=== PATIENT | female | born 1955 | race Two or more races ===

== ENCOUNTER 2018-09-28 13:48 | Inpatient (IN) | payer MEDICARE, MEDICAID ==
[~2018-09-28] VITALS: Ht 162.6 cm; Wt 65.3 kg
[~2018-09-28 13:48] MED LIST: ASPIR 8181 MG ORAL; GABAPENTIN300 MG ORAL; METFORMIN HCL1000 M1 ORAL; NORVASC5 MG ORAL
--- NOTE | 2018-09-28 14:05 | NUR ---
ED Nurse Note: Patient walked into ED c/o of a cut in her right foot, patient states that it has been going on, patient's right foot towards the pinky area is currently infected, there are no open wounds however does have discoloration, patient states that she is unable to feel sensation in her foot due to her diabetes. patient is alert and oriented x4, ambulatory with a steady gait, VSS
[2018-09-28] MEDS ORDERED: Vancomycin 1 GM in NS 275 ML IVPB ONE (15:00)
[2018-09-28 15:22] LABS: ANION GAP 9 mmol/L (5-15); BLOOD UREA NITROGEN 19 mg/dL (7-18); CALCIUM 8.7 MG/DL (8.5-10.1); CARBON DIOXIDE 27 MMOL/L (21-32); CHLORIDE 103 MMOL/L (98-107); CREATININE 1.5 MG/DL (0.55-1.30); POTASSIUM 4.5 MMOL/L (3.5-5.1); SODIUM 139 MMOL/L (136-145)
[2018-09-28 15:26] LABS: BASOPHILS % (AUTO) 1.1 % (0.0-2.0); EOSINOPHILS % (AUTO) 0.5 % (0.0-3.0); HEMATOCRIT 34.8 % (37.0-47.0); HEMOGLOBIN 11.1 G/DL (12.0-16.0); LYMPHOCYTES % (AUTO) 10.8 % (20.0-45.0); MEAN CORPUSCULAR VOLUME 85 FL (80-99); MONOCYTES % (AUTO) 6.1 % (1.0-10.0); NEUTROPHILS % (AUTO) 81.6 % (45.0-75.0); PLATELET COUNT 248 K/UL (150-450); RED BLOOD COUNT 4.09 M/UL (4.20-5.40); WHITE BLOOD COUNT 16.7 K/UL (4.8-10.8)
[2018-09-28 15:32] LABS: ALANINE AMINOTRANSFERASE 21 U/L (12-78); ALBUMIN 3.5 G/DL (3.4-5.0); ALBUMIN/GLOBULIN RATIO 0.8 (1.0-2.7); ALKALINE PHOSPHATASE 74 U/L (46-116); ASPARTATE AMINO TRANSFERASE 18 U/L (15-37); BILIRUBIN,TOTAL 0.5 MG/DL (0.2-1.0)
--- NOTE | 2018-09-28 16:00 | Diagnostic Imaging Report ---
Indication: Infection of the first and fifth toes. With pain Comparison: None Findings: 3 views of the right foot were obtained. There is a focal cortical disruption along the lateral margin of the fifth middle phalange suspicious for acute osteomyelitis. No osteolytic defect identified involving the first toe. No periostitis or soft tissue gas seen. Small vessel arterial calcifications are noted. IMPRESSION: Suspicion of acute osteomyelitis of the fifth toe as described above
[2018-09-28 17:30] VITALS: BP 122/73
--- NOTE | 2018-09-28 17:30 | NUR ---
ED Nurse Note: Patient's temperature was 100.7, Dr. Baumann notified and aware
[2018-09-28 18:59] VITALS: BP 123/72
--- NOTE | 2018-09-28 19:24 | Emergency Room Report ---
History of Present Illness General Chief Complaint: Lower Extremity Injury Source: Patient Present Illness HPI Patient has history of diabetes. Patient presents emergency department today complaint right foot pain and swelling. Patient saw her primary care physician and was concerned about worsening cellulitis came here further medication. Patient does have skin breakdown on her right pinky toe. Symptoms is noted be severe. Patient placed painful ambulation. Denies any fever nausea vomiting diarrhea chills. No other complaint or noted present noted to be severe.No other modifying factors. No other associated signs and symptoms. No other complaints were noted. Allergies: Coded Allergies: No Known Allergies (Verified , 01/25/10) Patient History Past Medical History: DM, HTN, CAD Past Surgical History: none Pertinent Family History: none Social History: Denies: smoking, alcohol use, drug use Reviewed Nursing Documentation: PMH: Agreed; PSxH: Agreed Nursing Documentation-PMH Past Medical History: No History, Except For Hx Cardiac Problems: Yes Hx Hypertension: Yes Hx Diabetes: Yes Hx Cancer: No Hx Gastrointestinal Problems: No Hx Neurological Problems: Yes Hx Peripheral Neuropathy: Yes Review of Systems All Other Systems: negative except mentioned in HPI Physical Exam Vital Signs Date Time Temp Pulse Resp B/P (MAP) Pulse Ox O2 Delivery O2 Flow Rate FiO2 09/28/18 14:02 99.5 101 20 163/70 99 Room Air Sp02 EP Interpretation: reviewed, normal General Appearance: normal inspection, well appearing, no apparent distress, alert Head: atraumatic Eyes: bilateral eye normal inspection ENT: normal ENT inspection, hearing grossly normal, normal voice Neck: normal inspection, full range of motion, supple, no bony tend Respiratory: normal inspection, lungs clear, normal breath sounds, no respiratory distress, no retraction, no wheezing Cardiovascular #1: regular rate, rhythm, no edema Gastrointestinal: normal inspection, normal bowel sounds, non tender, soft, no guarding, no hernia Genitourinary: no CVA tenderness Musculoskeletal: normal inspection, back normal, normal range of motion Neurologic: normal inspection, alert, responsive, speech normal Psychiatric: normal inspection, judgement/insight normal, mood/affect normal Skin: other - right foot redness, cellulitis Medical Decision Making Diagnostic Impression: Primary Impression: Cellulitis ER Course Patient presents emergency department today complaining of redness in her right foot. Differential considerations include abscess, cellulitis, necrotizing fasciitis just name a few. Patient's exam consistent with cellulitis. Given patient is diabetic but work was obtained showing white blood cell count. Patient was started on vancomycin. Case was discussed with admitting physician. Patient be admitted for further treatment. Labs Test 09/28/18 15:00 White Blood Count 16.7 K/UL (4.8-10.8) Red Blood Count 4.09 M/UL (4.20-5.40) Hemoglobin 11.1 G/DL (12.0-16.0) Hematocrit 34.8 % (37.0-47.0) Mean Corpuscular Volume 85 FL (80-99) Mean Corpuscular Hemoglobin 27.2 PG (27.0-31.0) Mean Corpuscular Hemoglobin Concent 32.0 G/DL (32.0-36.0) Red Cell Distribution Width 12.0 % (11.6-14.8) Platelet Count 248 K/UL (150-450) Mean Platelet Volume 6.6 FL (6.5-10.1) Neutrophils (%) (Auto) 81.6 % (45.0-75.0) Lymphocytes (%) (Auto) 10.8 % (20.0-45.0) Monocytes (%) (Auto) 6.1 % (1.0-10.0) Eosinophils (%) (Auto) 0.5 % (0.0-3.0) Basophils (%) (Auto) 1.1 % (0.0-2.0) Prothrombin Time 10.8 SEC (9.30-11.50) Prothromb Time International Ratio 1.0 (0.9-1.1) Activated Partial Thromboplast Time 31 SEC (23-33) Sodium Level 139 MMOL/L (136-145) Potassium Level 4.5 MMOL/L (3.5-5.1) Chloride Level 103 MMOL/L (98-107) Carbon Dioxide Level 27 MMOL/L (21-32) Anion Gap 9 mmol/L (5-15) Blood Urea Nitrogen 19 mg/dL (7-18) Creatinine 1.5 MG/DL (0.55-1.30) Estimat Glomerular Filtration Rate 34.9 mL/min (>60) Glucose Level 163 MG/DL (74-106) Calcium Level 8.7 MG/DL (8.5-10.1) Total Bilirubin 0.5 MG/DL (0.2-1.0) Aspartate Amino Transf (AST/SGOT) 18 U/L (15-37) Alanine Aminotransferase (ALT/SGPT) 21 U/L (12-78) Alkaline Phosphatase 74 U/L (46-116) Total Protein 7.8 G/DL (6.4-8.2) Albumin 3.5 G/DL (3.4-5.0) Globulin 4.3 g/dL Albumin/Globulin Ratio 0.8 (1.0-2.7) Last Vital Signs Date Time Temp Pulse Resp B/P (MAP) Pulse Ox O2 Delivery O2 Flow Rate FiO2 09/28/18 18:59 99.0 76 20 123/72 99 Room Air Status: improved Disposition: ADMITTED INPATIENT Condition: Serious Referrals: NON PHYSICIAN (PCP) Jose D Baumann MD Sep 28, 2018 19:24
[2018-09-28] MEDS ORDERED: Piperacillin/Tazobactam 3.375 GM in NS 110 ML IVPB ONE (19:30)
[2018-09-28] MEDS ORDERED: Vancomycin 1250mg/D5W 275ml IVPB ONE (20:00)
[2018-09-28] MEDS: NovoLOG Insulin Flexpen SUBQ SCH (21:00)
[2018-09-28 21:09] VITALS: BP 122/85
--- NOTE | 2018-09-28 22:00 | NUR ---
ED Nurse Note: Report given to VADIM Ortiz
[2018-09-28 22:15] VITALS: BP 137/58
--- NOTE | 2018-09-28 22:15 | NUR ---
NURSE NOTES: Received pt. from ED via olamide. Pt. transferred to bed without any incident. Oriented pt. to unit, room, and hospital policies. Daughter is at bedside. Received report from VADIM Banegas. gambling monitor is in placed, IV site intact, asymptomatic, and patent. Bed is in the lowest position and locked, call light within reach. Belongings list checked and accounted. No acute distress noted at this time. Admission orders received. Will carry out.
[2018-09-28] MEDS: Heparin 5000 units/ml inj SUBQ SCH (23:16)
[2018-09-29] VITALS: BP 121/60
[2018-09-29 04:00] VITALS: BP 128/57
[2018-09-29] MEDS: NovoLOG Insulin Flexpen SUBQ SCH ×4 (06:23→21:00)
--- NOTE | 2018-09-29 07:41 | NUR ---
HAND-OFF: Report given to VADIM Bah.
--- NOTE | 2018-09-29 07:46 | NUR ---
NURSE NOTES: Received report from VADIM Amador. Patient in bed resting, AO x4, Patient on RA no active s/s cardiac, SR with HR 83, respiratory distress noticed at this time. Denies pain at this time. IV site asymptomatic, patent, intact. Bed in lowest position, side rails up x2, cane at the bed side, call light within reach. Will continue to monitor.
[2018-09-29 08:00] VITALS: BP 137/62
[2018-09-29 08:24] LABS: BASOPHILS % (AUTO) 0.9 % (0.0-2.0); EOSINOPHILS % (AUTO) 1.4 % (0.0-3.0); HEMATOCRIT 28.3 % (37.0-47.0); HEMOGLOBIN 9.1 G/DL (12.0-16.0); LYMPHOCYTES % (AUTO) 17.3 % (20.0-45.0); MEAN CORPUSCULAR VOLUME 84 FL (80-99); MONOCYTES % (AUTO) 5.9 % (1.0-10.0); NEUTROPHILS % (AUTO) 74.5 % (45.0-75.0); PLATELET COUNT 170 K/UL (150-450); RED BLOOD COUNT 3.36 M/UL (4.20-5.40); RED CELL DISTRIBUTION WIDTH 11.7 % (11.6-14.8); WHITE BLOOD COUNT 10.7 K/UL (4.8-10.8)
[2018-09-29 08:42] LABS: ANION GAP 9 mmol/L (5-15); BLOOD UREA NITROGEN 15 mg/dL (7-18); CALCIUM 8.4 MG/DL (8.5-10.1); CARBON DIOXIDE 25 MMOL/L (21-32); CHLORIDE 107 MMOL/L (98-107); CREATININE 1.1 MG/DL (0.55-1.30); POTASSIUM 3.9 MMOL/L (3.5-5.1); SODIUM 141 MMOL/L (136-145)
--- NOTE | 2018-09-29 09:00 | NUR ---
NURSE NOTES: Dr. Ambrosio made aware patient refused to get NovoLog for high BS because patient getting dizziness after administration of NovoLog. Patient's daughter brought bottles of home medication; glipizide and metformin. Per Dr. Ambrosio okay to give glipizide 5 mg BID. Order noted, entered, carried out. Will continue to monitor.
[2018-09-29] MEDS: Aspirin EC 81mg tab ORAL SCH (09:30)
--- NOTE | 2018-09-29 09:30 | NUR ---
NURSE NOTES: Per Dr. Ambrosio, wound consult with Dr. Alonzo. Order noted, entered, carried out. Will continue to monitor.
[2018-09-29] MEDS: Heparin 5000 units/ml inj SUBQ SCH ×2 (09:32→21:34)
--- NOTE | 2018-09-29 09:49 | History and Physical ---
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 She does not feel pain due to chronic numbness from neuropathy. She also reports subjective fever and chills. Temp 100.7. In ED she was treated with vanco and Zosyn and referred for admission. Social history: no alcohol or tobacco Family history: no premature CAD Allergies: Coded Allergies: No Known Allergies (Verified , 01/25/10) Medication History Scheduled Amlodipine Besylate (Norvasc), 5 MG ORAL DAILY, (Reported) Aspirin* (Aspir 81*), 81 MG ORAL DAILY, (Reported) Gabapentin* (Gabapentin*), 300 MG ORAL THREE TIMES A DAY, (Reported) Metformin Hcl* (Metformin Hcl*), 1,000 MG ORAL BID, (Reported) Patient History Healthcare decision maker Resuscitation status Full Code Advanced Directive on File Review of Systems Constitutional: Reports: chills, fever Eye: Denies: eye pain ENT: Denies: ear pain Respiratory: Denies: cough, shortness of breath Cardiovascular: Denies: chest pain, palpitations Gastrointestinal: Denies: abdominal pain, diarrhea Genitourinary: Denies: discharge, dysuria, frequency Musculoskeletal: Denies: back pain Skin: Denies: rash Neurological: Denies: headache Endocrine: Denies: excessive sweating Physical Exam General Appearance: no apparent distress, alert HEENT: normocephalic, atraumatic Neck: non-tender, normal alignment, supple Respiratory/Chest: chest wall non-tender, lungs clear Cardiovascular/Chest: normal peripheral pulses, normal rate Abdomen: normal bowel sounds, non tender Extremities: normal range of motion, non-tender, other - Edema of the right foot with lateral erythema and ulceration 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 grossly normal, no motor/sensory deficits, alert, oriented x 3 Last 24 Hour Vital Signs Date Time Temp Pulse Resp B/P (MAP) Pulse Ox O2 Delivery O2 Flow Rate FiO2 09/29/18 09:31 81 137/62 09/29/18 04:00 83 09/29/18 04:00 98.4 81 19 128/57 (80) 97 09/29/18 00:00 91 09/29/18 00:00 98.4 92 18 121/60 (80) 98 09/28/18 23:24 Room Air 09/28/18 22:40 84 09/28/18 22:15 99.3 89 16 137/58 (84) 98 09/28/18 22:00 98.4 75 18 122/85 97 Room Air 09/28/18 21:09 98.4 75 18 122/85 97 Room Air 09/28/18 18:59 99.0 76 20 123/72 99 Room Air 09/28/18 18:03 99.0 09/28/18 17:30 100.7 72 20 122/73 99 Room Air 09/28/18 14:02 99.5 101 20 163/70 99 Room Air Laboratory Tests Test 09/28/18 15:00 09/28/18 18:52 09/28/18 21:08 09/29/18 07:17 White Blood Count 16.7 K/UL (4.8-10.8) H 10.7 K/UL (4.8-10.8) Red Blood Count 4.09 M/UL (4.20-5.40) L 3.36 M/UL (4.20-5.40) L Hemoglobin 11.1 G/DL (12.0-16.0) L 9.1 G/DL (12.0-16.0) L Hematocrit 34.8 % (37.0-47.0) L 28.3 % (37.0-47.0) L Mean Corpuscular Volume 85 FL (80-99) 84 FL (80-99) Mean Corpuscular Hemoglobin 27.2 PG (27.0-31.0) 27.2 PG (27.0-31.0) Mean Corpuscular Hemoglobin Concent 32.0 G/DL (32.0-36.0) 32.2 G/DL (32.0-36.0) Red Cell Distribution Width 12.0 % (11.6-14.8) 11.7 % (11.6-14.8) Platelet Count 248 K/UL (150-450) 170 K/UL (150-450) Mean Platelet Volume 6.6 FL (6.5-10.1) 6.8 FL (6.5-10.1) Neutrophils (%) (Auto) 81.6 % (45.0-75.0) H 74.5 % (45.0-75.0) Lymphocytes (%) (Auto) 10.8 % (20.0-45.0) L 17.3 % (20.0-45.0) L Monocytes (%) (Auto) 6.1 % (1.0-10.0) 5.9 % (1.0-10.0) Eosinophils (%) (Auto) 0.5 % (0.0-3.0) 1.4 % (0.0-3.0) Basophils (%) (Auto) 1.1 % (0.0-2.0) 0.9 % (0.0-2.0) Prothrombin Time 10.8 SEC (9.30-11.50) Prothromb Time International Ratio 1.0 (0.9-1.1) Activated Partial Thromboplast Time 31 SEC (23-33) Sodium Level 139 MMOL/L (136-145) 141 MMOL/L (136-145) Potassium Level 4.5 MMOL/L (3.5-5.1) 3.9 MMOL/L (3.5-5.1) Chloride Level 103 MMOL/L (98-107) 107 MMOL/L (98-107) Carbon Dioxide Level 27 MMOL/L (21-32) 25 MMOL/L (21-32) Anion Gap 9 mmol/L (5-15) 9 mmol/L (5-15) Blood Urea Nitrogen 19 mg/dL (7-18) H 15 mg/dL (7-18) Creatinine 1.5 MG/DL (0.55-1.30) H 1.1 MG/DL (0.55-1.30) Estimat Glomerular Filtration Rate 34.9 mL/min (>60) 49.9 mL/min (>60) Glucose Level 163 MG/DL (74-106) H 94 MG/DL (74-106) Calcium Level 8.7 MG/DL (8.5-10.1) 8.4 MG/DL (8.5-10.1) L Total Bilirubin 0.5 MG/DL (0.2-1.0) Aspartate Amino Transf (AST/SGOT) 18 U/L (15-37) Alanine Aminotransferase (ALT/SGPT) 21 U/L (12-78) Alkaline Phosphatase 74 U/L (46-116) Total Protein 7.8 G/DL (6.4-8.2) Albumin 3.5 G/DL (3.4-5.0) Globulin 4.3 g/dL Albumin/Globulin Ratio 0.8 (1.0-2.7) L Lactic Acid Level 2.50 mmol/L (0.4-2.0) H 2.40 mmol/L (0.66-2.22) H Height (Feet): 5 Height (Inches): 4.00 Weight (Pounds): 135 Medications Current Medications Medications (Trade) Dose Ordered Sig/Daisha Route PRN Reason Start Time Stop Time Status Last Admin Dose Admin Acetaminophen (Tylenol) 650 mg Q6H PRN ORAL Mild Pain/Temp > 100.5 09/28/18 18:45 10/28/18 18:44 Amlodipine Besylate (Norvasc) 5 mg DAILY ORAL 09/29/18 09:00 10/29/18 08:59 09/29/18 09:31 Aspirin (Ecotrin) 81 mg DAILY ORAL 09/29/18 09:00 10/29/18 08:59 09/29/18 09:30 Dextrose (Dextrose 50%) 25 ml Q30M PRN IV Hypoglycemia 09/28/18 18:45 10/28/18 18:44 Dextrose (Dextrose 50%) 50 ml Q30M PRN IV Hypoglycemia 09/28/18 18:45 10/28/18 18:44 Gabapentin (Neurontin) 300 mg Q8HR ORAL 09/28/18 22:00 10/28/18 21:59 09/29/18 05:49 Heparin Sodium (Porcine) (Heparin 5000 units/ml) 5,000 units EVERY 12 HOURS SUBQ 09/28/18 21:00 10/28/18 20:59 09/29/18 09:32 Insulin Aspart (NovoLOG) BEFORE MEALS AND HS SUBQ 09/28/18 21:00 10/28/18 20:59 Vancomycin HCl (Vanco rx to dose) 1 ea DAILY PRN MISC Per rx protocol 09/28/18 18:45 10/28/18 18:44 Vancomycin HCl 750 mg/Sodium Chloride 275 ml @ 183.333 mls/hr Q24H IVPB 09/29/18 20:00 10/04/18 19:59 Assessment/Plan Assessment/Plan #Right foot cellulitis #Fever 100.7 -admit to medical service -start vancomycin and Zosyn -wound care eval -ID eval #Type 2 DM complicated by peripheral neuropathy -hold metformin while inpatient -continue glipizide -ISS VTE PPx heparin SC Full Code I spent 70 minutes on this patient's case, and 40 minutes was dedicated to counseling and/or care coordination. Mina Ward MD Sep 29, 2018 09:49
[2018-09-29 12:00] VITALS: BP 127/69
[2018-09-29] MEDS: GlipiZIDE 5mg tab ORAL SCH ×2 (12:12→17:35)
[2018-09-29] MEDS: Piperacillin/Tazobactam 3.375 GM in D5W 110 ML IVPB SCH ×2 (12:12→18:20)
[2018-09-29 16:00] VITALS: BP 151/80
--- NOTE | 2018-09-29 19:37 | NUR ---
NURSE NOTES: Received report from VADIM Bah. Patient in bed awake aox4 with no signs of acute distress. Respiration even and non labored on room air. IV line patent and intact. Vitals stable. Call light within reach. Bed in lowest position. Will continue plan of care.
--- NOTE | 2018-09-29 19:38 | NUR ---
HAND-OFF: Report given to VADIM Diaz.
--- NOTE | 2018-09-29 19:46 | Infectious Diseases Prog Note ---
Assessment/Plan Assessment/Plan Full consult dictated: A) 1) right foot cellulitis, right foot 5th toe osteomyelitis/wound infection/ ulcer infection 2) sepsis, leukocytosis, fevers 3) pmh noted P) 1) vancomycin and zosyn 2) check labs, sed rate, arterial studies 3) consider podiatry evaluation 4) ? MRI needed in view of + x-ray for osteomyelitis - defer to podiatry 5) thank you Subjective Allergies: Coded Allergies: No Known Allergies (Verified , 01/25/10) Objective Vital Signs Last 24 Hour Vital Signs Date Time Temp Pulse Resp B/P (MAP) Pulse Ox O2 Delivery O2 Flow Rate FiO2 09/29/18 16:00 85 09/29/18 16:00 100.0 91 20 151/80 (103) 99 09/29/18 12:00 74 09/29/18 12:00 99.5 79 21 127/69 (88) 98 09/29/18 09:31 81 137/62 09/29/18 09:00 Room Air 09/29/18 08:00 98.2 81 19 137/62 (87) 97 09/29/18 08:00 97 09/29/18 04:00 83 09/29/18 04:00 98.4 81 19 128/57 (80) 97 09/29/18 00:00 91 09/29/18 00:00 98.4 92 18 121/60 (80) 98 09/28/18 23:24 Room Air 09/28/18 22:40 84 09/28/18 22:15 99.3 89 16 137/58 (84) 98 09/28/18 22:00 98.4 75 18 122/85 97 Room Air 09/28/18 21:09 98.4 75 18 122/85 97 Room Air Height (Feet): 5 Height (Inches): 4.00 Weight (Pounds): 135 Laboratory Tests Test 09/28/18 21:08 09/29/18 07:17 Lactic Acid Level 2.40 mmol/L (0.66-2.22) H White Blood Count 10.7 K/UL (4.8-10.8) Red Blood Count 3.36 M/UL (4.20-5.40) L Hemoglobin 9.1 G/DL (12.0-16.0) L Hematocrit 28.3 % (37.0-47.0) L Mean Corpuscular Volume 84 FL (80-99) Mean Corpuscular Hemoglobin 27.2 PG (27.0-31.0) Mean Corpuscular Hemoglobin Concent 32.2 G/DL (32.0-36.0) Red Cell Distribution Width 11.7 % (11.6-14.8) Platelet Count 170 K/UL (150-450) Mean Platelet Volume 6.8 FL (6.5-10.1) Neutrophils (%) (Auto) 74.5 % (45.0-75.0) Lymphocytes (%) (Auto) 17.3 % (20.0-45.0) L Monocytes (%) (Auto) 5.9 % (1.0-10.0) Eosinophils (%) (Auto) 1.4 % (0.0-3.0) Basophils (%) (Auto) 0.9 % (0.0-2.0) Sodium Level 141 MMOL/L (136-145) Potassium Level 3.9 MMOL/L (3.5-5.1) Chloride Level 107 MMOL/L (98-107) Carbon Dioxide Level 25 MMOL/L (21-32) Anion Gap 9 mmol/L (5-15) Blood Urea Nitrogen 15 mg/dL (7-18) Creatinine 1.1 MG/DL (0.55-1.30) Estimat Glomerular Filtration Rate 49.9 mL/min (>60) Glucose Level 94 MG/DL (74-106) Calcium Level 8.4 MG/DL (8.5-10.1) L Current Medications Medications (Trade) Dose Ordered Sig/Daisha Route PRN Reason Start Time Stop Time Status Last Admin Dose Admin Acetaminophen (Tylenol) 650 mg Q6H PRN ORAL Mild Pain/Temp > 100.5 09/28/18 18:45 10/28/18 18:44 Amlodipine Besylate (Norvasc) 5 mg DAILY ORAL 09/29/18 09:00 10/29/18 08:59 09/29/18 09:31 Aspirin (Ecotrin) 81 mg DAILY ORAL 09/29/18 09:00 10/29/18 08:59 09/29/18 09:30 Dextrose (Dextrose 50%) 25 ml Q30M PRN IV Hypoglycemia 09/28/18 18:45 10/28/18 18:44 Dextrose (Dextrose 50%) 50 ml Q30M PRN IV Hypoglycemia 09/28/18 18:45 10/28/18 18:44 Gabapentin (Neurontin) 300 mg Q8HR ORAL 09/28/18 22:00 10/28/18 21:59 09/29/18 15:38 Glipizide (Glucotrol) 5 mg BID ORAL 09/29/18 10:45 10/29/18 10:44 09/29/18 17:35 Heparin Sodium (Porcine) (Heparin 5000 units/ml) 5,000 units EVERY 12 HOURS SUBQ 09/28/18 21:00 10/28/18 20:59 09/29/18 09:32 Insulin Aspart (NovoLOG) BEFORE MEALS AND HS SUBQ 09/28/18 21:00 10/28/18 20:59 Piperacillin Sod/ Tazobactam Sod 3.375 gm/Dextrose 110 ml @ 27.5 mls/hr Q8H IVPB 09/29/18 11:00 10/06/18 10:59 09/29/18 18:20 Vancomycin HCl (Vanco rx to dose) 1 ea DAILY PRN MISC Per rx protocol 09/28/18 18:45 10/28/18 18:44 Vancomycin HCl 750 mg/Sodium Chloride 275 ml @ 183.333 mls/hr Q24H IVPB 09/29/18 20:00 10/04/18 19:59 Francisco Piper MD Sep 29, 2018 19:46
[2018-09-29 20:00] VITALS: BP 171/84
[2018-09-29] MEDS ORDERED: Vancomycin 750mg/NS 275ml IVPB SCH ×2 (20:00)
--- NOTE | 2018-09-29 22:40 | Consultation ---
History of Present Illness General Date patient seen: Sep 29, 2018 Chief Complaint: Lower Extremity Injury Reason for Consultation: right foot cellulitis Present Illness HPI 63 year old female with history of uncontrolled diabetes and chronic peripheral neuropathy presented with acutely worsening pain and swelling of right foot/ lower extremity. as pain worsened difficulty walking. Came to ED for evaluation when noted to have right foot cellulitis with etiology possibly 5th necrotic toe. Surgery called to evaluate for cellulitis and possible abscess. Patient seen, chart reviewed, patient examined. Allergies: Coded Allergies: No Known Allergies (Verified , 01/25/10) Medication History Scheduled Amlodipine Besylate (Norvasc), 5 MG ORAL DAILY, (Reported) Aspirin* (Aspir 81*), 81 MG ORAL DAILY, (Reported) Gabapentin* (Gabapentin*), 300 MG ORAL THREE TIMES A DAY, (Reported) Metformin Hcl* (Metformin Hcl*), 1,000 MG ORAL BID, (Reported) Patient History History Provided By: Patient, Medical Record, PMD Healthcare decision maker Resuscitation status Full Code Advanced Directive on File Past Medical/Surgical History Past Medical/Surgical History: (1) Chest pain (2) Uncontrolled diabetes mellitus (3) Foot infection (4) Cellulitis Review of Systems All Other Systems: negative except mentioned in HPI Physical Exam General Appearance: no apparent distress, alert Lines, tubes and drains: peripheral HEENT: mucous membranes moist Neck: normal inspection Respiratory/Chest: no respiratory distress Cardiovascular/Chest: normal rate Abdomen: soft, no organomegaly, no mass Extremities: inflammation, other Skin Exam: normal pigmentation Neurologic: alert, responsive Last 24 Hour Vital Signs Date Time Temp Pulse Resp B/P (MAP) Pulse Ox O2 Delivery O2 Flow Rate FiO2 09/29/18 16:00 85 09/29/18 16:00 100.0 91 20 151/80 (103) 99 09/29/18 12:00 74 09/29/18 12:00 99.5 79 21 127/69 (88) 98 09/29/18 09:31 81 137/62 09/29/18 09:00 Room Air 09/29/18 08:00 98.2 81 19 137/62 (87) 97 09/29/18 08:00 97 09/29/18 04:00 83 09/29/18 04:00 98.4 81 19 128/57 (80) 97 09/29/18 00:00 91 09/29/18 00:00 98.4 92 18 121/60 (80) 98 09/28/18 23:24 Room Air 09/28/18 22:40 84 Intake and Output 09/28/18 09/29/18 18:59 06:59 # Voids 1 2 # Bowel Movements 1 Laboratory Tests Test 09/29/18 07:17 White Blood Count 10.7 K/UL (4.8-10.8) Red Blood Count 3.36 M/UL (4.20-5.40) L Hemoglobin 9.1 G/DL (12.0-16.0) L Hematocrit 28.3 % (37.0-47.0) L Mean Corpuscular Volume 84 FL (80-99) Mean Corpuscular Hemoglobin 27.2 PG (27.0-31.0) Mean Corpuscular Hemoglobin Concent 32.2 G/DL (32.0-36.0) Red Cell Distribution Width 11.7 % (11.6-14.8) Platelet Count 170 K/UL (150-450) Mean Platelet Volume 6.8 FL (6.5-10.1) Neutrophils (%) (Auto) 74.5 % (45.0-75.0) Lymphocytes (%) (Auto) 17.3 % (20.0-45.0) L Monocytes (%) (Auto) 5.9 % (1.0-10.0) Eosinophils (%) (Auto) 1.4 % (0.0-3.0) Basophils (%) (Auto) 0.9 % (0.0-2.0) Sodium Level 141 MMOL/L (136-145) Potassium Level 3.9 MMOL/L (3.5-5.1) Chloride Level 107 MMOL/L (98-107) Carbon Dioxide Level 25 MMOL/L (21-32) Anion Gap 9 mmol/L (5-15) Blood Urea Nitrogen 15 mg/dL (7-18) Creatinine 1.1 MG/DL (0.55-1.30) Estimat Glomerular Filtration Rate 49.9 mL/min (>60) Glucose Level 94 MG/DL (74-106) Calcium Level 8.4 MG/DL (8.5-10.1) L Height (Feet): 5 Height (Inches): 4.00 Weight (Pounds): 135 Medications Current Medications Medications (Trade) Dose Ordered Sig/Daisha Route PRN Reason Start Time Stop Time Status Last Admin Dose Admin Acetaminophen (Tylenol) 650 mg Q6H PRN ORAL Mild Pain/Temp > 100.5 09/28/18 18:45 10/28/18 18:44 Amlodipine Besylate (Norvasc) 5 mg DAILY ORAL 09/29/18 09:00 10/29/18 08:59 09/29/18 09:31 Aspirin (Ecotrin) 81 mg DAILY ORAL 09/29/18 09:00 10/29/18 08:59 09/29/18 09:30 Dextrose (Dextrose 50%) 25 ml Q30M PRN IV Hypoglycemia 09/28/18 18:45 10/28/18 18:44 Dextrose (Dextrose 50%) 50 ml Q30M PRN IV Hypoglycemia 09/28/18 18:45 10/28/18 18:44 Gabapentin (Neurontin) 300 mg Q8HR ORAL 09/28/18 22:00 10/28/18 21:59 09/29/18 21:31 Glipizide (Glucotrol) 5 mg BID ORAL 09/29/18 10:45 10/29/18 10:44 09/29/18 17:35 Heparin Sodium (Porcine) (Heparin 5000 units/ml) 5,000 units EVERY 12 HOURS SUBQ 09/28/18 21:00 10/28/18 20:59 09/29/18 21:34 Insulin Aspart (NovoLOG) BEFORE MEALS AND HS SUBQ 09/28/18 21:00 10/28/18 20:59 Piperacillin Sod/ Tazobactam Sod 3.375 gm/Dextrose 110 ml @ 27.5 mls/hr Q8H IVPB 09/29/18 11:00 10/06/18 10:59 09/29/18 18:20 Vancomycin HCl (Vanco rx to dose) 1 ea DAILY PRN MISC Per rx protocol 09/28/18 18:45 10/28/18 18:44 Vancomycin HCl 750 mg/Sodium Chloride 275 ml @ 183.333 mls/hr Q24H IVPB 09/29/18 20:00 10/04/18 19:59 09/29/18 21:31 Assessment/Plan Problem List: (1) Cellulitis Assessment & Plan: right foot cellulitis, sepsis, fevers, leukocytosis Plain film with likely acute osteo no abscess noted on exam earlier today but tender, warm, erythema, and ischemia to 5th toe no acute general surgery intervention planned at this time Cont IV abx as per ID Recommend Podiatry consult. likely MRI and possible toe amputation if deemed not salvageable. thank you will follow with recs. ICD Codes: L03.90 - Cellulitis, unspecified SNOMED: [id number] Qualifiers: Qualified Codes: L03.115 - Cellulitis of right lower limb Nathaniel Alonzo Sep 29, 2018 22:40
[2018-09-30] VITALS: BP 122/62
--- NOTE | 2018-09-30 01:45 | Consultation ---
DATE OF CONSULTATION: 09/29/2018 INFECTIOUS DISEASES CONSULTATION CONSULTING PHYSICIAN: Francisco Piper M.D. ATTENDING PHYSICIAN: Kami Fatima M.D. REFERRING PHYSICIAN: Kami Fatima M.D. REASON FOR CONSULTATION: Right foot cellulitis and right foot fifth toe infected wound and osteo, infected ulcer, possible sepsis, leukocytosis, and fevers. CHIEF COMPLAINT: The patient's chief complaint coming in to the hospital is foot infection of the right foot. HISTORY OF PRESENT ILLNESS: This is a very pleasant 63-year-old female who has a history of diabetes. The patient noted over the past week a right foot cellulitis, redness, and warmth. The patient also has on the side of her right foot fifth toe a wound. X-ray showed osteo of the right foot fifth toe. The patient also could be septic with elevated white count. Infectious Disease consultation was requested for antibiotic management. The patient currently is on vancomycin and Zosyn. Arterial studies have been ordered. Also, it looks like there could be some ischemic changes of the right foot fifth toe. The patient is okay on vancomycin and Zosyn for now. MAR was noted. Orders were noted. Records were reviewed. REVIEW OF SYSTEMS: CONSTITUTIONAL: The patient has generalized fatigue, but no new focal weakness. She has fevers. No shaking chills currently. HEAD AND NECK: No head pain, neck pain, neck stiffness, thrush, or dysphagia. CARDIAC: No chest pain or palpitations. GASTROINTESTINAL: No nausea, vomiting, abdominal pain, or diarrhea. GENITOURINARY: No dysuria or frequency. PULMONARY: No congestion or hemoptysis with mild secretions. SKIN: No rash. EXTREMITIES: She has right foot pain. NEUROLOGIC: No seizures. No weight loss or night sweats. GENITOURINARY: She has no CVA tenderness. PAST MEDICAL HISTORY: The patient's past medical history includes history of following. She has a history of anemia, looks like also at this time. She has a history of diabetes, hypertension, and CAD. She has a history of neurological issues and neuropathy. ALLERGIES: No known drug allergies. No antibiotic allergies. SOCIAL HISTORY: Negative for smoking, alcohol, or drug abuse. FAMILY HISTORY: Noncontributory. Negative for tuberculosis or cancer. MEDICATIONS: On reviewing the MAR, she is on the following medications. She is on glipizide, amlodipine, aspirin, gabapentin, heparin, insulin, acetaminophen, and antibiotics of vancomycin and Zosyn. Outside medications are noted and reconciliated. PHYSICAL EXAMINATION: VITAL SIGNS: Temperature is 100.0, pulse rate 91, respiratory rate 20, blood pressure 151/80, and saturation 99%. Temperature as high as 100.7 and heart rate has been as high as 101. GENERAL: Alert and responsive, in no acute distress. She is oriented x3. HEAD AND NECK: Oral exam, no thrush. Eye exam, no icterus. Neck is supple. No JVD. Normocephalic. HEART: Regular. No gallop or murmur. No friction rub. ABDOMEN: Soft. Positive bowel sounds and nontender. LUNGS: Clear bilaterally. No rhonchi or rales. SKIN: No rash. MUSCULOSKELETAL: No effusion. Legs have cellulitis. No evidence of septic arthritis. Right foot exam, she has right foot redness and warmth consistent with significant cellulitis. She also has a right foot fifth toe ischemic changes and she had right up ulcer on the side of the right foot fifth toe. LINES: Line sites without phlebitis. GENITOURINARY: No Rangel. No CVA tenderness. NEUROLOGIC: She is alert and oriented x3. Intact. LABORATORY DATA: White count 10.7 and hemoglobin 9.1. White count has been as high as 16.7 on admission. Creatinine on admission 1.5, now it is 1.1. LFTs were noted. UA and C and S has been ordered. X-ray of her right foot shows acute right foot fifth toe osteo. Cultures are pending. ASSESSMENT AND PLAN: 1. The patient has right foot cellulitis with warmth and redness and she has acute right foot fifth toe osteomyelitis/infected wound and ulcer that is dried up at this time. She has sepsis, leukocytosis, fevers, and SIRS criteria with tachycardia. I will continue vancomycin and Zosyn for MRSA gram-negative coverage. Vancomycin will cover MRSA and Zosyn has very excellent gram-negative anaerobic coverage. There is no culture from the right foot fifth toe wound, it is dried up at this time. I will also get arterial studies. This looks like there are some ischemic changes in the right foot fifth toe. Check sedimentation rate and labs. I would also consider Podiatry evaluation and the patient may need an MRI in addition to vascular studies, which I have ordered. The patient's x-ray shows right foot fifth toe osteo. It is unclear if an MRI would help at this time, however, the Podiatry feels it needs further imaging. I will defer to them to get MRI of the right foot. Continue vancomycin and Zosyn. Check cultures, labs, and chest x-ray. Monitor the patient's right foot for cellulitis, warmth, and redness and the patient may need 6 weeks of antibiotics for the right foot fifth toe osteo, wound infection, and ulcer infection. 2. Sepsis, fevers, and leukocytosis. Continue vancomycin and Zosyn. Check cultures. 3. Diabetes. 4. Anemia. 5. Hypertension. 6. Blood sugar and blood pressure treatment for diabetes and hypertension per primary. 7. Acute kidney injury, elevated creatinine, it has improved. 8. History of CAD. 9. Neuropathy. 10. Past medical history noted. 11. No known drug allergies. 12. Social history negative. 13. Family history is noncontributory. 14. MAR was noted. 15. Case discussed with RN. 16. Continue treatment per primary consultants. 17. Notes and records were noted. Orders were entered. Bhavana Guthrie JOB#: [id number] CC: JIMMY
[2018-09-30] MEDS: Piperacillin/Tazobactam 3.375 GM in D5W 110 ML IVPB SCH ×3 (03:14→18:04)
[2018-09-30 03:47] LABS: APPEARANCE,URINE CLEAR; BILIRUBIN, URINE NEGATIVE (NEGATIVE); COLOR,URINE PALE YELLOW; GLUCOSE, URINE (UA) NEGATIVE (NEGATIVE); KETONES,URINE NEGATIVE (NEGATIVE); LEUKOCYTE ESTERASE ,URINE 1+ (NEGATIVE); NITRITE,URINE NEGATIVE (NEGATIVE); PH,URINE 6.5 (4.5-8.0); PROTEIN,URINE 2+ (NEGATIVE); UROBILINOGEN,URINE NORMAL MG/DL (0.0-1.0)
[2018-09-30 04:00] VITALS: BP 134/71
[2018-09-30] MEDS: NovoLOG Insulin Flexpen SUBQ SCH ×4 (06:09→21:00)
[2018-09-30 06:42] LABS: BASOPHILS % (AUTO) 0.9 % (0.0-2.0); HEMATOCRIT 28.2 % (37.0-47.0); HEMOGLOBIN 9.1 G/DL (12.0-16.0); LYMPHOCYTES % (AUTO) 21.3 % (20.0-45.0); MEAN CORPUSCULAR VOLUME 85 FL (80-99); MONOCYTES % (AUTO) 7.5 % (1.0-10.0); NEUTROPHILS % (AUTO) 68.3 % (45.0-75.0); PLATELET COUNT 182 K/UL (150-450); RED BLOOD COUNT 3.33 M/UL (4.20-5.40); RED CELL DISTRIBUTION WIDTH 11.8 % (11.6-14.8); WHITE BLOOD COUNT 9.9 K/UL (4.8-10.8)
[2018-09-30 06:55] LABS: ANION GAP 8 mmol/L (5-15); BLOOD UREA NITROGEN 9 mg/dL (7-18); CALCIUM 8.4 MG/DL (8.5-10.1); CARBON DIOXIDE 27 MMOL/L (21-32); CHLORIDE 106 MMOL/L (98-107); CREATININE 1.1 MG/DL (0.55-1.30); POTASSIUM 3.8 MMOL/L (3.5-5.1); SODIUM 141 MMOL/L (136-145)
--- NOTE | 2018-09-30 07:07 | NUR ---
HAND-OFF: Report given to VADIM Bah.
--- NOTE | 2018-09-30 07:08 | NUR ---
NURSE NOTES: Received report from VADIM Diaz. Patient in bed resting, SR with BBB HR 64, IV running at prescribed rate, IV site asymptomatic, patent, intact. No active s/s cardiac, respiratory distress noticed at this time. Denies pain at this time. Bed in lowest position, side rails up x2, call light within reach. Will continue to monitor.
[2018-09-30 08:00] VITALS: BP 140/63
[2018-09-30] MEDS: Aspirin EC 81mg tab ORAL SCH (09:25)
[2018-09-30] MEDS: GlipiZIDE 5mg tab ORAL SCH ×2 (09:25→18:03)
[2018-09-30] MEDS: Heparin 5000 units/ml inj SUBQ SCH ×2 (09:27→22:16)
--- NOTE | 2018-09-30 09:28 | General Progress Note ---
Assessment/Plan Assessment/Plan #Right foot cellulitis, possible acute osteomyelitis #Fever 100.7 -continue inpatient care -continue vancomycin and Zosyn -obtain MRI foot to eval for osteo -Will consult podiatry to evaluate for toe amputation -wound care eval appreciated -ID eval appreciated #Type 2 DM complicated by peripheral neuropathy -hold metformin while inpatient -continue glipizide -ISS VTE PPx heparin SC Full Code I spent 70 minutes on this patient's case, and 35 minutes was dedicated to counseling and/or care coordination. Subjective Date patient seen: Sep 30, 2018 Time patient seen: 08:25 ROS Limited/Unobtainable: No Constitutional: Denies: chills, fever Cardiovascular: Denies: chest pain, edema, irregular heart rate Respiratory: Denies: cough, orthopnea Gastrointestinal/Abdominal: Denies: abdomen distended, abdominal pain Genitourinary: Denies: burning Neurologic/Psychiatric: Denies: anxiety Allergies: Coded Allergies: No Known Allergies (Verified , 01/25/10) Subjective Medicine followup for right foot cellulitis, possible acute osteomyelitis. She feels better. No fever or chills. Objective Last 24 Hour Vital Signs Date Time Temp Pulse Resp B/P (MAP) Pulse Ox O2 Delivery O2 Flow Rate FiO2 09/30/18 04:00 97.7 69 18 134/71 (92) 98 09/30/18 04:00 64 09/30/18 00:00 70 09/30/18 00:00 98.2 77 19 122/62 (82) 97 09/29/18 21:00 Room Air 09/29/18 20:00 97.9 99 19 171/84 (113) 98 09/29/18 20:00 97 09/29/18 16:00 85 09/29/18 16:00 100.0 91 20 151/80 (103) 99 09/29/18 12:00 74 09/29/18 12:00 99.5 79 21 127/69 (88) 98 09/29/18 09:31 81 137/62 Intake and Output 09/29/18 09/30/18 19:00 07:00 Intake Total 500 ml Balance 500 ml Intake Oral 500 ml # Voids 2 3 Laboratory Tests 09/30/18 03:00: Urine Color Pale yellow, Urine Appearance Clear, Urine pH 6.5, Urine Specific [place] 1.005, Urine Protein 2+H, Urine Glucose (UA) Negative, Urine Ketones Negative, Urine Blood 1+H, Urine Nitrite Negative, Urine Bilirubin Negative, Urine Urobilinogen Normal, Urine Leukocyte Esterase 1+H, Urine RBC 0-2, Urine WBC 0-2, Urine Squamous Epithelial Cells Occasional, Urine Bacteria None 09/30/18 05:45: White Blood Count 9.9, Red Blood Count 3.33L, Hemoglobin 9.1L, Hematocrit 28.2L , Mean Corpuscular Volume 85, Mean Corpuscular Hemoglobin 27.5, Mean Corpuscular Hemoglobin Concent 32.4, Red Cell Distribution Width 11.8, Platelet Count 182, Mean Platelet Volume 6.7, Neutrophils (%) (Auto) 68.3, Lymphocytes (% ) (Auto) 21.3, Monocytes (%) (Auto) 7.5, Eosinophils (%) (Auto) 2.0, Basophils ( %) (Auto) 0.9, Erythrocyte Sedimentation Rate 94H, Sodium Level 141, Potassium Level 3.8, Chloride Level 106, Carbon Dioxide Level 27, Anion Gap 8, Blood Urea Nitrogen 9, Creatinine 1.1, Estimat Glomerular Filtration Rate 49.9, Glucose Level 84, Calcium Level 8.4L Height (Feet): 5 Height (Inches): 4.00 Weight (Pounds): 135 General Appearance: no apparent distress, alert Neck: non-tender, normal alignment Cardiovascular: normal peripheral pulses, normal rate Respiratory/Chest: chest wall non-tender, lungs clear Abdomen: normal bowel sounds, non tender Extremities: other - Mild swelling of doral right foot Mina Ward MD Sep 30, 2018 09:28
[2018-09-30] MEDS ORDERED: Gadavist 7.5mMol/7.5ml vial IV PRN (09:30)
[2018-09-30] MEDS ORDERED: NS 275ml ONE ×2 (10:37)
[2018-09-30] MEDS ORDERED: Tubing IV Secondary IV ONE (10:37)
--- NOTE | 2018-09-30 11:08 | Surgery Progress Note ---
Surgery Progress Note Subjective Additional Comments no acute events. comfortable. family at bedside. no pain as her feet are always numb. labs noted. micro noted. Objective Last 24 Hour Vital Signs Date Time Temp Pulse Resp B/P (MAP) Pulse Ox O2 Delivery O2 Flow Rate FiO2 09/30/18 09:26 84 140/63 09/30/18 09:00 Room Air 09/30/18 08:00 99.1 84 18 140/63 (88) 96 09/30/18 04:00 97.7 69 18 134/71 (92) 98 09/30/18 04:00 64 09/30/18 00:00 70 09/30/18 00:00 98.2 77 19 122/62 (82) 97 09/29/18 21:00 Room Air 09/29/18 20:00 97.9 99 19 171/84 (113) 98 09/29/18 20:00 97 09/29/18 16:00 85 09/29/18 16:00 100.0 91 20 151/80 (103) 99 09/29/18 12:00 74 09/29/18 12:00 99.5 79 21 127/69 (88) 98 I&O Intake and Output 09/29/18 09/30/18 19:00 07:00 Intake Total 500 ml Balance 500 ml Intake Oral 500 ml # Voids 2 3 Dressing: dry Wound: other Drains: other Cardiovascular: RSR Respiratory: clear Abdomen: soft, present bowel sounds Extremities: cyanosis, other Laboratory Tests Test 09/30/18 03:00 09/30/18 05:45 Urine Color Pale yellow Urine Appearance Clear Urine pH 6.5 (4.5-8.0) Urine Specific [place] 1.005 (1.005-1.035) Urine Protein 2+ (NEGATIVE) H Urine Glucose (UA) Negative (NEGATIVE) Urine Ketones Negative (NEGATIVE) Urine Blood 1+ (NEGATIVE) H Urine Nitrite Negative (NEGATIVE) Urine Bilirubin Negative (NEGATIVE) Urine Urobilinogen Normal MG/DL (0.0-1.0) Urine Leukocyte Esterase 1+ (NEGATIVE) H Urine RBC 0-2 /HPF (0 - 2) Urine WBC 0-2 /HPF (0 - 2) Urine Squamous Epithelial Cells Occasional /LPF Urine Bacteria None /HPF (NONE) White Blood Count 9.9 K/UL (4.8-10.8) Red Blood Count 3.33 M/UL (4.20-5.40) L Hemoglobin 9.1 G/DL (12.0-16.0) L Hematocrit 28.2 % (37.0-47.0) L Mean Corpuscular Volume 85 FL (80-99) Mean Corpuscular Hemoglobin 27.5 PG (27.0-31.0) Mean Corpuscular Hemoglobin Concent 32.4 G/DL (32.0-36.0) Red Cell Distribution Width 11.8 % (11.6-14.8) Platelet Count 182 K/UL (150-450) Mean Platelet Volume 6.7 FL (6.5-10.1) Neutrophils (%) (Auto) 68.3 % (45.0-75.0) Lymphocytes (%) (Auto) 21.3 % (20.0-45.0) Monocytes (%) (Auto) 7.5 % (1.0-10.0) Eosinophils (%) (Auto) 2.0 % (0.0-3.0) Basophils (%) (Auto) 0.9 % (0.0-2.0) Erythrocyte Sedimentation Rate 94 MM/HR (0-30) H Sodium Level 141 MMOL/L (136-145) Potassium Level 3.8 MMOL/L (3.5-5.1) Chloride Level 106 MMOL/L (98-107) Carbon Dioxide Level 27 MMOL/L (21-32) Anion Gap 8 mmol/L (5-15) Blood Urea Nitrogen 9 mg/dL (7-18) Creatinine 1.1 MG/DL (0.55-1.30) Estimat Glomerular Filtration Rate 49.9 mL/min (>60) Glucose Level 84 MG/DL (74-106) Calcium Level 8.4 MG/DL (8.5-10.1) L Plan Problems: (1) Cellulitis Assessment & Plan: right foot cellulitis, sepsis, fevers, leukocytosis Plain film with likely acute osteo no abscess noted on exam earlier today but tender, warm, erythema, and ischemia to 5th toe no acute general surgery intervention planned at this time Cont IV abx as per ID Appreciate Podiatry input MRI ordered thank you will follow with recs. Nathaniel Alonzo Sep 30, 2018 11:08
[2018-09-30 12:00] VITALS: BP 159/66
--- NOTE | 2018-09-30 14:30 | NUR ---
NURSE NOTES: Dr. Ambrosio aware Dr. Thompson requesting for vascular consult. Per Dr. Ambrosio, put Dr. Daly as vascular consult. Order entered, noted, carried out. Will continue to monitor.
--- NOTE | 2018-09-30 15:23 | Diagnostic Imaging Report ---
Indication: Cellulitis of the foot Technique: Right foot imaging utilizing multiplanar T1 fast spin-echo, proton and T2 fast spin-echo with fat saturation, and STIR. Comparison: None Findings: There is abnormal low T1-high T2 signal within the mid and distal fifth phalange consistent with acute osteoarthritis. There is a moderate degree of surrounding soft tissue edema. Plain film shows a corresponding hayde erosive lesion. There is T2 hyperintense edema demonstrated within the proximal fifth phalange with the T1 signal relatively preserved. The remainder of the osseous structures demonstrate normal signal. IMPRESSION: Acute osteomyelitis of the mid and distal fifth phalange. Nonspecific bone marrow edema present within the fifth proximal phalange. Osteomyelitis is not excluded, although findings are probably due to reactive bone marrow edema
[2018-09-30 16:00] VITALS: BP 147/67
--- NOTE | 2018-09-30 18:49 | NUR ---
CASE MANAGEMENT: REVIEW 63/F PRESENTED TO ED FROM PCP OFFICE CC: TOE INFECTION SI: CELLULITIS . ISCHEMIA OF 5TH TOE T 100.7 HR 72 RR 20 BP 122/73 SAT 99% ROOM AIR WBC 16.7 BUN 19 CR 1.5 GLUCOSE 163 IS: ZOSYN IV X1 NS IVF BOLUS X1 VANCO IV X1 TYLENOL PO X1 PATIENT ADMITTED TO TELEMETRY UNIT 09/28/2018 DCP: PATIENT IS FROM HOME
--- NOTE | 2018-09-30 19:50 | NUR ---
NURSE NOTES: Received pt from VADIM Bah. Pt awake, alert, and talkative. Bed in lowest position. Call light within reach. Will continue to monitor.
[2018-09-30 20:00] VITALS: BP 142/62
--- NOTE | 2018-09-30 20:24 | NUR ---
HAND-OFF: Report given to VADIM Bryant.
[2018-09-30] MEDS: Vancomycin 750mg/NS 275ml IVPB SCH ×2 (22:17)
--- NOTE | 2018-09-30 23:37 | Cardiology Report ---
APPROVED REPORT EKG Measurement Heart [id number] [place] [id number] Normal sinus rhythm Anterior infarct, age undetermined T wave abnormality, consider lateral ischemia IVCD Abnormal ECG
[2018-10-01] VITALS: BP 140/69
[2018-10-01] MEDS: Piperacillin/Tazobactam 3.375 GM in D5W 110 ML IVPB SCH ×3 (03:00→18:21)
[2018-10-01 04:00] VITALS: BP 137/75
--- NOTE | 2018-10-01 04:22 | NUR ---
NURSE NOTES: Withdrew zosyn from ER [facility] but pt wanted a break from IV meds so med not given yet. Will start at around 7 per pt request
[2018-10-01] MEDS: NovoLOG Insulin Flexpen SUBQ SCH ×4 (05:30→21:00)
--- NOTE | 2018-10-01 07:18 | NUR ---
HAND-OFF: Report given to VADIM Duarte. Pt stable.
--- NOTE | 2018-10-01 07:25 | NUR ---
NURSE NOTES: Received report from Gavi Bryant. Pt is sleeping in bed. Bed is in lowest position, side rails up X2, and call light is within reach. Will continue to monitor.
[2018-10-01 08:00] VITALS: BP 116/65
[2018-10-01] MEDS: Vancomycin 750mg/NS 275ml IVPB SCH ×4 (08:00→20:00)
[2018-10-01] MEDS: GlipiZIDE 5mg tab ORAL SCH ×2 (09:03→18:21)
[2018-10-01] MEDS: Aspirin EC 81mg tab ORAL SCH (09:03)
[2018-10-01] MEDS: Heparin 5000 units/ml inj SUBQ SCH ×2 (09:05→21:00)
--- NOTE | 2018-10-01 10:12 | General Progress Note ---
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 Subjective Date patient seen: Oct 01, 2018 Time patient seen: 09:00 Constitutional: Denies: chills, fever Cardiovascular: Denies: chest pain Respiratory: Denies: cough Gastrointestinal/Abdominal: Denies: abdomen distended, abdominal pain Allergies: Coded Allergies: No Known Allergies (Verified , 01/25/10) Subjective Medicine followup for right foot cellulitis, osteomyelitis. Denies fever and chills.. Objective Last 24 Hour Vital Signs Date Time Temp Pulse Resp B/P (MAP) Pulse Ox O2 Delivery O2 Flow Rate FiO2 10/01/18 09:03 71 116/65 10/01/18 08:00 97.5 71 18 116/65 (82) 98 10/01/18 04:00 72 10/01/18 04:00 97.6 80 20 137/75 (95) 98 10/01/18 00:00 63 10/01/18 00:00 100.4 72 20 140/69 (92) 98 09/30/18 21:00 Room Air 09/30/18 20:00 75 09/30/18 20:00 98.0 75 20 142/62 (88) 98 09/30/18 16:00 99.3 81 18 147/67 (93) 83 09/30/18 16:00 83 09/30/18 12:00 83 09/30/18 12:00 99.6 81 18 159/66 (97) 96 Intake and Output 09/30/18 10/01/18 19:00 07:00 Intake Total 480 ml Balance 480 ml Intake Oral 480 ml # Voids 4 3 Laboratory Tests 09/30/18 18:55: Vancomycin Level Trough 5.6 Height (Feet): 5 Height (Inches): 4.00 Weight (Pounds): 135 General Appearance: no apparent distress, alert EENT: normal ENT inspection Neck: non-tender Cardiovascular: normal rate, regular rhythm Respiratory/Chest: lungs clear, normal breath sounds Abdomen: non tender Extremities: other - Necrotic 5th toe with mild surrounding erythema nd swelling Mina Ward MD Oct 01, 2018 10:12
[2018-10-01 12:00] VITALS: BP 130/67
--- NOTE | 2018-10-01 12:23 | NUR ---
NURSE NOTES: patient keeps wanting to take breaks from her antibiotics. Does not want another IV access.
--- NOTE | 2018-10-01 12:38 | Surgery Progress Note ---
Surgery Progress Note Subjective Additional Comments no acute events. comfortable. MRI results noted Objective Last 24 Hour Vital Signs Date Time Temp Pulse Resp B/P (MAP) Pulse Ox O2 Delivery O2 Flow Rate FiO2 10/01/18 09:03 71 116/65 10/01/18 09:00 Room Air 10/01/18 08:00 97.5 71 18 116/65 (82) 98 10/01/18 08:00 73 10/01/18 04:00 72 10/01/18 04:00 97.6 80 20 137/75 (95) 98 10/01/18 00:00 63 10/01/18 00:00 100.4 72 20 140/69 (92) 98 09/30/18 21:00 Room Air 09/30/18 20:00 75 09/30/18 20:00 98.0 75 20 142/62 (88) 98 09/30/18 16:00 99.3 81 18 147/67 (93) 83 09/30/18 16:00 83 I&O Intake and Output 09/30/18 10/01/18 19:00 07:00 Intake Total 480 ml Balance 480 ml Intake Oral 480 ml # Voids 4 3 Dressing: dry Wound: other Drains: other Cardiovascular: RSR Respiratory: clear Abdomen: soft, present bowel sounds, non-distended Extremities: cyanosis Laboratory Tests Test 09/30/18 18:55 Vancomycin Level Trough 5.6 ug/mL (5.0-12.0) Plan Problems: (1) Cellulitis Assessment & Plan: right foot cellulitis, sepsis, fevers, leukocytosis Plain film with likely acute osteo no abscess noted on exam earlier today but tender, warm, erythema, and ischemia to 5th toe MRI - Acute osteomyelitis of the mid and distal fifth phalange. Nonspecific bone marrow edema present within the fifth proximal phalange. Osteomyelitis is not excluded, although findings are probably due to reactive bone marrow edema no acute general surgery intervention planned at this time Cont IV abx as per ID Appreciate Podiatry input thank you will follow with nyla. Nathaniel Alonzo Oct 01, 2018 12:38
--- NOTE | 2018-10-01 12:42 | NUR ---
NURSE NOTES: Per elan Teixeira to transfer patient to Med Surg
--- NOTE | 2018-10-01 15:01 | NUR ---
NURSE NOTES: Called pharmacy regarding patient not being compliant with her antibiotics and how she keeps wanting to take a break from them. She stated that if patient wants to take antibiotics now she can retime them.
[2018-10-01 16:00] VITALS: BP 113/67
--- NOTE | 2018-10-01 16:16 | Podiatric Progress Note ---
Assessment/Plan Patient Anisa Liang is a 63 year old female who was admitted on Sep 28, 2018 at 16 :03 with Problems: (1) Diabetes mellitus type 2 with neurological manifestations (2) Foot ulcer due to secondary DM (3) Cellulitis, toe (4) Foot infection (5) Uncontrolled diabetes mellitus Assessment/Plan Continue IV abx per ID Continue Betadine application. Time was taken to speak with the patient and family. Patient agreed to amputated the toe. consent was signed. Patient will be taken to OR for amputation of the R 5th toe with bone biopsy. Subjective Reason for consult R 5th toe necrosis Dm infection Allergies: Coded Allergies: No Known Allergies (Verified , 01/25/10) Subjective Patient is seen by bed side in NAD. Patient was admitted to floor by ER for infected R 5th toe with possible Osteomyelitis. Patient noticed her toe swelling and getting infected soon turning darker in color and decided to go to the ER for treatment and evaluation. Patient has been seen by ID and placed on IV abx. MRI is positive for Osteo of the R 5th toe bones. she is afebrile and wbc wnl. Objective Exam Last 24 Hour Vital Signs Date Time Temp Pulse Resp B/P (MAP) Pulse Ox O2 Delivery O2 Flow Rate FiO2 10/01/18 12:00 98.7 67 18 130/67 (88) 100 10/01/18 12:00 68 10/01/18 09:03 71 116/65 10/01/18 09:00 Room Air 10/01/18 08:00 97.5 71 18 116/65 (82) 98 10/01/18 08:00 73 10/01/18 04:00 72 10/01/18 04:00 97.6 80 20 137/75 (95) 98 10/01/18 00:00 63 10/01/18 00:00 100.4 72 20 140/69 (92) 98 09/30/18 21:00 Room Air 09/30/18 20:00 75 09/30/18 20:00 98.0 75 20 142/62 (88) 98 Laboratory Tests Test 09/30/18 18:55 Vancomycin Level Trough 5.6 ug/mL (5.0-12.0) Microbiology Date/Time Source Procedure Growth Status 09/28/18 17:30 Blood Blood Culture - Preliminary NO GROWTH AFTER 24 HOURS Resulted Vascular Pulses: 2 dorsalis pedis (R), 2 dorsalis pedis (L), 2 posterior tibial (R), 2 posterior tibial (L) Edema: 1+ (<2mm) foot (R), 1+ (<2mm) ankle (R) Neurological Light touch: decreased sensation right, decreased sensation left Dermatological Dermatological Narrative R 5th toe noted to be necrotic , discolored, swollen, ++ odor drainage and pus. Cellulitis is noted to dorsum from the 5th toe and to lateral foot. Uzair Thompson DPM Oct 01, 2018 16:16
--- NOTE | 2018-10-01 16:58 | NUR ---
NURSE NOTES: Patient wants to continue taking breaks from her antibiotics. Dr. Thompson and Dr. Piper made aware.
--- NOTE | 2018-10-01 17:06 | NUR ---
NURSE NOTES: Signed consent for amputation of the right 5th toe is in patients chart.
--- NOTE | 2018-10-01 17:50 | NUR ---
NURSE NOTES: Patient is complaining of constipation. Contacted Dr. Ambrosio regarding possible order for a stool softener
--- NOTE | 2018-10-01 17:59 | Infectious Diseases Prog Note ---
Assessment/Plan Assessment/Plan ASSESSMENT AND PLAN: 1. right foot cellulitis, right foot 5th toe osteomyelitis and ischemia, sepsis , leukocytosis and fevers, blood cultures with 1 bottle + for gram +, id pending - continue zosyn and vancomycin - monitor labs, f/u on blood cultures - d/w podiatry - plan on right foot 5th toe amputation, f/u on surgical margins - d/w patient and family, d/w RN - right foot cellulitis much improved and sepsis improved 2. Sepsis, fevers, and leukocytosis - improved, on vancomycin and zosyn 3. Diabetes. 4. Anemia. 5. Hypertension. 6. Blood sugar and blood pressure treatment for diabetes and hypertension per primary. 7. Acute kidney injury, elevated creatinine, it has improved. 8. History of CAD. 9. Neuropathy. 10. Past medical history noted. 11. No known drug allergies. 12. Social history negative. 13. Family history is noncontributory. 14. MAR was noted. 15. Case discussed with RN. 16. Continue treatment per primary consultants. 17. Notes and records were noted. Orders were entered. Subjective Constitutional: Denies: fever HEENT: Denies: congestion Respiratory: Denies: shortness of breath Cardiovascular: Denies: chest pain Gastrointestinal/Abdominal: Denies: nausea, vomiting, diarrhea Genitourinary: Reports: other - no nagy ; Denies: dysuria, hematuria, frequency Neurologic: Denies: headache Skin: Denies: rash Hematologic: Denies: bleeding Musculoskeletal: Denies: pain Allergies: Coded Allergies: No Known Allergies (Verified , 01/25/10) Objective Vital Signs Last 24 Hour Vital Signs Date Time Temp Pulse Resp B/P (MAP) Pulse Ox O2 Delivery O2 Flow Rate FiO2 10/01/18 16:00 67 10/01/18 16:00 98.1 81 20 113/67 (82) 99 10/01/18 12:00 98.7 67 18 130/67 (88) 100 10/01/18 12:00 68 10/01/18 09:03 71 116/65 10/01/18 09:00 Room Air 10/01/18 08:00 97.5 71 18 116/65 (82) 98 10/01/18 08:00 73 10/01/18 04:00 72 10/01/18 04:00 97.6 80 20 137/75 (95) 98 10/01/18 00:00 63 10/01/18 00:00 100.4 72 20 140/69 (92) 98 09/30/18 21:00 Room Air 09/30/18 20:00 75 09/30/18 20:00 98.0 75 20 142/62 (88) 98 Height (Feet): 5 Height (Inches): 4.00 Weight (Pounds): 135 General Appearance: no acute distress HEENT: normocephalic, atraumatic, anicteric, mucous membranes moist Respiratory/Chest: lungs clear, normal breath sounds, no respiratory distress, no accessory muscle use Cardiovascular: normal rate, regular rhythm, no gallop/murmur, no JVD Abdomen: normal bowel sounds, soft, non tender, no organomegaly, non distended Genitourinary: other - no nagy, no cva pain Extremities: other - right foot cellulitis much improved, no change in right foot 5th toe ischemia Skin: no rash Neurologic/Psychiatric: ciaio lumite injector II-XII grossly normal, alert, oriented x 3, responsive Lymphatic: no neck adenopathy Musculoskeletal: no effusion Objective MRI right foot: IMPRESSION: Acute osteomyelitis of the mid and distal fifth phalange. Nonspecific bone marrow edema present within the fifth proximal phalange. Osteomyelitis is not excluded, although findings are probably due to reactive bone marrow edema Microbiology Date/Time Source Procedure Growth Status 09/28/18 17:30 Blood Blood Culture - Preliminary NO GROWTH AFTER 24 HOURS Resulted blood cultures - gram +, id pending, 1 bottle Labs Test 09/28/18 18:52 09/28/18 21:08 09/29/18 07:17 09/30/18 03:00 Lactic Acid Level 2.50 mmol/L (0.4-2.0) 2.40 mmol/L (0.66-2.22) White Blood Count 10.7 K/UL (4.8-10.8) Red Blood Count 3.36 M/UL (4.20-5.40) Hemoglobin 9.1 G/DL (12.0-16.0) Hematocrit 28.3 % (37.0-47.0) Mean Corpuscular Volume 84 FL (80-99) Mean Corpuscular Hemoglobin 27.2 PG (27.0-31.0) Mean Corpuscular Hemoglobin Concent 32.2 G/DL (32.0-36.0) Red Cell Distribution Width 11.7 % (11.6-14.8) Platelet Count 170 K/UL (150-450) Mean Platelet Volume 6.8 FL (6.5-10.1) Neutrophils (%) (Auto) 74.5 % (45.0-75.0) Lymphocytes (%) (Auto) 17.3 % (20.0-45.0) Monocytes (%) (Auto) 5.9 % (1.0-10.0) Eosinophils (%) (Auto) 1.4 % (0.0-3.0) Basophils (%) (Auto) 0.9 % (0.0-2.0) Sodium Level 141 MMOL/L (136-145) Potassium Level 3.9 MMOL/L (3.5-5.1) Chloride Level 107 MMOL/L (98-107) Carbon Dioxide Level 25 MMOL/L (21-32) Anion Gap 9 mmol/L (5-15) Blood Urea Nitrogen 15 mg/dL (7-18) Creatinine 1.1 MG/DL (0.55-1.30) Estimat Glomerular Filtration Rate 49.9 mL/min (>60) Glucose Level 94 MG/DL (74-106) Calcium Level 8.4 MG/DL (8.5-10.1) Urine Color Pale yellow Urine Appearance Clear Urine pH 6.5 (4.5-8.0) Urine Specific [place] 1.005 (1.005-1.035) Urine Protein 2+ (NEGATIVE) Urine Glucose (UA) Negative (NEGATIVE) Urine Ketones Negative (NEGATIVE) Urine Blood 1+ (NEGATIVE) Urine Nitrite Negative (NEGATIVE) Urine Bilirubin Negative (NEGATIVE) Urine Urobilinogen Normal MG/DL (0.0-1.0) Urine Leukocyte Esterase 1+ (NEGATIVE) Urine RBC 0-2 /HPF (0 - 2) Urine WBC 0-2 /HPF (0 - 2) Urine Squamous Epithelial Cells Occasional /LPF Urine Bacteria None /HPF (NONE) Test 09/30/18 05:45 09/30/18 18:55 White Blood Count 9.9 K/UL (4.8-10.8) Red Blood Count 3.33 M/UL (4.20-5.40) Hemoglobin 9.1 G/DL (12.0-16.0) Hematocrit 28.2 % (37.0-47.0) Mean Corpuscular Volume 85 FL (80-99) Mean Corpuscular Hemoglobin 27.5 PG (27.0-31.0) Mean Corpuscular Hemoglobin Concent 32.4 G/DL (32.0-36.0) Red Cell Distribution Width 11.8 % (11.6-14.8) Platelet Count 182 K/UL (150-450) Mean Platelet Volume 6.7 FL (6.5-10.1) Neutrophils (%) (Auto) 68.3 % (45.0-75.0) Lymphocytes (%) (Auto) 21.3 % (20.0-45.0) Monocytes (%) (Auto) 7.5 % (1.0-10.0) Eosinophils (%) (Auto) 2.0 % (0.0-3.0) Basophils (%) (Auto) 0.9 % (0.0-2.0) Erythrocyte Sedimentation Rate 94 MM/HR (0-30) Sodium Level 141 MMOL/L (136-145) Potassium Level 3.8 MMOL/L (3.5-5.1) Chloride Level 106 MMOL/L (98-107) Carbon Dioxide Level 27 MMOL/L (21-32) Anion Gap 8 mmol/L (5-15) Blood Urea Nitrogen 9 mg/dL (7-18) Creatinine 1.1 MG/DL (0.55-1.30) Estimat Glomerular Filtration Rate 49.9 mL/min (>60) Glucose Level 84 MG/DL (74-106) Calcium Level 8.4 MG/DL (8.5-10.1) Vancomycin Level Trough 5.6 ug/mL (5.0-12.0) Laboratory Tests Test 09/30/18 18:55 Vancomycin Level Trough 5.6 ug/mL (5.0-12.0) Current Medications Medications (Trade) Dose Ordered Sig/Daisha Route PRN Reason Start Time Stop Time Status Last Admin Dose Admin Acetaminophen (Tylenol) 650 mg Q6H PRN ORAL Mild Pain/Temp > 100.5 09/28/18 18:45 10/28/18 18:44 Amlodipine Besylate (Norvasc) 5 mg DAILY ORAL 09/29/18 09:00 10/29/18 08:59 10/01/18 09:03 Aspirin (Ecotrin) 81 mg DAILY ORAL 09/29/18 09:00 10/29/18 08:59 10/01/18 09:03 Dextrose (Dextrose 50%) 25 ml Q30M PRN IV Hypoglycemia 09/28/18 18:45 10/28/18 18:44 Dextrose (Dextrose 50%) 50 ml Q30M PRN IV Hypoglycemia 09/28/18 18:45 10/28/18 18:44 Gabapentin (Neurontin) 300 mg Q8HR ORAL 09/28/18 22:00 10/28/18 21:59 10/01/18 05:58 Gadobutrol (Gadavist) 7.5 mmol NOW PRN IV Radiology Procedure 09/30/18 09:30 10/02/18 09:29 Glipizide (Glucotrol) 5 mg BID ORAL 09/29/18 10:45 10/29/18 10:44 10/01/18 09:03 Heparin Sodium (Porcine) (Heparin 5000 units/ml) 5,000 units EVERY 12 HOURS SUBQ 09/28/18 21:00 10/28/18 20:59 10/01/18 09:05 Insulin Aspart (NovoLOG) BEFORE MEALS AND HS SUBQ 09/28/18 21:00 10/28/18 20:59 Piperacillin Sod/ Tazobactam Sod 3.375 gm/Dextrose 110 ml @ 27.5 mls/hr Q8H IVPB 09/29/18 11:00 10/06/18 10:59 09/30/18 18:04 Vancomycin HCl (Vanco rx to dose) 1 ea DAILY PRN MISC Per rx protocol 09/28/18 18:45 10/28/18 18:44 Vancomycin HCl 750 mg/Sodium Chloride 275 ml @ 183.333 mls/hr Q12H IVPB 09/30/18 20:00 10/05/18 19:59 10/01/18 08:00 Francisco Piper MD Oct 01, 2018 17:59
--- NOTE | 2018-10-01 19:20 | NUR ---
HAND-OFF: Report given to VADIM Bryant. Plan of care endorsed.
--- NOTE | 2018-10-01 19:30 | NUR ---
NURSE NOTES: Received pt from VADIM Camara. Pt awake, alert, and feeling depressed d/t upcoming sx. Bed in lowest position. Call light within reach. Will continue to monitor.
[2018-10-01 20:00] VITALS: BP 154/72
--- NOTE | 2018-10-01 22:34 | Physician Query ---
--------- THIS DOCUMENT IS A PERMANENT PART OF THE MEDICAL RECORD --------- PLEASE COMPLETE DOCUMENT BEFORE SIGNING Dear Dr. Jazlyn STANLEY Date: __10/01/17 Signaling Design Engineer/CDS Name: Randy KNIGHT Signaling Design Engineer/CDS Phone No.: Exercise your independent professional judgment when responding to the query. Questions asked do not imply a particular answer is desired or expected. We greatly appreciate your clarification on this issue. CLINICAL DOCUMENTATION STATES: "The patient has right foot cellulitis with warmth and redness and she has acute right foot fifth toe osteomyelitis/infected wound and ulcer that is dried up at this time. She has sepsis, leukocytosis, fevers, and SIRS criteria with tachycardia." CLINICAL FINDINGS SHOW:(on admission) WBC = 16.1 k Temp = 100.7 degrees F HR = 101 bpm Clarification is needed for one (or more) of the following conditions in order to accurately assign the "present on admission' indicator. Please choose the answer that best indicates whether the associated condition was present at the time of the order for inpatient admission. Thank you. Was the SEPSIS Present on admission? [] YES [] NO [] Clinically Undeterminable Please also document in your Progress Notes and/or Discharge Summary and indicate if the condition was present on admission. ANY STANLEY M.D. DATE & TIME [facility]
--- NOTE | 2018-10-01 23:10 | NUR ---
NURSE NOTES: Called and left a message with Dr. Alcantar regarding pts reaction of head itching to the vanco and zosyn. He called back with no new orders and said he'll see her in the morning. Will continue to monitor.
[2018-10-02] VITALS: BP 150/65
[2018-10-02 04:00] VITALS: BP 148/63
[2018-10-02] MEDS: Piperacillin/Tazobactam 3.375 GM in D5W 110 ML IVPB SCH ×3 (04:56→22:14)
[2018-10-02] MEDS: NovoLOG Insulin Flexpen SUBQ SCH ×4 (05:50→20:37)
--- NOTE | 2018-10-02 07:20 | NUR ---
NURSE NOTES: Received report from VADIM Bryant. Bed is in lowest position, side rails up X2, and call light is within reach. WIll continue to monitor.
--- NOTE | 2018-10-02 07:38 | NUR ---
HAND-OFF: Report given to VADIM Camara. Pt stable.
[2018-10-02 07:39] LABS: BASOPHILS % (AUTO) 1.5 % (0.0-2.0); EOSINOPHILS % (AUTO) 3.4 % (0.0-3.0); HEMATOCRIT 29.8 % (37.0-47.0); HEMOGLOBIN 9.7 G/DL (12.0-16.0); LYMPHOCYTES % (AUTO) 17.4 % (20.0-45.0); MEAN CORPUSCULAR VOLUME 84 FL (80-99); MONOCYTES % (AUTO) 6.1 % (1.0-10.0); NEUTROPHILS % (AUTO) 71.6 % (45.0-75.0); PLATELET COUNT 249 K/UL (150-450); RED BLOOD COUNT 3.54 M/UL (4.20-5.40); RED CELL DISTRIBUTION WIDTH 11.5 % (11.6-14.8); WHITE BLOOD COUNT 8.4 K/UL (4.8-10.8)
[2018-10-02 08:00] VITALS: BP 125/62
[2018-10-02 08:00] LABS: ANION GAP 9 mmol/L (5-15); BLOOD UREA NITROGEN 10 mg/dL (7-18); CALCIUM 8.8 MG/DL (8.5-10.1); CARBON DIOXIDE 28 MMOL/L (21-32); CHLORIDE 106 MMOL/L (98-107); POTASSIUM 3.2 MMOL/L (3.5-5.1); SODIUM 143 MMOL/L (136-145)
[2018-10-02] MEDS: GlipiZIDE 5mg tab ORAL SCH (08:38)
[2018-10-02] MEDS: Vancomycin 750mg/NS 275ml IVPB SCH ×4 (08:38→20:48)
[2018-10-02] MEDS: Aspirin EC 81mg tab ORAL SCH (08:38)
[2018-10-02] MEDS: Heparin 5000 units/ml inj SUBQ SCH ×2 (08:39→20:54)
--- NOTE | 2018-10-02 09:34 | NUR ---
CASE MANAGEMENT: REVIEW 10/02/2018 SI: CELLULITIS. ISCHEMIA OF 5TH TOE T 99.1 HR 77 RR 18 B/P 125/62 SATS 99% ON RA K 3.2 GLU 129 IS: GLIPIZIDE PO BID NORVASC PO QD ASA PO QD INSULIN ASPART SUBQ AC/HS VANCO IV Q12H ZOSYN IV Q8H GABAPENTIN PO Q8H TELE STATUS DCP: PATIENT IS FROM HOME PLAN OF CARE: plan on right foot 5th toe amputation
--- NOTE | 2018-10-02 11:20 | General Progress Note ---
Assessment/Plan Assessment/Plan #Right foot cellulitis #Acute osteomyelitis of the mid and distal fifth phalange -continue inpatient care -continue vancomycin and Zosyn -MRI foot results reviewed -Plan for 5th toe amputation by podiatry -Pre-op EKG showed LBBB -Consult Dr. 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 VTE PPx heparin SC Full Code I spent 70 minutes on this patient's case, and 36 minutes was dedicated to counseling and/or care coordination. Subjective Date patient seen: Oct 02, 2018 Time patient seen: 11:00 Constitutional: Denies: chills, fever Cardiovascular: Denies: chest pain, edema, lightheadedness, palpitations Respiratory: Denies: cough, orthopnea Gastrointestinal/Abdominal: Denies: abdomen distended Allergies: Coded Allergies: No Known Allergies (Verified , 01/25/10) Subjective Medicine followup for right foot cellulitis, osteomyelitis. Denies fever and chills. Denies chest pain, exertional dyspnea. Objective Last 24 Hour Vital Signs Date Time Temp Pulse Resp B/P (MAP) Pulse Ox O2 Delivery O2 Flow Rate FiO2 10/02/18 09:00 Room Air 10/02/18 08:38 77 125/62 10/02/18 08:00 99.1 77 18 125/62 (83) 99 10/02/18 04:00 98.2 72 20 148/63 (91) 99 10/02/18 04:00 84 10/02/18 00:00 98.3 67 20 150/65 (93) 98 10/02/18 00:00 65 10/01/18 21:00 Room Air 10/01/18 20:00 70 10/01/18 20:00 98.4 80 20 154/72 (99) 98 10/01/18 16:00 67 10/01/18 16:00 98.1 81 20 113/67 (82) 99 10/01/18 12:00 98.7 67 18 130/67 (88) 100 10/01/18 12:00 68 Intake and Output 10/01/18 10/02/18 18:59 06:59 Intake Total 360 ml Balance 360 ml Intake Oral 360 ml # Voids 3 3 Laboratory Tests 10/02/18 06:50: White Blood Count 8.4, Red Blood Count 3.54L, Hemoglobin 9.7L, Hematocrit 29.8L , Mean Corpuscular Volume 84, Mean Corpuscular Hemoglobin 27.3, Mean Corpuscular Hemoglobin Concent 32.5, Red Cell Distribution Width 11.5L, Platelet Count 249, Mean Platelet Volume 6.6, Neutrophils (%) (Auto) 71.6, Lymphocytes (%) (Auto) 17.4L, Monocytes (%) (Auto) 6.1, Eosinophils (%) (Auto) 3.4H, Basophils (%) (Auto) 1.5, Sodium Level 143, Potassium Level 3.2L, Chloride Level 106, Carbon Dioxide Level 28, Anion Gap 9, Blood Urea Nitrogen 10 , Creatinine 1.0, Estimat Glomerular Filtration Rate 55.7, Glucose Level 129H, Calcium Level 8.8, Vancomycin Level Trough 20.3H Height (Feet): 5 Height (Inches): 4.00 Weight (Pounds): 135 General Appearance: no apparent distress, alert EENT: normal ENT inspection Neck: non-tender, normal alignment Cardiovascular: normal peripheral pulses, normal rate, regular rhythm Respiratory/Chest: lungs clear, normal breath sounds Neurologic: service manager II-XII grossly normal, no motor/sensory deficits Mina Ward MD Oct 02, 2018 11:20
[2018-10-02 12:00] VITALS: BP 146/69
--- NOTE | 2018-10-02 13:37 | Surgery Progress Note ---
Surgery Progress Note Subjective Additional Comments no acute events. doing okay. seen by podiatry Objective Last 24 Hour Vital Signs Date Time Temp Pulse Resp B/P (MAP) Pulse Ox O2 Delivery O2 Flow Rate FiO2 10/02/18 12:00 68 10/02/18 12:00 97.5 68 20 146/69 (94) 98 10/02/18 09:00 Room Air 10/02/18 08:38 77 125/62 10/02/18 08:00 77 10/02/18 08:00 99.1 77 18 125/62 (83) 99 10/02/18 04:00 98.2 72 20 148/63 (91) 99 10/02/18 04:00 84 10/02/18 00:00 98.3 67 20 150/65 (93) 98 10/02/18 00:00 65 10/01/18 21:00 Room Air 10/01/18 20:00 70 10/01/18 20:00 98.4 80 20 154/72 (99) 98 10/01/18 16:00 67 10/01/18 16:00 98.1 81 20 113/67 (82) 99 I&O Intake and Output 10/01/18 10/02/18 19:00 07:00 Intake Total 360 ml Balance 360 ml Intake Oral 360 ml # Voids 3 3 Dressing: other Wound: other Drains: other Cardiovascular: RSR Respiratory: clear Abdomen: soft, flat, present bowel sounds, non-distended Extremities: cyanosis, other Laboratory Tests Test 10/02/18 06:50 White Blood Count 8.4 K/UL (4.8-10.8) Red Blood Count 3.54 M/UL (4.20-5.40) L Hemoglobin 9.7 G/DL (12.0-16.0) L Hematocrit 29.8 % (37.0-47.0) L Mean Corpuscular Volume 84 FL (80-99) Mean Corpuscular Hemoglobin 27.3 PG (27.0-31.0) Mean Corpuscular Hemoglobin Concent 32.5 G/DL (32.0-36.0) Red Cell Distribution Width 11.5 % (11.6-14.8) L Platelet Count 249 K/UL (150-450) Mean Platelet Volume 6.6 FL (6.5-10.1) Neutrophils (%) (Auto) 71.6 % (45.0-75.0) Lymphocytes (%) (Auto) 17.4 % (20.0-45.0) L Monocytes (%) (Auto) 6.1 % (1.0-10.0) Eosinophils (%) (Auto) 3.4 % (0.0-3.0) H Basophils (%) (Auto) 1.5 % (0.0-2.0) Sodium Level 143 MMOL/L (136-145) Potassium Level 3.2 MMOL/L (3.5-5.1) L Chloride Level 106 MMOL/L (98-107) Carbon Dioxide Level 28 MMOL/L (21-32) Anion Gap 9 mmol/L (5-15) Blood Urea Nitrogen 10 mg/dL (7-18) Creatinine 1.0 MG/DL (0.55-1.30) Estimat Glomerular Filtration Rate 55.7 mL/min (>60) Glucose Level 129 MG/DL (74-106) H Calcium Level 8.8 MG/DL (8.5-10.1) Vancomycin Level Trough 20.3 ug/mL (5.0-12.0) H Plan Problems: (1) Cellulitis Assessment & Plan: right foot cellulitis, sepsis, fevers, leukocytosis Plain film with likely acute osteo no abscess noted on exam earlier today but tender, warm, erythema, and ischemia to 5th toe MRI - Acute osteomyelitis of the mid and distal fifth phalange. Nonspecific bone marrow edema present within the fifth proximal phalange. Osteomyelitis is not excluded, although findings are probably due to reactive bone marrow edema no acute general surgery intervention planned at this time Cont IV abx as per ID Appreciate Podiatry input - plan for amputation tomorrow thank you will follow with recs. Nathaniel Alonzo Oct 02, 2018 13:37
--- NOTE | 2018-10-02 13:42 | NUR ---
NURSE NOTES: Patient wants a rest from the antibiotics. I explained to her the importance of giving antibiotics on time and the reason why we are giving them. Pt verbalized understanding. Pt still does not want to have the antibiotic run at this time.
--- NOTE | 2018-10-02 15:00 | NUR ---
NURSE NOTES: Patient still wants breaks between antibiotics. Reiterated the risks of not taking antibiotics at the scheduled times. Pt verbalized understanding.
--- NOTE | 2018-10-02 15:08 | Consultation ---
History of Present Illness General Date patient seen: Oct 02, 2018 Time patient seen: 15:03 Chief Complaint: Lower Extremity Injury Reason for Consultation: right foot cellulitis Present Illness HPI 63 year old female with necrotic right toe will undergoing amputation. Cardiology consulted for clearance. No chest pain, LBBB on EKG, no recent ischemia evaluations. She has a hx of HTN, HLD, CAD. Currently no chest pain. MRI foot showed osteomyelitis Allergies: Coded Allergies: No Known Allergies (Verified , 01/25/10) Medication History Scheduled Amlodipine Besylate (Norvasc), 5 MG ORAL DAILY, (Reported) Aspirin* (Aspir 81*), 81 MG ORAL DAILY, (Reported) Gabapentin* (Gabapentin*), 300 MG ORAL THREE TIMES A DAY, (Reported) Metformin Hcl* (Metformin Hcl*), 1,000 MG ORAL BID, (Reported) Patient History Healthcare decision maker Resuscitation status Full Code Advanced Directive on File Review of Systems Constitutional: Reports: no symptoms Eye: Reports: no symptoms ENT: Reports: no symptoms Respiratory: Reports: no symptoms Cardiovascular: Reports: no symptoms Gastrointestinal: Reports: no symptoms Genitourinary: Reports: no symptoms Musculoskeletal: Reports: joint pain Skin: Reports: change in color Psychiatric: Reports: no symptoms Neurological: Reports: no symptoms Endocrine: Reports: no symptoms Physical Exam General Appearance: no apparent distress, alert Lines, tubes and drains: peripheral HEENT: normocephalic, atraumatic, anicteric, mucous membranes moist, PERRL Neck: non-tender, normal alignment Respiratory/Chest: chest wall non-tender, lungs clear, normal breath sounds, no respiratory distress Cardiovascular/Chest: normal peripheral pulses, normal rate, regular rhythm Abdomen: normal bowel sounds, non tender, soft, no organomegaly, no mass Extremities: inflammation, slow capillary refill, trace edema Skin Exam: mottled Neurologic: wound care rn II-XII grossly normal, no motor/sensory deficits Last 24 Hour Vital Signs Date Time Temp Pulse Resp B/P (MAP) Pulse Ox O2 Delivery O2 Flow Rate FiO2 10/02/18 12:00 68 10/02/18 12:00 97.5 68 20 146/69 (94) 98 10/02/18 09:00 Room Air 10/02/18 08:38 77 125/62 10/02/18 08:00 77 10/02/18 08:00 99.1 77 18 125/62 (83) 99 10/02/18 04:00 98.2 72 20 148/63 (91) 99 10/02/18 04:00 84 10/02/18 00:00 98.3 67 20 150/65 (93) 98 10/02/18 00:00 65 10/01/18 21:00 Room Air 10/01/18 20:00 70 10/01/18 20:00 98.4 80 20 154/72 (99) 98 10/01/18 16:00 67 10/01/18 16:00 98.1 81 20 113/67 (82) 99 Intake and Output 10/01/18 10/02/18 19:00 07:00 Intake Total 360 ml Balance 360 ml Intake Oral 360 ml # Voids 3 3 Laboratory Tests Test 10/02/18 06:50 White Blood Count 8.4 K/UL (4.8-10.8) Red Blood Count 3.54 M/UL (4.20-5.40) L Hemoglobin 9.7 G/DL (12.0-16.0) L Hematocrit 29.8 % (37.0-47.0) L Mean Corpuscular Volume 84 FL (80-99) Mean Corpuscular Hemoglobin 27.3 PG (27.0-31.0) Mean Corpuscular Hemoglobin Concent 32.5 G/DL (32.0-36.0) Red Cell Distribution Width 11.5 % (11.6-14.8) L Platelet Count 249 K/UL (150-450) Mean Platelet Volume 6.6 FL (6.5-10.1) Neutrophils (%) (Auto) 71.6 % (45.0-75.0) Lymphocytes (%) (Auto) 17.4 % (20.0-45.0) L Monocytes (%) (Auto) 6.1 % (1.0-10.0) Eosinophils (%) (Auto) 3.4 % (0.0-3.0) H Basophils (%) (Auto) 1.5 % (0.0-2.0) Sodium Level 143 MMOL/L (136-145) Potassium Level 3.2 MMOL/L (3.5-5.1) L Chloride Level 106 MMOL/L (98-107) Carbon Dioxide Level 28 MMOL/L (21-32) Anion Gap 9 mmol/L (5-15) Blood Urea Nitrogen 10 mg/dL (7-18) Creatinine 1.0 MG/DL (0.55-1.30) Estimat Glomerular Filtration Rate 55.7 mL/min (>60) Glucose Level 129 MG/DL (74-106) H Calcium Level 8.8 MG/DL (8.5-10.1) Vancomycin Level Trough 20.3 ug/mL (5.0-12.0) H Height (Feet): 5 Height (Inches): 4.00 Weight (Pounds): 135 Medications Current Medications Medications (Trade) Dose Ordered Sig/Daisha Route PRN Reason Start Time Stop Time Status Last Admin Dose Admin Acetaminophen (Tylenol) 650 mg Q6H PRN ORAL Mild Pain/Temp > 100.5 09/28/18 18:45 10/28/18 18:44 Amlodipine Besylate (Norvasc) 5 mg DAILY ORAL 09/29/18 09:00 10/29/18 08:59 10/02/18 08:38 Aspirin (Ecotrin) 81 mg DAILY ORAL 09/29/18 09:00 10/29/18 08:59 10/02/18 08:38 Dextrose (Dextrose 50%) 25 ml Q30M PRN IV Hypoglycemia 09/28/18 18:45 10/28/18 18:44 Dextrose (Dextrose 50%) 50 ml Q30M PRN IV Hypoglycemia 09/28/18 18:45 10/28/18 18:44 Gabapentin (Neurontin) 300 mg Q8HR ORAL 09/28/18 22:00 10/28/18 21:59 10/02/18 13:38 Heparin Sodium (Porcine) (Heparin 5000 units/ml) 5,000 units EVERY 12 HOURS SUBQ 09/28/18 21:00 10/28/18 20:59 10/01/18 09:05 Insulin Aspart (NovoLOG) BEFORE MEALS AND HS SUBQ 09/28/18 21:00 10/28/18 20:59 Piperacillin Sod/ Tazobactam Sod 3.375 gm/Dextrose 110 ml @ 27.5 mls/hr Q8H IVPB 09/29/18 11:00 10/06/18 10:59 10/02/18 04:56 Vancomycin HCl (Vanco rx to dose) 1 ea DAILY PRN MISC Per rx protocol 2/6/19 18:45 10/28/18 18:44 Vancomycin HCl 750 mg/Sodium Chloride 275 ml @ 183.333 mls/hr Q12H IVPB 09/30/18 20:00 10/05/18 19:59 10/02/18 08:38 Assessment/Plan Status: stable Assessment/Plan Assessment: Anemia Hypertension. Hyperlipiemia Diabetes Coronary artery disease Given risk factors , LBBB on EKG and unknown functional capacity and unknown coronary anatomy, will perform cardiolite lexiscan to evaluate for ischemia prior to surgery Continue aspirin Continue statin Aggressive glucose control Continue norvasc for hypertension IV abx for osteomyelitis no evidence of endocarditis clinically Uzair Salas MD Oct 02, 2018 15:08
[2018-10-02 16:00] VITALS: BP 149/62
--- NOTE | 2018-10-02 19:13 | NUR ---
HAND-OFF: Report given to VADIM Qureshi. Plan of care endorsed.
[2018-10-02 20:00] VITALS: BP 130/73
[2018-10-02] MEDS: Atorvastatin 20mg tab ORAL SCH (20:48)
[2018-10-03] VITALS: BP 117/58
[2018-10-03 02:18] LABS: ANION GAP 8 mmol/L (5-15); BLOOD UREA NITROGEN 12 mg/dL (7-18); CALCIUM 8.4 MG/DL (8.5-10.1); CARBON DIOXIDE 26 MMOL/L (21-32); CHLORIDE 107 MMOL/L (98-107); CREATININE 1.1 MG/DL (0.55-1.30); POTASSIUM 3.9 MMOL/L (3.5-5.1); SODIUM 141 MMOL/L (136-145)
[2018-10-03 04:00] VITALS: BP 137/65
[2018-10-03] MEDS: Piperacillin/Tazobactam 3.375 GM in D5W 110 ML IVPB SCH ×3 (05:19→22:29)
[2018-10-03] MEDS: NovoLOG Insulin Flexpen SUBQ SCH ×4 (06:07→21:00)
--- NOTE | 2018-10-03 07:30 | NUR ---
NURSE NOTES: Received report from VADIM Qureshi. Pt is sleeping in bed with no distress noted. Bed is in lowest position, side rails up X2, and call light is within reach. WIll continue to monitor.
--- NOTE | 2018-10-03 07:32 | NUR ---
HAND-OFF: Report given to VADIM Duarte.
[2018-10-03 08:00] VITALS: BP 138/64
[2018-10-03] MEDS: Aspirin EC 81mg tab ORAL SCH (09:00)
[2018-10-03] MEDS: Heparin 5000 units/ml inj SUBQ SCH ×2 (09:00→21:00)
[2018-10-03] MEDS ORDERED: Lexiscan 0.4mg/5ml syringe IV PRN (09:00)
[2018-10-03] MEDS: Vancomycin 750mg/NS 275ml IVPB SCH ×2 (09:02)
[2018-10-03 12:00] VITALS: BP 152/68
--- NOTE | 2018-10-03 12:04 | Surgery Progress Note ---
Surgery Progress Note Subjective Additional Comments no acute events. comfortable Objective Last 24 Hour Vital Signs Date Time Temp Pulse Resp B/P (MAP) Pulse Ox O2 Delivery O2 Flow Rate FiO2 10/03/18 09:00 Room Air 10/03/18 08:00 97.6 71 21 138/64 (88) 98 10/03/18 08:00 67 10/03/18 04:00 78 10/03/18 04:00 98.1 76 20 137/65 (89) 97 10/03/18 00:00 97.8 69 18 117/58 (77) 98 10/03/18 00:00 65 10/02/18 21:00 Room Air 10/02/18 20:00 97.9 77 18 130/73 (92) 98 10/02/18 16:00 79 10/02/18 16:00 98.5 73 18 149/62 (91) 100 I&O Intake and Output 10/02/18 10/03/18 18:59 06:59 Intake Total 360 ml 240 ml Balance 360 ml 240 ml Intake Oral 360 ml 240 ml # Voids 3 1 Dressing: dry Wound: other Drains: other Cardiovascular: RSR Respiratory: clear Abdomen: soft, present bowel sounds, non-distended Extremities: cyanosis, other Laboratory Tests Test 10/03/18 01:50 10/03/18 05:00 Sodium Level 141 MMOL/L (136-145) Potassium Level 3.9 MMOL/L (3.5-5.1) Chloride Level 107 MMOL/L (98-107) Carbon Dioxide Level 26 MMOL/L (21-32) Anion Gap 8 mmol/L (5-15) Blood Urea Nitrogen 12 mg/dL (7-18) Creatinine 1.1 MG/DL (0.55-1.30) Estimat Glomerular Filtration Rate 49.9 mL/min (>60) Glucose Level 203 MG/DL (74-106) H Calcium Level 8.4 MG/DL (8.5-10.1) L Troponin I 0.009 ng/mL (0.000-0.056) 0.002 ng/mL (0.000-0.056) Plan Problems: (1) Cellulitis Assessment & Plan: right foot cellulitis, sepsis, fevers, leukocytosis Plain film with likely acute osteo no abscess noted on exam earlier today but tender, warm, erythema, and ischemia to 5th toe MRI - Acute osteomyelitis of the mid and distal fifth phalange. Nonspecific bone marrow edema present within the fifth proximal phalange. Osteomyelitis is not excluded, although findings are probably due to reactive bone marrow edema no acute general surgery intervention planned at this time Cont IV abx as per ID Appreciate Podiatry input - plan for amputation as per podiatry thank you will follow with recs. Nathaniel Alonzo Oct 03, 2018 12:03
--- NOTE | 2018-10-03 12:44 | General Progress Note ---
Assessment/Plan Assessment/Plan #Right foot cellulitis #Acute osteomyelitis of the mid and distal fifth phalange -continue inpatient care -continue vancomycin and Zosyn -MRI foot results reviewed -Plan for 5th toe amputation by podiatry -Seen by Cardiology, stress test pending for today -Possible amputation tomorrow -wound care eval appreciated -ID eval following #Type 2 DM complicated by peripheral neuropathy -hold metformin while inpatient -hold glipizide since she will be NPO for surgery -ISS #Hypokalemia -resolved -continue to monitor labs VTE PPx heparin SC Full Code I spent 70 minutes on this patient's case, and 35 minutes was dedicated to counseling and/or care coordination. Subjective Date patient seen: Oct 03, 2018 Time patient seen: 09:00 Constitutional: Denies: chills, fever Cardiovascular: Denies: chest pain, irregular heart rate Respiratory: Denies: cough, shortness of breath Gastrointestinal/Abdominal: Denies: abdomen distended, abdominal pain Allergies: Coded Allergies: No Known Allergies (Verified , 01/25/10) Subjective Medicine followup for right foot cellulitis, osteomyelitis. Denies fever and chills. Denies chest pain, exertional dyspnea. No new complaints. Objective Last 24 Hour Vital Signs Date Time Temp Pulse Resp B/P (MAP) Pulse Ox O2 Delivery O2 Flow Rate FiO2 10/03/18 09:00 Room Air 10/03/18 08:00 97.6 71 21 138/64 (88) 98 10/03/18 08:00 67 10/03/18 04:00 78 10/03/18 04:00 98.1 76 20 137/65 (89) 97 10/03/18 00:00 97.8 69 18 117/58 (77) 98 10/03/18 00:00 65 10/02/18 21:00 Room Air 10/02/18 20:00 97.9 77 18 130/73 (92) 98 10/02/18 16:00 79 10/02/18 16:00 98.5 73 18 149/62 (91) 100 Intake and Output 10/02/18 10/03/18 18:59 06:59 Intake Total 360 ml 240 ml Balance 360 ml 240 ml Intake Oral 360 ml 240 ml # Voids 3 1 Laboratory Tests 10/03/18 01:50: Sodium Level 141, Potassium Level 3.9, Chloride Level 107, Carbon Dioxide Level 26, Anion Gap 8, Blood Urea Nitrogen 12, Creatinine 1.1, Estimat Glomerular Filtration Rate 49.9, Glucose Level 203H, Calcium Level 8.4L, Troponin I 0.009 10/03/18 05:00: Troponin I 0.002 Height (Feet): 5 Height (Inches): 4.00 Weight (Pounds): 135 General Appearance: no apparent distress, alert Cardiovascular: normal rate, regular rhythm Respiratory/Chest: chest wall non-tender, lungs clear, normal breath sounds Mina Ward MD Oct 03, 2018 12:43
--- NOTE | 2018-10-03 14:55 | NUR ---
RD ASSESSMENT & RECOMMENDATIONS SEE CARE ACTIVITY FOR COMPLETE ASSESSMENT DAILY ESTIMATED NEEDS: Needs based on DM, OM 61kg 25-30 kcals/kg 2603-0191 total kcals 1.25-1.5 g protein/kg 76-92 g total protein 25-30 mL/kg 1752-8546 total fluid mLs NUTRITION DIAGNOSIS: Increased protein needs r/t wound healing as evidenced by pt w/ R toe OM, h/o DM. CURRENT DIET: regular PO DIET RECOMMENDATIONS: CCHO LOW ADDITIONAL RECOMMENDATIONS: 1) Obtain a standing weight as able 2) Wound care: add PAIGE BID + MVI x1 + Vit C 250mg daily 3) Add High protein snacks BID in b/w meals
--- NOTE | 2018-10-03 15:31 | NUR ---
ASSISTANT PROFESSOR OF ARCHAEOLOGYBSA/AML COMPLIANCE OFFICER SI: OSTEOMYELITIS TOE T. 97.4 HR 65 RR 21 B/P 152/68 RA 98% TROP 0.002 IS: VANCO IV ZOSYN IV HEPARIN SUBC AMPUTATION??? TELE STATUS
[2018-10-03 16:00] VITALS: BP 150/72
--- NOTE | 2018-10-03 16:18 | Diagnostic Imaging Report ---
Indications: Chest pain Technique: Single day single isotope protocol utilized. Initially, resting images obtained using IV administration 10.9 millicuries 99M technetium Myoview. Subsequently, patient underwent lexiscan stress testing. See cardiology report for details. During complex infusion, IV administration 32 mCi 99 M technetium Myoview. SPECT and planar images obtained. SPECT images gated to 8 phases of the cardiac cycle were also obtained, and reformatted into cine images for evaluation of ejection fraction. Comparison: none Findings: There is absence of symptoms is not described on the cardiology report. Per cardiology report, resting EKG demonstrates sinus rhythm with left bundle branch block. Presence or absence of ST during infusion changes is not described. Imaging demonstrates decreased poststress perfusion in the anteroseptal wall, extending to the apex. This appears to mostly reperfuse on the resting images. Normal cardiac chamber size.. Calculated post stress ejection fraction 38%. There appears to be global hypokinesis as well as more focal septal decreased wall motion Impression: Nonischemic clinical response to pharmacologic stress, per cardiology report Nondiagnostic electrocardiographic response to pharmacologic stress, per cardiology report Evidence of anteroseptal ischemia. There may be a small fixed component suggestive of infarct as well Calculated post stress ejection fraction 38%
--- NOTE | 2018-10-03 18:21 | Infectious Diseases Prog Note ---
Assessment/Plan Assessment/Plan ASSESSMENT AND PLAN: 1. right foot cellulitis, right foot 5th toe osteomyelitis and ischemia, sepsis , leukocytosis and fevers, blood cultures with 1 bottle dry roaster which is likely contaminant - continue zosyn and vancomycin - monitor labs, f/u on blood cultures - d/w podiatry - plan on right foot 5th toe amputation, f/u on surgical margins - d/w patient and family, d/w RN - right foot cellulitis much improved and sepsis improved - cardiology clearance 2. Sepsis, fevers, and leukocytosis - improved, on vancomycin and zosyn 3. Diabetes. 4. Anemia. 5. Hypertension. 6. Blood sugar and blood pressure treatment for diabetes and hypertension per primary. 7. Acute kidney injury, elevated creatinine, it has improved. 8. History of CAD. 9. Neuropathy. 10. Past medical history noted. 11. No known drug allergies. 12. Social history negative. 13. Family history is noncontributory. 14. MAR was noted. 15. Case discussed with RN. 16. Continue treatment per primary consultants. 17. Notes and records were noted. Orders were entered. Subjective Constitutional: Reports: fatigue; Denies: fever HEENT: Denies: congestion Respiratory: Denies: shortness of breath Breasts: Denies: tenderness Cardiovascular: Denies: chest pain Gastrointestinal/Abdominal: Denies: nausea, vomiting, diarrhea Neurologic: Denies: headache Psychiatric: Denies: depression Skin: Denies: rash Hematologic: Denies: bleeding Musculoskeletal: Denies: pain Allergies: Coded Allergies: No Known Allergies (Verified , 01/25/10) Objective Vital Signs Last 24 Hour Vital Signs Date Time Temp Pulse Resp B/P (MAP) Pulse Ox O2 Delivery O2 Flow Rate FiO2 10/03/18 16:00 98.0 70 20 150/72 (98) 99 10/03/18 16:00 73 10/03/18 12:00 68 10/03/18 12:00 97.4 65 21 152/68 (96) 99 10/03/18 09:00 Room Air 10/03/18 08:00 97.6 71 21 138/64 (88) 98 10/03/18 08:00 67 10/03/18 04:00 78 10/03/18 04:00 98.1 76 20 137/65 (89) 97 10/03/18 00:00 97.8 69 18 117/58 (77) 98 10/03/18 00:00 65 10/02/18 21:00 Room Air 10/02/18 20:00 97.9 77 18 130/73 (92) 98 Height (Feet): 5 Height (Inches): 4.00 Weight (Pounds): 135 General Appearance: no acute distress HEENT: normocephalic, atraumatic, anicteric, mucous membranes moist Respiratory/Chest: lungs clear, normal breath sounds, no respiratory distress, no accessory muscle use Cardiovascular: normal rate, regular rhythm, no gallop/murmur, no JVD Abdomen: normal bowel sounds, soft, non tender, no organomegaly Genitourinary: other - no nagy Extremities: no cyanosis, other - right foot cellulitis decreased, + 5th toe ischemia Skin: no rash Neurologic/Psychiatric: pumper brewery II-XII grossly normal, alert, oriented x 3, responsive Lymphatic: no neck adenopathy Musculoskeletal: no effusion Objective MRI right foot: IMPRESSION: Acute osteomyelitis of the mid and distal fifth phalange. Nonspecific bone marrow edema present within the fifth proximal phalange. Osteomyelitis is not excluded, although findings are probably due to reactive bone marrow edema Microbiology Date/Time Source Procedure Growth Status 09/30/18 18:55 Blood Blood Culture - Preliminary NO GROWTH AFTER 48 HOURS Resulted Microbiology Date/Time Source Procedure Growth Status 09/30/18 18:55 Blood Blood Culture - Preliminary NO GROWTH AFTER 48 HOURS Resulted 09/30/18 18:25 Blood Blood Culture - Preliminary NO GROWTH AFTER 48 HOURS Resulted Labs Test 09/30/18 18:55 10/02/18 06:50 10/03/18 01:50 10/03/18 05:00 Vancomycin Level Trough 5.6 ug/mL (5.0-12.0) 20.3 ug/mL (5.0-12.0) White Blood Count 8.4 K/UL (4.8-10.8) Red Blood Count 3.54 M/UL (4.20-5.40) Hemoglobin 9.7 G/DL (12.0-16.0) Hematocrit 29.8 % (37.0-47.0) Mean Corpuscular Volume 84 FL (80-99) Mean Corpuscular Hemoglobin 27.3 PG (27.0-31.0) Mean Corpuscular Hemoglobin Concent 32.5 G/DL (32.0-36.0) Red Cell Distribution Width 11.5 % (11.6-14.8) Platelet Count 249 K/UL (150-450) Mean Platelet Volume 6.6 FL (6.5-10.1) Neutrophils (%) (Auto) 71.6 % (45.0-75.0) Lymphocytes (%) (Auto) 17.4 % (20.0-45.0) Monocytes (%) (Auto) 6.1 % (1.0-10.0) Eosinophils (%) (Auto) 3.4 % (0.0-3.0) Basophils (%) (Auto) 1.5 % (0.0-2.0) Sodium Level 143 MMOL/L (136-145) 141 MMOL/L (136-145) Potassium Level 3.2 MMOL/L (3.5-5.1) 3.9 MMOL/L (3.5-5.1) Chloride Level 106 MMOL/L (98-107) 107 MMOL/L (98-107) Carbon Dioxide Level 28 MMOL/L (21-32) 26 MMOL/L (21-32) Anion Gap 9 mmol/L (5-15) 8 mmol/L (5-15) Blood Urea Nitrogen 10 mg/dL (7-18) 12 mg/dL (7-18) Creatinine 1.0 MG/DL (0.55-1.30) 1.1 MG/DL (0.55-1.30) Estimat Glomerular Filtration Rate 55.7 mL/min (>60) 49.9 mL/min (>60) Glucose Level 129 MG/DL (74-106) 203 MG/DL (74-106) Calcium Level 8.8 MG/DL (8.5-10.1) 8.4 MG/DL (8.5-10.1) Troponin I 0.009 ng/mL (0.000-0.056) 0.002 ng/mL (0.000-0.056) Laboratory Tests Test 10/03/18 01:50 10/03/18 05:00 Sodium Level 141 MMOL/L (136-145) Potassium Level 3.9 MMOL/L (3.5-5.1) Chloride Level 107 MMOL/L (98-107) Carbon Dioxide Level 26 MMOL/L (21-32) Anion Gap 8 mmol/L (5-15) Blood Urea Nitrogen 12 mg/dL (7-18) Creatinine 1.1 MG/DL (0.55-1.30) Estimat Glomerular Filtration Rate 49.9 mL/min (>60) Glucose Level 203 MG/DL (74-106) H Calcium Level 8.4 MG/DL (8.5-10.1) L Troponin I 0.009 ng/mL (0.000-0.056) 0.002 ng/mL (0.000-0.056) Current Medications Medications (Trade) Dose Ordered Sig/Daisha Route PRN Reason Start Time Stop Time Status Last Admin Dose Admin Acetaminophen (Tylenol) 650 mg Q6H PRN ORAL Mild Pain/Temp > 100.5 09/28/18 18:45 10/28/18 18:44 Amlodipine Besylate (Norvasc) 5 mg DAILY ORAL 09/29/18 09:00 10/29/18 08:59 10/02/18 08:38 Aspirin (Ecotrin) 81 mg DAILY ORAL 09/29/18 09:00 10/29/18 08:59 10/02/18 08:38 Atorvastatin Calcium (Lipitor) 20 mg BEDTIME ORAL 10/02/18 21:00 11/01/18 20:59 10/02/18 20:48 Dextrose (Dextrose 50%) 25 ml Q30M PRN IV Hypoglycemia 09/28/18 18:45 10/28/18 18:44 Dextrose (Dextrose 50%) 50 ml Q30M PRN IV Hypoglycemia 09/28/18 18:45 10/28/18 18:44 Gabapentin (Neurontin) 300 mg Q8HR ORAL 09/28/18 22:00 10/28/18 21:59 10/03/18 13:13 Heparin Sodium (Porcine) (Heparin 5000 units/ml) 5,000 units EVERY 12 HOURS SUBQ 09/28/18 21:00 10/28/18 20:59 10/02/18 20:54 Insulin Aspart (NovoLOG) BEFORE MEALS AND HS SUBQ 09/28/18 21:00 10/28/18 20:59 10/03/18 17:52 Piperacillin Sod/ Tazobactam Sod 3.375 gm/Dextrose 110 ml @ 27.5 mls/hr Q8H IVPB 09/29/18 11:00 10/06/18 10:59 10/03/18 13:13 Regadenoson (Lexiscan) 0.4 mg ONCE PRN IV stress test 10/03/18 09:00 10/04/18 18:00 Vancomycin HCl (Vanco rx to dose) 1 ea DAILY PRN MISC Per rx protocol 09/28/18 18:45 10/28/18 18:44 Vancomycin HCl 750 mg/Sodium Chloride 275 ml @ 183.333 mls/hr Q12H IVPB 09/30/18 20:00 10/05/18 19:59 10/03/18 09:02 Francisco Piper MD Oct 03, 2018 18:21
--- NOTE | 2018-10-03 19:20 | NUR ---
NURSE NOTES: Received pt from VADIM Duarte. Pt awake, alert, and talkative. Daughter at bedside. Call light within reach. Pt aware of NPO at midnight. Will continue to monitor.
[2018-10-03 20:00] VITALS: BP 160/76
[2018-10-03] MEDS: Vancomycin 750 MG in NS 275 ML IVPB SCH (20:00)
--- NOTE | 2018-10-03 20:22 | Cardiology Progress Note ---
Assessment/Plan Status: stable Assessment/Plan Assessment/Plan Status: stable Assessment/Plan Assessment: Anemia Hypertension. Hyperlipiemia Diabetes Coronary artery disease Continue aspirin Continue statin Aggressive glucose control Continue norvasc for hypertension IV abx for osteomyelitis no evidence of endocarditis clinically Stress test showed Evidence of anteroseptal ischemia. There may be a small fixed component suggestive of infarct as well. Calculated post stress ejection fraction 38% Patient has negative troponin x2, no ACS, she is moderate risk for complications , given small amount of ischemia and no chest pain patient can proceed with perioperative beta blockade heart rate 60s to reduce ischemic threshold. Subjective Cardiovascular: Reports: no symptoms Respiratory: Reports: no symptoms Gastrointestinal/Abdominal: Reports: no symptoms Genitourinary: Reports: no symptoms Subjective No acute events Patient had stress test today with Evidence of anteroseptal ischemia. There may be a small fixed component suggestive of infarct as well. Calculated post stress ejection fraction 38% Objective Last 24 Hour Vital Signs Date Time Temp Pulse Resp B/P (MAP) Pulse Ox O2 Delivery O2 Flow Rate FiO2 10/03/18 16:00 98.0 70 20 150/72 (98) 99 10/03/18 16:00 73 10/03/18 12:00 68 10/03/18 12:00 97.4 65 21 152/68 (96) 99 10/03/18 09:00 Room Air 10/03/18 08:00 97.6 71 21 138/64 (88) 98 10/03/18 08:00 67 10/03/18 04:00 78 10/03/18 04:00 98.1 76 20 137/65 (89) 97 10/03/18 00:00 97.8 69 18 117/58 (77) 98 10/03/18 00:00 65 10/02/18 21:00 Room Air General Appearance: no apparent distress, alert EENT: PERRL/EOMI, normal ENT inspection, TMs normal, pharynx normal Neck: non-tender, normal alignment, supple, normal inspection, no JVD Rhythm: NSR Cardiovascular: normal peripheral pulses, normal rate, regular rhythm Respiratory/Chest: chest wall non-tender, lungs clear, normal breath sounds, no respiratory distress, no accessory muscle use Abdomen: non tender, soft, no organomegaly, no mass Extremities: inflammation, slow capillary refill, trace edema Neurologic: assembly room supervisor II-XII grossly normal, no motor/sensory deficits Intake and Output 10/02/18 10/03/18 19:00 07:00 Intake Total 360 ml 240 ml Balance 360 ml 240 ml Intake Oral 360 ml 240 ml # Voids 3 1 Laboratory Tests Test 10/03/18 01:50 10/03/18 05:00 Sodium Level 141 MMOL/L (136-145) Potassium Level 3.9 MMOL/L (3.5-5.1) Chloride Level 107 MMOL/L (98-107) Carbon Dioxide Level 26 MMOL/L (21-32) Anion Gap 8 mmol/L (5-15) Blood Urea Nitrogen 12 mg/dL (7-18) Creatinine 1.1 MG/DL (0.55-1.30) Estimat Glomerular Filtration Rate 49.9 mL/min (>60) Glucose Level 203 MG/DL (74-106) H Calcium Level 8.4 MG/DL (8.5-10.1) L Troponin I 0.009 ng/mL (0.000-0.056) 0.002 ng/mL (0.000-0.056) Uzair Salas MD Oct 03, 2018 20:22
[2018-10-03] MEDS: Atorvastatin 20mg tab ORAL SCH (22:29)
--- NOTE | 2018-10-03 23:49 | NUR ---
NURSE NOTES: Called and spoke with Dr. Salas regarding pts high systolic BP. He ordered Hydralazine 25 mg Q8 PRN PO. Will put order in and will continue to monitor.
[2018-10-04] VITALS (12 sets, daily range): BP systolic 78–155; BP diastolic 42–78
[2018-10-04] MEDS ORDERED: HydrALAZINE 25mg tab ORAL PRN
[2018-10-04] MEDS: Piperacillin/Tazobactam 3.375 GM in D5W 110 ML IVPB SCH ×3 (06:09→21:36)
[2018-10-04] MEDS: NovoLOG Insulin Flexpen SUBQ SCH ×4 (06:10→21:40)
[2018-10-04 07:07] LABS: ANION GAP 10 mmol/L (5-15); BLOOD UREA NITROGEN 10 mg/dL (7-18); CARBON DIOXIDE 27 MMOL/L (21-32); CHLORIDE 107 MMOL/L (98-107); CREATININE 1.1 MG/DL (0.55-1.30); POTASSIUM 3.5 MMOL/L (3.5-5.1); SODIUM 144 MMOL/L (136-145)
[2018-10-04 07:12] LABS: BASOPHILS % (AUTO) 1.8 % (0.0-2.0); EOSINOPHILS % (AUTO) 3.3 % (0.0-3.0); HEMATOCRIT 29.4 % (37.0-47.0); HEMOGLOBIN 9.3 G/DL (12.0-16.0); LYMPHOCYTES % (AUTO) 20.9 % (20.0-45.0); MEAN CORPUSCULAR VOLUME 84 FL (80-99); MONOCYTES % (AUTO) 6.3 % (1.0-10.0); NEUTROPHILS % (AUTO) 67.8 % (45.0-75.0); PLATELET COUNT 247 K/UL (150-450); RED BLOOD COUNT 3.48 M/UL (4.20-5.40); RED CELL DISTRIBUTION WIDTH 11.9 % (11.6-14.8); WHITE BLOOD COUNT 7.1 K/UL (4.8-10.8)
--- NOTE | 2018-10-04 07:36 | NUR ---
HAND-OFF: Report given to VADIM Camara. Pt stable.
--- NOTE | 2018-10-04 07:37 | NUR ---
NURSE NOTES: Received report from Gavi Bryant. Pt is sleeping in bed with no distress noted. Bed is in lowest position, side rails up X2, and call light is within reach. Will continue to monitor. Pt is NPO as of midnight.
--- NOTE | 2018-10-04 07:45 | NUR ---
NURSE NOTES: Pt is not on the schedule for surgery today. Called surgery to ask if there were any plans. Per Surgery, we have to call the doctor to check. Called Dr. Thompson's office, left message for him to call back regarding the patient. WIll await call back.
--- NOTE | 2018-10-04 08:18 | NUR ---
NURSE NOTES: Received call from Dr. Thompson. Per MD, call surgery and ask if there is any slots available to perform the procedure today since the pt is already NPO. Called surgery, spoke with Monica. She stated that usually, the doctors have to call and check. SHe will ask charge nurse and all me back.
[2018-10-04] MEDS: Heparin 5000 units/ml inj SUBQ SCH ×2 (08:49→21:00)
[2018-10-04] MEDS: Aspirin EC 81mg tab ORAL SCH (08:49)
[2018-10-04] MEDS: Vancomycin 750 MG in NS 275 ML IVPB SCH ×2 (08:55→21:36)
[2018-10-04] MEDS ORDERED: Lidocaine 2% MPF 5ml Vial INJ ONE (11:51)
[2018-10-04] MEDS ORDERED: LR 1000ml 1,000 ML IVLG SCH (11:53)
--- NOTE | 2018-10-04 11:54 | Anethesia Preoperative Eval ---
Anesthesia Pre-op PMH/ROS General Date of Evaluation: Oct 04, 2018 Time of Evaluation: 11:54 Anesthesiologist: Keli ASA Score: ASA 3 Mallampati Score Class I : Soft palate, uvula, fauces, pillars visible Class II: Soft palate, uvula, fauces visible Class III: Soft palate, base of uvula visible Class IV: Only hard plate visible Mallampati Classification: Class II Surgeon: Zach Diagnosis: R 5th Toe Cellulitis Surgical Procedure: Amputation R 5th Toe Anesthesia History: none Family History: no anesthesia problems Allergies: Coded Allergies: No Known Allergies (Verified , 01/25/10) Medications: see eMAR Patient NPO?: Yes NPO Date: Oct 04, 2018 NPO Time: 0000 Past Medical History Cardiovascular: Reports: HTN, CAD - Angina Neurologic/Psychiatric: Reports: depression/anxiety Endocrine: Reports: DM HEENT: Reports: other - Retinopathy Hematology/Immune: Reports: anemia, other - Sepsis Anesthesia Pre-op Phys. Exam Physician Exam Last Vital Signs Date Time Temp Pulse Resp B/P (MAP) Pulse Ox O2 Delivery O2 Flow Rate FiO2 10/04/18 09:00 Room Air 10/04/18 08:59 68 155/72 10/04/18 08:00 98.0 18 99 Constitutional: NAD Neurologic: CN 2-12 intact Cardiovascular: RRR Respiratory: CTA Gastrointestinal: S/NT/ND Airway Exam Mallampati Score: Class II MO: limited ROM: limited Teeth: intact Anesthesia Pre-op A/P Labs Hematology Test 10/04/18 05:40 White Blood Count 7.1 K/UL (4.8-10.8) Red Blood Count 3.48 M/UL (4.20-5.40) L Hemoglobin 9.3 G/DL (12.0-16.0) L Hematocrit 29.4 % (37.0-47.0) L Mean Corpuscular Volume 84 FL (80-99) Mean Corpuscular Hemoglobin 26.8 PG (27.0-31.0) L Mean Corpuscular Hemoglobin Concent 31.8 G/DL (32.0-36.0) L Red Cell Distribution Width 11.9 % (11.6-14.8) Platelet Count 247 K/UL (150-450) Mean Platelet Volume 6.9 FL (6.5-10.1) Neutrophils (%) (Auto) 67.8 % (45.0-75.0) Lymphocytes (%) (Auto) 20.9 % (20.0-45.0) Monocytes (%) (Auto) 6.3 % (1.0-10.0) Eosinophils (%) (Auto) 3.3 % (0.0-3.0) H Basophils (%) (Auto) 1.8 % (0.0-2.0) Chemistry Test 10/04/18 05:40 Sodium Level 144 MMOL/L (136-145) Potassium Level 3.5 MMOL/L (3.5-5.1) Chloride Level 107 MMOL/L (98-107) Carbon Dioxide Level 27 MMOL/L (21-32) Anion Gap 10 mmol/L (5-15) Blood Urea Nitrogen 10 mg/dL (7-18) Creatinine 1.1 MG/DL (0.55-1.30) Estimat Glomerular Filtration Rate 49.9 mL/min (>60) Glucose Level 150 MG/DL (74-106) H Calcium Level 9.0 MG/DL (8.5-10.1) Risk Assessment & Plan Assessment: ASA 3 Plan: GA, SED Status Change Before Surgery: No Pre-Antibiotics Dru Gram Ancef IV Given Within 1 Hr of Incision: Yes Time Given: 12:11 Lemuel Dickey MD Oct 04, 2018 11:54
[2018-10-04] MEDS ORDERED: Propofol 200mg/20ml IV ONE (11:55)
[2018-10-04] MEDS ORDERED: Lidocaine 1% MPF 10mg/ml 5ml ONE (11:55)
--- NOTE | 2018-10-04 11:55 | Pre-Procedure Note/Attestation ---
Pre-Procedure Note/Attestation Complete Prior to Procedure Planned Procedure: right Procedure Narrative: - Pt seen in PACU. - Surgical Site Marked, RLE. - Chart reviewed. - Cardiac confirm moderate risk for sx. - Pt confirm NPO. - Discussed with anesthesia MAC with local IV sedation. Indications for Procedure Pre-Operative Diagnosis: 1. Right foot Cellultis 2. Right foot 5th digit gangrene. Attestation I attest that I discussed the nature of the procedure; its benefits; risks and complications; and alternatives (and the risks and benefits of such alternatives ), prior to the procedure, with the patient (or the patient's legal medical sales representative). I attest that, if there was a reasonable possibility of needing a blood transfusion, the patient (or the patient's legal medical sales representative) was given the [place] Department [employer] Services standardized written summary, pursuant to the [place] Blood Safety Act ([place] Health and Safety Code # 1645, as amended). I attest that I re-evaluated the patient just prior to the surgery and that there has been no change in the patient's H&P, except as documented below: Gonzales Valle DPM Oct 04, 2018 11:55
[2018-10-04] MEDS ORDERED: Meperidine 50mg/ml Inj(FOR RIGORS ONLY) IVP PRN (12:00)
[2018-10-04] MEDS ORDERED: Sterile Water Irrig 1000ml IRRIG ONE (12:00)
[2018-10-04] MEDS ORDERED: Atropine Sulfate 0.4mg/ml inj IVP PRN (12:00)
[2018-10-04] MEDS ORDERED: Hydromorphone 0.5mg/0.5ml inj IVP PRN (12:00)
[2018-10-04] MEDS ORDERED: Norco 5mg/325mg tab ORAL PRN (12:00)
[2018-10-04] MEDS ORDERED: NS Irrig 1000ml ONE (12:00)
[2018-10-04] MEDS ORDERED: LORazepam Inj 2mg/ml 1ml IV PRN (12:00)
[2018-10-04] MEDS ORDERED: oxyCODONE HCL/Acetaminophen 5/325mg ORAL PRN (12:00)
[2018-10-04] MEDS ORDERED: DiphenhydrAMINE 50mg/ml Inj IVP PRN (12:00)
[2018-10-04] MEDS ORDERED: Metoclopramide 10mg/2ml Inj IVP PRN (12:00)
[2018-10-04] MEDS ORDERED: HYDROcodone/Acetamin 7.5/325 tab ORAL PRN (12:00)
[2018-10-04] MEDS ORDERED: fentaNYL 100 mcg/2 mL IV PRN (12:00)
[2018-10-04] MEDS ORDERED: Midazolam 2mg/2ml Inj IVP PRN (12:00)
[2018-10-04] MEDS ORDERED: LR 1000ml ONE (12:00)
[2018-10-04] MEDS ORDERED: NS Irrig 1000ml IRRIG ONE (12:14)
--- NOTE | 2018-10-04 12:33 | Surgery Progress Note ---
Surgery Progress Note Subjective Additional Comments no acute events. amputation planned for today. Objective Last 24 Hour Vital Signs Date Time Temp Pulse Resp B/P (MAP) Pulse Ox O2 Delivery O2 Flow Rate FiO2 10/04/18 09:00 Room Air 10/04/18 08:59 68 155/72 10/04/18 08:00 98.0 68 18 155/72 (99) 99 10/04/18 04:00 98.5 65 19 145/68 (93) 99 10/04/18 04:00 68 10/04/18 00:00 98.2 81 18 154/78 (103) 98 10/04/18 00:00 77 10/03/18 21:00 Room Air 10/03/18 20:00 98.3 78 17 160/76 (104) 98 10/03/18 16:00 98.0 70 20 150/72 (98) 99 10/03/18 16:00 73 I&O Intake and Output 10/03/18 10/04/18 18:59 06:59 # Voids 3 1 Dressing: saturated Wound: other Drains: other Cardiovascular: RSR Respiratory: clear Abdomen: soft, present bowel sounds, non-distended Extremities: cyanosis, other Laboratory Tests Test 10/04/18 05:40 White Blood Count 7.1 K/UL (4.8-10.8) Red Blood Count 3.48 M/UL (4.20-5.40) L Hemoglobin 9.3 G/DL (12.0-16.0) L Hematocrit 29.4 % (37.0-47.0) L Mean Corpuscular Volume 84 FL (80-99) Mean Corpuscular Hemoglobin 26.8 PG (27.0-31.0) L Mean Corpuscular Hemoglobin Concent 31.8 G/DL (32.0-36.0) L Red Cell Distribution Width 11.9 % (11.6-14.8) Platelet Count 247 K/UL (150-450) Mean Platelet Volume 6.9 FL (6.5-10.1) Neutrophils (%) (Auto) 67.8 % (45.0-75.0) Lymphocytes (%) (Auto) 20.9 % (20.0-45.0) Monocytes (%) (Auto) 6.3 % (1.0-10.0) Eosinophils (%) (Auto) 3.3 % (0.0-3.0) H Basophils (%) (Auto) 1.8 % (0.0-2.0) Sodium Level 144 MMOL/L (136-145) Potassium Level 3.5 MMOL/L (3.5-5.1) Chloride Level 107 MMOL/L (98-107) Carbon Dioxide Level 27 MMOL/L (21-32) Anion Gap 10 mmol/L (5-15) Blood Urea Nitrogen 10 mg/dL (7-18) Creatinine 1.1 MG/DL (0.55-1.30) Estimat Glomerular Filtration Rate 49.9 mL/min (>60) Glucose Level 150 MG/DL (74-106) H Calcium Level 9.0 MG/DL (8.5-10.1) Plan Problems: (1) Cellulitis Assessment & Plan: right foot cellulitis, sepsis, fevers, leukocytosis Plain film with likely acute osteo no abscess noted on exam earlier today but tender, warm, erythema, and ischemia to 5th toe MRI - Acute osteomyelitis of the mid and distal fifth phalange. Nonspecific bone marrow edema present within the fifth proximal phalange. Osteomyelitis is not excluded, although findings are probably due to reactive bone marrow edema no acute general surgery intervention planned at this time Cont IV abx as per ID Appreciate Podiatry input - plan for amputation as per podiatry today thank you will follow with nyla. Nathaniel Alonzo Oct 04, 2018 12:33
--- NOTE | 2018-10-04 12:44 | Immediate Post-Op Evaluation ---
Immediate Post-Op Evalulation Immediate Post-Op Evalulation Procedure: Amputation R 5th Toe Date of Evaluation: Oct 04, 2018 Time of Evaluation: 13:05 IV Fluids: 200 LR Blood Products: 0 Estimated Blood Loss: 4 Urinary Output: 0 Blood Pressure Systolic: 81 Blood Pressure Diastolic: 46 Pulse Rate: 59 Respiratory Rate: 16 O2 Sat by Pulse Oximetry: 99 Temperature (Fahrenheit): 97.8 Pain Score (1-10): 1 Nausea: No Vomiting: No Complications 0 Patient Status: awake, reacts, patent, extubated, none Hydration Status: adequate Dru Gram Ancef IV Given Within 1 Hr of Incision: Yes Time Given: 12:11 Lemuel Dickey MD Oct 04, 2018 12:44
[2018-10-04] MEDS ORDERED: Betadine 4oz Bottle TOPIC ONE (12:45)
--- NOTE | 2018-10-04 12:57 | Cardiology Progress Note ---
Assessment/Plan Status: stable Assessment/Plan Assessment/Plan Status: stable Assessment/Plan Assessment: Anemia Hypertension. Hyperlipiemia Diabetes Coronary artery disease Continue aspirin Continue statin Aggressive glucose control Continue norvasc for hypertension IV abx for osteomyelitis no evidence of endocarditis clinically Stress test showed Evidence of anteroseptal ischemia. There may be a small fixed component suggestive of infarct as well. Calculated post stress ejection fraction 38% Patient has negative troponin x2, no ACS, she is moderate risk for complications , given small amount of ischemia and no chest pain patient can proceed with perioperative beta blockade heart rate 60s to reduce ischemic threshold. Subjective Cardiovascular: Reports: no symptoms Respiratory: Reports: no symptoms Gastrointestinal/Abdominal: Reports: no symptoms Genitourinary: Reports: no symptoms Subjective No acute events Patient had stress test today with Evidence of anteroseptal ischemia. There may be a small fixed component suggestive of infarct as well. Calculated post stress ejection fraction 38% Objective Last 24 Hour Vital Signs Date Time Temp Pulse Resp B/P (MAP) Pulse Ox O2 Delivery O2 Flow Rate FiO2 10/04/18 09:00 Room Air 10/04/18 08:59 68 155/72 10/04/18 08:00 98.0 68 18 155/72 (99) 99 10/04/18 04:00 98.5 65 19 145/68 (93) 99 10/04/18 04:00 68 10/04/18 00:00 98.2 81 18 154/78 (103) 98 10/04/18 00:00 77 10/03/18 21:00 Room Air 10/03/18 20:00 98.3 78 17 160/76 (104) 98 10/03/18 16:00 98.0 70 20 150/72 (98) 99 10/03/18 16:00 73 General Appearance: no apparent distress, alert EENT: PERRL/EOMI, normal ENT inspection Neck: non-tender, normal alignment, supple Rhythm: NSR Cardiovascular: normal peripheral pulses, normal rate, regular rhythm Respiratory/Chest: chest wall non-tender, lungs clear Abdomen: normal bowel sounds, non tender, soft, no organomegaly Extremities: normal range of motion, non-tender Neurologic: detailer furniture II-XII grossly normal, no motor/sensory deficits Intake and Output 10/03/18 10/04/18 19:00 07:00 # Voids 3 1 Laboratory Tests Test 10/04/18 05:40 White Blood Count 7.1 K/UL (4.8-10.8) Red Blood Count 3.48 M/UL (4.20-5.40) L Hemoglobin 9.3 G/DL (12.0-16.0) L Hematocrit 29.4 % (37.0-47.0) L Mean Corpuscular Volume 84 FL (80-99) Mean Corpuscular Hemoglobin 26.8 PG (27.0-31.0) L Mean Corpuscular Hemoglobin Concent 31.8 G/DL (32.0-36.0) L Red Cell Distribution Width 11.9 % (11.6-14.8) Platelet Count 247 K/UL (150-450) Mean Platelet Volume 6.9 FL (6.5-10.1) Neutrophils (%) (Auto) 67.8 % (45.0-75.0) Lymphocytes (%) (Auto) 20.9 % (20.0-45.0) Monocytes (%) (Auto) 6.3 % (1.0-10.0) Eosinophils (%) (Auto) 3.3 % (0.0-3.0) H Basophils (%) (Auto) 1.8 % (0.0-2.0) Sodium Level 144 MMOL/L (136-145) Potassium Level 3.5 MMOL/L (3.5-5.1) Chloride Level 107 MMOL/L (98-107) Carbon Dioxide Level 27 MMOL/L (21-32) Anion Gap 10 mmol/L (5-15) Blood Urea Nitrogen 10 mg/dL (7-18) Creatinine 1.1 MG/DL (0.55-1.30) Estimat Glomerular Filtration Rate 49.9 mL/min (>60) Glucose Level 150 MG/DL (74-106) H Calcium Level 9.0 MG/DL (8.5-10.1) Uzair Salas MD Oct 04, 2018 12:57
--- NOTE | 2018-10-04 12:58 | Brief Operative Note ---
Immediate Post Operative Note Operative Note Pre-op Diagnosis: 1. Right foot Cellultis 2. Right foot 5th digit gangrene. Procedure: 1. Right foot 5th digit amputation with primary closure. 2. Right foot deep wound culture. 3. Right foot bone biopsy. 4. Right foot bone culture. Post-op Diagnosis: same as above. Post-op Diagnosis: same as pre-op Findings: consistent w/pre-op dx studies Surgeon: Dr. Valle On Air Director: None. Additional Surgeons: None. Anesthesiologist: Dr. Dickey Anesthesia: MAC - with local block 10cc of Lidocaine 2% Specimen: yes - Right foot, deep wound culture, bone biopsy, bone culture. Complications: none Condition: stable Fluids: resume pre-op fluids per primary team. Estimated Blood Loss: minimal Drains: none Tourniquet time: 30 Implant(s) used?: Gonzales Duarte DPM Oct 04, 2018 12:58
--- NOTE | 2018-10-04 13:14 | General Progress Note ---
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 Subjective Date patient seen: Oct 04, 2018 Time patient seen: 12:15 Cardiovascular: Denies: chest pain, irregular heart rate Respiratory: Denies: cough, orthopnea, shortness of breath Gastrointestinal/Abdominal: Denies: abdomen distended, abdominal pain Genitourinary: Denies: burning Allergies: Coded Allergies: No Known Allergies (Verified , 01/25/10) Subjective Medicine followup for right foot cellulitis, osteomyelitis. Denies fever and chills. Patient cleared for surgery today. Objective Last 24 Hour Vital Signs Date Time Temp Pulse Resp B/P (MAP) Pulse Ox O2 Delivery O2 Flow Rate FiO2 10/04/18 13:04 97.8 58 10 82/45 98 Simple Mask 6 10/04/18 13:03 59 16 99 10/04/18 09:00 Room Air 10/04/18 08:59 68 155/72 10/04/18 08:00 98.0 68 18 155/72 (99) 99 10/04/18 04:00 98.5 65 19 145/68 (93) 99 10/04/18 04:00 68 10/04/18 00:00 98.2 81 18 154/78 (103) 98 10/04/18 00:00 77 10/03/18 21:00 Room Air 10/03/18 20:00 98.3 78 17 160/76 (104) 98 10/03/18 16:00 98.0 70 20 150/72 (98) 99 10/03/18 16:00 73 Intake and Output 10/03/18 10/04/18 18:59 06:59 # Voids 3 1 Laboratory Tests 10/04/18 05:40: White Blood Count 7.1, Red Blood Count 3.48L, Hemoglobin 9.3L, Hematocrit 29.4L , Mean Corpuscular Volume 84, Mean Corpuscular Hemoglobin 26.8L, Mean Corpuscular Hemoglobin Concent 31.8L, Red Cell Distribution Width 11.9, Platelet Count 247, Mean Platelet Volume 6.9, Neutrophils (%) (Auto) 67.8, Lymphocytes (%) (Auto) 20.9, Monocytes (%) (Auto) 6.3, Eosinophils (%) (Auto) 3.3H, Basophils (%) (Auto) 1.8, Sodium Level 144, Potassium Level 3.5, Chloride Level 107, Carbon Dioxide Level 27, Anion Gap 10, Blood Urea Nitrogen 10, Creatinine 1.1, Estimat Glomerular Filtration Rate 49.9, Glucose Level 150H, Calcium Level 9.0 Height (Feet): 5 Height (Inches): 4.00 Weight (Pounds): 135 General Appearance: no apparent distress, alert Neck: normal alignment, supple Cardiovascular: normal rate, regular rhythm Respiratory/Chest: chest wall non-tender, lungs clear Abdomen: normal bowel sounds, non tender Mina Ward MD Oct 04, 2018 13:14
--- NOTE | 2018-10-04 15:40 | NUR ---
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 97.9 HR 63 RR 16 B/P 139/66 3L NC IS: VANCO IV ZOSYN IV HEPARIN SUBC LOPRESSOR TELE STATUS
--- NOTE | 2018-10-04 16:35 | Diagnostic Imaging Report ---
Indication: Postoperative Technique: 2 views right foot Comparison: 09/28/2018 Findings: Interim amputation of the fifth digit at the level of the metatarsophalangeal joint. There is some associated soft tissue swelling. The fifth metatarsal head appears intact. The other bones appear intact. Impression: Postoperative right foot, no unusual features
[2018-10-04] MEDS: Metoprolol 25mg tab ORAL SCH (21:37)
[2018-10-04] MEDS: Atorvastatin 20mg tab ORAL SCH (21:37)
--- NOTE | 2018-10-04 22:00 | Operative Note - Dictated ---
DATE OF OPERATION: 10/04/2018 SURGEON: Gonzales Valle DPM TELEMEDICINE PHYSICIAN: None. ANESTHESIOLOGIST: Lemuel Dickey M.D. PREOPERATIVE DIAGNOSES: 1. Right foot, fifth digit gangrene. 2. Right foot cellulitis. POSTOPERATIVE DIAGNOSES: 1. Right foot, fifth digit gangrene. 2. Right foot cellulitis. OPERATIONS: 1. Right foot fifth digit amputation with primary closure. 2. Right foot deep wound closure. 3. Right foot bone biopsy. 4. Right foot bone closure. ANESTHESIA: MAC with local block. ESTIMATED BLOOD LOSS: Less than 10 mL. MATERIALS: None. SPECIMEN: 1. Right foot fifth digit bone biopsy. 2. Right foot fifth digit bone culture. 3. Right foot deep wound culture, fourth interspace. COMPLICATIONS: None. PROCEDURE IN DETAIL: The patient was seen in the holding room. The risks, benefits, complications, treatment options and expected outcomes were discussed with the patient. The risks and potential complications of the proposed treatment plan include, but not limited to infection, nerve injury, vascular injury, persistent pain, potential skin necrosis, deep venous thrombosis, possible pulmonary embolus, and complications of anesthetics and surgery. The patient concurred with proposed plan, gave informed consent. The site of the surgery preoperatively noted and marked on the right lower extremity. The patient was taken to the operating room and identified as Garth Anisa. Fully verified procedure of right foot fifth digit amputation, deep wound culture, bone culture, and bone biopsy. Time-out was held and above information was confirmed. The patient was brought to the operating room and placed on the operating room table in the supine position. Right foot fifth digit amputation with primary closure, deep wound culture, bone biopsy, and bone culture. After successful induction of anesthesia, V-block was performed to the right fifth digit just proximally, 10 mL of lidocaine 2%, aseptic technique. The lower leg, ankle, and right foot was then prepped with Betadine. Attention was then directed to the right fifth digit where fifth digit in total was noted to be gangrenous and necrotic. A semi-elliptical incision was then made to the bone dorsal and proximally to the fifth digit where healthy tissue was noted. The fifth digit was then disarticulated and passed as gross specimen to the operating table. Next, deep wound culture was obtained on the fourth interspace and sent for culture and sensitivity. The base of the proximal phalanx was then disarticulated from the gross specimen and sent for bone biopsy. Surgical site was then irrigated with normal saline half a liter. No purulence was noted or expressed upon negative pressure to the surgical site. The surgical site was then closed with 3-0 nylon in simple interrupted fashion. A clean, sterile, Betadine dressing was then applied. Instrument, sponge, and needle counts were correct at the wound closure and at the conclusion of the case. The patient tolerated the procedure well and was transferred to the PACU in the awake and in good condition. Gonzales Valle DPM DR: Cady JOB#: [id number] CC: JIMMY
--- NOTE | 2018-10-04 22:21 | NUR ---
NURSE NOTES: Report received from VADIM Duarte. Pt is lying comfortably in semi-fowlers with no signs of distress. Pt is A+Ox4 and denies pain/ SOB. IV sites are patent, intact, and saline locked. Respirations are even and unlabored on room air. Bed is at lowest position, brakes engaged, siderails x2, bed alarm on, and call light within reach. Pt's right leg elevated on two pillows. Pt is in stable condition at this time. Will continue to monitor. Addendum: 10/04/18 at 2223 by JOVANY REMY RN Incorrect time noted. Correct time --> 10/04/18 @1948
[2018-10-05] VITALS: BP 136/57
[2018-10-05 04:00] VITALS: BP 142/65
[2018-10-05] MEDS: Piperacillin/Tazobactam 3.375 GM in D5W 110 ML IVPB SCH (06:00)
[2018-10-05] MEDS: NovoLOG Insulin Flexpen SUBQ SCH ×4 (06:01→21:24)
--- NOTE | 2018-10-05 07:13 | NUR ---
HAND-OFF: Report given to VADIM Dubon. Pt is in stable condition; plan of care endorsed.
--- NOTE | 2018-10-05 07:30 | NUR ---
NURSE NOTES: Report received from VADIM Ramos. Patient sleeping comfortably. Easily awakened by name. In RA. Denies any pain or SOB. IV running Zosyn. Site is intact. Bed on lowest position, side rails upx2, brakes engaged. Call light within easy reach.
[2018-10-05 07:58] LABS: BASOPHILS % (AUTO) 1.4 % (0.0-2.0); EOSINOPHILS % (AUTO) 2.2 % (0.0-3.0); HEMATOCRIT 29.8 % (37.0-47.0); HEMOGLOBIN 9.5 G/DL (12.0-16.0); LYMPHOCYTES % (AUTO) 20.6 % (20.0-45.0); MEAN CORPUSCULAR VOLUME 85 FL (80-99); NEUTROPHILS % (AUTO) 69.8 % (45.0-75.0); PLATELET COUNT 269 K/UL (150-450); RED BLOOD COUNT 3.49 M/UL (4.20-5.40); RED CELL DISTRIBUTION WIDTH 11.8 % (11.6-14.8); WHITE BLOOD COUNT 8.8 K/UL (4.8-10.8)
[2018-10-05 08:00] VITALS: BP 117/50
--- NOTE | 2018-10-05 08:10 | NUR ---
NURSE NOTES: Patient's right small toe amputated 10/04/18. Dressing dry and intact, leg elevated on two pillows. Patient no complaints of pain. Moves leg and toes without any pain. Encouraged to exercise leg and toes as tolerated and to communicate any itching, pain or warmth on surgical site
[2018-10-05 08:14] LABS: ANION GAP 11 mmol/L (5-15); BLOOD UREA NITROGEN 14 mg/dL (7-18); CALCIUM 8.9 MG/DL (8.5-10.1); CARBON DIOXIDE 25 MMOL/L (21-32); CHLORIDE 107 MMOL/L (98-107); CREATININE 1.1 MG/DL (0.55-1.30); POTASSIUM 3.5 MMOL/L (3.5-5.1); SODIUM 143 MMOL/L (136-145)
[2018-10-05] MEDS: Aspirin EC 81mg tab ORAL SCH (08:40)
[2018-10-05] MEDS: Metoprolol 25mg tab ORAL SCH ×3 (08:42→20:46)
[2018-10-05] MEDS: Vancomycin 750 MG in NS 275 ML IVPB SCH ×2 (08:42→20:45)
[2018-10-05] MEDS: Heparin 5000 units/ml inj SUBQ SCH ×2 (08:45→20:47)
--- NOTE | 2018-10-05 10:33 | 48 Hour Post Anesthesia Eval ---
Post Anesthesia Evaluation Procedure: Amputation R 5th Toe Date of Evaluation: Oct 05, 2018 Time of Evaluation: 10:32 Blood Pressure Systolic: 117 0: 50 Pulse Rate: 75 Respiratory Rate: 16 Temperature (Fahrenheit): 99.2 O2 Sat by Pulse Oximetry: 96 Airway: patent Nausea: No Vomiting: No Pain Intensity: 2 Hydration Status: adequate Cardiopulmonary Status: Stable Mental Status/LOC: patient returned to baseline Follow-up Care/Observations: 0 Post-Anesthesia Complications: 0 Follow-up care needed: N/A Lemuel Dickey MD Oct 05, 2018 10:33
--- NOTE | 2018-10-05 11:30 | NUR ---
NURSE NOTES: Patient's BS 320, Dr Ambrosio is aware. Patient had refused to take Insulin. Insisted at home she takes PO meds only. Dr. batres new order in for her starting 10/06.
[2018-10-05 12:00] VITALS: BP 142/56
--- NOTE | 2018-10-05 12:20 | General Progress Note ---
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 Denies fever and chills. S/p 5th metatarsal amputation yesterday. Objective Last 24 Hour Vital Signs Date Time Temp Pulse Resp B/P (MAP) Pulse Ox O2 Delivery O2 Flow Rate FiO2 10/05/18 10:33 75 16 96 10/05/18 08:59 75 117/50 10/05/18 08:40 75 117/50 10/05/18 08:00 99.2 75 16 117/50 (72) 96 10/05/18 08:00 67 10/05/18 04:00 97.5 69 16 142/65 (90) 94 10/05/18 03:24 66 10/05/18 00:00 97.7 68 16 136/57 (83) 97 10/04/18 23:25 67 10/04/18 21:37 67 130/56 10/04/18 21:00 Room Air 10/04/18 20:34 71 10/04/18 20:00 97.5 67 17 130/56 (80) 92 10/04/18 16:00 97.9 69 18 145/66 (92) 100 10/04/18 16:00 71 10/04/18 14:05 97.9 63 16 139/66 100 Nasal Cannula 3 10/04/18 13:50 63 15 129/61 100 Nasal Cannula 3 10/04/18 13:35 70 16 107/61 100 Nasal Cannula 3 10/04/18 13:25 71 14 109/56 100 Simple Mask 6 10/04/18 13:15 60 24 80/42 99 Simple Mask 6 10/04/18 13:10 58 12 78/44 98 Simple Mask 6 10/04/18 13:04 97.8 58 10 82/45 98 Simple Mask 6 10/04/18 13:03 59 16 99 Intake and Output 10/04/18 10/05/18 19:00 07:00 Intake Total 860 ml 385 ml Output Total 410 ml Balance 450 ml 385 ml Intake Oral 360 ml IV Total 500 ml 385 ml Output Urine Total 400 ml Estimated Blood Loss 10 ml # Voids 2 Laboratory Tests 10/04/18 19:25: Vancomycin Level Trough 16.2H 10/05/18 06:35: White Blood Count 8.8, Red Blood Count 3.49L, Hemoglobin 9.5L, Hematocrit 29.8L , Mean Corpuscular Volume 85, Mean Corpuscular Hemoglobin 27.1, Mean Corpuscular Hemoglobin Concent 31.8L, Red Cell Distribution Width 11.8, Platelet Count 269, Mean Platelet Volume 6.2L, Neutrophils (%) (Auto) 69.8, Lymphocytes (%) (Auto) 20.6, Monocytes (%) (Auto) 6.0, Eosinophils (%) (Auto) 2.2, Basophils (%) (Auto) 1.4, Sodium Level 143, Potassium Level 3.5, Chloride Level 107, Carbon Dioxide Level 25, Anion Gap 11, Blood Urea Nitrogen 14, Creatinine 1.1, Estimat Glomerular Filtration Rate 49.9, Glucose Level 158H, Calcium Level 8.9 Height (Feet): 5 Height (Inches): 4.00 Weight (Pounds): 144 General Appearance: alert Neck: non-tender Cardiovascular: normal peripheral pulses, normal rate, regular rhythm Respiratory/Chest: chest wall non-tender, lungs clear Abdomen: normal bowel sounds, non tender Mina Ward MD Oct 05, 2018 12:20
--- NOTE | 2018-10-05 12:48 | Surgery Progress Note ---
Surgery Progress Note Subjective Additional Comments s/p amputation. doing well. comfortable. no complaints Objective Last 24 Hour Vital Signs Date Time Temp Pulse Resp B/P (MAP) Pulse Ox O2 Delivery O2 Flow Rate FiO2 10/05/18 10:33 75 16 96 10/05/18 09:00 Room Air 10/05/18 08:59 75 117/50 10/05/18 08:40 75 117/50 10/05/18 08:00 99.2 75 16 117/50 (72) 96 10/05/18 08:00 67 10/05/18 04:00 97.5 69 16 142/65 (90) 94 10/05/18 03:24 66 10/05/18 00:00 97.7 68 16 136/57 (83) 97 10/04/18 23:25 67 10/04/18 21:37 67 130/56 10/04/18 21:00 Room Air 10/04/18 20:34 71 10/04/18 20:00 97.5 67 17 130/56 (80) 92 10/04/18 16:00 97.9 69 18 145/66 (92) 100 10/04/18 16:00 71 10/04/18 14:05 97.9 63 16 139/66 100 Nasal Cannula 3 10/04/18 13:50 63 15 129/61 100 Nasal Cannula 3 10/04/18 13:35 70 16 107/61 100 Nasal Cannula 3 10/04/18 13:25 71 14 109/56 100 Simple Mask 6 10/04/18 13:15 60 24 80/42 99 Simple Mask 6 10/04/18 13:10 58 12 78/44 98 Simple Mask 6 10/04/18 13:04 97.8 58 10 82/45 98 Simple Mask 6 10/04/18 13:03 59 16 99 I&O Intake and Output 10/04/18 10/05/18 19:00 07:00 Intake Total 860 ml 385 ml Output Total 410 ml Balance 450 ml 385 ml Intake Oral 360 ml IV Total 500 ml 385 ml Output Urine Total 400 ml Estimated Blood Loss 10 ml # Voids 2 Dressing: dry Wound: clean Drains: none Cardiovascular: RSR Respiratory: clear Abdomen: soft, flat, non-tender, present bowel sounds, non-distended Extremities: other Laboratory Tests Test 10/04/18 19:25 10/05/18 06:35 Vancomycin Level Trough 16.2 ug/mL (5.0-12.0) H White Blood Count 8.8 K/UL (4.8-10.8) Red Blood Count 3.49 M/UL (4.20-5.40) L Hemoglobin 9.5 G/DL (12.0-16.0) L Hematocrit 29.8 % (37.0-47.0) L Mean Corpuscular Volume 85 FL (80-99) Mean Corpuscular Hemoglobin 27.1 PG (27.0-31.0) Mean Corpuscular Hemoglobin Concent 31.8 G/DL (32.0-36.0) L Red Cell Distribution Width 11.8 % (11.6-14.8) Platelet Count 269 K/UL (150-450) Mean Platelet Volume 6.2 FL (6.5-10.1) L Neutrophils (%) (Auto) 69.8 % (45.0-75.0) Lymphocytes (%) (Auto) 20.6 % (20.0-45.0) Monocytes (%) (Auto) 6.0 % (1.0-10.0) Eosinophils (%) (Auto) 2.2 % (0.0-3.0) Basophils (%) (Auto) 1.4 % (0.0-2.0) Sodium Level 143 MMOL/L (136-145) Potassium Level 3.5 MMOL/L (3.5-5.1) Chloride Level 107 MMOL/L (98-107) Carbon Dioxide Level 25 MMOL/L (21-32) Anion Gap 11 mmol/L (5-15) Blood Urea Nitrogen 14 mg/dL (7-18) Creatinine 1.1 MG/DL (0.55-1.30) Estimat Glomerular Filtration Rate 49.9 mL/min (>60) Glucose Level 158 MG/DL (74-106) H Calcium Level 8.9 MG/DL (8.5-10.1) Plan Problems: (1) Cellulitis Assessment & Plan: right foot cellulitis, sepsis, fevers, leukocytosis Plain film with likely acute osteo no abscess noted on exam earlier today but tender, warm, erythema, and ischemia to 5th toe MRI - Acute osteomyelitis of the mid and distal fifth phalange. Nonspecific bone marrow edema present within the fifth proximal phalange. Osteomyelitis is not excluded, although findings are probably due to reactive bone marrow edema s/p amputation by podiatry dressings dry doing well. recovering cont IV abx as per ID thank you will follow with recs. Nathaniel Alonzo Oct 05, 2018 12:48
--- NOTE | 2018-10-05 14:36 | Consultation ---
History of Present Illness General Chief Complaint: Lower Extremity Injury Reason for Consultation: right foot cellulitis Present Illness Allergies: Coded Allergies: No Known Allergies (Verified , 01/25/10) Medication History Scheduled Amlodipine Besylate (Norvasc), 5 MG ORAL DAILY, (Reported) Aspirin* (Aspir 81*), 81 MG ORAL DAILY, (Reported) Gabapentin* (Gabapentin*), 300 MG ORAL THREE TIMES A DAY, (Reported) Metformin Hcl* (Metformin Hcl*), 1,000 MG ORAL BID, (Reported) Patient History Healthcare decision maker Resuscitation status Full Code Advanced Directive on File Physical Exam Last 24 Hour Vital Signs Date Time Temp Pulse Resp B/P (MAP) Pulse Ox O2 Delivery O2 Flow Rate FiO2 10/05/18 12:00 98.3 73 16 142/56 (84) 94 10/05/18 12:00 74 10/05/18 10:33 75 16 96 10/05/18 09:00 Room Air 10/05/18 08:59 75 117/50 10/05/18 08:40 75 117/50 10/05/18 08:00 99.2 75 16 117/50 (72) 96 10/05/18 08:00 67 10/05/18 04:00 97.5 69 16 142/65 (90) 94 10/05/18 03:24 66 10/05/18 00:00 97.7 68 16 136/57 (83) 97 10/04/18 23:25 67 10/04/18 21:37 67 130/56 10/04/18 21:00 Room Air 10/04/18 20:34 71 10/04/18 20:00 97.5 67 17 130/56 (80) 92 10/04/18 16:00 97.9 69 18 145/66 (92) 100 10/04/18 16:00 71 Intake and Output 10/04/18 10/05/18 18:59 06:59 Intake Total 860 ml 385 ml Output Total 410 ml Balance 450 ml 385 ml Intake Oral 360 ml IV Total 500 ml 385 ml Output Urine Total 400 ml Estimated Blood Loss 10 ml # Voids 2 Laboratory Tests Test 10/04/18 19:25 10/05/18 06:35 Vancomycin Level Trough 16.2 ug/mL (5.0-12.0) H White Blood Count 8.8 K/UL (4.8-10.8) Red Blood Count 3.49 M/UL (4.20-5.40) L Hemoglobin 9.5 G/DL (12.0-16.0) L Hematocrit 29.8 % (37.0-47.0) L Mean Corpuscular Volume 85 FL (80-99) Mean Corpuscular Hemoglobin 27.1 PG (27.0-31.0) Mean Corpuscular Hemoglobin Concent 31.8 G/DL (32.0-36.0) L Red Cell Distribution Width 11.8 % (11.6-14.8) Platelet Count 269 K/UL (150-450) Mean Platelet Volume 6.2 FL (6.5-10.1) L Neutrophils (%) (Auto) 69.8 % (45.0-75.0) Lymphocytes (%) (Auto) 20.6 % (20.0-45.0) Monocytes (%) (Auto) 6.0 % (1.0-10.0) Eosinophils (%) (Auto) 2.2 % (0.0-3.0) Basophils (%) (Auto) 1.4 % (0.0-2.0) Sodium Level 143 MMOL/L (136-145) Potassium Level 3.5 MMOL/L (3.5-5.1) Chloride Level 107 MMOL/L (98-107) Carbon Dioxide Level 25 MMOL/L (21-32) Anion Gap 11 mmol/L (5-15) Blood Urea Nitrogen 14 mg/dL (7-18) Creatinine 1.1 MG/DL (0.55-1.30) Estimat Glomerular Filtration Rate 49.9 mL/min (>60) Glucose Level 158 MG/DL (74-106) H Calcium Level 8.9 MG/DL (8.5-10.1) Height (Feet): 5 Height (Inches): 4.00 Weight (Pounds): 144 Medications Current Medications Medications (Trade) Dose Ordered Sig/Daisha Route PRN Reason Start Time Stop Time Status Last Admin Dose Admin Acetaminophen (Tylenol) 650 mg Q6H PRN ORAL Mild Pain/Temp > 100.5 09/28/18 18:45 10/28/18 18:44 Amlodipine Besylate (Norvasc) 5 mg DAILY ORAL 09/29/18 09:00 10/29/18 08:59 10/05/18 08:40 Aspirin (Ecotrin) 81 mg DAILY ORAL 09/29/18 09:00 10/29/18 08:59 10/05/18 08:40 Atorvastatin Calcium (Lipitor) 20 mg BEDTIME ORAL 10/02/18 21:00 11/01/18 20:59 10/04/18 21:37 Dextrose (Dextrose 50%) 25 ml Q30M PRN IV Hypoglycemia 09/28/18 18:45 10/28/18 18:44 Dextrose (Dextrose 50%) 50 ml Q30M PRN IV Hypoglycemia 09/28/18 18:45 10/28/18 18:44 Gabapentin (Neurontin) 300 mg Q8HR ORAL 09/28/18 22:00 10/28/18 21:59 10/05/18 06:00 Glipizide (Glucotrol) 5 mg ACBREAKFAST ORAL 10/06/18 06:30 11/05/18 06:29 Heparin Sodium (Porcine) (Heparin 5000 units/ml) 5,000 units EVERY 12 HOURS SUBQ 09/28/18 21:00 10/28/18 20:59 10/05/18 08:45 Hydralazine HCl (Apresoline) 25 mg Q8HR PRN ORAL for BP >160 10/04/18 00:00 11/03/18 00:00 Insulin Aspart (NovoLOG) BEFORE MEALS AND HS SUBQ 09/28/18 21:00 10/28/18 20:59 10/05/18 12:42 Metoprolol Tartrate (Lopressor) 25 mg Q12HR ORAL 10/04/18 21:00 11/03/18 20:59 10/04/18 21:37 Piperacillin Sod/ Tazobactam Sod 3.375 gm/Dextrose 110 ml @ 27.5 mls/hr Q8H IVPB 09/29/18 11:00 10/06/18 10:59 10/05/18 06:00 Vancomycin HCl (Vanco rx to dose) 1 ea DAILY PRN MISC Per rx protocol 10/03/18 18:30 11/02/18 18:29 Vancomycin HCl 750 mg/Sodium Chloride 275 ml @ 183.333 mls/hr Q12H IVPB 10/03/18 20:00 10/08/18 19:59 10/05/18 08:42 Assessment/Plan Assessment/Plan Hematology Consultation VENICE SINGLETON: [place] DOS: 10/04/18 RFC: Anemia eval Reason for Hospitalization: Lower Extremity Injury HPI 63 year old woman with type 2 DM complicated by neuropathy who presented with redness and swelling of the right foot that started 1-2 days prior. She does not feel pain due to chronic numbness from neuropathy. She also reports subjective fever and chills. Temp 100.7. In ED she was treated with vanco and Zosyn and referred for admission. Has received 5th toe right sided amputation. Social history: no alcohol or tobacco Family history: no premature CAD Allergies: No Known Allergies (Verified , 01/25/10) Scheduled Amlodipine Besylate (Norvasc), 5 MG ORAL DAILY, (Reported) Aspirin* (Aspir 81*), 81 MG ORAL DAILY, (Reported) Gabapentin* (Gabapentin*), 300 MG ORAL THREE TIMES A DAY, (Reported) Metformin Hcl* (Metformin Hcl*), 1,000 MG ORAL BID, (Reported) Healthcare decision maker Resuscitation status Full Code Advanced Directive on File ROS Constitutional: Reports: chills, fever Eye: Denies: eye pain ENT: Denies: ear pain Respiratory: Denies: cough, shortness of breath Cardiovascular: Denies: chest pain, palpitations Gastrointestinal: Denies: abdominal pain, diarrhea Genitourinary: Denies: discharge, dysuria, frequency Musculoskeletal: Denies: back pain Skin: Denies: rash Neurological: Denies: headache PE General Appearance: no apparent distress, alert HEENT: normocephalic, atraumatic Neck: non-tender, normal alignment, supple Respiratory/Chest: chest wall non-tender, lungs clear Cardiovascular/Chest: normal peripheral pulses, normal rate Abdomen: normal bowel sounds, non tender Extremities: normal range of motion, non-tender, other - Edema of the right foot with lateral erythema and ulceration is now s/p amputation Neurologic: 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-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 grossly normal, no motor/sensory deficits, alert, oriented x 3 Last 24 Hour Vital Signs Last 24 Hour Vital Signs Date Time Temp Pulse Resp B/P (MAP) Pulse Ox O2 Delivery O2 Flow Rate FiO2 10/05/18 12:00 98.3 73 16 142/56 (84) 94 10/05/18 12:00 74 10/05/18 10:33 75 16 96 10/05/18 09:00 Room Air 10/05/18 08:59 75 117/50 10/05/18 08:40 75 117/50 10/05/18 08:00 99.2 75 16 117/50 (72) 96 10/05/18 08:00 67 10/05/18 04:00 97.5 69 16 142/65 (90) 94 10/05/18 03:24 66 10/05/18 00:00 97.7 68 16 136/57 (83) 97 10/04/18 23:25 67 10/04/18 21:37 67 130/56 10/04/18 21:00 Room Air 10/04/18 20:34 71 10/04/18 20:00 97.5 67 17 130/56 (80) 92 10/04/18 16:00 97.9 69 18 145/66 (92) 100 10/04/18 16:00 71 Laboratory Tests Test 10/04/18 19:25 10/05/18 06:35 Vancomycin Level Trough 16.2 ug/mL (5.0-12.0) H White Blood Count 8.8 K/UL (4.8-10.8) Red Blood Count 3.49 M/UL (4.20-5.40) L Hemoglobin 9.5 G/DL (12.0-16.0) L Hematocrit 29.8 % (37.0-47.0) L Mean Corpuscular Volume 85 FL (80-99) Mean Corpuscular Hemoglobin 27.1 PG (27.0-31.0) Mean Corpuscular Hemoglobin Concent 31.8 G/DL (32.0-36.0) L Red Cell Distribution Width 11.8 % (11.6-14.8) Platelet Count 269 K/UL (150-450) Mean Platelet Volume 6.2 FL (6.5-10.1) L Neutrophils (%) (Auto) 69.8 % (45.0-75.0) Lymphocytes (%) (Auto) 20.6 % (20.0-45.0) Monocytes (%) (Auto) 6.0 % (1.0-10.0) Eosinophils (%) (Auto) 2.2 % (0.0-3.0) Basophils (%) (Auto) 1.4 % (0.0-2.0) Sodium Level 143 MMOL/L (136-145) Potassium Level 3.5 MMOL/L (3.5-5.1) Chloride Level 107 MMOL/L (98-107) Carbon Dioxide Level 25 MMOL/L (21-32) Anion Gap 11 mmol/L (5-15) Blood Urea Nitrogen 14 mg/dL (7-18) Creatinine 1.1 MG/DL (0.55-1.30) Estimat Glomerular Filtration Rate 49.9 mL/min (>60) Glucose Level 158 MG/DL (74-106) H Calcium Level 8.9 MG/DL (8.5-10.1) Current Medications Medications (Trade) Dose Ordered Sig/Daisha Route PRN Reason Start Time Stop Time Status Last Admin Dose Admin Acetaminophen (Tylenol) 650 mg Q6H PRN ORAL Mild Pain/Temp > 100.5 09/28/18 18:45 10/28/18 18:44 Amlodipine Besylate (Norvasc) 5 mg DAILY ORAL 09/29/18 09:00 10/29/18 08:59 09/29/18 09:31 Aspirin (Ecotrin) 81 mg DAILY ORAL 09/29/18 09:00 10/29/18 08:59 09/29/18 09:30 Dextrose (Dextrose 50%) 25 ml Q30M PRN IV Hypoglycemia 09/28/18 18:45 10/28/18 18:44 Dextrose (Dextrose 50%) 50 ml Q30M PRN IV Hypoglycemia 09/28/18 18:45 10/28/18 18:44 Gabapentin (Neurontin) 300 mg Q8HR ORAL 09/28/18 22:00 10/28/18 21:59 09/29/18 05:49 Heparin Sodium (Porcine) (Heparin 5000 units/ml) 5,000 units EVERY 12 HOURS SUBQ 09/28/18 21:00 10/28/18 20:59 09/29/18 09:32 Insulin Aspart (NovoLOG) BEFORE MEALS AND HS SUBQ 09/28/18 21:00 10/28/18 20:59 Vancomycin HCl (Vanco rx to dose) 1 ea DAILY PRN MISC Per rx protocol 09/28/18 18:45 10/28/18 18:44 Vancomycin HCl 750 mg/Sodium Chloride 275 ml @ 183.333 mls/hr Q24H IVPB 09/29/18 20:00 10/04/18 19:59 Assessment/Recs: # Anemia due to underlying chronic disease --> anemia panel has been ordered and results pending --> transfuse with 1unit prbc ig hgb <7 --> is s/p amputation # Right foot cellulitis --> ESR is elevated at 92 # Acute osteomyelitis of the mid and distal fifth phalange --> continue vancomycin and Zosyn --> routine post-op care including IS, VTE PPx, pain control --> podiatry notes reviewed, is s/p amputation # Type 2 DM complicated by peripheral neuropathy --> hold metformin while inpatient -->resume glipizide once she is eating --> ISS # Hypokalemia --> resolved Greatly appreciate consultation! Glenn Galvan MD Oct 05, 2018 14:36
[2018-10-05] MEDS ORDERED: HydrALAZINE 25mg tab ORAL PRN (15:00)
--- NOTE | 2018-10-05 15:20 | NUR ---
NURSE NOTES: Informed Patient of transfer. Patient to call daughter.
--- NOTE | 2018-10-05 15:30 | NUR ---
TRANSFER TO FLOOR: Patient transferred to [address], per Dr. Ambrosio. Report given to VADIM Shin. Belongings checked with RN and patient, signed and filed. Insulin pen given to VADIM Shin. Communicated 1300 scheduled Zosyn wasn't given to Patient because medication wasn't delivered to the floor. Pharmacy aware and to send medication to 4th floor. Patient left the floor safe.
--- NOTE | 2018-10-05 15:35 | NUR ---
NURSE NOTES: Patient arraived the floor around 1515 accompanied by transferring nurseLing. Patient awake, alert x4, on room air, no sign of distress and shortness of breath. No sign of chest pain. Right leg small toe amputated and dressing dry and intact, leg elevated by two pillows. Skin intact. Belonging list went through with patient, transferring nurse and receiving nurse. IV RFA and LFA flushes well. Bed at lowest position, side rails, breaks engaged. Call light within reach. Will keep monitoring.
[2018-10-05 16:00] VITALS: BP 124/49
--- NOTE | 2018-10-05 17:49 | General Progress Note ---
Assessment/Plan Assessment/Plan Assessment/Recs: # Anemia due to underlying chronic disease --> anemia panel has been ordered and results pending --> transfuse with 1unit prbc ig hgb <7 --> is s/p amputation # Right foot cellulitis --> ESR is elevated at 92 # Acute osteomyelitis of the mid and distal fifth phalange --> continue vancomycin and Zosyn --> routine post-op care including IS, VTE PPx, pain control --> podiatry notes reviewed, is s/p amputation # Type 2 DM complicated by peripheral neuropathy --> hold metformin while inpatient -->resume glipizide once she is eating --> ISS # Hypokalemia --> resolved Greatly appreciate consultation! Subjective Constitutional: Denies: no symptoms, chills, diaphoresis, fever, malaise, weakness, other HEENT: Denies: no symptoms, eye pain, blurred vision, tearing, double vision, ear pain, ear discharge, nose pain, nose congestion, throat pain, throat swelling, mouth pain, mouth swelling, other Cardiovascular: Denies: no symptoms, chest pain, edema, irregular heart rate, lightheadedness, palpitations, syncope, other Respiratory: Denies: no symptoms, cough, orthopnea, shortness of breath, SOB with excertion, SOB at rest, sputum, stridor, wheezing, other Gastrointestinal/Abdominal: Denies: no symptoms, abdomen distended, abdominal pain, black stools, tarry stools, blood in stool, constipated, diarrhea, difficulty swallowing, nausea, poor appetite, poor fluid intake, rectal bleeding , vomiting, other Genitourinary: Denies: no symptoms, burning, discharge, frequency, flank pain, hematuria, incontinence, pain, urgency, other Neurologic/Psychiatric: Denies: no symptoms, anxiety, depressed, emotional problems, headache, numbness, paresthesia, pre-existing deficit, seizure, tingling, tremors, weakness, other Endocrine: Denies: no symptoms, excessive sweating, flushing, intolerance to cold, intolerance to heat, increased hunger, increased thirst, increased urine, unexplained weight gain, unexplained weight loss, other Allergies: Coded Allergies: No Known Allergies (Verified , 01/25/10) Subjective 10/05: seen by bedside, awake, Denies fever and chills. S/p 5th metatarsal amputation yesterday. Objective Last 24 Hour Vital Signs Date Time Temp Pulse Resp B/P (MAP) Pulse Ox O2 Delivery O2 Flow Rate FiO2 10/05/18 16:00 99.1 70 18 124/49 (74) 96 10/05/18 12:00 98.3 73 16 142/56 (84) 94 10/05/18 12:00 74 10/05/18 10:33 75 16 96 10/05/18 09:00 Room Air 10/05/18 08:59 75 117/50 10/05/18 08:40 75 117/50 10/05/18 08:00 99.2 75 16 117/50 (72) 96 10/05/18 08:00 67 10/05/18 04:00 97.5 69 16 142/65 (90) 94 10/05/18 03:24 66 10/05/18 00:00 97.7 68 16 136/57 (83) 97 10/04/18 23:25 67 10/04/18 21:37 67 130/56 10/04/18 21:00 Room Air 10/04/18 20:34 71 10/04/18 20:00 97.5 67 17 130/56 (80) 92 Intake and Output 10/04/18 10/05/18 18:59 06:59 Intake Total 860 ml 385 ml Output Total 410 ml Balance 450 ml 385 ml Intake Oral 360 ml IV Total 500 ml 385 ml Output Urine Total 400 ml Estimated Blood Loss 10 ml # Voids 2 Laboratory Tests 10/04/18 19:25: Vancomycin Level Trough 16.2H 10/05/18 06:35: White Blood Count 8.8, Red Blood Count 3.49L, Hemoglobin 9.5L, Hematocrit 29.8L , Mean Corpuscular Volume 85, Mean Corpuscular Hemoglobin 27.1, Mean Corpuscular Hemoglobin Concent 31.8L, Red Cell Distribution Width 11.8, Platelet Count 269, Mean Platelet Volume 6.2L, Neutrophils (%) (Auto) 69.8, Lymphocytes (%) (Auto) 20.6, Monocytes (%) (Auto) 6.0, Eosinophils (%) (Auto) 2.2, Basophils (%) (Auto) 1.4, Sodium Level 143, Potassium Level 3.5, Chloride Level 107, Carbon Dioxide Level 25, Anion Gap 11, Blood Urea Nitrogen 14, Creatinine 1.1, Estimat Glomerular Filtration Rate 49.9, Glucose Level 158H, Calcium Level 8.9 Height (Feet): 5 Height (Inches): 4.00 Weight (Pounds): 144 Objective PE General Appearance: no apparent distress, alert HEENT: normocephalic, atraumatic Neck: non-tender, normal alignment, supple Respiratory/Chest: chest wall non-tender, lungs clear Cardiovascular/Chest: normal peripheral pulses, normal rate Abdomen: normal bowel sounds, non tender Extremities: normal range of motion, non-tender, other - Edema of the right foot with lateral erythema and ulceration is now s/p amputation 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
--- NOTE | 2018-10-05 18:11 | NUR ---
NURSE NOTES: Called [facility] if they can bring us Zosyn, waiting delivery.
[2018-10-05] MEDS ORDERED: Piperacillin/Tazobactam 3.375 GM in D5W 110 ML IVPB SCH (19:00)
[2018-10-05 19:19] LABS: FERRITIN 48 NG/ML (8-388); LACTATE DEHYDROGENASE 146 U/L (81-234)
--- NOTE | 2018-10-05 19:24 | Infectious Diseases Prog Note ---
Assessment/Plan Assessment/Plan ASSESSMENT AND PLAN: 1. right foot cellulitis, right foot 5th toe osteomyelitis and gangrene, sepsis , leukocytosis and fevers - osteomyelitis at phalange level - s/p right foot 5th toe amputation at metatarsal level proximal to osteomyelitis on MRI - zosyn and vancomycin - check surgical cultures, monitor labs - await surgical margins results - sepsis improved, fevers and leukocytosis resolved - right foot cellulitis much improved - can discharge on augmentin and bactrim oral abx, patient to follow up with podiatry for further imaging to evaluate status of osteomyelitis. If osteomyelitis remains then patient will need 6 weeks of iv abx, selection of iv abx will depend on surgical culture results. - d/w Dr. Ahmadi and Dr. Thompson 2. Sepsis, fevers, and leukocytosis - improved, on vancomycin and zosyn 3. Diabetes. 4. Anemia. 5. Hypertension. 6. Blood sugar and blood pressure treatment for diabetes and hypertension per primary. 7. Acute kidney injury, elevated creatinine, it has improved. 8. History of CAD. 9. Neuropathy. 10. Past medical history noted. 11. No known drug allergies. 12. Social history negative. 13. Family history is noncontributory. 14. MAR was noted. 15. Case discussed with RN. 16. Continue treatment per primary consultants. 17. Notes and records were noted. Orders were entered. Subjective Constitutional: Reports: fatigue; Denies: fever HEENT: Denies: congestion Respiratory: Denies: shortness of breath Cardiovascular: Denies: chest pain Gastrointestinal/Abdominal: Denies: nausea, vomiting, diarrhea Genitourinary: Reports: other - no nagy Neurologic: Denies: headache Skin: Denies: rash Hematologic: Denies: bleeding Musculoskeletal: Denies: pain Allergies: Coded Allergies: No Known Allergies (Verified , 01/25/10) Objective Vital Signs Last 24 Hour Vital Signs Date Time Temp Pulse Resp B/P (MAP) Pulse Ox O2 Delivery O2 Flow Rate FiO2 10/05/18 16:00 99.1 70 18 124/49 (74) 96 10/05/18 12:00 98.3 73 16 142/56 (84) 94 10/05/18 12:00 74 10/05/18 10:33 75 16 96 10/05/18 09:00 Room Air 10/05/18 08:59 75 117/50 10/05/18 08:40 75 117/50 10/05/18 08:00 99.2 75 16 117/50 (72) 96 10/05/18 08:00 67 10/05/18 04:00 97.5 69 16 142/65 (90) 94 10/05/18 03:24 66 10/05/18 00:00 97.7 68 16 136/57 (83) 97 10/04/18 23:25 67 10/04/18 21:37 67 130/56 10/04/18 21:00 Room Air 10/04/18 20:34 71 10/04/18 20:00 97.5 67 17 130/56 (80) 92 Height (Feet): 5 Height (Inches): 4.00 Weight (Pounds): 144 General Appearance: no acute distress HEENT: normocephalic, atraumatic, anicteric, mucous membranes moist Respiratory/Chest: lungs clear, normal breath sounds, no respiratory distress, no accessory muscle use Cardiovascular: normal rate, regular rhythm, no gallop/murmur, no JVD Abdomen: normal bowel sounds, soft, non tender, no organomegaly, non distended Genitourinary: other - no nagy, no cva pain Extremities: no cyanosis Skin: no rash Neurologic/Psychiatric: mercerizer II-XII grossly normal, alert, oriented x 3, responsive Lymphatic: no neck adenopathy Musculoskeletal: no effusion Objective MRI right foot: IMPRESSION: Acute osteomyelitis of the mid and distal fifth phalange. Nonspecific bone marrow edema present within the fifth proximal phalange. Osteomyelitis is not excluded, although findings are probably due to reactive bone marrow edema Microbiology Date/Time Source Procedure Growth Status 10/04/18 12:50 Toe Right Little Gram Stain - Final Resulted 10/04/18 12:50 Toe Right Little Aerobic Culture - Preliminary Resulted 10/04/18 12:50 Toe Right Little Anaerobic Culture Pending Resulted 10/04/18 12:50 Toe Right Little Gram Stain - Final Resulted 10/04/18 12:50 Toe Right Little Aerobic Culture - Preliminary Resulted 10/04/18 12:50 Toe Right Little Anaerobic Culture Pending Resulted Laboratory Tests Test 10/04/18 19:25 10/05/18 06:35 10/05/18 18:25 Vancomycin Level Trough 16.2 ug/mL (5.0-12.0) H White Blood Count 8.8 K/UL (4.8-10.8) Red Blood Count 3.49 M/UL (4.20-5.40) L Hemoglobin 9.5 G/DL (12.0-16.0) L Hematocrit 29.8 % (37.0-47.0) L Mean Corpuscular Volume 85 FL (80-99) Mean Corpuscular Hemoglobin 27.1 PG (27.0-31.0) Mean Corpuscular Hemoglobin Concent 31.8 G/DL (32.0-36.0) L Red Cell Distribution Width 11.8 % (11.6-14.8) Platelet Count 269 K/UL (150-450) Mean Platelet Volume 6.2 FL (6.5-10.1) L Neutrophils (%) (Auto) 69.8 % (45.0-75.0) Lymphocytes (%) (Auto) 20.6 % (20.0-45.0) Monocytes (%) (Auto) 6.0 % (1.0-10.0) Eosinophils (%) (Auto) 2.2 % (0.0-3.0) Basophils (%) (Auto) 1.4 % (0.0-2.0) Sodium Level 143 MMOL/L (136-145) Potassium Level 3.5 MMOL/L (3.5-5.1) Chloride Level 107 MMOL/L (98-107) Carbon Dioxide Level 25 MMOL/L (21-32) Anion Gap 11 mmol/L (5-15) Blood Urea Nitrogen 14 mg/dL (7-18) Creatinine 1.1 MG/DL (0.55-1.30) Estimat Glomerular Filtration Rate 49.9 mL/min (>60) Glucose Level 158 MG/DL (74-106) H Calcium Level 8.9 MG/DL (8.5-10.1) Prothrombin Time 10.9 SEC (9.30-11.50) Prothromb Time International Ratio 1.0 (0.9-1.1) Iron Level Pending Unsaturated Iron Binding Pending Ferritin Pending Lactate Dehydrogenase Pending Troponin I 0.006 ng/mL (0.000-0.056) Vitamin B12 Level Pending Current Medications Medications (Trade) Dose Ordered Sig/Daisha Route PRN Reason Start Time Stop Time Status Last Admin Dose Admin Acetaminophen (Tylenol) 650 mg Q6H PRN ORAL Mild Pain/Temp > 100.5 10/05/18 14:59 10/28/18 14:58 Amlodipine Besylate (Norvasc) 5 mg DAILY ORAL 10/06/18 09:00 10/29/18 08:59 Aspirin (Ecotrin) 81 mg DAILY ORAL 10/06/18 09:00 10/29/18 08:59 Atorvastatin Calcium (Lipitor) 20 mg BEDTIME ORAL 10/05/18 21:00 11/01/18 20:59 Dextrose (Dextrose 50%) 25 ml Q30M PRN IV Hypoglycemia 10/05/18 15:15 10/28/18 18:44 Dextrose (Dextrose 50%) 50 ml Q30M PRN IV Hypoglycemia 10/05/18 15:15 10/28/18 18:44 Gabapentin (Neurontin) 300 mg Q8HR ORAL 10/05/18 22:00 10/28/18 21:59 Glipizide (Glucotrol) 5 mg ACBREAKFAST ORAL 10/06/18 06:30 11/05/18 06:29 Heparin Sodium (Porcine) (Heparin 5000 units/ml) 5,000 units EVERY 12 HOURS SUBQ 10/05/18 21:00 10/28/18 20:59 Hydralazine HCl (Apresoline) 25 mg Q8H PRN ORAL for BP >160 10/05/18 15:00 11/04/18 14:59 Insulin Aspart (NovoLOG) BEFORE MEALS AND HS SUBQ 10/05/18 16:30 10/28/18 20:59 Metoprolol Tartrate (Lopressor) 25 mg Q12HR ORAL 10/05/18 21:00 11/03/18 20:59 Piperacillin Sod/ Tazobactam Sod 3.375 gm/Dextrose 110 ml @ 27.5 mls/hr Q8H IVPB 10/05/18 19:00 10/06/18 10:59 10/05/18 18:16 Vancomycin HCl (Vanco rx to dose) 1 ea DAILY PRN MISC Per rx protocol 10/06/18 09:00 11/02/18 18:29 Vancomycin HCl 750 mg/Sodium Chloride 275 ml @ 183.333 mls/hr Q12H IVPB 10/05/18 20:00 10/08/18 19:59 Francisco Piper MD Oct 05, 2018 19:24
--- NOTE | 2018-10-05 19:27 | NUR ---
HAND-OFF: Report given to VADIM Guajardo.
[2018-10-05 19:31] LABS: % IRON SATURATION 15 % (15-50); IRON 21 ug/dL (50-175); TOTAL IRON BINDING CAPACITY 137 ug/dL (250-450)
--- NOTE | 2018-10-05 19:49 | NUR ---
NURSE NOTES: Received patient in bed, awake, alert, oriented, left foot elevated on 2 pillows, no acute distress noted or reported. Call light is within reach, bed is in low position, locked and alarm is on. Will continue with POC
[2018-10-05 20:00] VITALS: BP 135/54
[2018-10-05] MEDS ORDERED: Atorvastatin 20mg tab ORAL SCH (21:00)
[2018-10-05] MEDS ORDERED: Heparin 5000 units/ml inj SUBQ SCH (21:00)
[2018-10-06] VITALS: BP 141/77
[2018-10-06] MEDS: Piperacillin/Tazobactam 3.375 GM in D5W 110 ML IVPB SCH ×2 (03:00→11:00)
[2018-10-06 04:00] VITALS: BP 127/69
[2018-10-06] MEDS: NovoLOG Insulin Flexpen SUBQ SCH ×2 (06:25→11:23)
[2018-10-06] MEDS ORDERED: GlipiZIDE 5mg tab ORAL SCH ×2 (06:30)
--- NOTE | 2018-10-06 07:07 | NUR ---
HAND-OFF: Report given to Jerry FIERRO.
[2018-10-06 07:15] LABS: ANION GAP 11 mmol/L (5-15); BLOOD UREA NITROGEN 9 mg/dL (7-18); CALCIUM 8.7 MG/DL (8.5-10.1); CARBON DIOXIDE 25 MMOL/L (21-32); CHLORIDE 107 MMOL/L (98-107); CREATININE 1.1 MG/DL (0.55-1.30); POTASSIUM 3.2 MMOL/L (3.5-5.1); SODIUM 142 MMOL/L (136-145)
[2018-10-06 07:20] LABS: BASOPHILS % (AUTO) 1.5 % (0.0-2.0); EOSINOPHILS % (AUTO) 1.9 % (0.0-3.0); HEMATOCRIT 27.8 % (37.0-47.0); HEMOGLOBIN 8.9 G/DL (12.0-16.0); LYMPHOCYTES % (AUTO) 20.7 % (20.0-45.0); MEAN CORPUSCULAR VOLUME 84 FL (80-99); MONOCYTES % (AUTO) 5.5 % (1.0-10.0); NEUTROPHILS % (AUTO) 70.4 % (45.0-75.0); PLATELET COUNT 229 K/UL (150-450); WHITE BLOOD COUNT 9.4 K/UL (4.8-10.8)
[2018-10-06 07:44] VITALS: BP 139/52
[2018-10-06] MEDS: Metoprolol 25mg tab ORAL SCH (08:21)
[2018-10-06] MEDS: Heparin 5000 units/ml inj SUBQ SCH (08:22)
[2018-10-06] MEDS ORDERED: Aspirin EC 81mg tab ORAL SCH (09:00)
[2018-10-06] MEDS: Vancomycin 750 MG in NS 275 ML IVPB SCH (09:13)
--- NOTE | 2018-10-06 09:43 | NUR ---
NURSE NOTES: pt awake alert, no distress. call light within reach. bed in lowest position, locked. will monitor. dr Ahmadi aware of k level today Addendum: 10/06/18 at 0945 by ADRIANNE KULKARNI RN per Dr Ahmadi he will order for k level today
--- NOTE | 2018-10-06 09:56 | Podiatric Progress Note ---
Assessment/Plan Patient Anisa Liang is a 63 year old female who was admitted on Sep 28, 2018 at 16 :03 with Assessment/Plan A: DM S/p Right foot 5th digit amp P: - Pt seen and evaluated. - Discuss findings with patient. - Surgical site is stable. - Patient is cleared by podiatry for discharge - Outpt ABx per OR Cx results. - Outpt pain meds per primary team. - Rec daily betadine dressing to right foot: betadine, 4 x 4 gauze, kerlix and PRECIOUS bandage. - Pt may WBAT to RLE in surgical shoe with cane, rec PT eval. - Please have patient F/U in my clinic one week after hospital discharge. Subjective Day of Surgery: 10-04-18 Reason for consult Pt seen bedside with nursing staff. Resting comfortably, relates minimal pain. Denies any overnight events. Denies any constitutional symptoms. Allergies: Coded Allergies: No Known Allergies (Verified , 01/25/10) Objective Exam Last 24 Hour Vital Signs Date Time Temp Pulse Resp B/P (MAP) Pulse Ox O2 Delivery O2 Flow Rate FiO2 10/06/18 08:21 65 139/52 10/06/18 08:21 65 139/52 10/06/18 07:49 Room Air 10/06/18 07:44 98.6 65 139/52 (81) 10/06/18 04:00 98.6 71 127/69 (88) 10/06/18 00:00 99.0 68 141/77 (98) 10/05/18 22:00 Room Air 10/05/18 20:46 72 135/54 10/05/18 20:00 99.8 72 18 135/54 (81) 10/05/18 16:00 99.1 70 18 124/49 (74) 96 10/05/18 12:00 98.3 73 16 142/56 (84) 94 10/05/18 12:00 74 10/05/18 10:33 75 16 96 Laboratory Tests Test 10/05/18 18:25 10/06/18 06:30 Prothrombin Time 10.9 SEC (9.30-11.50) Prothromb Time International Ratio 1.0 (0.9-1.1) Iron Level 21 ug/dL (50-175) L Total Iron Binding Capacity 137 ug/dL (250-450) L Percent Iron Saturation 15 % (15-50) Unsaturated Iron Binding 116 ug/dL (112-346) Ferritin 48 NG/ML (8-388) Lactate Dehydrogenase 146 U/L (81-234) Troponin I 0.006 ng/mL (0.000-0.056) Vitamin B12 Level 274 PG/ML (193-986) White Blood Count 9.4 K/UL (4.8-10.8) Red Blood Count 3.30 M/UL (4.20-5.40) L Hemoglobin 8.9 G/DL (12.0-16.0) L Hematocrit 27.8 % (37.0-47.0) L Mean Corpuscular Volume 84 FL (80-99) Mean Corpuscular Hemoglobin 27.0 PG (27.0-31.0) Mean Corpuscular Hemoglobin Concent 32.1 G/DL (32.0-36.0) Red Cell Distribution Width 12.0 % (11.6-14.8) Platelet Count 229 K/UL (150-450) Mean Platelet Volume 6.4 FL (6.5-10.1) L Neutrophils (%) (Auto) 70.4 % (45.0-75.0) Lymphocytes (%) (Auto) 20.7 % (20.0-45.0) Monocytes (%) (Auto) 5.5 % (1.0-10.0) Eosinophils (%) (Auto) 1.9 % (0.0-3.0) Basophils (%) (Auto) 1.5 % (0.0-2.0) Sodium Level 142 MMOL/L (136-145) Potassium Level 3.2 MMOL/L (3.5-5.1) L Chloride Level 107 MMOL/L (98-107) Carbon Dioxide Level 25 MMOL/L (21-32) Anion Gap 11 mmol/L (5-15) Blood Urea Nitrogen 9 mg/dL (7-18) Creatinine 1.1 MG/DL (0.55-1.30) Estimat Glomerular Filtration Rate 49.9 mL/min (>60) Glucose Level 140 MG/DL (74-106) H Calcium Level 8.7 MG/DL (8.5-10.1) Microbiology Date/Time Source Procedure Growth Status 09/30/18 18:55 Blood Blood Culture - Preliminary NO GROWTH AFTER 4 DAYS Resulted 10/04/18 12:50 Toe Right Little Gram Stain - Final Resulted 10/04/18 12:50 Toe Right Little Aerobic Culture - Preliminary Resulted 10/04/18 12:50 Toe Right Little Anaerobic Culture Pending Resulted Dermatological Dermatological Narrative Surgical Site: Right foot Sutures noted to be intact, (-) purulence upon expression, no acute SOI are noted. Minimal edema and erythema. Gonzales Valle DPM Oct 06, 2018 09:56
[2018-10-06] MEDS ORDERED: BACTRIM-DS1 EA ORAL (10:40)
[2018-10-06] MEDS ORDERED: AUGMENTIN 875-1 EAC1 ORAL (10:40)
--- NOTE | 2018-10-06 10:51 | Discharge Summary ---
Discharge Summary Hospital Course Date of Admission Sep 28, 2018 at 16:03 Date of Discharge 10/06/17 Admitting Diagnosis foot infection HPI Anisa Liang is a 63 year old female who was admitted on Sep 28, 2018 at 16 :03 for Foot Infection Consultations ID, Podiatry Hospital Course Patient admitted with right foot cellulitis - seen by ID and Podiatry , treated with broad spectrum IV antibiotics- had MRI showing osteomyelitis. Underwent TMA - will be discharged home on Bactrim and Augmentin with home care for dressing changes and PT. Will need to follow up with PCP, Podiatry in 1 week #Right foot cellulitis #Acute osteomyelitis of the mid and distal fifth phalange -change to oral Augmentin and Bactrim per ID - daily betadine dressing to right foot: betadine, 4 x 4 gauze, kerlix and PRECIOUS bandage. -Pt may WBAT to RLE in surgical shoe with cane, rec PT eval. #Type 2 DM complicated by peripheral neuropathy -continue metformin and glipizide at home -ISS #Hypokalemia -resolved -continue to monitor labs Discharge Discharge Disposition Patient was discharged to home Discharge Diagnoses: (1) Osteomyelitis Mina Ward MD Oct 06, 2018 10:51
--- NOTE | 2018-10-06 11:23 | NUR ---
NURSE NOTES: arm band and iv removed no bleeding. pt with all her belongings, pt instructed to f/up w pharmacy w her abx, pt understood with verbalized understanding. awaiting molded goods spot picker , daughter will molded goods spot picker
[2018-10-06 12:00] VITALS: BP 160/73
--- NOTE | 2018-10-06 12:33 | Surgery Progress Note ---
Surgery Progress Note Subjective Additional Comments recovering well. no pain. no complaints. anticipating d/c Objective Last 24 Hour Vital Signs Date Time Temp Pulse Resp B/P (MAP) Pulse Ox O2 Delivery O2 Flow Rate FiO2 10/06/18 08:21 65 139/52 10/06/18 08:21 65 139/52 10/06/18 07:49 Room Air 10/06/18 07:44 98.6 65 139/52 (81) 10/06/18 04:00 98.6 71 127/69 (88) 10/06/18 00:00 99.0 68 141/77 (98) 10/05/18 22:00 Room Air 10/05/18 20:46 72 135/54 10/05/18 20:00 99.8 72 18 135/54 (81) 10/05/18 16:00 99.1 70 18 124/49 (74) 96 I&O Intake and Output 10/05/18 10/06/18 19:00 07:00 Intake Total 240 ml 400 ml Balance 240 ml 400 ml Intake Oral 240 ml Other 400 ml # Voids 1 3 Dressing: dry Wound: clean Drains: none Cardiovascular: RSR Respiratory: clear Abdomen: soft, flat, non-tender, present bowel sounds, non-distended Extremities: other Laboratory Tests Test 10/05/18 18:25 10/06/18 06:30 Prothrombin Time 10.9 SEC (9.30-11.50) Prothromb Time International Ratio 1.0 (0.9-1.1) Iron Level 21 ug/dL (50-175) L Total Iron Binding Capacity 137 ug/dL (250-450) L Percent Iron Saturation 15 % (15-50) Unsaturated Iron Binding 116 ug/dL (112-346) Ferritin 48 NG/ML (8-388) Lactate Dehydrogenase 146 U/L (81-234) Troponin I 0.006 ng/mL (0.000-0.056) Vitamin B12 Level 274 PG/ML (193-986) White Blood Count 9.4 K/UL (4.8-10.8) Red Blood Count 3.30 M/UL (4.20-5.40) L Hemoglobin 8.9 G/DL (12.0-16.0) L Hematocrit 27.8 % (37.0-47.0) L Mean Corpuscular Volume 84 FL (80-99) Mean Corpuscular Hemoglobin 27.0 PG (27.0-31.0) Mean Corpuscular Hemoglobin Concent 32.1 G/DL (32.0-36.0) Red Cell Distribution Width 12.0 % (11.6-14.8) Platelet Count 229 K/UL (150-450) Mean Platelet Volume 6.4 FL (6.5-10.1) L Neutrophils (%) (Auto) 70.4 % (45.0-75.0) Lymphocytes (%) (Auto) 20.7 % (20.0-45.0) Monocytes (%) (Auto) 5.5 % (1.0-10.0) Eosinophils (%) (Auto) 1.9 % (0.0-3.0) Basophils (%) (Auto) 1.5 % (0.0-2.0) Sodium Level 142 MMOL/L (136-145) Potassium Level 3.2 MMOL/L (3.5-5.1) L Chloride Level 107 MMOL/L (98-107) Carbon Dioxide Level 25 MMOL/L (21-32) Anion Gap 11 mmol/L (5-15) Blood Urea Nitrogen 9 mg/dL (7-18) Creatinine 1.1 MG/DL (0.55-1.30) Estimat Glomerular Filtration Rate 49.9 mL/min (>60) Glucose Level 140 MG/DL (74-106) H Calcium Level 8.7 MG/DL (8.5-10.1) Plan Problems: (1) Cellulitis Assessment & Plan: right foot cellulitis, sepsis, fevers, leukocytosis Plain film with likely acute osteo no abscess noted on exam earlier today but tender, warm, erythema, and ischemia to 5th toe MRI - Acute osteomyelitis of the mid and distal fifth phalange. Nonspecific bone marrow edema present within the fifth proximal phalange. Osteomyelitis is not excluded, although findings are probably due to reactive bone marrow edema s/p amputation by podiatry doing well. recovering abx as per ID d/c planning thank you will follow with recs. Nathaniel Alonzo Oct 06, 2018 12:33
--- NOTE | 2018-10-06 12:41 | NUR ---
NURSE NOTES: pt left in stable condition, picked up by daughter. Addendum: 10/06/18 at 1242 by ADRIANNE KULKARNI RN instructed pt and pt's daughter to follow up with primary md
--- NOTE | 2018-10-06 16:34 | General Progress Note ---
Assessment/Plan Assessment/Plan Assessment/Recs: # Anemia due to underlying chronic disease --> anemia panel has been ordered and results pending --> transfuse with 1unit prbc ig hgb <7 --> is s/p amputation # Right foot cellulitis --> ESR is elevated at 92 # Acute osteomyelitis of the mid and distal fifth phalange --> continue vancomycin and Zosyn --> routine post-op care including IS, VTE PPx, pain control --> podiatry notes reviewed, is s/p amputation # Type 2 DM complicated by peripheral neuropathy --> hold metformin while inpatient -->resume glipizide once she is eating --> ISS # Hypokalemia --> resolved Greatly appreciate consultation! Subjective Constitutional: Denies: no symptoms, chills, diaphoresis, fever, malaise, weakness, other HEENT: Denies: no symptoms, eye pain, blurred vision, tearing, double vision, ear pain, ear discharge, nose pain, nose congestion, throat pain, throat swelling, mouth pain, mouth swelling, other Cardiovascular: Denies: no symptoms, chest pain, edema, irregular heart rate, lightheadedness, palpitations, syncope, other Respiratory: Denies: no symptoms, cough, orthopnea, shortness of breath, SOB with excertion, SOB at rest, sputum, stridor, wheezing, other Gastrointestinal/Abdominal: Denies: no symptoms, abdomen distended, abdominal pain, black stools, tarry stools, blood in stool, constipated, diarrhea, difficulty swallowing, nausea, poor appetite, poor fluid intake, rectal bleeding , vomiting, other Genitourinary: Denies: no symptoms, burning, discharge, frequency, flank pain, hematuria, incontinence, pain, urgency, other Neurologic/Psychiatric: Denies: no symptoms, anxiety, depressed, emotional problems, headache, numbness, paresthesia, pre-existing deficit, seizure, tingling, tremors, weakness, other Endocrine: Denies: no symptoms, excessive sweating, flushing, intolerance to cold, intolerance to heat, increased hunger, increased thirst, increased urine, unexplained weight gain, unexplained weight loss, other Hematologic/Lymphatic: Denies: no symptoms, anemia, easy bleeding, easy bruising, other Allergies: Coded Allergies: No Known Allergies (Verified , 01/25/10) Subjective 10/05: seen by bedside, awake, Denies fever and chills. S/p 5th metatarsal amputation yesterday. 10/06:Pt is resting in bed, awake, comfortable, no acute distress. no events. Objective Last 24 Hour Vital Signs Date Time Temp Pulse Resp B/P (MAP) Pulse Ox O2 Delivery O2 Flow Rate FiO2 10/06/18 12:00 98.6 69 160/73 (102) 10/06/18 08:21 65 139/52 10/06/18 08:21 65 139/52 10/06/18 07:49 Room Air 10/06/18 07:44 98.6 65 139/52 (81) 10/06/18 04:00 98.6 71 127/69 (88) 10/06/18 00:00 99.0 68 141/77 (98) 10/05/18 22:00 Room Air 10/05/18 20:46 72 135/54 10/05/18 20:00 99.8 72 18 135/54 (81) Intake and Output 10/05/18 10/06/18 19:00 07:00 Intake Total 240 ml 400 ml Balance 240 ml 400 ml Intake Oral 240 ml Other 400 ml # Voids 1 3 Laboratory Tests 10/05/18 18:25: Prothrombin Time 10.9, Prothromb Time International Ratio 1.0, Iron Level 21L, Total Iron Binding Capacity 137L, Percent Iron Saturation 15, Unsaturated Iron Binding 116, Ferritin 48, Lactate Dehydrogenase 146, Troponin I 0.006, Vitamin B12 Level 274 10/06/18 06:30: White Blood Count 9.4, Red Blood Count 3.30L, Hemoglobin 8.9L, Hematocrit 27.8L , Mean Corpuscular Volume 84, Mean Corpuscular Hemoglobin 27.0, Mean Corpuscular Hemoglobin Concent 32.1, Red Cell Distribution Width 12.0, Platelet Count 229, Mean Platelet Volume 6.4L, Neutrophils (%) (Auto) 70.4, Lymphocytes ( %) (Auto) 20.7, Monocytes (%) (Auto) 5.5, Eosinophils (%) (Auto) 1.9, Basophils (%) (Auto) 1.5, Sodium Level 142, Potassium Level 3.2L, Chloride Level 107, Carbon Dioxide Level 25, Anion Gap 11, Blood Urea Nitrogen 9, Creatinine 1.1, Estimat Glomerular Filtration Rate 49.9, Glucose Level 140H, Calcium Level 8.7 Height (Feet): 5 Height (Inches): 4.00 Weight (Pounds): 144 Objective PE General Appearance: no apparent distress, alert HEENT: normocephalic, atraumatic Neck: non-tender, normal alignment, supple Respiratory/Chest: chest wall non-tender, lungs clear Cardiovascular/Chest: normal peripheral pulses, normal rate Abdomen: normal bowel sounds, non tender Extremities: normal range of motion, non-tender, other - Edema of the right foot with lateral erythema and ulceration is now s/p amputation Neurologic: lead 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
--- NOTE | 2018-10-08 16:24 | Cardiology Report ---
APPROVED REPORT EKG Measurement Heart [id number] MD [id number] Normal sinus rhythm Left bundle branch block Abnormal ECG
== END 2018-10-06 12:42 | disposition home or self-care (01) | DRG 854 ==
LOC: EMR 15:49 → 4E 16:03 → EDBEDREQ 18:26 → EDBEDREQSVC 20:13 → EDBEDREQ 20:13 → 2E 21:18 → EDBEDREQ 21:18 → 2E 09-29 15:00 → 4E 10-05 15:43
PROC: 0Y6X0Z0 Detachment at Right 5th Toe, Complete, Open Approach (ICD-10-PCS; principal; 2018-10-04 12:00)
DX: A41.9 Sepsis, unspecified organism (principal); L03.115 Cellulitis of right lower limb; M86.171 Other acute osteomyelitis, right ankle and foot; E11.52 Type 2 diabetes mellitus with diabetic peripheral angiopathy with gangrene; I96 Gangrene, not elsewhere classified; N17.9 Acute kidney failure, unspecified; I10 Essential (primary) hypertension; R65.20 Severe sepsis without septic shock; E11.65 Type 2 diabetes mellitus with hyperglycemia; E11.42 Type 2 diabetes mellitus with diabetic polyneuropathy; E11.621 Type 2 diabetes mellitus with foot ulcer; L97.519 Non-pressure chronic ulcer of other part of right foot with unspecified severity; E87.6 Hypokalemia; D64.9 Anemia, unspecified; I25.10 Atherosclerotic heart disease of native coronary artery without angina pectoris
CPT/HCPCS: 36415; 78452; 80048; 80053; 80202; 81003; 82607; 82728; 82962; 83540; 83550; 83605; 83615; 84484; 85007; 85025; 85060; 85610; 85651; 85730; 87040; 87070; 87075; 87181; 87205; 93005; 93017; 93925; 94003; 94150; 96365; 96367; 99285; A4246; J1815; J2250; J2405; J2785; J8499

== ENCOUNTER 2019-02-24 17:00 | Inpatient (IN) | payer MEDICARE, MEDICAID ==
[~2019-02-24] VITALS: Ht 154.9 cm; Wt 62.1 kg
[2019-02-24] VITALS (8 sets, daily range): BP systolic 100–149; BP diastolic 59–82
[~2019-02-24 17:00] MED LIST changes: +AUGMENTIN 875-1 EAC1 ORAL; +BACTRIM-DS1 EA ORAL
--- NOTE | 2019-02-24 17:10 | NUR ---
ED Nurse Note: PT BROUGHT IN BY R68 FROM HOME. AOX4. PER EMS, PT CALLED DUE TO SOB X PRIOR TO ARRIVAL. PER EMS, O2 SAT 82% ON SCENE. EN ROUTE, EMS ADMINISTERED ALBUTEROL 5MG AND 2 ROUNDS OF NTG. EMS ALSO PLACED PT IN CPAP PRIOR TO ARRIVAL. UPON ARRIVAL, RT AT BEDSIDE, CPAP PLACED WITH SETTINGS CPAP20, FiO2 100%. PT VISIBLY SOB AND DYSPNEIC. RR22, O2 SAT 100% ON CPAP.
[2019-02-24] MEDS ORDERED: UNOBMED (17:21)
--- NOTE | 2019-02-24 17:22 | NUR ---
Avril Cheney (daughter) dottie covarrubias (daughter)
--- NOTE | 2019-02-24 17:26 | NUR ---
ED Nurse Note: XRAY AT BEDSIDE.
--- NOTE | 2019-02-24 17:29 | NUR ---
ED Nurse Note: PT PLACED ON BIPAP PER DR BUSTAMANTE. RATE 16 15/5 FiO2 100%
[2019-02-24 17:34] LABS: BASOPHILS % (AUTO) 1.9 % (0.0-2.0); HEMATOCRIT 34.4 % (37.0-47.0); HEMOGLOBIN 10.9 G/DL (12.0-16.0); LYMPHOCYTES % (AUTO) 23.4 % (20.0-45.0); MEAN CORPUSCULAR VOLUME 83 FL (80-99); MONOCYTES % (AUTO) 4.5 % (1.0-10.0); NEUTROPHILS % (AUTO) 67.2 % (45.0-75.0); PLATELET COUNT 245 K/UL (150-450); RED BLOOD COUNT 4.13 M/UL (4.20-5.40); RED CELL DISTRIBUTION WIDTH 13.3 % (11.6-14.8); WHITE BLOOD COUNT 11.9 K/UL (4.8-10.8)
--- NOTE | 2019-02-24 17:34 | NUR ---
ED Nurse Note: ABG COLLECTED BY RT.
[2019-02-24 17:49] LABS: ANION GAP 13 mmol/L (5-15); BLOOD UREA NITROGEN 22 mg/dL (7-18); CALCIUM 9.1 MG/DL (8.5-10.1); CARBON DIOXIDE 22 MMOL/L (21-32); CHLORIDE 104 MMOL/L (98-107); CREATININE 1.1 MG/DL (0.55-1.30); POTASSIUM 4.6 MMOL/L (3.5-5.1); SODIUM 139 MMOL/L (136-145)
--- NOTE | 2019-02-24 17:55 | NUR ---
ED Nurse Note: NEW CPAP SETTINGS: RATE 16 15/5 FiO2 35%
--- NOTE | 2019-02-24 17:56 | Diagnostic Imaging Report ---
EXAM: XR Chest, 1 View CLINICAL HISTORY: SOB TECHNIQUE: Frontal view of the chest. COMPARISON: 01/31/2014. FINDINGS: Lungs: Bilateral moderate pulmonary edema/infiltrates. Pleural space: Small-moderate bilateral pleural effusions. No pneumothorax. Heart: Unremarkable. No cardiomegaly. Mediastinum: Unremarkable. Bones/joints: Unremarkable. IMPRESSION: 1. Bilateral moderate pulmonary edema/infiltrates. 2. Small-moderate bilateral pleural effusions.
[2019-02-24 18:03] LABS: ALANINE AMINOTRANSFERASE 20 U/L (12-78); ALBUMIN 4.5 G/DL (3.4-5.0); ALBUMIN/GLOBULIN RATIO 1.5 (1.0-2.7); ALKALINE PHOSPHATASE 65 U/L (46-116); ASPARTATE AMINO TRANSFERASE 25 U/L (15-37); BILIRUBIN,TOTAL 0.4 MG/DL (0.2-1.0); CREATINE KINASE 19 U/L (26-308)
[2019-02-24] MEDS ORDERED: Nitroglycerin 2% oint pkt TOPIC ONE (18:15)
--- NOTE | 2019-02-24 18:15 | NUR ---
ED Nurse Note: LACTIC REFLEX COLLECTED AND SENT TO LAB.
--- NOTE | 2019-02-24 18:51 | NUR ---
ED Nurse Note: URINE COLLECTED AND SENT TO LAB.
--- NOTE | 2019-02-24 19:02 | NUR ---
ED Nurse Note: SWABS COLLECTED AND SENT TO LAB.
[2019-02-24 19:14] LABS: APPEARANCE,URINE CLEAR; BILIRUBIN, URINE NEGATIVE (NEGATIVE); COLOR,URINE PALE YELLOW; GLUCOSE, URINE (UA) NEGATIVE (NEGATIVE); KETONES,URINE NEGATIVE (NEGATIVE); LEUKOCYTE ESTERASE ,URINE 3+ (NEGATIVE); NITRITE,URINE POSITIVE (NEGATIVE); PH,URINE 6 (4.5-8.0); PROTEIN,URINE 2+ (NEGATIVE); UROBILINOGEN,URINE NORMAL MG/DL (0.0-1.0)
--- NOTE | 2019-02-24 19:26 | NUR ---
ED Nurse Note: REPORT GIVEN TO VADIM MCCOY.
--- NOTE | 2019-02-24 19:27 | NUR ---
ED Nurse Note: Patient is resting comfortably, daughter at bedside. vital signs are stable. Patient appears calm with no s/s of acute distress.
--- NOTE | 2019-02-24 19:45 | Emergency Room Report ---
History of Present Illness General Chief Complaint: Dyspnea/Respdistress Source: Patient, Family Member, Medical Record Present Illness HPI This patient is brought in by EMS in respiratory distress. Per report, on arrival EMS report the patient was very dyspneic. She had had cough and shortness of breath for the past several days. The patient had significant work of breathing. She complains of shortness of breath. She denies recent illness. She denies fever chills. She denies nausea or vomiting. She denies abdominal pain. She denies chest pain. She has no other complaints. Allergies: Coded Allergies: No Known Allergies (Verified , 01/25/10) Patient History Past Medical History: DM, HTN, HI, CAD Social History: Denies: smoking, alcohol use, drug use Reviewed Nursing Documentation: PMH: Agreed; PSxH: Agreed Nursing Documentation-PMH Past Medical History: No History, Except For Hx Cardiac Problems: Yes Hx Hypertension: Yes Hx Diabetes: Yes Hx Cancer: No Hx Gastrointestinal Problems: No Hx Neurological Problems: Yes Hx Peripheral Neuropathy: Yes Review of Systems All Other Systems: negative except mentioned in HPI Physical Exam Vital Signs Date Time Temp Pulse Resp B/P (MAP) Pulse Ox O2 Delivery O2 Flow Rate FiO2 02/24/19 17:00 118 24 100 Bi-Pap 100 02/24/19 17:13 98.1 148/71 Sp02 EP Interpretation: reviewed, abnormal General Appearance: no apparent distress, alert, GCS 15, moderate distress Head: normocephalic, atraumatic Eyes: bilateral eye normal inspection, bilateral eye PERRL ENT: hearing grossly normal, normal pharynx, no angioedema, normal voice Neck: full range of motion, supple/symm/no masses Respiratory: chest non-tender, respiratory distress, accessory muscle use, rales, other - Tachypnea Cardiovascular #1: tachycardia Gastrointestinal: normal inspection, non tender, soft, no guarding, no rebound Rectal: deferred Musculoskeletal: normal inspection, normal range of motion, non-tender Neurologic: alert, oriented x3, responsive, motor strength/tone normal, sensory intact, speech normal Psychiatric: judgement/insight normal, memory normal, mood/affect normal, no suicidal/homicidal ideation Skin: no rash, normal color Medical Decision Making Diagnostic Impression: Primary Impression: CHF exacerbation Additional Impression: Pleural effusion ER Course This patient presented in respiratory distress. She had significant increased work of breathing and tachypnea. She was placed on BiPAP and over time became comfortable without any respiratory distress. The patient's heart rate normalized. The patient is found to have findings on chest x-ray consistent with congestive heart failure. She was given Lasix IV and nitro glycerin paste was placed on her chest wall. ABG was within normal limits and given that the patient responded very well to BiPAP I did not feel that I needed to intubate this patient. The patient is admitted to the ICU for respiratory distress and CHF exacerbation. I felt that she should be in the ICU for concern of airway decompensation. This patient is critically ill. This patient required complex medical decision- making, aggressive intervention, extensive laboratory workup and monitoring. Critical care time: 40 minutes. Laboratory Tests Test 02/24/19 17:05 02/24/19 17:26 02/24/19 18:11 02/24/19 18:48 White Blood Count 11.9 K/UL (4.8-10.8) H Red Blood Count 4.13 M/UL (4.20-5.40) L Hemoglobin 10.9 G/DL (12.0-16.0) L Hematocrit 34.4 % (37.0-47.0) L Mean Corpuscular Volume 83 FL (80-99) Mean Corpuscular Hemoglobin 26.3 PG (27.0-31.0) L Mean Corpuscular Hemoglobin Concent 31.6 G/DL (32.0-36.0) L Red Cell Distribution Width 13.3 % (11.6-14.8) Platelet Count 245 K/UL (150-450) Mean Platelet Volume 6.5 FL (6.5-10.1) Neutrophils (%) (Auto) 67.2 % (45.0-75.0) Lymphocytes (%) (Auto) 23.4 % (20.0-45.0) Monocytes (%) (Auto) 4.5 % (1.0-10.0) Eosinophils (%) (Auto) 3.0 % (0.0-3.0) Basophils (%) (Auto) 1.9 % (0.0-2.0) Sodium Level 139 MMOL/L (136-145) Potassium Level 4.6 MMOL/L (3.5-5.1) Chloride Level 104 MMOL/L (98-107) Carbon Dioxide Level 22 MMOL/L (21-32) Anion Gap 13 mmol/L (5-15) Blood Urea Nitrogen 22 mg/dL (7-18) H Creatinine 1.1 MG/DL (0.55-1.30) Estimate Glomerular Filtration Rate 49.9 mL/min (>60) Glucose Level 238 MG/DL (74-106) H Lactic Acid Level 2.10 mmol/L (0.4-2.0) H 1.60 mmol/L (0.66-2.22) Calcium Level 9.1 MG/DL (8.5-10.1) Total Bilirubin 0.4 MG/DL (0.2-1.0) Aspartate Amino Transferase (AST) 25 U/L (15-37) Alanine Aminotransferase (ALT) 20 U/L (12-78) Alkaline Phosphatase 65 U/L (46-116) Total Creatine Kinase 19 U/L (26-308) L Creatine Kinase MB 1.0 NG/ML (0.0-3.6) Creatine Kinase MB Relative Index 5.2 Troponin I 0.010 ng/mL (0.000-0.056) Total Protein 7.6 G/DL (6.4-8.2) Albumin 4.5 G/DL (3.4-5.0) Globulin 3.1 g/dL Albumin/Globulin Ratio 1.5 (1.0-2.7) Arterial Blood pH 7.349 (7.350-7.450) Arterial Blood Partial Pressure CO2 34.7 mmHg (35.0-45.0) L Arterial Blood Partial Pressure O2 318.4 mmHg (75.0-100.0) H Arterial Blood HCO3 18.7 mmol/L (22.0-26.0) L Arterial Blood Oxygen Saturation 99.3 % (95-100) Arterial Blood Base Excess -6.2 (-2-2) L Saman Test Positive Urine Color Pale yellow Urine Appearance Clear Urine pH 6 (4.5-8.0) Urine Specific [place] 1.010 (1.005-1.035) Urine Protein 2+ (NEGATIVE) H Urine Glucose (UA) Negative (NEGATIVE) Urine Ketones Negative (NEGATIVE) Urine Blood 1+ (NEGATIVE) H Urine Nitrite Positive (NEGATIVE) H Urine Bilirubin Negative (NEGATIVE) Urine Urobilinogen Normal MG/DL (0.0-1.0) Urine Leukocyte Esterase 3+ (NEGATIVE) H Urine RBC 2-4 /HPF (0 - 2) H Urine WBC 5-10 /HPF (0 - 2) H Urine Squamous Epithelial Cells Few /LPF (NONE/OCC) Urine Bacteria Moderate /HPF (NONE) H EKG Diagnostic Results Rate: tachycardiac Rhythm: other - S.tachycardia ST Segments: no acute changes Other Impression LBBB Rhythm Strip Diag. Results EP Interpretation: yes Rate: 100's Rhythm: no PVC's, no ectopy, other - S.tachycardia Chest X-Ray Diagnostic Results Chest X-Ray Diagnostic Results : Chest X-Ray Ordered: Yes # of Views/Limited/Complete: 1 View Indication: Shortness of Breath EP Interpretation: Yes Interpretation: other - Bilateral moderate pulmonary edema/infiltrates Impression: Other - Bilateral pleural effusions Electronically Signed by: Linh Drummond DO Last Vital Signs Date Time Temp Pulse Resp B/P (MAP) Pulse Ox O2 Delivery O2 Flow Rate FiO2 02/24/19 19:20 98.2 97 15 128/73 98 35 02/24/19 18:50 Facial Status: improved Disposition: ADMITTED INPATIENT Condition: Critical Referrals: NOT CHOSEN IPA/,REFERRING (PCP) Linh Drummond DO Feb 24, 2019 19:45
--- NOTE | 2019-02-24 20:23 | NUR ---
ED Nurse Note: Called ICU, gave report to Dung FIERRO. Patient is awake, alert and ready for transport. Daughter bedside, belonging sheet verified, swabs sent on previous shift. RT contacted for transport. Packet in progress.
--- NOTE | 2019-02-24 20:45 | NUR ---
ED Nurse Note: Patient transported to ICU along with RN, [employer] and RT without incidence. Patient helped into to bed before RN departed.
--- NOTE | 2019-02-24 21:00 | History and Physical ---
History of Present Illness General Date patient seen: Feb 24, 2019 Reason for Hospitalization: Dyspnea/Respdistress Present Illness HPI 63 yo female with known DM, Neuropathy, hx Osteomyelitis sp amputation in 09/2018 , HTN, ASHD- presented to ER with worsening dyspnea for 2-3 days. states coughing sputum and makes feels better. no fever/ chest pain, leg swelling, recent travel. no smoking. states she has seen card last time in hospital. daughter at bedside. patient states meds have been same since last time but does not exactly know meds. in er Found to be in resp distress and on BiPap. has effusion and infiltrate and likely new onset of CHF. patient does not check her weight daily. reviewd last dc summary and consult names. now on nitro paste after one dose of lasix Allergies: Coded Allergies: No Known Allergies (Verified , 01/25/10) Medication History Scheduled Amlodipine Besylate (Norvasc), 5 MG ORAL DAILY, (Reported) Amoxicillin/Potassium Clav 875-125* (Augmentin 875-125 Tablet*), 1 TAB ORAL TWICE A DAY Aspirin* (Aspir 81*), 81 MG ORAL DAILY, (Reported) Gabapentin* (Gabapentin*), 300 MG ORAL THREE TIMES A DAY, (Reported) Metformin Hcl* (Metformin Hcl*), 1,000 MG ORAL BID, (Reported) Trimethoprim/Sulfamethoxazole (Bactrim Ds Tablet), 1 TAB ORAL TWICE A DAY Miscellaneous Medications Unable to Obtain Medications (Unable To Obtain Meds), (Reported) Patient History History Provided By: Patient, Family Member Healthcare decision maker Resuscitation status Advanced Directive on File Review of Systems Constitutional: Reports: no symptoms Eye: Reports: no symptoms ENT: Reports: no symptoms Respiratory: Reports: see HPI, cough, shortness of breath, sputum Cardiovascular: Reports: no symptoms Gastrointestinal: Reports: no symptoms Genitourinary: Reports: no symptoms Musculoskeletal: Reports: no symptoms Skin: Reports: no symptoms Psychiatric: Reports: no symptoms Neurological: Reports: no symptoms Endocrine: Reports: no symptoms Hematologic/Lymphatic: Reports: no symptoms Physical Exam General Appearance: WD/WN, alert, severe distress, alert oriented x3 HEENT: normocephalic, atraumatic, mucous membranes moist, PERRL, supple, other Neck: non-tender, supple Respiratory/Chest: respiratory distress, accessory muscle use, crackles/rales Cardiovascular/Chest: regular rhythm, tachycardia Abdomen: normal bowel sounds, soft, no organomegaly Extremities: no calf tenderness, no cyanosis, trace edema Skin Exam: warm/dry, palled 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 II-XII grossly normal Last 24 Hour Vital Signs Date Time Temp Pulse Resp B/P (MAP) Pulse Ox O2 Delivery O2 Flow Rate FiO2 02/24/19 19:27 98.2 98 15 146/67 95 35 02/24/19 19:20 98.2 97 15 128/73 98 35 02/24/19 18:50 116 23 97 Facial 35 02/24/19 18:19 94 21 136/72 100 Bi-pap 35 02/24/19 18:06 128/65 02/24/19 17:13 98.1 124 24 148/71 100 100 02/24/19 17:13 124 22 100 02/24/19 17:00 118 24 100 Facial 100 02/24/19 17:00 110 26 82 Room Air 02/24/19 17:00 118 24 100 Bi-Pap 100 Laboratory Tests Test 02/24/19 17:05 02/24/19 17:26 02/24/19 18:11 02/24/19 18:48 White Blood Count 11.9 K/UL (4.8-10.8) H Red Blood Count 4.13 M/UL (4.20-5.40) L Hemoglobin 10.9 G/DL (12.0-16.0) L Hematocrit 34.4 % (37.0-47.0) L Mean Corpuscular Volume 83 FL (80-99) Mean Corpuscular Hemoglobin 26.3 PG (27.0-31.0) L Mean Corpuscular Hemoglobin Concent 31.6 G/DL (32.0-36.0) L Red Cell Distribution Width 13.3 % (11.6-14.8) Platelet Count 245 K/UL (150-450) Mean Platelet Volume 6.5 FL (6.5-10.1) Neutrophils (%) (Auto) 67.2 % (45.0-75.0) Lymphocytes (%) (Auto) 23.4 % (20.0-45.0) Monocytes (%) (Auto) 4.5 % (1.0-10.0) Eosinophils (%) (Auto) 3.0 % (0.0-3.0) Basophils (%) (Auto) 1.9 % (0.0-2.0) Sodium Level 139 MMOL/L (136-145) Potassium Level 4.6 MMOL/L (3.5-5.1) Chloride Level 104 MMOL/L (98-107) Carbon Dioxide Level 22 MMOL/L (21-32) Anion Gap 13 mmol/L (5-15) Blood Urea Nitrogen 22 mg/dL (7-18) H Creatinine 1.1 MG/DL (0.55-1.30) Estimat Glomerular Filtration Rate 49.9 mL/min (>60) Glucose Level 238 MG/DL (74-106) H Lactic Acid Level 2.10 mmol/L (0.4-2.0) H 1.60 mmol/L (0.66-2.22) Calcium Level 9.1 MG/DL (8.5-10.1) Total Bilirubin 0.4 MG/DL (0.2-1.0) Aspartate Amino Transf (AST/SGOT) 25 U/L (15-37) Alanine Aminotransferase (ALT/SGPT) 20 U/L (12-78) Alkaline Phosphatase 65 U/L (46-116) Total Creatine Kinase 19 U/L (26-308) L Creatine Kinase MB 1.0 NG/ML (0.0-3.6) Creatine Kinase MB Relative Index 5.2 Troponin I 0.010 ng/mL (0.000-0.056) Total Protein 7.6 G/DL (6.4-8.2) Albumin 4.5 G/DL (3.4-5.0) Globulin 3.1 g/dL Albumin/Globulin Ratio 1.5 (1.0-2.7) Arterial Blood pH 7.349 (7.350-7.450) Arterial Blood Partial Pressure CO2 34.7 mmHg (35.0-45.0) L Arterial Blood Partial Pressure O2 318.4 mmHg (75.0-100.0) H Arterial Blood HCO3 18.7 mmol/L (22.0-26.0) L Arterial Blood Oxygen Saturation 99.3 % (95-100) Arterial Blood Base Excess -6.2 (-2-2) L Saman Test Positive Urine Color Pale yellow Urine Appearance Clear Urine pH 6 (4.5-8.0) Urine Specific [place] 1.010 (1.005-1.035) Urine Protein 2+ (NEGATIVE) H Urine Glucose (UA) Negative (NEGATIVE) Urine Ketones Negative (NEGATIVE) Urine Blood 1+ (NEGATIVE) H Urine Nitrite Positive (NEGATIVE) H Urine Bilirubin Negative (NEGATIVE) Urine Urobilinogen Normal MG/DL (0.0-1.0) Urine Leukocyte Esterase 3+ (NEGATIVE) H Urine RBC 2-4 /HPF (0 - 2) H Urine WBC 5-10 /HPF (0 - 2) H Urine Squamous Epithelial Cells Few /LPF (NONE/OCC) Urine Bacteria Moderate /HPF (NONE) H Height (Feet): 5 Height (Inches): 1.00 Weight (Pounds): 120 Assessment/Plan Assessment/Plan: 1. acute resp failure admit to ICU as dw ER physicain. continue BiPap. Diuresis vs antibiotics. Pulmonary and Cardiology consult. EKG shows LBBB, Tachy s/p Lasix and Nitro paste in ER 2. DM Hold oral meds Basal insulin + SSI 3. Diabetic neuropathy continue home meds 4. Acute new onset CHF Cardiology consult diuresis/ resp support 5. Htn 6. Leukocytosis with initial slight high lactic acid- SIRS criteria but no clear fever history repeat lactic acid normal ?due to hypoxia. monitor closely/ wait Pulm consult. Blood culture in ER per sepsis protocol 7. Anemia monitor Jose Enrique Ramirez MD Feb 24, 2019 21:00
--- NOTE | 2019-02-24 21:00 | NUR ---
NURSE NOTES: RECEIVED THE PATIENT FROM ER NURSE VADIM VANESSA VIA [place]ELY[place]. PATIENT ALERT, ORIENTED X4, DENIED PAIN OR SOB AT THIS TIME, RESPIRATION REGULAR, O2 SATURATION OVER 98% NOTED ON FIO2 35% FACIAL MASK, ABDOMEN SOFT, LAST BM WAS YESTERDAY, DENIED CONSTIPATION, RIGHT 5TH TOE AMPUTATED STATUS, PROVIDED CALL LIGHT WITHIN REACH, ENCOURAGED BED REST, MADE LOWER BED POSITION, WILL CONTINUE TO MONITOR.
--- NOTE | 2019-02-24 21:48 | NUR ---
NURSE NOTES: CALLED DR. VICK REGARDING ADMISSION ORDER THAT EXCHANGER WAS AWARE.
--- NOTE | 2019-02-24 21:53 | NUR ---
NURSE NOTES: CALLED BACK FROM DR. RIOS, RECEIVED NEW ORDER, WILL CARRY OUT.
--- NOTE | 2019-02-24 21:58 | NUR ---
NURSE NOTES: CALLED DR. ALMENDAREZ, RECEIVED NEW ORDER AND CARRIED OUT.
--- NOTE | 2019-02-24 22:05 | NUR ---
NURSE NOTES: CALLED DR. ALCANTARA THAT INFORMED PT'S SITUATION, RECEIVED NEW ORDER AND CARRIED OUT.
[2019-02-24] MEDS ORDERED: HYDROcodone/Acetamin 5/325 tab ORAL PRN (22:15)
--- NOTE | 2019-02-24 22:57 | Pulmonolgy Critical Care Note ---
Critical Care - Asmt/Plan Assessment/Plan: Pulmonary CCM Consultation HPI Patient is a 63 yo female with known Diabetes, Neuropathy, h/o Osteomyelitis sp amputation in 09/2018, HTN, ASHD- presented to ER with worsening dyspnea for 2-3 days. C/o coughing sputum, no fever/ chest pain, leg swelling, recent travel. no smoking. In ED found to be in resp distress and on BiPap. has effusion and infiltrate and likely new onset of CHF. Allergies: No Known Allergies Meds Scheduled Amlodipine Besylate (Norvasc), 5 MG ORAL DAILY, (Reported) Amoxicillin/Potassium Clav 875-125* (Augmentin 875-125 Tablet*), 1 TAB ORAL TWICE A DAY Aspirin* (Aspir 81*), 81 MG ORAL DAILY, (Reported) Gabapentin* (Gabapentin*), 300 MG ORAL THREE TIMES A DAY, (Reported) Metformin Hcl* (Metformin Hcl*), 1,000 MG ORAL BID, (Reported) Trimethoprim/Sulfamethoxazole (Bactrim Ds Tablet), 1 TAB ORAL TWICE A DAY ROS: Negative aside from above Physical Exam General Appearance: WD/WN, alert, severe distress, alert oriented x3 HEENT: normocephalic, atraumatic, mucous membranes moist, PERRL, supple, other Neck: non-tender, supple Respiratory/Chest: respiratory distress, accessory muscle use, crackles/rales Cardiovascular/Chest: regular rhythm, tachycardia Abdomen: normal bowel sounds, soft, no organomegaly Extremities: no calf tenderness, no cyanosis, trace edema Skin Exam: warm/dry, palled 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 grossly normal Vital Signs Noted Date Time Temp Pulse Resp B/P (MAP) Pulse Ox O2 Delivery O2 Flow Rate FiO2 02/24/19 19:27 98.2 98 15 146/67 95 35 02/24/19 19:20 98.2 97 15 128/73 98 35 02/24/19 18:50 116 23 97 Facial 35 02/24/19 18:19 94 21 136/72 100 Bi-pap 35 02/24/19 18:06 128/65 02/24/19 17:13 98.1 124 24 148/71 100 100 02/24/19 17:13 124 22 100 02/24/19 17:00 118 24 100 Facial 100 02/24/19 17:00 110 26 82 Room Air 02/24/19 17:00 118 24 100 Bi-Pap 100 Laboratory Tests Test 02/24/19 17:05 02/24/19 17:26 02/24/19 18:11 02/24/19 18:48 White Blood Count 11.9 K/UL (4.8-10.8) H Red Blood Count 4.13 M/UL (4.20-5.40) L Hemoglobin 10.9 G/DL (12.0-16.0) L Hematocrit 34.4 % (37.0-47.0) L Mean Corpuscular Volume 83 FL (80-99) Mean Corpuscular Hemoglobin 26.3 PG (27.0-31.0) L Mean Corpuscular Hemoglobin Concent 31.6 G/DL (32.0-36.0) L Red Cell Distribution Width 13.3 % (11.6-14.8) Platelet Count 245 K/UL (150-450) Mean Platelet Volume 6.5 FL (6.5-10.1) Neutrophils (%) (Auto) 67.2 % (45.0-75.0) Lymphocytes (%) (Auto) 23.4 % (20.0-45.0) Monocytes (%) (Auto) 4.5 % (1.0-10.0) Eosinophils (%) (Auto) 3.0 % (0.0-3.0) Basophils (%) (Auto) 1.9 % (0.0-2.0) Sodium Level 139 MMOL/L (136-145) Potassium Level 4.6 MMOL/L (3.5-5.1) Chloride Level 104 MMOL/L (98-107) Carbon Dioxide Level 22 MMOL/L (21-32) Anion Gap 13 mmol/L (5-15) Blood Urea Nitrogen 22 mg/dL (7-18) H Creatinine 1.1 MG/DL (0.55-1.30) Estimat Glomerular Filtration Rate 49.9 mL/min (>60) Glucose Level 238 MG/DL (74-106) H Lactic Acid Level 2.10 mmol/L (0.4-2.0) H 1.60 mmol/L (0.66-2.22) Calcium Level 9.1 MG/DL (8.5-10.1) Total Bilirubin 0.4 MG/DL (0.2-1.0) Aspartate Amino Transf (AST/SGOT) 25 U/L (15-37) Alanine Aminotransferase (ALT/SGPT) 20 U/L (12-78) Alkaline Phosphatase 65 U/L (46-116) Total Creatine Kinase 19 U/L (26-308) L Creatine Kinase MB 1.0 NG/ML (0.0-3.6) Creatine Kinase MB Relative Index 5.2 Troponin I 0.010 ng/mL (0.000-0.056) Total Protein 7.6 G/DL (6.4-8.2) Albumin 4.5 G/DL (3.4-5.0) Globulin 3.1 g/dL Albumin/Globulin Ratio 1.5 (1.0-2.7) Arterial Blood pH 7.349 (7.350-7.450) Arterial Blood Partial Pressure CO2 34.7 mmHg (35.0-45.0) L Arterial Blood Partial Pressure O2 318.4 mmHg (75.0-100.0) H Arterial Blood HCO3 18.7 mmol/L (22.0-26.0) L Arterial Blood Oxygen Saturation 99.3 % (95-100) Arterial Blood Base Excess -6.2 (-2-2) L Saman Test Positive Urine Color Pale yellow Urine Appearance Clear Urine pH 6 (4.5-8.0) Urine Specific [place] 1.010 (1.005-1.035) Urine Protein 2+ (NEGATIVE) H Urine Glucose (UA) Negative (NEGATIVE) Urine Ketones Negative (NEGATIVE) Urine Blood 1+ (NEGATIVE) H Urine Nitrite Positive (NEGATIVE) H Urine Bilirubin Negative (NEGATIVE) Urine Urobilinogen Normal MG/DL (0.0-1.0) Urine Leukocyte Esterase 3+ (NEGATIVE) H Urine RBC 2-4 /HPF (0 - 2) H Urine WBC 5-10 /HPF (0 - 2) H Urine Squamous Epithelial Cells Few /LPF (NONE/OCC) Urine Bacteria Moderate /HPF (NONE) H Height (Feet): 5 Height (Inches): 1.00 Weight (Pounds): 120 Assessment/Plan: 1. Acute resp failure admit to ICU as dw ER physicain. continue BiPap. Diuresis PRN, Nitro paste Low threshold for broad spectrum antibiotics Azithromycin for now. EKG shows LBBB, ST 2. DM Basal insulin + SSI 3. Diabetic neuropathy 4. Acute new onset CHF - diuresis PRN 5. Hypertension 6. Leukocytosis - no focal infiltrates on CXR 7. Anemia Critical Care - Objective Last 24 Hour Vital Signs Date Time Temp Pulse Resp B/P (MAP) Pulse Ox O2 Delivery O2 Flow Rate FiO2 02/24/19 22:38 78 18 99 Facial 35 02/24/19 22:00 85 15 120/65 (83) 100 02/24/19 22:00 100 02/24/19 21:05 110 20 98 Facial 35 02/24/19 21:00 104 02/24/19 21:00 97.7 108 23 128/80 (96) 94 02/24/19 20:52 110 18 149/82 (104) 98 02/24/19 20:45 98.2 98 15 146/67 95 35 02/24/19 19:27 98.2 98 15 146/67 95 35 02/24/19 19:20 98.2 97 15 128/73 98 35 02/24/19 18:50 116 23 97 Facial 35 02/24/19 18:19 94 21 136/72 100 Bi-pap 35 02/24/19 18:06 128/65 02/24/19 17:13 98.1 124 24 148/71 100 100 02/24/19 17:13 124 22 100 02/24/19 17:00 118 24 100 Facial 100 02/24/19 17:00 110 26 82 Room Air 02/24/19 17:00 118 24 100 Bi-Pap 100 Accucheck: 183 Critical Care - Subjective ROS Limited/Unobtainable: No Condition: stable FI02: 35 Vent Support Mode: BiLevel Sputum Amount: None Uzair Parr MD Feb 24, 2019 22:57
--- NOTE | 2019-02-24 23:00 | NUR ---
NURSE NOTES: CALLED BACK FROM DR. HAMLIN, RECEIVED NEW ORDER AND CARRIED OUT.
[2019-02-25] VITALS (18 sets, daily range): BP systolic 91–122; BP diastolic 43–80
[2019-02-25] MEDS ORDERED: Azithromycin 500 MG in D5W 275 ML IV SCH ×2
--- NOTE | 2019-02-25 | NUR ---
NURSE NOTES: ON BIPAP I/E 07/27, FIO2 35% O2 SATURATION OVER 98%, PATIENT ASLEEP STATUS, NO PAIN OR DISTRESS NOTED AT THIS TIME, WILL CONTINUE PLAN OF CARE.
--- NOTE | 2019-02-25 02:39 | NUR ---
NURSE NOTES: NO ACUTE DISTRESS NOTED.
--- NOTE | 2019-02-25 04:30 | NUR ---
NURSE NOTES: ASLEEP STATUS, NO PAIN OR SOB NOTED.
[2019-02-25 05:53] LABS: BASOPHILS % (AUTO) 1.2 % (0.0-2.0); EOSINOPHILS % (AUTO) 1.9 % (0.0-3.0); HEMATOCRIT 30.1 % (37.0-47.0); HEMOGLOBIN 9.4 G/DL (12.0-16.0); LYMPHOCYTES % (AUTO) 32.9 % (20.0-45.0); MEAN CORPUSCULAR VOLUME 84 FL (80-99); MONOCYTES % (AUTO) 6.7 % (1.0-10.0); NEUTROPHILS % (AUTO) 57.3 % (45.0-75.0); PLATELET COUNT 183 K/UL (150-450); RED BLOOD COUNT 3.58 M/UL (4.20-5.40); RED CELL DISTRIBUTION WIDTH 13.8 % (11.6-14.8); WHITE BLOOD COUNT 6.4 K/UL (4.8-10.8)
--- NOTE | 2019-02-25 06:00 | NUR ---
NURSE NOTES: PATIENT VOIDED, YELLOW URINE COLOR NOTED, NO ACUTE DISTRESS NOTED AT THIS SHIFT.
[2019-02-25] MEDS: NovoLOG Insulin Flexpen SUBQ SCH ×4 (06:11→20:56)
[2019-02-25 06:13] LABS: ANION GAP 13 mmol/L (5-15); BLOOD UREA NITROGEN 22 mg/dL (7-18); CARBON DIOXIDE 23 MMOL/L (21-32); CHLORIDE 107 MMOL/L (98-107); CREATININE 1.2 MG/DL (0.55-1.30); POTASSIUM 4.4 MMOL/L (3.5-5.1); SODIUM 143 MMOL/L (136-145)
--- NOTE | 2019-02-25 06:53 | NUR ---
NURSE NOTES: SEEN THE PATIENT BY DR. HAMILN.
--- NOTE | 2019-02-25 07:20 | NUR ---
HAND-OFF: Report given to VADIM LU.
--- NOTE | 2019-02-25 07:30 | NUR ---
NURSE NOTES: Patient report received from VADIM Valdes. patient is awake and resting in bed sitting up in high fowlers, bipap is uses at 12/5 with fio2 of 35% and able to talk with no distress noted, no wound on patient skin, patient is able to reposition self in be bed with no assistance but became short of breath.
--- NOTE | 2019-02-25 07:49 | NUR ---
RESPIRATORY NOTES: Received patient on BIPAP / PS +7 FIO2 35%. Patient currently on facial mask with tape in place. Bilateral diminished breath sounds heard throughout both lung [place]. Patient currently sleeping. BIPAP plugged into red outlet. Alarms are on and audible. Will continue to monitor throughout the day.
[2019-02-25] MEDS ORDERED: Heparin 5000 units/ml inj SUBQ SCH (09:00)
[2019-02-25] MEDS ORDERED: Levemir Flexpen SUBQ SCH (09:00)
[2019-02-25] MEDS ORDERED: Aspirin EC 81mg tab ORAL SCH (09:00)
--- NOTE | 2019-02-25 11:30 | NUR ---
NURSE NOTES: Patient is calm with family at the bedside, she is talkative and denies any shortness of breath, she remains on nasal cannula at 2L/min with saturation of 97-99%, she is able to sit at the foot of the bed with no assistance, no distress while exertion noted, while ambulating to bedside commode, she needs no assistance and has a strong gait, she is able to transfer with self.
--- NOTE | 2019-02-25 12:15 | NUR ---
NURSE NOTES: patient is eating [facility] 2g sodium diet with no assistance, patient refused NovoLog pen with BS of 111, patient education she is getting NovoLog coverage and should eat nore that 50% of meal.
--- NOTE | 2019-02-25 12:46 | General Progress Note ---
Assessment/Plan Assessment/Plan: Assessment/Plan: 1. acute resp failure admit to ICU as dw ER physician Bipap is now weaned off Transitioned to nasal cannula and clinically stable for step down unit. Diuresis vs antibiotics. Pulmonary and Cardiology consult. EKG shows LBBB, Tachy s/p Lasix and Nitro paste in ER 2. DM Will resume oral metformin if stable for another 24 hours. Basal insulin + SSI 3. Diabetic neuropathy continue home medications 4. Acute new onset CHF Cardiology consult requested on admission diuresis/ respiratory support 5. Hypertension Monitor 6. Leukocytosis with initial slight high lactic acid- SIRS criteria but no clear fever history repeat lactic acid normal ?due to hypoxia. monitor closely/ wait Pulm consult. Blood culture in ER per sepsis protocol UTI noted and GNR growing. Add Ceftriaxone IV pending culture result 7. Anemia, likely chronic etiology. monitor Subjective ROS Limited/Unobtainable: No Constitutional: Reports: weakness HEENT: Reports: no symptoms Cardiovascular: Reports: no symptoms Respiratory: Reports: shortness of breath Gastrointestinal/Abdominal: Reports: no symptoms Genitourinary: Reports: no symptoms Neurologic/Psychiatric: Reports: no symptoms Endocrine: Reports: no symptoms Hematologic/Lymphatic: Reports: no symptoms Allergies: Coded Allergies: No Known Allergies (Verified , 01/25/10) Objective Last 24 Hour Vital Signs Date Time Temp Pulse Resp B/P (MAP) Pulse Ox O2 Delivery O2 Flow Rate FiO2 02/25/19 11:00 77 16 101/60 (74) 100 02/25/19 10:30 75 16 99 02/25/19 10:00 86 20 107/54 (71) 99 02/25/19 09:24 87 112/67 02/25/19 09:00 77 16 112/67 (82) 99 02/25/19 08:34 77 15 99 02/25/19 08:00 Bi-pap 02/25/19 08:00 73 02/25/19 08:00 97.8 71 14 115/66 (82) 97 02/25/19 08:00 35 02/25/19 07:04 74 18 100 Facial 35 02/25/19 07:03 74 18 98 Bi-Pap 35 02/25/19 07:00 77 16 103/60 (74) 100 02/25/19 06:00 75 16 109/56 (73) 100 02/25/19 05:00 75 16 100 Facial 35 02/25/19 05:00 74 15 97/60 (72) 100 02/25/19 04:00 Bi-pap 02/25/19 04:00 35 02/25/19 04:00 97.9 72 15 97/59 (72) 100 02/25/19 03:01 70 02/25/19 03:00 71 15 91/54 (66) 100 02/25/19 02:55 73 17 100 Facial 35 02/25/19 02:00 77 14 95/59 (71) 100 02/25/19 01:24 82 17 100 Facial 35 02/25/19 01:00 74 14 92/76 (81) 100 02/25/19 00:00 Bi-pap 02/25/19 00:00 35 02/25/19 00:00 97.7 81 14 94/80 (85) 100 02/24/19 23:02 70 02/24/19 23:00 70 16 100/59 (73) 99 02/24/19 22:38 78 18 99 Facial 35 02/24/19 22:00 85 15 120/65 (83) 100 02/24/19 22:00 100 02/24/19 21:33 Bi-pap 02/24/19 21:05 110 20 98 Facial 35 02/24/19 21:00 104 02/24/19 21:00 97.7 108 23 128/80 (96) 94 02/24/19 20:52 110 18 149/82 (104) 98 02/24/19 20:45 98.2 98 15 146/67 95 35 02/24/19 19:27 98.2 98 15 146/67 95 35 02/24/19 19:20 98.2 97 15 128/73 98 35 02/24/19 18:50 116 23 97 Facial 35 02/24/19 18:19 94 21 136/72 100 Bi-pap 35 02/24/19 18:06 128/65 02/24/19 17:13 98.1 124 24 148/71 100 100 02/24/19 17:13 124 22 100 02/24/19 17:00 118 24 100 Facial 100 02/24/19 17:00 110 26 82 Room Air 02/24/19 17:00 118 24 100 Bi-Pap 100 Intake and Output 02/24/19 02/25/19 18:59 06:59 Intake Total 275 ml Output Total 740 ml Balance -465 ml IV Total 275 ml Output Urine Total 740 ml # Voids 1 1 Laboratory Tests 02/24/19 17:05: White Blood Count 11.9H, Red Blood Count 4.13L, Hemoglobin 10.9L, Hematocrit 34.4L, Mean Corpuscular Volume 83, Mean Corpuscular Hemoglobin 26.3L, Mean Corpuscular Hemoglobin Concent 31.6L, Red Cell Distribution Width 13.3, Platelet Count 245, Mean Platelet Volume 6.5, Neutrophils (%) (Auto) 67.2, Lymphocytes (%) (Auto) 23.4, Monocytes (%) (Auto) 4.5, Eosinophils (%) (Auto) 3.0, Basophils (%) (Auto) 1.9, Sodium Level 139, Potassium Level 4.6, Chloride Level 104, Carbon Dioxide Level 22, Anion Gap 13, Blood Urea Nitrogen 22H, Creatinine 1.1, Estimat Glomerular Filtration Rate 49.9, Glucose Level 238H, Lactic Acid Level 2.10H, Calcium Level 9.1, Total Bilirubin 0.4, Aspartate Amino Transf (AST/SGOT) 25, Alanine Aminotransferase (ALT/SGPT) 20, Alkaline Phosphatase 65, Total Creatine Kinase 19L, Creatine Kinase MB 1.0, Creatine Kinase MB Relative Index 5.2, Troponin I 0.010, Total Protein 7.6, Albumin 4.5, Globulin 3.1, Albumin/Globulin Ratio 1.5 02/24/19 17:26: Arterial Blood pH 7.349L, Arterial Blood Partial Pressure CO2 34.7L, Arterial Blood Partial Pressure O2 318.4H, Arterial Blood HCO3 18.7L, Arterial Blood Oxygen Saturation 99.3, Arterial Blood Base Excess -6.2L, Saman Test Positive 02/24/19 18:11: Lactic Acid Level 1.60 02/24/19 18:48: Urine Color Pale yellow, Urine Appearance Clear, Urine pH 6, Urine Specific [place] 1.010, Urine Protein 2+H, Urine Glucose (UA) Negative, Urine Ketones Negative, Urine Blood 1+H, Urine Nitrite PositiveH, Urine Bilirubin Negative, Urine Urobilinogen Normal, Urine Leukocyte Esterase 3+H, Urine RBC 2-4H, Urine WBC 5-10H, Urine Squamous Epithelial Cells Few, Urine Bacteria ModerateH 02/25/19 04:39: White Blood Count 6.4, Red Blood Count 3.58L, Hemoglobin 9.4L, Hematocrit 30.1L , Mean Corpuscular Volume 84, Mean Corpuscular Hemoglobin 26.1L, Mean Corpuscular Hemoglobin Concent 31.1L, Red Cell Distribution Width 13.8, Platelet Count 183, Mean Platelet Volume 6.4L, Neutrophils (%) (Auto) 57.3, Lymphocytes (%) (Auto) 32.9, Monocytes (%) (Auto) 6.7, Eosinophils (%) (Auto) 1.9, Basophils (%) (Auto) 1.2, Sodium Level 143, Potassium Level 4.4, Chloride Level 107, Carbon Dioxide Level 23, Anion Gap 13, Blood Urea Nitrogen 22H, Creatinine 1.2, Estimat Glomerular Filtration Rate 45.1, Glucose Level 100#, Calcium Level 9.0 02/25/19 08:20: Arterial Blood pH 7.442, Arterial Blood Partial Pressure CO2 34.3L, Arterial Blood Partial Pressure O2 76.7, Arterial Blood HCO3 22.9, Arterial Blood Oxygen Saturation 95.1, Arterial Blood Base Excess -0.8, Saman Test Positive Height (Feet): 5 Height (Inches): 1.00 Weight (Pounds): 132 General Appearance: WD/WN, no apparent distress EENT: PERRL/EOMI Neck: non-tender Cardiovascular: normal peripheral pulses, normal rate Respiratory/Chest: chest wall non-tender, lungs clear Abdomen: normal bowel sounds, non tender Extremities: normal range of motion Edema: trace edema 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
--- NOTE | 2019-02-25 13:15 | NUR ---
NURSE NOTES: Dr. Fischer assessed patient at the bedside and ordered to transfer to [facility], she remains on nasal cannula at 2L/min with saturations of 98% with no shortness of breath.
--- NOTE | 2019-02-25 13:30 | NUR ---
NURSE NOTES: Patient is noted to be resting in bed positioned in high fowlers, she remains on Nasal cannula at 2L/min with no distress saturating at 98-99% with RR of 15-20.
--- NOTE | 2019-02-25 13:47 | NUR ---
CASE MANAGEMENT: REVIEW 63Y/F BIBA FROM HOME CC: RESP DISTRESS . SAT 88% ROOM AIR SI: CHF T 98.1 HR 124 RR 26 BP 148/71 SAT 82% ROOM AIR / 100% BIPAP FIO2 100 ABG: PH 7.349 PCO2 24.7 PO2 318.4 HCO3 18.7 IS: NITRO TOPICAL 1 INCH X1 PATIENT ADMITTED TO ICU 02/24/2019 DCP: PATIENT IS FROM HOME
[2019-02-25] MEDS ORDERED: cefTRIAXone 1gm/D5W 55ml IVPB SCH ×2 (14:00)
--- NOTE | 2019-02-25 16:00 | NUR ---
NURSE NOTES: Report received from Uzair Jose RN.Pt transferred from ICU per bed awake,alert in no acute distress,denies any c/o pain or discomfort,IV site heplock intact,skin warm and dry ,call atkinson placed within reach at bedside,SR up x2 ,HOB elevated bed lock lowest position,daughter at bedside ,will continue with plans of care.
--- NOTE | 2019-02-25 16:20 | NUR ---
TRANSFER TO FLOOR: Patient transferred to [facility], per Dr. Fischer. Report given to VADIM Santos. Belongings and medications given to VADIM Santos. Family at the bedside told of transfer. Patient placed on nasal cannula at 2L/min saturating at 97-99%.
[2019-02-25] MEDS ORDERED: Tubing IV Secondary IV ONE (18:09)
[2019-02-25] MEDS ORDERED: NS 275ml ONE (18:09)
[2019-02-25] MEDS ORDERED: D5W 275ml ONE (18:09)
--- NOTE | 2019-02-25 18:12 | Pulmonolgy Critical Care Note ---
Critical Care - Asmt/Plan Assessment/Plan: Pulmonary CCM Progress Note HPI Patient is a 63 yo female with known Diabetes, Neuropathy, h/o Osteomyelitis sp amputation in 09/2018, HTN, ASHD- presented to ER with worsening dyspnea for 2-3 days. C/o coughing sputum, no fever/ chest pain, leg swelling, recent travel. no smoking. In ED found to be in resp distress and on BiPap. has effusion and infiltrate and likely new onset of CHF. Less SOB Allergies: No Known Allergies ROS: Negative aside from above Physical Exam General Appearance: WD/WN, alert, severe distress, alert oriented x3 HEENT: normocephalic, atraumatic, mucous membranes moist, PERRL, supple, other Neck: non-tender, supple Respiratory/Chest: no respiratory distress, CTA bilaterally Cardiovascular/Chest: regular rhythm, tachycardia Abdomen: normal bowel sounds, soft, no organomegaly Extremities: no calf tenderness, no cyanosis, trace edema Skin Exam: warm/dry, palled Neurologic: plaster whittler II-XII grossly normal Vital Signs Noted Laboratory Tests Test 02/24/19 17:05 02/24/19 17:26 02/24/19 18:11 02/24/19 18:48 White Blood Count 11.9 K/UL (4.8-10.8) H Red Blood Count 4.13 M/UL (4.20-5.40) L Hemoglobin 10.9 G/DL (12.0-16.0) L Hematocrit 34.4 % (37.0-47.0) L Mean Corpuscular Volume 83 FL (80-99) Mean Corpuscular Hemoglobin 26.3 PG (27.0-31.0) L Mean Corpuscular Hemoglobin Concent 31.6 G/DL (32.0-36.0) L Red Cell Distribution Width 13.3 % (11.6-14.8) Platelet Count 245 K/UL (150-450) Mean Platelet Volume 6.5 FL (6.5-10.1) Neutrophils (%) (Auto) 67.2 % (45.0-75.0) Lymphocytes (%) (Auto) 23.4 % (20.0-45.0) Monocytes (%) (Auto) 4.5 % (1.0-10.0) Eosinophils (%) (Auto) 3.0 % (0.0-3.0) Basophils (%) (Auto) 1.9 % (0.0-2.0) Sodium Level 139 MMOL/L (136-145) Potassium Level 4.6 MMOL/L (3.5-5.1) Chloride Level 104 MMOL/L (98-107) Carbon Dioxide Level 22 MMOL/L (21-32) Anion Gap 13 mmol/L (5-15) Blood Urea Nitrogen 22 mg/dL (7-18) H Creatinine 1.1 MG/DL (0.55-1.30) Estimat Glomerular Filtration Rate 49.9 mL/min (>60) Glucose Level 238 MG/DL (74-106) H Lactic Acid Level 2.10 mmol/L (0.4-2.0) H 1.60 mmol/L (0.66-2.22) Calcium Level 9.1 MG/DL (8.5-10.1) Total Bilirubin 0.4 MG/DL (0.2-1.0) Aspartate Amino Transf (AST/SGOT) 25 U/L (15-37) Alanine Aminotransferase (ALT/SGPT) 20 U/L (12-78) Alkaline Phosphatase 65 U/L (46-116) Total Creatine Kinase 19 U/L (26-308) L Creatine Kinase MB 1.0 NG/ML (0.0-3.6) Creatine Kinase MB Relative Index 5.2 Troponin I 0.010 ng/mL (0.000-0.056) Total Protein 7.6 G/DL (6.4-8.2) Albumin 4.5 G/DL (3.4-5.0) Globulin 3.1 g/dL Albumin/Globulin Ratio 1.5 (1.0-2.7) Arterial Blood pH 7.349 (7.350-7.450) Arterial Blood Partial Pressure CO2 34.7 mmHg (35.0-45.0) L Arterial Blood Partial Pressure O2 318.4 mmHg (75.0-100.0) H Arterial Blood HCO3 18.7 mmol/L (22.0-26.0) L Arterial Blood Oxygen Saturation 99.3 % (95-100) Arterial Blood Base Excess -6.2 (-2-2) L Saman Test Positive Urine Color Pale yellow Urine Appearance Clear Urine pH 6 (4.5-8.0) Urine Specific [place] 1.010 (1.005-1.035) Urine Protein 2+ (NEGATIVE) H Urine Glucose (UA) Negative (NEGATIVE) Urine Ketones Negative (NEGATIVE) Urine Blood 1+ (NEGATIVE) H Urine Nitrite Positive (NEGATIVE) H Urine Bilirubin Negative (NEGATIVE) Urine Urobilinogen Normal MG/DL (0.0-1.0) Urine Leukocyte Esterase 3+ (NEGATIVE) H Urine RBC 2-4 /HPF (0 - 2) H Urine WBC 5-10 /HPF (0 - 2) H Urine Squamous Epithelial Cells Few /LPF (NONE/OCC) Urine Bacteria Moderate /HPF (NONE) H Height (Feet): 5 Height (Inches): 1.00 Weight (Pounds): 120 Assessment/Plan: 1. Acute resp failure continue BiPap.PRN Diuresis PRN, Nitro paste Low threshold for broad spectrum antibiotics Azithromycin for now. EKG shows LBBB, ST 2. DM Basal insulin + SSI 3. Diabetic neuropathy 4. Acute new onset CHF - diuresis PRN 5. Hypertension 6. Leukocytosis - no focal infiltrates on CXR 7. Anemia CXR: IMPRESSION: 1. Bilateral moderate pulmonary edema/infiltrates. 2. Small-moderate bilateral pleural effusions. Critical Care - Objective Last 24 Hour Vital Signs Date Time Temp Pulse Resp B/P (MAP) Pulse Ox O2 Delivery O2 Flow Rate FiO2 02/25/19 16:24 75 02/25/19 16:00 98.2 78 20 114/67 (83) 98 02/25/19 16:00 73 02/25/19 16:00 Nasal Cannula 2.0 02/25/19 15:59 2.0 02/25/19 15:00 75 21 107/61 (76) 98 02/25/19 14:55 69 18 100 02/25/19 14:00 79 17 101/63 (76) 98 02/25/19 13:00 81 18 122/74 (90) 98 02/25/19 12:45 72 16 100 02/25/19 12:00 77 02/25/19 12:00 2.0 02/25/19 12:00 96.8 79 19 103/43 (63) 99 02/25/19 12:00 Nasal Cannula 2.0 02/25/19 11:00 77 16 101/60 (74) 100 02/25/19 10:30 75 16 99 02/25/19 10:00 86 20 107/54 (71) 99 02/25/19 09:24 87 112/67 02/25/19 09:00 77 16 112/67 (82) 99 02/25/19 08:34 77 15 99 02/25/19 08:00 Bi-pap 02/25/19 08:00 73 02/25/19 08:00 97.8 71 14 115/66 (82) 97 02/25/19 08:00 35 02/25/19 07:04 74 18 100 Facial 35 02/25/19 07:03 74 18 98 Bi-Pap 35 02/25/19 07:00 77 16 103/60 (74) 100 02/25/19 06:00 75 16 109/56 (73) 100 02/25/19 05:00 75 16 100 Facial 35 02/25/19 05:00 74 15 97/60 (72) 100 02/25/19 04:00 Bi-pap 02/25/19 04:00 35 02/25/19 04:00 97.9 72 15 97/59 (72) 100 02/25/19 03:01 70 02/25/19 03:00 71 15 91/54 (66) 100 02/25/19 02:55 73 17 100 Facial 35 02/25/19 02:00 77 14 95/59 (71) 100 02/25/19 01:24 82 17 100 Facial 35 02/25/19 01:00 74 14 92/76 (81) 100 02/25/19 00:00 Bi-pap 02/25/19 00:00 35 02/25/19 00:00 97.7 81 14 94/80 (85) 100 02/24/19 23:02 70 02/24/19 23:00 70 16 100/59 (73) 99 02/24/19 22:38 78 18 99 Facial 35 02/24/19 22:00 85 15 120/65 (83) 100 02/24/19 22:00 100 02/24/19 21:33 Bi-pap 02/24/19 21:05 110 20 98 Facial 35 02/24/19 21:00 104 02/24/19 21:00 97.7 108 23 128/80 (96) 94 02/24/19 20:52 110 18 149/82 (104) 98 02/24/19 20:45 98.2 98 15 146/67 95 35 02/24/19 19:27 98.2 98 15 146/67 95 35 02/24/19 19:20 98.2 97 15 128/73 98 35 02/24/19 18:50 116 23 97 Facial 35 02/24/19 18:19 94 21 136/72 100 Bi-pap 35 Micro: Microbiology Date/Time Source Procedure Growth Status 02/24/19 18:48 Urine,Clean Catch Urine Culture - Preliminary Gram Negative [place] Resulted 02/24/19 19:05 Rectum Received Accucheck: 102 Critical Care - Subjective ROS Limited/Unobtainable: No FI02: 35 Vent Support Mode: BiLevel Sputum Amount: None I&O: Intake and Output 02/24/19 02/25/19 19:00 07:00 Intake Total 275 ml Output Total 740 ml Balance -465 ml IV Total 275 ml Output Urine Total 740 ml # Voids 1 1 Uzair Parr MD Feb 25, 2019 18:12
[2019-02-25] MEDS ORDERED: HYDROcodone/Acetamin 5/325 tab ORAL PRN (18:15)
--- NOTE | 2019-02-25 18:19 | NUR ---
NURSE NOTES: Pt resting in bed verbalized feeling better ,no resp distress noted,daughter at bedside.
--- NOTE | 2019-02-25 19:15 | NUR ---
HAND-OFF: Report given to Enrique Drummond RN .
--- NOTE | 2019-02-25 19:16 | NUR ---
NURSE NOTES: Received patient from Danielle FIERRO. Patient is awake and oriented x4, family is in the room. Receiving oxygen via nasal cannula at 2L/min, patient is tolerating well showing no signs of respiratory distress. IV site is Left AC 20g, patent and intact. Bed is locked, side rails up x2, call light within reach, bed alarm on. Will continue to monitor.
[2019-02-25] MEDS: Heparin 5000 units/ml inj SUBQ SCH (20:55)
[2019-02-26] VITALS: BP 96/55
[2019-02-26] MEDS ORDERED: Azithromycin 500 MG in D5W 275 ML IV SCH ×2
[2019-02-26 04:00] VITALS: BP 96/58
[2019-02-26 06:00] LABS: BASOPHILS % (AUTO) 1.4 % (0.0-2.0); EOSINOPHILS % (AUTO) 4.8 % (0.0-3.0); HEMATOCRIT 29.9 % (37.0-47.0); HEMOGLOBIN 9.3 G/DL (12.0-16.0); LYMPHOCYTES % (AUTO) 33.8 % (20.0-45.0); MEAN CORPUSCULAR VOLUME 84 FL (80-99); MONOCYTES % (AUTO) 9.4 % (1.0-10.0); NEUTROPHILS % (AUTO) 50.7 % (45.0-75.0); PLATELET COUNT 166 K/UL (150-450); RED BLOOD COUNT 3.55 M/UL (4.20-5.40); RED CELL DISTRIBUTION WIDTH 13.8 % (11.6-14.8); WHITE BLOOD COUNT 5.9 K/UL (4.8-10.8)
[2019-02-26 06:27] LABS: ANION GAP 9 mmol/L (5-15); BLOOD UREA NITROGEN 23 mg/dL (7-18); CALCIUM 8.9 MG/DL (8.5-10.1); CARBON DIOXIDE 27 MMOL/L (21-32); CHLORIDE 108 MMOL/L (98-107); CREATININE 1.3 MG/DL (0.55-1.30); POTASSIUM 4.1 MMOL/L (3.5-5.1); SODIUM 144 MMOL/L (136-145)
[2019-02-26] MEDS: NovoLOG Insulin Flexpen SUBQ SCH ×4 (06:30→20:31)
--- NOTE | 2019-02-26 07:28 | NUR ---
HAND-OFF: Report given to Jonathan FIERRO. Patient in stable condition.
--- NOTE | 2019-02-26 07:29 | NUR ---
NURSE NOTES: Received report from VADIM Nunez. Patient is resting bed in stable condition. No s/sx of SOB, breathing is even and unlabored. Observed no presence of pain or discomfort at this time. Bed is in lowest position, brakes engaged. Call light is kept within easy reach. Will continue to monitor patient.
[2019-02-26 08:00] VITALS: BP 111/68
[2019-02-26] MEDS: Heparin 5000 units/ml inj SUBQ SCH ×2 (08:20→20:30)
[2019-02-26] MEDS ORDERED: Levemir Flexpen SUBQ SCH (09:00)
[2019-02-26] MEDS ORDERED: cefTRIAXone 1 GM in D5W 55 ML IVPB SCH (09:00)
[2019-02-26] MEDS ORDERED: Aspirin EC 81mg tab ORAL SCH (09:00)
--- NOTE | 2019-02-26 10:00 | NUR ---
NURSE NOTES: Contacted and informed Dr. Fischer of 1 bottle blood culture positive gram cocci in clusters, currently no infectious disease consult noted. Dr. Fischer acknowledged and ordered repeat blood culture and start vancomycin IV per pharmacy dosing. Orders entered, noted, and carried out. Will continue to monitor patient.
[2019-02-26] MEDS ORDERED: Vancomycin 1.25gm Premix IVPB ONE (11:00)
--- NOTE | 2019-02-26 11:48 | Consultation ---
History of Present Illness General Date patient seen: Feb 26, 2019 Time patient seen: 11:39 Chief Complaint: Dyspnea/Respdistress Present Illness HPI 63 yo female with known DM, Neuropathy, hx Osteomyelitis sp amputation in 09/2018 , HTN, ASHD- presented to ER with worsening dyspnea for 2-3 days. states coughing sputum and makes feels better. no fever/ chest pain, leg swelling, recent travel. no smoking. Patient states meds have been same since last time but does not exactly know meds. in er Found to be in resp distress and on BiPap. Stress test in September: There is absence of symptoms is not described on the cardiology report. Per cardiology report, resting EKG demonstrates sinus rhythm with left bundle branch block. Presence or absence of ST during infusion changes is not described. Imaging demonstrates decreased poststress perfusion in the anteroseptal wall, extending to the apex. This appears to mostly reperfuse on the resting images. Normal cardiac chamber size.. Calculated post stress ejection fraction 38%. There appears to be global hypokinesis as well as more focal septal decreased wall motion Allergies: Coded Allergies: No Known Allergies (Verified , 01/25/10) Medication History Scheduled Amlodipine Besylate (Norvasc), 5 MG ORAL DAILY, (Reported) Amoxicillin/Potassium Clav 875-125* (Augmentin 875-125 Tablet*), 1 TAB ORAL TWICE A DAY Aspirin* (Aspir 81*), 81 MG ORAL DAILY, (Reported) Gabapentin* (Gabapentin*), 300 MG ORAL THREE TIMES A DAY, (Reported) Metformin Hcl* (Metformin Hcl*), 1,000 MG ORAL BID, (Reported) Trimethoprim/Sulfamethoxazole (Bactrim Ds Tablet), 1 TAB ORAL TWICE A DAY Miscellaneous Medications Unable to Obtain Medications (Unable To Obtain Meds), (Reported) Patient History Healthcare decision maker Resuscitation status Full Code Advanced Directive on File No Review of Systems Constitutional: Reports: sweats, fever, malaise, weakness Eye: Reports: no symptoms ENT: Reports: no symptoms Respiratory: Reports: shortness of breath, SPENCE Cardiovascular: Reports: no symptoms Gastrointestinal: Reports: no symptoms Genitourinary: Reports: no symptoms Musculoskeletal: Reports: no symptoms Skin: Reports: no symptoms Psychiatric: Reports: no symptoms Neurological: Reports: no symptoms Endocrine: Reports: no symptoms Hematologic/Lymphatic: Reports: no symptoms Physical Exam General Appearance: no apparent distress, alert Lines, tubes and drains: peripheral HEENT: normocephalic, atraumatic Neck: non-tender, normal alignment, supple, normal inspection Respiratory/Chest: chest wall non-tender, crackles/rales, rhonchi - bilaterally Cardiovascular/Chest: normal peripheral pulses, normal rate, regular rhythm Abdomen: normal bowel sounds, non tender, soft, no organomegaly Extremities: normal range of motion, non-tender, normal inspection Last 24 Hour Vital Signs Date Time Temp Pulse Resp B/P (MAP) Pulse Ox O2 Delivery O2 Flow Rate FiO2 02/26/19 08:17 76 111/68 02/26/19 08:00 96.5 76 18 111/68 (82) 95 02/26/19 08:00 Nasal Cannula 2.0 02/26/19 07:41 75 02/26/19 04:00 Nasal Cannula 2.0 02/26/19 04:00 97.2 67 18 96/58 (71) 98 02/26/19 03:32 71 02/26/19 00:00 97.9 74 20 96/55 (69) 98 02/26/19 00:00 65 02/26/19 00:00 Nasal Cannula 2.0 02/25/19 20:00 Nasal Cannula 2.0 02/25/19 20:00 2.0 02/25/19 20:00 98.1 76 16 110/66 (81) 98 02/25/19 19:28 79 02/25/19 19:02 76 18 97 Nasal Cannula 2.0 28 02/25/19 16:24 75 02/25/19 16:00 98.2 78 20 114/67 (83) 98 02/25/19 16:00 73 02/25/19 16:00 Nasal Cannula 2.0 02/25/19 15:59 2.0 02/25/19 15:00 75 21 107/61 (76) 98 02/25/19 14:55 69 18 100 02/25/19 14:00 79 17 101/63 (76) 98 02/25/19 13:00 81 18 122/74 (90) 98 02/25/19 12:45 72 16 100 02/25/19 12:00 77 02/25/19 12:00 2.0 02/25/19 12:00 96.8 79 19 103/43 (63) 99 02/25/19 12:00 Nasal Cannula 2.0 Intake and Output 02/25/19 02/26/19 19:00 07:00 Intake Total 600 ml 400 ml Output Total 852 ml 1 ml Balance -252 ml 399 ml Intake Oral 600 ml 400 ml Output Urine Total 852 ml 1 ml Laboratory Tests Test 02/26/19 04:05 White Blood Count 5.9 K/UL (4.8-10.8) Red Blood Count 3.55 M/UL (4.20-5.40) L Hemoglobin 9.3 G/DL (12.0-16.0) L Hematocrit 29.9 % (37.0-47.0) L Mean Corpuscular Volume 84 FL (80-99) Mean Corpuscular Hemoglobin 26.2 PG (27.0-31.0) L Mean Corpuscular Hemoglobin Concent 31.1 G/DL (32.0-36.0) L Red Cell Distribution Width 13.8 % (11.6-14.8) Platelet Count 166 K/UL (150-450) Mean Platelet Volume 7.0 FL (6.5-10.1) Neutrophils (%) (Auto) 50.7 % (45.0-75.0) Lymphocytes (%) (Auto) 33.8 % (20.0-45.0) Monocytes (%) (Auto) 9.4 % (1.0-10.0) Eosinophils (%) (Auto) 4.8 % (0.0-3.0) H Basophils (%) (Auto) 1.4 % (0.0-2.0) Sodium Level 144 MMOL/L (136-145) Potassium Level 4.1 MMOL/L (3.5-5.1) Chloride Level 108 MMOL/L (98-107) H Carbon Dioxide Level 27 MMOL/L (21-32) Anion Gap 9 mmol/L (5-15) Blood Urea Nitrogen 23 mg/dL (7-18) H Creatinine 1.3 MG/DL (0.55-1.30) Estimat Glomerular Filtration Rate 41.1 mL/min (>60) Glucose Level 92 MG/DL (74-106) Calcium Level 8.9 MG/DL (8.5-10.1) Height (Feet): 5 Height (Inches): 1.00 Weight (Pounds): 135 Medications Current Medications Medications (Trade) Dose Ordered Sig/Daisha Route PRN Reason Start Time Stop Time Status Last Admin Dose Admin Acetaminophen (Tylenol) 650 mg Q4H PRN ORAL Mild Pain/Temp > 100.5 02/25/19 18:15 03/26/19 22:14 Acetaminophen/ Hydrocodone Bitart ([place] 5/325) 1 tab Q4H PRN ORAL Moderate Pain (Pain Scale 4-6) 02/25/19 18:15 03/03/19 22:14 Amlodipine Besylate (Norvasc) 5 mg DAILY ORAL 02/26/19 09:00 03/27/19 08:59 02/26/19 08:17 Aspirin (Ecotrin) 81 mg DAILY ORAL 02/26/19 09:00 03/27/19 08:59 02/26/19 08:17 Azithromycin 500 mg/Dextrose 275 ml @ 275 mls/hr Q24HRS IV 02/26/19 00:00 03/03/19 00:59 02/26/19 00:24 Ceftriaxone Sodium 1 gm/ Dextrose 55 ml @ 110 mls/hr DAILY IVPB 02/26/19 09:00 03/04/19 13:59 02/26/19 08:17 Dextrose (Dextrose 50%) 25 ml Q30M PRN IV Hypoglycemia 02/25/19 16:15 03/26/19 22:14 Dextrose (Dextrose 50%) 50 ml Q30M PRN IV Hypoglycemia 02/25/19 16:15 03/26/19 22:14 Furosemide (Lasix) 40 mg DAILY IV 02/26/19 09:00 03/27/19 08:59 02/26/19 08:18 Gabapentin (Neurontin) 300 mg THREE TIMES A DAY ORAL 02/25/19 18:00 03/27/19 08:59 02/26/19 08:18 Heparin Sodium (Porcine) (Heparin 5000 units/ml) 5,000 units EVERY 12 HOURS SUBQ 02/25/19 21:00 03/27/19 08:59 02/26/19 08:20 Insulin Aspart (NovoLOG) BEFORE MEALS AND HS SUBQ 02/25/19 16:30 03/27/19 06:29 02/25/19 20:56 Insulin Detemir (Levemir) 5 units Q24H SUBQ 02/26/19 09:00 03/27/19 08:59 02/26/19 08:21 Vancomycin HCl (Vanco rx to dose) 1 ea DAILY PRN MISC Per rx protocol 02/26/19 09:45 03/28/19 09:44 Vancomycin HCl/ Dextrose 275 ml @ 183.333 mls/hr ONCE ONCE IVPB 02/26/19 11:00 02/26/19 12:29 02/26/19 10:21 Vancomycin HCl/ Dextrose 275 ml @ 183.333 mls/hr Q24H IVPB 02/27/19 11:00 03/04/19 10:59 Assessment/Plan Status: stable Assessment/Plan: Assessment/Plan: 1. Acute resp failure 2. DM 3. Diabetic neuropathy 4.Systolic CHF 5. Hypertension 6. Leukocytosis 7. Anemia 8. Coronary artery disease, stress test Feb with ischemia Recommendations -serial troponin -stress test in Feb positive/troponin negative, no chest pain currently -will need cardiac cath, can arrange at [facility] as outpatient -Echocardiogram, SPECT showed systolic dysfunction -Continue BiPAP prn, diuresis, pulmonary support -Thoracentesis evaluation -d/c norvasc -Start lisinopril -Initiate beta blockers when stable Uzair Salas MD Feb 26, 2019 11:48
[2019-02-26 12:00] VITALS: BP 120/68
--- NOTE | 2019-02-26 13:10 | Infectious Diseases Prog Note ---
Assessment/Plan Assessment/Plan Full consult dictated: A) 1) e.coli uti 2) ? staph bacteremia vs contaminant 3) mild leukocytosis resolved P) 1) vancomycin and ceftriaxone 2) recheck blood cultures and identification of staph species 3) thank you Subjective Allergies: Coded Allergies: No Known Allergies (Verified , 01/25/10) Objective Vital Signs Last 24 Hour Vital Signs Date Time Temp Pulse Resp B/P (MAP) Pulse Ox O2 Delivery O2 Flow Rate FiO2 02/26/19 12:00 97.6 76 18 120/68 (85) 95 02/26/19 12:00 Nasal Cannula 2.0 02/26/19 08:17 76 111/68 02/26/19 08:00 96.5 76 18 111/68 (82) 95 02/26/19 08:00 Nasal Cannula 2.0 02/26/19 07:41 75 02/26/19 04:00 Nasal Cannula 2.0 02/26/19 04:00 97.2 67 18 96/58 (71) 98 02/26/19 03:32 71 02/26/19 00:00 97.9 74 20 96/55 (69) 98 02/26/19 00:00 65 02/26/19 00:00 Nasal Cannula 2.0 02/25/19 20:00 Nasal Cannula 2.0 02/25/19 20:00 2.0 02/25/19 20:00 98.1 76 16 110/66 (81) 98 02/25/19 19:28 79 02/25/19 19:02 76 18 97 Nasal Cannula 2.0 28 02/25/19 16:24 75 02/25/19 16:00 98.2 78 20 114/67 (83) 98 02/25/19 16:00 73 02/25/19 16:00 Nasal Cannula 2.0 02/25/19 15:59 2.0 02/25/19 15:00 75 21 107/61 (76) 98 02/25/19 14:55 69 18 100 02/25/19 14:00 79 17 101/63 (76) 98 Height (Feet): 5 Height (Inches): 1.00 Weight (Pounds): 135 Microbiology Date/Time Source Procedure Growth Status 02/24/19 17:15 Blood Blood Culture - Preliminary Staphylococcus Species Resulted 02/24/19 17:05 Blood Blood Culture - Preliminary NO GROWTH AFTER 24 HOURS Resulted 02/24/19 18:48 Urine,Clean Catch Urine Culture - Final Escherichia Coli Complete 02/24/19 19:05 Rectum Received Laboratory Tests Test 02/26/19 04:05 White Blood Count 5.9 K/UL (4.8-10.8) Red Blood Count 3.55 M/UL (4.20-5.40) L Hemoglobin 9.3 G/DL (12.0-16.0) L Hematocrit 29.9 % (37.0-47.0) L Mean Corpuscular Volume 84 FL (80-99) Mean Corpuscular Hemoglobin 26.2 PG (27.0-31.0) L Mean Corpuscular Hemoglobin Concent 31.1 G/DL (32.0-36.0) L Red Cell Distribution Width 13.8 % (11.6-14.8) Platelet Count 166 K/UL (150-450) Mean Platelet Volume 7.0 FL (6.5-10.1) Neutrophils (%) (Auto) 50.7 % (45.0-75.0) Lymphocytes (%) (Auto) 33.8 % (20.0-45.0) Monocytes (%) (Auto) 9.4 % (1.0-10.0) Eosinophils (%) (Auto) 4.8 % (0.0-3.0) H Basophils (%) (Auto) 1.4 % (0.0-2.0) Sodium Level 144 MMOL/L (136-145) Potassium Level 4.1 MMOL/L (3.5-5.1) Chloride Level 108 MMOL/L (98-107) H Carbon Dioxide Level 27 MMOL/L (21-32) Anion Gap 9 mmol/L (5-15) Blood Urea Nitrogen 23 mg/dL (7-18) H Creatinine 1.3 MG/DL (0.55-1.30) Estimat Glomerular Filtration Rate 41.1 mL/min (>60) Glucose Level 92 MG/DL (74-106) Calcium Level 8.9 MG/DL (8.5-10.1) Current Medications Medications (Trade) Dose Ordered Sig/Daisha Route PRN Reason Start Time Stop Time Status Last Admin Dose Admin Acetaminophen (Tylenol) 650 mg Q4H PRN ORAL Mild Pain/Temp > 100.5 02/25/19 18:15 03/26/19 22:14 Acetaminophen/ Hydrocodone Bitart ([place] 5/325) 1 tab Q4H PRN ORAL Moderate Pain (Pain Scale 4-6) 02/25/19 18:15 03/03/19 22:14 Aspirin (Ecotrin) 81 mg DAILY ORAL 02/26/19 09:00 03/27/19 08:59 02/26/19 08:17 Azithromycin 500 mg/Dextrose 275 ml @ 275 mls/hr Q24HRS IV 02/26/19 00:00 03/03/19 00:59 02/26/19 00:24 Ceftriaxone Sodium 1 gm/ Dextrose 55 ml @ 110 mls/hr DAILY IVPB 02/26/19 09:00 03/04/19 13:59 02/26/19 08:17 Dextrose (Dextrose 50%) 25 ml Q30M PRN IV Hypoglycemia 02/25/19 16:15 03/26/19 22:14 Dextrose (Dextrose 50%) 50 ml Q30M PRN IV Hypoglycemia 02/25/19 16:15 03/26/19 22:14 Furosemide (Lasix) 40 mg DAILY IV 02/26/19 09:00 03/27/19 08:59 02/26/19 08:18 Gabapentin (Neurontin) 300 mg THREE TIMES A DAY ORAL 02/25/19 18:00 03/27/19 08:59 02/26/19 12:08 Heparin Sodium (Porcine) (Heparin 5000 units/ml) 5,000 units EVERY 12 HOURS SUBQ 02/25/19 21:00 03/27/19 08:59 02/26/19 08:20 Insulin Aspart (NovoLOG) BEFORE MEALS AND HS SUBQ 02/25/19 16:30 03/27/19 06:29 02/26/19 11:49 Insulin Detemir (Levemir) 5 units Q24H SUBQ 02/26/19 09:00 03/27/19 08:59 02/26/19 08:21 Lisinopril (Zestril) 10 mg DAILY ORAL 02/27/19 09:00 03/29/19 08:59 Vancomycin HCl (Vanco rx to dose) 1 ea DAILY PRN MISC Per rx protocol 02/26/19 09:45 03/28/19 09:44 Vancomycin HCl/ Dextrose 275 ml @ 183.333 mls/hr Q24H IVPB 02/27/19 11:00 03/04/19 10:59 Francisco Piper MD Feb 26, 2019 13:10
--- NOTE | 2019-02-26 14:10 | General Progress Note ---
Assessment/Plan Status: stable Assessment/Plan: Assessment/Plan: 1. acute hypoxemic respiratory failure admitted to ICU initially and now downgraded to telemetry. Bipap is now weaned off Transitioned to nasal cannula and clinically stable and step down unit 02/25 Pulmonary and Cardiology consult. EKG shows LBBB, Tachy s/p Lasix and Nitro paste in ER Empiric Azythromicin started 2. DM Will resume oral metformin when ready to transition home. Basal insulin + SSI 3. Diabetic neuropathy continue home medications 4. Acute new onset CHF Cardiology consult requested on admission diuresis/ respiratory support 5. Hypertension Monitor 6. Leukocytosis with initial slight high lactic acid- SIRS criteria but no clear fever history repeat lactic acid normal ?due to hypoxia. monitor closely/ wait Pulm consult. Blood culture in ER per sepsis protocol noted to have 1/2 G+ cocci in clusters. ID consultation requested today and Vancomycin added. Repeat blood cx today. UTI noted and GNR now reported as E. Coli which is sensitive to ceftriaxone. Added Ceftriaxone IV 01/27 7. Anemia, likely chronic etiology. monitor Subjective ROS Limited/Unobtainable: No Constitutional: Reports: no symptoms HEENT: Reports: no symptoms Cardiovascular: Reports: no symptoms Respiratory: Reports: no symptoms Gastrointestinal/Abdominal: Reports: no symptoms Genitourinary: Reports: no symptoms Neurologic/Psychiatric: Reports: no symptoms Endocrine: Reports: no symptoms Hematologic/Lymphatic: Reports: no symptoms Allergies: Coded Allergies: No Known Allergies (Verified , 01/25/10) Objective Last 24 Hour Vital Signs Date Time Temp Pulse Resp B/P (MAP) Pulse Ox O2 Delivery O2 Flow Rate FiO2 02/26/19 12:00 97.6 76 18 120/68 (85) 95 02/26/19 12:00 Nasal Cannula 2.0 02/26/19 12:00 80 02/26/19 08:17 76 111/68 02/26/19 08:00 96.5 76 18 111/68 (82) 95 02/26/19 08:00 Nasal Cannula 2.0 02/26/19 07:41 75 02/26/19 04:00 Nasal Cannula 2.0 02/26/19 04:00 97.2 67 18 96/58 (71) 98 02/26/19 03:32 71 02/26/19 00:00 97.9 74 20 96/55 (69) 98 02/26/19 00:00 65 02/26/19 00:00 Nasal Cannula 2.0 02/25/19 20:00 Nasal Cannula 2.0 02/25/19 20:00 2.0 02/25/19 20:00 98.1 76 16 110/66 (81) 98 02/25/19 19:28 79 02/25/19 19:02 76 18 97 Nasal Cannula 2.0 28 02/25/19 16:24 75 02/25/19 16:00 98.2 78 20 114/67 (83) 98 02/25/19 16:00 73 02/25/19 16:00 Nasal Cannula 2.0 02/25/19 15:59 2.0 02/25/19 15:00 75 21 107/61 (76) 98 02/25/19 14:55 69 18 100 Intake and Output 02/25/19 02/26/19 18:59 06:59 Intake Total 600 ml 400 ml Output Total 852 ml 1 ml Balance -252 ml 399 ml Intake Oral 600 ml 400 ml Output Urine Total 852 ml 1 ml Laboratory Tests 02/26/19 04:05: White Blood Count 5.9, Red Blood Count 3.55L, Hemoglobin 9.3L, Hematocrit 29.9L , Mean Corpuscular Volume 84, Mean Corpuscular Hemoglobin 26.2L, Mean Corpuscular Hemoglobin Concent 31.1L, Red Cell Distribution Width 13.8, Platelet Count 166, Mean Platelet Volume 7.0, Neutrophils (%) (Auto) 50.7, Lymphocytes (%) (Auto) 33.8, Monocytes (%) (Auto) 9.4, Eosinophils (%) (Auto) 4.8H, Basophils (%) (Auto) 1.4, Sodium Level 144, Potassium Level 4.1, Chloride Level 108H, Carbon Dioxide Level 27, Anion Gap 9, Blood Urea Nitrogen 23H, Creatinine 1.3, Estimat Glomerular Filtration Rate 41.1, Glucose Level 92, Calcium Level 8.9 Height (Feet): 5 Height (Inches): 1.00 Weight (Pounds): 135 General Appearance: WD/WN EENT: PERRL/EOMI Neck: non-tender Cardiovascular: normal rate Respiratory/Chest: lungs clear Abdomen: non tender Neurologic: relationship assoc II-XII grossly normal Brooklyn Fischer MD Feb 26, 2019 14:10
[2019-02-26] MEDS ORDERED: NS 275ml ONE (15:14)
[2019-02-26] MEDS ORDERED: Tubing IV Secondary IV ONE (15:14)
[2019-02-26 16:00] VITALS: BP 117/56
--- NOTE | 2019-02-26 18:14 | NUR ---
NURSE NOTES: Noted patient's 2D Echocardiogram, contacted and informed Dr. Salas regarding ejection fraction estimated to be 25-30%. Dr. Salas acknowledged, no new orders given at this time. Will continue to monitor patient.
--- NOTE | 2019-02-26 18:35 | Pulmonolgy Critical Care Note ---
Critical Care - Asmt/Plan Assessment/Plan: Pulmonary CCM Progress Note HPI Patient is a 63 yo female with known Diabetes, Neuropathy, h/o Osteomyelitis sp amputation in 09/2018, HTN, ASHD- presented to ER with worsening dyspnea for 2-3 days. C/o coughing sputum, no fever/ chest pain, leg swelling, recent travel. no smoking. In ED found to be in resp distress and on BiPap. has effusion and infiltrate and likely new onset of CHF. 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4 % (20.0-45.0) Monocytes (%) (Auto) 4.5 % (1.0-10.0) Eosinophils (%) (Auto) 3.0 % (0.0-3.0) Basophils (%) (Auto) 1.9 % (0.0-2.0) Sodium Level 139 MMOL/L (136-145) Potassium Level 4.6 MMOL/L (3.5-5.1) Chloride Level 104 MMOL/L (98-107) Carbon Dioxide Level 22 MMOL/L (21-32) Anion Gap 13 mmol/L (5-15) Blood Urea Nitrogen 22 mg/dL (7-18) H Creatinine 1.1 MG/DL (0.55-1.30) Estimat Glomerular Filtration Rate 49.9 mL/min (>60) Glucose Level 238 MG/DL (74-106) H Lactic Acid Level 2.10 mmol/L (0.4-2.0) H 1.60 mmol/L (0.66-2.22) Calcium Level 9.1 MG/DL (8.5-10.1) Total Bilirubin 0.4 MG/DL (0.2-1.0) Aspartate Amino Transf (AST/SGOT) 25 U/L (15-37) Alanine Aminotransferase (ALT/SGPT) 20 U/L (12-78) Alkaline Phosphatase 65 U/L (46-116) Total Creatine Kinase 19 U/L (26-308) L Creatine Kinase MB 1.0 NG/ML (0.0-3.6) Creatine Kinase MB Relative Index 5.2 Troponin I 0.010 ng/mL (0.000-0.056) Total Protein 7.6 G/DL (6.4-8.2) Albumin 4.5 G/DL (3.4-5.0) Globulin 3.1 g/dL Albumin/Globulin Ratio 1.5 (1.0-2.7) Arterial Blood pH 7.349 (7.350-7.450) Arterial Blood Partial Pressure CO2 34.7 mmHg (35.0-45.0) L Arterial Blood Partial Pressure O2 318.4 mmHg (75.0-100.0) H Arterial Blood HCO3 18.7 mmol/L (22.0-26.0) L Arterial Blood Oxygen Saturation 99.3 % (95-100) Arterial Blood Base Excess -6.2 (-2-2) L Saman Test Positive Urine Color Pale yellow Urine Appearance Clear Urine pH 6 (4.5-8.0) Urine Specific [place] 1.010 (1.005-1.035) Urine Protein 2+ (NEGATIVE) H Urine Glucose (UA) Negative (NEGATIVE) Urine Ketones Negative (NEGATIVE) Urine Blood 1+ (NEGATIVE) H Urine Nitrite Positive (NEGATIVE) H Urine Bilirubin Negative (NEGATIVE) Urine Urobilinogen Normal MG/DL (0.0-1.0) Urine Leukocyte Esterase 3+ (NEGATIVE) H Urine RBC 2-4 /HPF (0 - 2) H Urine WBC 5-10 /HPF (0 - 2) H Urine Squamous Epithelial Cells Few /LPF (NONE/OCC) Urine Bacteria Moderate /HPF (NONE) H Height (Feet): 5 Height (Inches): 1.00 Weight (Pounds): 120 Assessment/Plan: 1. Acute resp failure continue BiPap.PRN Diuresis PRN, Nitro paste Low threshold for broad spectrum antibiotics Azithromycin for now. EKG shows LBBB, ST 2. DM Basal insulin + SSI 3. Diabetic neuropathy 4. Acute new onset CHF - diuresis PRN 5. Hypertension 6. Leukocytosis - no focal infiltrates on CXR 7. Anemia CXR: IMPRESSION: 1. Bilateral moderate pulmonary edema/infiltrates. 2. Small-moderate bilateral pleural effusions. Critical Care - Objective Last 24 Hour Vital Signs Date Time Temp Pulse Resp B/P (MAP) Pulse Ox O2 Delivery O2 Flow Rate FiO2 02/26/19 16:00 Nasal Cannula 2.0 02/26/19 16:00 96.8 80 18 117/56 (76) 96 02/26/19 15:41 72 02/26/19 12:00 97.6 76 18 120/68 (85) 95 02/26/19 12:00 Nasal Cannula 2.0 02/26/19 12:00 80 02/26/19 08:17 76 111/68 02/26/19 08:00 96.5 76 18 111/68 (82) 95 02/26/19 08:00 Nasal Cannula 2.0 02/26/19 07:41 75 02/26/19 04:00 Nasal Cannula 2.0 02/26/19 04:00 97.2 67 18 96/58 (71) 98 02/26/19 03:32 71 02/26/19 00:00 97.9 74 20 96/55 (69) 98 02/26/19 00:00 65 02/26/19 00:00 Nasal Cannula 2.0 02/25/19 20:00 Nasal Cannula 2.0 02/25/19 20:00 2.0 02/25/19 20:00 98.1 76 16 110/66 (81) 98 02/25/19 19:28 79 02/25/19 19:02 76 18 97 Nasal Cannula 2.0 28 Micro: Microbiology Date/Time Source Procedure Growth Status 02/24/19 17:15 Blood Blood Culture - Preliminary Staphylococcus Species Resulted 02/24/19 17:05 Blood Blood Culture - Preliminary NO GROWTH AFTER 24 HOURS Resulted 02/24/19 18:48 Urine,Clean Catch Urine Culture - Final Escherichia Coli Complete 02/24/19 19:05 Rectum Received Accucheck: 79 Critical Care - Subjective ROS Limited/Unobtainable: No FI02: 28 Vent Support Mode: BiLevel Sputum Amount: None I&O: Intake and Output 02/25/19 02/26/19 18:59 06:59 Intake Total 600 ml 400 ml Output Total 852 ml 1 ml Balance -252 ml 399 ml Intake Oral 600 ml 400 ml Output Urine Total 852 ml 1 ml Uzair Parr MD Feb 26, 2019 18:35
--- NOTE | 2019-02-26 19:19 | NUR ---
HAND-OFF: Report given to VADIM Chew.
--- NOTE | 2019-02-26 19:20 | NUR ---
NURSE NOTES: Received patient from VADIM Castillo. patient is sitting in bed, AOX4. denies pain at this time. no s/sx of respiratory distress noted at this time. IV site is patent and intact. bed in lowest position and locked, siderails up X2, call light within reach. will continue to monitor.
[2019-02-26 20:00] VITALS: BP 125/71
--- NOTE | 2019-02-26 23:00 | NUR ---
NURSE NOTES: Pt transferred from [facility]. Got report from Naina FIERRO. Pt in stable condition. Denies any pain. No s/s of distress or discomfort noted. Pt resting in bed comfortably. Bed in low and locked position, call light within reach, bedside table within reach. Continue to monitor.
--- NOTE | 2019-02-26 23:04 | NUR ---
TRANSFER TO FLOOR: Patient transferred to Telemetry 2E per MD. patient in stable condition. Report given to VADIM Adkins. Belongings and medications transferred with patient. Family informed of transfer.
[2019-02-27] MEDS ORDERED: Azithromycin 500 MG in D5W 275 ML IV SCH ×2
[2019-02-27 00:07] VITALS: BP 117/61
[2019-02-27] MEDS ORDERED: HYDROcodone/Acetamin 5/325 tab ORAL PRN (02:15)
[2019-02-27 04:30] VITALS: BP 124/59
[2019-02-27] MEDS: NovoLOG Insulin Flexpen SUBQ SCH ×4 (06:12→20:24)
[2019-02-27 07:00] LABS: ANION GAP 11 mmol/L (5-15); BLOOD UREA NITROGEN 19 mg/dL (7-18); CALCIUM 9.2 MG/DL (8.5-10.1); CARBON DIOXIDE 25 MMOL/L (21-32); CHLORIDE 106 MMOL/L (98-107); CREATININE 1.2 MG/DL (0.55-1.30); POTASSIUM 3.7 MMOL/L (3.5-5.1); SODIUM 142 MMOL/L (136-145)
[2019-02-27 07:02] LABS: BASOPHILS % (AUTO) 1.6 % (0.0-2.0); EOSINOPHILS % (AUTO) 2.6 % (0.0-3.0); HEMATOCRIT 32.4 % (37.0-47.0); HEMOGLOBIN 10.2 G/DL (12.0-16.0); LYMPHOCYTES % (AUTO) 23.3 % (20.0-45.0); MEAN CORPUSCULAR VOLUME 83 FL (80-99); MONOCYTES % (AUTO) 5.9 % (1.0-10.0); NEUTROPHILS % (AUTO) 66.6 % (45.0-75.0); PLATELET COUNT 204 K/UL (150-450); RED BLOOD COUNT 3.88 M/UL (4.20-5.40); RED CELL DISTRIBUTION WIDTH 13.6 % (11.6-14.8)
--- NOTE | 2019-02-27 07:24 | NUR ---
HAND-OFF: Report given to Christin FIERRO. Endorsed plan of care.
--- NOTE | 2019-02-27 07:25 | NUR ---
NURSE NOTES: I received the patient awake and resting in bed. Patient alert and oriented x4. Patient does not display any signs of distress or SOB and denied any needs at this time. Patient stated that she is feeling much better. Bed in the lowest position and call light within reach. I will continue to monitor the patient and implement care.
[2019-02-27 08:00] VITALS: BP 135/60
[2019-02-27] MEDS: Lisinopril 10mg tab ORAL SCH (08:53)
[2019-02-27] MEDS: Aspirin EC 81mg tab ORAL SCH (08:53)
[2019-02-27] MEDS: cefTRIAXone 1 GM in D5W 55 ML IVPB SCH (08:54)
[2019-02-27] MEDS: Heparin 5000 units/ml inj SUBQ SCH ×2 (08:57→20:22)
[2019-02-27] MEDS ORDERED: Lisinopril 10mg tab ORAL SCH (09:00)
--- NOTE | 2019-02-27 09:12 | NUR ---
RADIOLOGY: PCXR COMPLETED 0820HRS. NF
[2019-02-27] MEDS: Levemir Flexpen SUBQ SCH (09:57)
--- NOTE | 2019-02-27 10:36 | Diagnostic Imaging Report ---
Indication: Shortness of breath Technique: One view of the chest Comparison: 02/24/2019 Findings: There are bilateral pleural effusions again demonstrated. These appear smaller than on the prior exam. There is decreased but persistent basilar atelectasis. Previously demonstrated congestive changes have improved somewhat. No new infiltrates. The heart size is normal. Impression: Decreased interstitial edema and bilateral pleural effusions, over 3 days Decreased basilar atelectatic changes
[2019-02-27] MEDS ORDERED: Vancomycin 275 ML IVPB SCH (11:00)
[2019-02-27] MEDS ORDERED: Vancomycin 1.25gm Premix IVPB SCH (11:00)
--- NOTE | 2019-02-27 11:12 | General Progress Note ---
Assessment/Plan Status: stable Assessment/Plan: 1. acute hypoxemic respiratory failure 2/2 CHFe- improved admitted to ICU initially and now downgraded to telemetry. Off BiPAp - on NC - will try to wean off O2 Pulmonary and Cardiology consult appreciated EKG shows LBBB, Tachy s/p Lasix and Nitro paste in ER Cont IV lasix 2. DM Will resume oral metformin when ready to transition home. Basal insulin + SSI 3. Diabetic neuropathy continue home medications 4. Acute new onset CHF Cardiology consult appreciated diuresis/ respiratory support -serial trop unremarkable -ECHO with LVEF 25% global dysfunction -Norvasc d/c, Cont lisinopril, spironolactone started -will start BB once more stable -will need cardiac cath as outpatient -Life vest for three months, repeat TTE on medical therapy 5. Hypertension Monitor 6. E.Coli UTI ID consultation appreciated F/U repeat blood cx UTI noted and GNR now reported as E. Coli which is sensitive to ceftriaxone. Cont Ceftriaxone IV - transition to keflex in AM 7. Anemia, likely chronic etiology. monitor Full Code Time of note may not reflect time of encounter Subjective Date patient seen: Feb 27, 2019 Allergies: Coded Allergies: No Known Allergies (Verified , 01/25/10) Subjective No acute overnight events, states breathing has improved, cont IV Lasix and abx , likely convert to PO in AM. will need outpatient cath. Objective Last 24 Hour Vital Signs Date Time Temp Pulse Resp B/P (MAP) Pulse Ox O2 Delivery O2 Flow Rate FiO2 02/27/19 08:53 135/60 02/27/19 08:00 Nasal Cannula 2.0 02/27/19 08:00 97.4 88 20 135/60 (85) 96 02/27/19 08:00 82 02/27/19 07:14 64 16 97 Nasal Cannula 2.0 28 02/27/19 04:30 98.1 80 18 124/59 (80) 95 02/27/19 04:05 Nasal Cannula 2.0 02/27/19 04:02 63 02/27/19 00:23 Nasal Cannula 2.0 02/27/19 00:07 98.0 85 17 117/61 (79) 96 02/26/19 23:56 67 02/26/19 23:39 66 16 98 Nasal Cannula 2.0 28 7/7/19 20:00 74 02/26/19 20:00 97.7 74 18 125/71 (89) 100 02/26/19 20:00 Nasal Cannula 2.0 02/26/19 16:00 Nasal Cannula 2.0 02/26/19 16:00 96.8 80 18 117/56 (76) 96 02/26/19 15:41 72 02/26/19 12:00 97.6 76 18 120/68 (85) 95 02/26/19 12:00 Nasal Cannula 2.0 02/26/19 12:00 80 Intake and Output 02/26/19 02/27/19 19:00 07:00 Intake Total 500 ml 480 ml Output Total 5 ml Balance 495 ml 480 ml Intake Oral 500 ml 480 ml Output Urine Total 5 ml # Voids 1 Laboratory Tests 02/27/19 06:24: White Blood Count 7.0, Red Blood Count 3.88L, Hemoglobin 10.2L, Hematocrit 32.4L , Mean Corpuscular Volume 83, Mean Corpuscular Hemoglobin 26.2L, Mean Corpuscular Hemoglobin Concent 31.4L, Red Cell Distribution Width 13.6, Platelet Count 204, Mean Platelet Volume 6.9, Neutrophils (%) (Auto) 66.6, Lymphocytes (%) (Auto) 23.3, Monocytes (%) (Auto) 5.9, Eosinophils (%) (Auto) 2.6, Basophils (%) (Auto) 1.6, Sodium Level 142, Potassium Level 3.7, Chloride Level 106, Carbon Dioxide Level 25, Anion Gap 11, Blood Urea Nitrogen 19H, Creatinine 1.2, Estimat Glomerular Filtration Rate 45.1, Glucose Level 123H, Calcium Level 9.2 Height (Feet): 5 Height (Inches): 1.00 Weight (Pounds): 135 Objective General Appearance: WD/WN EENT: PERRL/EOMI Neck: non-tender Cardiovascular: normal rate Respiratory/Chest: lungs clear Abdomen: non tender 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
--- NOTE | 2019-02-27 11:33 | NUR ---
CASE MANAGEMENT: REVIEW 02/27/2019 SI: ACUTE RESP FAILURE. T 97.4 HR 8 RR 20 B/P 135/60 SATS 96% ON 2L/NC BUN 19 GLU 123 IS:CEFTRIAXONE IV QD ASA PO QD LASIX IV QD LISINOPRIL PO QD INSULIN ASPART SUBQ AC/HS VANCO IV Q24H AZITHROMYCIN IV Q24H GABAPENTIN PO TID TELE STATUS PLAN OF CARE: DIURESIS Addendum: 02/27/19 at 1153 by Clare Kirkland CM INTERQUAL MET
[2019-02-27 12:00] VITALS: BP 102/59
--- NOTE | 2019-02-27 13:29 | Pulmonology Progress Note ---
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 (5) Cellulitis Assessment/Plan Optimize pulmonary hygiene/mobilize as tolerate PRN O2 Diuresis as able Abx per ID DVT Px: Hep SQ Subjective Allergies: Coded Allergies: No Known Allergies (Verified , 01/25/10) Subjective AFVSS on RA Less SOB no cough no wheezing no FC Objective Last 24 Hour Vital Signs Date Time Temp Pulse Resp B/P (MAP) Pulse Ox O2 Delivery O2 Flow Rate FiO2 02/27/19 12:00 97.3 77 18 102/59 (73) 97 02/27/19 12:00 73 02/27/19 12:00 Nasal Cannula 2.0 02/27/19 08:53 135/60 02/27/19 08:00 Nasal Cannula 2.0 02/27/19 08:00 97.4 88 20 135/60 (85) 96 02/27/19 08:00 82 02/27/19 07:14 64 16 97 Nasal Cannula 2.0 28 02/27/19 04:30 98.1 80 18 124/59 (80) 95 02/27/19 04:05 Nasal Cannula 2.0 02/27/19 04:02 63 02/27/19 00:23 Nasal Cannula 2.0 02/27/19 00:07 98.0 85 17 117/61 (79) 96 02/26/19 23:56 67 02/26/19 23:39 66 16 98 Nasal Cannula 2.0 28 02/26/19 20:00 74 02/26/19 20:00 97.7 74 18 125/71 (89) 100 02/26/19 20:00 Nasal Cannula 2.0 02/26/19 16:00 Nasal Cannula 2.0 02/26/19 16:00 96.8 80 18 117/56 (76) 96 02/26/19 15:41 72 Intake and Output 02/26/19 02/27/19 19:00 07:00 Intake Total 500 ml 480 ml Output Total 5 ml Balance 495 ml 480 ml Intake Oral 500 ml 480 ml Output Urine Total 5 ml # Voids 1 General Appearance: WD/WN, no acute distress HEENT: normocephalic, atraumatic, anicteric, mucous membranes moist Respiratory/Chest: chest wall non-tender, lungs clear, normal breath sounds, no respiratory distress, no accessory muscle use Cardiovascular: normal peripheral pulses, normal rate, regular rhythm Abdomen: normal bowel sounds, soft, non tender, no organomegaly, non distended , no mass Extremities: no cyanosis, no clubbing, no edema Microbiology Date/Time Source Procedure Growth Status 02/24/19 17:15 Blood Blood Culture - Final Staphylococcus Epidermidis Complete 02/24/19 17:05 Blood Blood Culture - Preliminary NO GROWTH AFTER 48 HOURS Resulted 02/24/19 19:05 Nasal Nares MRSA Culture - Final NO METHICILLIN RESISTANT STAPH AUREUS... Complete 02/24/19 18:48 Urine,Clean Catch Urine Culture - Final Escherichia Coli Complete 02/24/19 19:05 Rectum VRE Culture - Final NO VANCOMYCIN RESISTANT ENTEROCOCCUS ... Complete 02/24/19 18:07 Rectum - Final NO CARBAPENEM-RESISTANT ENTEROBACTERI... Complete Laboratory Tests 02/27/19 06:24: White Blood Count 7.0, Red Blood Count 3.88L, Hemoglobin 10.2L, Hematocrit 32.4L , Mean Corpuscular Volume 83, Mean Corpuscular Hemoglobin 26.2L, Mean Corpuscular Hemoglobin Concent 31.4L, Red Cell Distribution Width 13.6, Platelet Count 204, Mean Platelet Volume 6.9, Neutrophils (%) (Auto) 66.6, Lymphocytes (%) (Auto) 23.3, Monocytes (%) (Auto) 5.9, Eosinophils (%) (Auto) 2.6, Basophils (%) (Auto) 1.6, Sodium Level 142, Potassium Level 3.7, Chloride Level 106, Carbon Dioxide Level 25, Anion Gap 11, Blood Urea Nitrogen 19H, Creatinine 1.2, Estimat Glomerular Filtration Rate 45.1, Glucose Level 123H, Calcium Level 9.2 Current Medications Medications (Trade) Dose Ordered Sig/Daisha Route PRN Reason Start Time Stop Time Status Last Admin Dose Admin Acetaminophen (Tylenol) 650 mg Q4H PRN ORAL Mild Pain/Temp > 100.5 02/27/19 02:15 03/26/19 22:14 Acetaminophen/ Hydrocodone Bitart ([place] 5/325) 1 tab Q4H PRN ORAL Moderate Pain (Pain Scale 4-6) 02/27/19 02:15 03/03/19 22:14 Aspirin (Ecotrin) 81 mg DAILY ORAL 02/27/19 09:00 03/27/19 08:59 02/27/19 08:53 Azithromycin 500 mg/Dextrose 275 ml @ 275 mls/hr Q24HRS IV 02/27/19 00:00 03/03/19 00:59 02/26/19 23:45 Ceftriaxone Sodium 1 gm/ Dextrose 55 ml @ 110 mls/hr DAILY IVPB 02/27/19 09:00 03/04/19 13:59 02/27/19 08:54 Dextrose (Dextrose 50%) 25 ml Q30M PRN IV Hypoglycemia 02/26/19 22:45 03/26/19 22:14 Dextrose (Dextrose 50%) 50 ml Q30M PRN IV Hypoglycemia 02/26/19 22:45 03/26/19 22:14 Furosemide (Lasix) 40 mg DAILY IV 02/27/19 09:00 03/27/19 08:59 02/27/19 08:53 Gabapentin (Neurontin) 300 mg THREE TIMES A DAY ORAL 02/27/19 09:00 03/27/19 08:59 02/27/19 12:33 Heparin Sodium (Porcine) (Heparin 5000 units/ml) 5,000 units EVERY 12 HOURS SUBQ 02/27/19 09:00 03/27/19 08:59 02/27/19 08:57 Insulin Aspart (NovoLOG) BEFORE MEALS AND HS SUBQ 02/27/19 06:30 03/27/19 06:29 Insulin Detemir (Levemir) 5 units Q24H SUBQ 02/27/19 09:00 03/27/19 08:59 02/27/19 09:57 Lisinopril (Zestril) 10 mg DAILY ORAL 02/27/19 09:00 03/29/19 08:59 02/27/19 08:53 Vancomycin HCl (Vanco rx to dose) 1 ea DAILY PRN MISC Per rx protocol 02/27/19 09:00 03/28/19 09:44 Vancomycin HCl/ Dextrose 275 ml @ 183.333 mls/hr Q24H IVPB 02/27/19 11:00 03/04/19 10:59 02/27/19 11:45 Marino Ledesma MD Feb 27, 2019 13:29
[2019-02-27] MEDS ORDERED: Hydrocortisone 1% Cr 15gm TOPIC PRN (14:45)
--- NOTE | 2019-02-27 15:36 | NUR ---
NURSE NOTES: Patient resting in bed. Patient refused to be cleaned or repositioned. Patient agitated and said he wants to be left alone. Patient continues to refuse care. Patient does not display any signs of distress or SOB.
[2019-02-27 16:00] VITALS: BP 116/70
--- NOTE | 2019-02-27 16:20 | Infectious Diseases Prog Note ---
Assessment/Plan Assessment/Plan Full consult dictated: A) 1) complicated e.coli uti 2) coagulase neg staph 1/4 blood cultures likely contaminant 3) mild leukocytosis resolved 4) CHF/edema > pna P) 1) ceftriaxone - day # 3 2) consider transition to oral kefelex x 5 days soon 3) f/u on surveillance blood cultures 4) continue treatment per primary and consultants 5) will f/u Subjective Constitutional: Denies: fever Respiratory: Denies: shortness of breath Cardiovascular: Denies: chest pain Gastrointestinal/Abdominal: Denies: nausea, vomiting, diarrhea Allergies: Coded Allergies: No Known Allergies (Verified , 01/25/10) Objective Vital Signs Last 24 Hour Vital Signs Date Time Temp Pulse Resp B/P (MAP) Pulse Ox O2 Delivery O2 Flow Rate FiO2 02/27/19 12:00 97.3 77 18 102/59 (73) 97 02/27/19 12:00 73 02/27/19 12:00 Nasal Cannula 2.0 02/27/19 08:53 135/60 02/27/19 08:00 Nasal Cannula 2.0 02/27/19 08:00 97.4 88 20 135/60 (85) 96 02/27/19 08:00 82 02/27/19 07:14 64 16 97 Nasal Cannula 2.0 28 02/27/19 04:30 98.1 80 18 124/59 (80) 95 02/27/19 04:05 Nasal Cannula 2.0 02/27/19 04:02 63 02/27/19 00:23 Nasal Cannula 2.0 02/27/19 00:07 98.0 85 17 117/61 (79) 96 02/26/19 23:56 67 02/26/19 23:39 66 16 98 Nasal Cannula 2.0 28 02/26/19 20:00 74 02/26/19 20:00 97.7 74 18 125/71 (89) 100 02/26/19 20:00 Nasal Cannula 2.0 Height (Feet): 5 Height (Inches): 1.00 Weight (Pounds): 135 General Appearance: no acute distress HEENT: normocephalic, atraumatic, anicteric, mucous membranes moist Respiratory/Chest: lungs clear, normal breath sounds, no respiratory distress Cardiovascular: normal rate, regular rhythm Abdomen: normal bowel sounds, soft, non tender, no organomegaly Microbiology Date/Time Source Procedure Growth Status 02/24/19 17:15 Blood Blood Culture - Final Staphylococcus Epidermidis Complete 02/24/19 17:05 Blood Blood Culture - Preliminary NO GROWTH AFTER 48 HOURS Resulted 02/24/19 19:05 Nasal Nares MRSA Culture - Final NO METHICILLIN RESISTANT STAPH AUREUS... Complete 02/24/19 18:48 Urine,Clean Catch Urine Culture - Final Escherichia Coli Complete 02/24/19 19:05 Rectum VRE Culture - Final NO VANCOMYCIN RESISTANT ENTEROCOCCUS ... Complete 02/24/19 18:07 Rectum - Final NO CARBAPENEM-RESISTANT ENTEROBACTERI... Complete Laboratory Tests Test 02/27/19 06:24 White Blood Count 7.0 K/UL (4.8-10.8) Red Blood Count 3.88 M/UL (4.20-5.40) L Hemoglobin 10.2 G/DL (12.0-16.0) L Hematocrit 32.4 % (37.0-47.0) L Mean Corpuscular Volume 83 FL (80-99) Mean Corpuscular Hemoglobin 26.2 PG (27.0-31.0) L Mean Corpuscular Hemoglobin Concent 31.4 G/DL (32.0-36.0) L Red Cell Distribution Width 13.6 % (11.6-14.8) Platelet Count 204 K/UL (150-450) Mean Platelet Volume 6.9 FL (6.5-10.1) Neutrophils (%) (Auto) 66.6 % (45.0-75.0) Lymphocytes (%) (Auto) 23.3 % (20.0-45.0) Monocytes (%) (Auto) 5.9 % (1.0-10.0) Eosinophils (%) (Auto) 2.6 % (0.0-3.0) Basophils (%) (Auto) 1.6 % (0.0-2.0) Sodium Level 142 MMOL/L (136-145) Potassium Level 3.7 MMOL/L (3.5-5.1) Chloride Level 106 MMOL/L (98-107) Carbon Dioxide Level 25 MMOL/L (21-32) Anion Gap 11 mmol/L (5-15) Blood Urea Nitrogen 19 mg/dL (7-18) H Creatinine 1.2 MG/DL (0.55-1.30) Estimat Glomerular Filtration Rate 45.1 mL/min (>60) Glucose Level 123 MG/DL (74-106) H Calcium Level 9.2 MG/DL (8.5-10.1) Current Medications Medications (Trade) Dose Ordered Sig/Daisha Route PRN Reason Start Time Stop Time Status Last Admin Dose Admin Acetaminophen (Tylenol) 650 mg Q4H PRN ORAL Mild Pain/Temp > 100.5 02/27/19 02:15 03/26/19 22:14 Acetaminophen/ Hydrocodone Bitart ([place] 5/325) 1 tab Q4H PRN ORAL Moderate Pain (Pain Scale 4-6) 02/27/19 02:15 03/03/19 22:14 Aspirin (Ecotrin) 81 mg DAILY ORAL 02/27/19 09:00 03/27/19 08:59 02/27/19 08:53 Azithromycin 500 mg/Dextrose 275 ml @ 275 mls/hr Q24HRS IV 02/27/19 00:00 03/03/19 00:59 02/26/19 23:45 Ceftriaxone Sodium 1 gm/ Dextrose 55 ml @ 110 mls/hr DAILY IVPB 02/27/19 09:00 03/04/19 13:59 02/27/19 08:54 Dextrose (Dextrose 50%) 25 ml Q30M PRN IV Hypoglycemia 02/26/19 22:45 03/26/19 22:14 Dextrose (Dextrose 50%) 50 ml Q30M PRN IV Hypoglycemia 02/26/19 22:45 03/26/19 22:14 Furosemide (Lasix) 40 mg DAILY IV 02/27/19 09:00 03/27/19 08:59 02/27/19 08:53 Gabapentin (Neurontin) 300 mg THREE TIMES A DAY ORAL 02/27/19 09:00 03/27/19 08:59 02/27/19 12:33 Heparin Sodium (Porcine) (Heparin 5000 units/ml) 5,000 units EVERY 12 HOURS SUBQ 02/27/19 09:00 03/27/19 08:59 02/27/19 08:57 Hydrocortisone (Hydrocortisone) 1 applic Q6H PRN TOPIC Itching 02/27/19 14:45 03/29/19 14:44 Insulin Aspart (NovoLOG) BEFORE MEALS AND HS SUBQ 02/27/19 06:30 03/27/19 06:29 Insulin Detemir (Levemir) 5 units Q24H SUBQ 02/27/19 09:00 03/27/19 08:59 02/27/19 09:57 Lisinopril (Zestril) 10 mg DAILY ORAL 02/27/19 09:00 03/29/19 08:59 02/27/19 08:53 Vancomycin HCl (Vanco rx to dose) 1 ea DAILY PRN MISC Per rx protocol 02/27/19 09:00 03/28/19 09:44 Vancomycin HCl/ Dextrose 275 ml @ 183.333 mls/hr Q24H IVPB 02/27/19 11:00 03/04/19 10:59 02/27/19 11:45 Francisco Piper MD Feb 27, 2019 16:20
--- NOTE | 2019-02-27 19:30 | NUR ---
NURSE NOTES: received pt from VADIM Caal. AOx4 no acute distress noted, no c/o pain noted. fall precaution in place: bed locked and lowest position, bedside rail up x2. call light and belongings within reach. will continue to monitor for any change in condition.
--- NOTE | 2019-02-27 19:31 | NUR ---
HAND-OFF: Report given to Chau Reyna RN.
--- NOTE | 2019-02-27 19:32 | Cardiology Progress Note ---
Assessment/Plan Status: stable Assessment/Plan Assessment/Plan Status: stable Assessment/Plan: Assessment/Plan: 1. Acute resp failure 2. DM 3. Diabetic neuropathy 4.Systolic CHF 5. Hypertension 6. Leukocytosis 7. Anemia 8. Coronary artery disease, stress test Feb with ischemia Recommendations -serial troponin - negative -stress test in Feb positive/troponin negative, no chest pain currently -will need cardiac cath, can arrange at [facility] as outpatient -Echocardiogram, SPECT showed systolic dysfunction, LVEF 25% global dysfunction - will need routine outpatient cardiac cath -Continue BiPAP prn, diuresis, pulmonary support -Thoracentesis evaluation - CXR improved with diuresis -d/c norvasc -Continue lisinopril -Initiate beta blockers when stable -Life vest for three months, repeat TTE on medical therapy -Start aldactone Subjective Cardiovascular: Reports: no symptoms Respiratory: Reports: no symptoms Gastrointestinal/Abdominal: Reports: no symptoms Genitourinary: Reports: no symptoms Subjective Stable on floor with oxygen, no complaints no CP no sob. TTE with LVEF 25% and grade 2 diastolic dysfunction and moderate PAH. Vitals stable. Objective Last 24 Hour Vital Signs Date Time Temp Pulse Resp B/P (MAP) Pulse Ox O2 Delivery O2 Flow Rate FiO2 02/27/19 16:00 70 02/27/19 16:00 Nasal Cannula 2.0 02/27/19 16:00 97.5 76 20 116/70 (85) 100 02/27/19 12:00 97.3 77 18 102/59 (73) 97 02/27/19 12:00 73 02/27/19 12:00 Nasal Cannula 2.0 02/27/19 08:53 135/60 02/27/19 08:00 Nasal Cannula 2.0 02/27/19 08:00 97.4 88 20 135/60 (85) 96 02/27/19 08:00 82 02/27/19 07:14 64 16 97 Nasal Cannula 2.0 28 02/27/19 04:30 98.1 80 18 124/59 (80) 95 02/27/19 04:05 Nasal Cannula 2.0 02/27/19 04:02 63 02/27/19 00:23 Nasal Cannula 2.0 02/27/19 00:07 98.0 85 17 117/61 (79) 96 02/26/19 23:56 67 02/26/19 23:39 66 16 98 Nasal Cannula 2.0 28 02/26/19 20:00 74 02/26/19 20:00 97.7 74 18 125/71 (89) 100 02/26/19 20:00 Nasal Cannula 2.0 General Appearance: no apparent distress, alert EENT: PERRL/EOMI, normal ENT inspection, TMs normal, pharynx normal Neck: non-tender, normal alignment, supple Rhythm: NSR Cardiovascular: normal peripheral pulses, normal rate Respiratory/Chest: chest wall non-tender, lungs clear Abdomen: normal bowel sounds, non tender, soft, no organomegaly, no mass Extremities: normal range of motion, non-tender 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6 % (11.6-14.8) Platelet Count 204 K/UL (150-450) Mean Platelet Volume 6.9 FL (6.5-10.1) Neutrophils (%) (Auto) 66.6 % (45.0-75.0) Lymphocytes (%) (Auto) 23.3 % (20.0-45.0) Monocytes (%) (Auto) 5.9 % (1.0-10.0) Eosinophils (%) (Auto) 2.6 % (0.0-3.0) Basophils (%) (Auto) 1.6 % (0.0-2.0) Sodium Level 142 MMOL/L (136-145) Potassium Level 3.7 MMOL/L (3.5-5.1) Chloride Level 106 MMOL/L (98-107) Carbon Dioxide Level 25 MMOL/L (21-32) Anion Gap 11 mmol/L (5-15) Blood Urea Nitrogen 19 mg/dL (7-18) H Creatinine 1.2 MG/DL (0.55-1.30) Estimat Glomerular Filtration Rate 45.1 mL/min (>60) Glucose Level 123 MG/DL (74-106) H Calcium Level 9.2 MG/DL (8.5-10.1) Uzair Salas MD Feb 27, 2019 19:32
[2019-02-27 20:00] VITALS: BP 114/64
--- NOTE | 2019-02-27 22:15 | Consultation ---
DATE OF CONSULTATION: 02/27/2019 INFECTIOUS DISEASE CONSULTATION CONSULTING PHYSICIAN: Francisco Piper M.D. ATTENDING PHYSICIAN: Kami Fatima M.D. REFERRING PHYSICIAN: Dr. Fischer. REASON FOR CONSULTATION: Possible gram-positive bacteremia, E. coli urinary tract infection, and possible community-acquired pneumonia. HISTORY OF PRESENT ILLNESS: This is a very pleasant 63-year-old female, who comes in to [facility] with congestive heart failure and shortness of breath. The patient had a workup that showed she had a complicated E. coli urinary tract infection. Chest x-ray showed edema versus infiltrates, but currently more likely the patient has congestive heart failure and edema. The patient had a positive blood culture, which is 1 out of 4 coagulase-negative staph. The patient was placed on vancomycin, Rocephin, and azithromycin. Infectious Disease consultation is requested for antibiotic management of this patient. MAR was noted. Notes were reviewed. Case was discussed with Dr. Fischer yesterday and the RN here at [place]. Case was also discussed with the patient. The patient will be continued on vancomycin and Rocephin. The patient will be continued on intravenous antibiotics for now. MAR was noted. Orders were noted. Notes and records were reviewed. Case discussed with RN. REVIEW OF SYSTEMS: CONSTITUTIONAL: The patient has generalized fatigue. She has no new focal weakness. She is alert and responsive. HEAD AND NECK: No head pain, neck pain, thrush, dysphagia, sinus tenderness, or neck stiffness. CARDIAC: No chest pain or palpitations. GASTROINTESTINAL: No nausea, vomiting, abdominal pain, or diarrhea. GENITOURINARY: She has no significant dysuria, frequency, hematuria, or CVA tenderness. PULMONARY: She came in with some shortness of breath. SKIN: No rash. EXTREMITIES: No extremity pain. NEUROLOGIC: No seizures. The patient has generalized fatigue and weakness. No focal changes. No fever, chills, or night sweats. PAST MEDICAL HISTORY: The patient's past medical history includes the history of the following. The patient has a past medical history of diabetes mellitus. The patient has a history of neuropathy. The patient has a history of osteomyelitis in the past including amputation of the right foot fifth toe in September 2018. She has history of atherosclerotic heart disease, history of hypertension, congestive heart failure, history of diabetic neuropathy, and history of anemia also. MEDICATIONS: Upon reviewing the MAR, the patient is on the following medications. She is on hydrocortisone topical, vancomycin, and Rocephin. I have discontinued the vancomycin. She is on lisinopril and aspirin. She has azithromycin, which I discontinued. She is on Rocephin, aspirin, furosemide, gabapentin, heparin, insulin, and lisinopril. She is on hydrocodone. She is on IV fluids. She is on furosemide, aspirin, amlodipine, and gabapentin. Outside medications were noted and reconciliated. ALLERGIES: No known drug allergies. No antibiotic allergies. SOCIAL HISTORY: Negative for smoking, alcohol, or drug abuse. FAMILY HISTORY: Noncontributory. Negative for tuberculosis or cancer. PHYSICAL EXAMINATION: VITAL SIGNS: Temperature is 97.3, pulse rate is 77, respiratory rate is 18, blood pressure 102/59, and saturation is 97%. GENERAL: Alert and responsive, in no acute distress. HEAD AND NECK: Oral exam, no thrush. Eyes exam, no icterus. Neck is supple. No JVD. Normocephalic. No icterus or thrush. HEART: Regular. No possible gallop. No murmur or friction rub. Regular rate and rhythm. HEART: Abdomen is soft. Positive bowel sounds. Nontender. LUNGS: Few bilateral rhonchi and crackles. No obvious rales. SKIN: No rash or dermatitis. MUSCULOSKELETAL: No effusion or septic arthritis. EXTREMITIES: Lower extremities are without cellulitis. PERIPHERAL VASCULAR: No gangrene. She has right foot fifth toe infection of the stump that looks clean and dry. GENITOURINARY: No Rangel. LINE SITES: Line sites without phlebitis. No CVA tenderness. NEUROLOGIC: Intact and nonfocal. LABORATORY DATA: Laboratory data is as follows: Creatinine is 1.2. White count 7.0 and hemoglobin 10.2. Urinalysis, positive nitrite, 3+ leukocyte esterase, 5 to 10 white blood cells, and moderate bacteria. CULTURES: Urine culture grew out greater than 100,000 E. coli sensitive to cefazolin and fluoroquinolones and Macrobid and Cipro. Blood cultures also had 1 out of 4 coag-negative staph, which is likely contaminant. Vancomycin-resistant enterococcus and methicillin-resistant Staphylococcus aureus screens are negative. I think surveillance blood cultures are also ordered. IMAGING STUDIES: Chest x-ray showed edema versus infiltrates and effusions. Followup chest x-ray showed improved interstitial edema. ASSESSMENT AND PLAN: 1. The patient most likely has complicated E. coli UTI with mild leukocytosis. The coag-negative staph for blood culture is likely contaminant. Mild leukocytosis resolved. The patient unlikely has pneumonia. She more likely has congestive heart failure. At this time, she is on vancomycin, Rocephin, and azithromycin. I will discontinue vancomycin since the coagulase-negative Staph is likely contaminant. I will discontinue azithromycin as this is more likely congestive heart failure. I will continue the Rocephin the day #3 of antibiotics. Continue Rocephin for complicated E. coli UTI. I would consider transition to oral Keflex soon in the next day or 2 for 5 more days 500 mg p.o. q.i.d. Surveillance blood cultures have been ordered. Again, we will continue Rocephin and discontinue vancomycin and azithromycin. Check followup chest x-ray as indicated and monitor laboratories. Monitor creatinine closely. 2. The patient has congestive heart failure and edema. 3. Diuresis per primary. 4. Hypertension. 5. Diabetes. 6. Diabetes and hypertension treatment per primary consultants. 7. History of osteomyelitis, right foot fifth toe status post amputation . Site looks good. 8. Neuropathy and diabetic neuropathy. 9. Atherosclerotic heart disease. 10. Continue treatment per primary consultants. 11. Anemia. 12. Coronary artery disease. 13. No known allergies. 14. Social history is negative. 15. Family history is noncontributory. 16. MAR was noted. 17. Case was discussed with RN. 18. Continue treatment per primary consultants. Francisco Piper M.D. DR: LUZ ELENA JOB#: [id number] CC:
[2019-02-28] VITALS: BP 110/61
--- NOTE | 2019-02-28 | NUR ---
NURSE NOTES: pt in bed sleeping. no change in condition. will continue to monitor for any change in condition.
[2019-02-28 04:00] VITALS: BP 108/72
--- NOTE | 2019-02-28 04:00 | NUR ---
NURSE NOTES: no change in condition. will continue to monitor for any change in condition.
[2019-02-28] MEDS: NovoLOG Insulin Flexpen SUBQ SCH ×4 (06:30→22:04)
--- NOTE | 2019-02-28 06:39 | NUR ---
NURSE NOTES: pt remains stable. no change in condition. all needs met during my shift. fall precaution in place: bed locked and lowest position, bedside rail up x2. call light and personal belongings within reach. will endorse plan of care to incoming nurse.
--- NOTE | 2019-02-28 07:38 | NUR ---
HAND-OFF: Report given to VADIM Rasmussen.
--- NOTE | 2019-02-28 07:40 | NUR ---
NURSE NOTES: Received patient from VADIM Gross in bed resting and watching TV. Patient is AOx4. Denies any pain. No acute distress noted, fall precaution in place. Bed is in lowest position and brakes engaged for safety. Bedside rail up x2, call light is within reach. Will continue with the plan of care.
[2019-02-28 08:00] VITALS: BP 132/65
[2019-02-28] MEDS: Spironolactone 25mg tab ORAL SCH (09:04)
[2019-02-28] MEDS: Aspirin EC 81mg tab ORAL SCH (09:04)
[2019-02-28] MEDS: Lisinopril 10mg tab ORAL SCH (09:05)
[2019-02-28] MEDS: Heparin 5000 units/ml inj SUBQ SCH ×2 (09:06→22:02)
[2019-02-28] MEDS: cefTRIAXone 1 GM in D5W 55 ML IVPB SCH (09:07)
--- NOTE | 2019-02-28 09:07 | Pulmonology Progress Note ---
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 (5) Cellulitis Assessment/Plan Optimize pulmonary hygiene/mobilize as tolerate PRN O2 Diuresis per cards Abx per ID DVT Px: Hep SQ Subjective Allergies: Coded Allergies: No Known Allergies (Verified , 01/25/10) Subjective AFVSS on RA No SOB no cough no wheezing no FC Objective Last 24 Hour Vital Signs Date Time Temp Pulse Resp B/P (MAP) Pulse Ox O2 Delivery O2 Flow Rate FiO2 02/28/19 08:00 88 18 99 Nasal Cannula 2.0 28 02/28/19 04:00 Nasal Cannula 2.0 02/28/19 04:00 98.4 77 18 108/72 (84) 96 02/28/19 04:00 67 02/28/19 00:00 Nasal Cannula 2.0 02/28/19 00:00 98.1 74 18 110/61 (77) 99 02/28/19 00:00 66 02/27/19 20:40 72 18 98 Nasal Cannula 2.0 28 02/27/19 20:00 Nasal Cannula 2.0 02/27/19 20:00 98.0 74 18 114/64 (81) 99 02/27/19 20:00 72 02/27/19 16:00 70 02/27/19 16:00 Nasal Cannula 2.0 02/27/19 16:00 97.5 76 20 116/70 (85) 100 02/27/19 12:00 97.3 77 18 102/59 (73) 97 02/27/19 12:00 73 02/27/19 12:00 Nasal Cannula 2.0 Intake and Output 02/27/19 02/28/19 18:59 06:59 Intake Total 360 ml 120 ml Output Total 120 ml Balance 240 ml 120 ml Intake Oral 360 ml 120 ml Output Urine Total 120 ml # Voids 2 1 General Appearance: WD/WN, no acute distress HEENT: normocephalic, atraumatic, anicteric, mucous membranes moist Respiratory/Chest: chest wall non-tender, lungs clear, normal breath sounds, no respiratory distress, no accessory muscle use Cardiovascular: normal peripheral pulses, normal rate, regular rhythm Abdomen: normal bowel sounds, soft, non tender, no organomegaly, non distended , no mass Extremities: no cyanosis, no clubbing, no edema Microbiology Date/Time Source Procedure Growth Status 02/26/19 11:15 Blood Blood Culture - Preliminary NO GROWTH AFTER 24 HOURS Resulted 02/26/19 11:10 Blood Blood Culture - Preliminary NO GROWTH AFTER 24 HOURS Resulted Current Medications Medications (Trade) Dose Ordered Sig/Daisha Route PRN Reason Start Time Stop Time Status Last Admin Dose Admin Acetaminophen (Tylenol) 650 mg Q4H PRN ORAL Mild Pain/Temp > 100.5 02/27/19 02:15 03/26/19 22:14 Acetaminophen/ Hydrocodone Bitart (Hazen 5/325) 1 tab Q4H PRN ORAL Moderate Pain (Pain Scale 4-6) 02/27/19 02:15 03/03/19 22:14 Aspirin (Ecotrin) 81 mg DAILY ORAL 02/27/19 09:00 03/27/19 08:59 02/27/19 08:53 Ceftriaxone Sodium 1 gm/ Dextrose 55 ml @ 110 mls/hr DAILY IVPB 02/27/19 09:00 03/04/19 13:59 02/27/19 08:54 Dextrose (Dextrose 50%) 25 ml Q30M PRN IV Hypoglycemia 02/26/19 22:45 03/26/19 22:14 Dextrose (Dextrose 50%) 50 ml Q30M PRN IV Hypoglycemia 02/26/19 22:45 03/26/19 22:14 Furosemide (Lasix) 40 mg DAILY IV 02/27/19 09:00 03/27/19 08:59 02/27/19 08:53 Gabapentin (Neurontin) 300 mg THREE TIMES A DAY ORAL 02/27/19 09:00 03/27/19 08:59 02/27/19 17:14 Heparin Sodium (Porcine) (Heparin 5000 units/ml) 5,000 units EVERY 12 HOURS SUBQ 02/27/19 09:00 03/27/19 08:59 02/27/19 20:22 Hydrocortisone (Hydrocortisone) 1 applic Q6H PRN TOPIC Itching 02/27/19 14:45 03/29/19 14:44 Insulin Aspart (NovoLOG) BEFORE MEALS AND HS SUBQ 02/27/19 06:30 03/27/19 06:29 02/27/19 20:24 Insulin Detemir (Levemir) 5 units Q24H SUBQ 02/27/19 09:00 03/27/19 08:59 02/27/19 09:57 Lisinopril (Zestril) 10 mg DAILY ORAL 02/27/19 09:00 03/29/19 08:59 02/27/19 08:53 Spironolactone (Aldactone) 25 mg DAILY ORAL 02/28/19 09:00 03/30/19 08:59 Marino Ledesma MD Feb 28, 2019 09:07
[2019-02-28] MEDS: Levemir Flexpen SUBQ SCH (09:08)
--- NOTE | 2019-02-28 09:35 | NUR ---
NURSE NOTES: As per MD Haynes, to recheck oxygen saturation. O2 sat is 97% on RA. Will continue to monitor.
--- NOTE | 2019-02-28 09:59 | General Progress Note ---
Assessment/Plan Status: stable Assessment/Plan: 1. acute hypoxemic respiratory failure 2/2 CHFe- improved admitted to ICU initially and now downgraded to telemetry. Off BiPAp - on NC - will try to wean off O2 Pulmonary and Cardiology consult appreciated EKG shows LBBB, Tachy s/p Lasix and Nitro paste in ER IV lasix changed to PO 2. DM Will resume oral metformin when ready to transition home. Basal insulin + SSI 3. Diabetic neuropathy continue home medications 4. Acute new onset CHF Cardiology consult appreciated diuresis/ respiratory support -serial trop unremarkable -ECHO with LVEF 25% global dysfunction -Norvasc d/c, Cont lisinopril, spironolactone started -will start BB once more stable -will need cardiac cath as outpatient -Life vest for three months, repeat TTE on medical therapy 5. Hypertension Monitor 6. E.Coli UTI ID consultation appreciated F/U repeat blood cx UTI noted and GNR now reported as E. Coli which is sensitive to ceftriaxone. discont Ceftriaxone IV - transition to keflex today for 5 days course 7. Anemia, likely chronic etiology. monitor Full Code Time of note may not reflect time of encounter Subjective Date patient seen: Feb 28, 2019 Allergies: Coded Allergies: No Known Allergies (Verified , 01/25/10) All Systems: reviewed and negative except above Subjective No acute overnight events, states breathing has improved, Lasix and ABX changed to PO, will need life vest, will need outpatient cath. Objective Last 24 Hour Vital Signs Date Time Temp Pulse Resp B/P (MAP) Pulse Ox O2 Delivery O2 Flow Rate FiO2 02/28/19 09:05 132/65 02/28/19 08:00 88 18 99 Nasal Cannula 2.0 28 02/28/19 04:00 Nasal Cannula 2.0 02/28/19 04:00 98.4 77 18 108/72 (84) 96 02/28/19 04:00 67 02/28/19 00:00 Nasal Cannula 2.0 02/28/19 00:00 98.1 74 18 110/61 (77) 99 02/28/19 00:00 66 02/27/19 20:40 72 18 98 Nasal Cannula 2.0 28 02/27/19 20:00 Nasal Cannula 2.0 02/27/19 20:00 98.0 74 18 114/64 (81) 99 02/27/19 20:00 72 02/27/19 16:00 70 02/27/19 16:00 Nasal Cannula 2.0 02/27/19 16:00 97.5 76 20 116/70 (85) 100 02/27/19 12:00 97.3 77 18 102/59 (73) 97 02/27/19 12:00 73 02/27/19 12:00 Nasal Cannula 2.0 Intake and Output 02/27/19 02/28/19 19:00 07:00 Intake Total 360 ml 120 ml Output Total 120 ml Balance 240 ml 120 ml Intake Oral 360 ml 120 ml Output Urine Total 120 ml # Voids 2 1 Height (Feet): 5 Height (Inches): 1.00 Weight (Pounds): 135 Objective General Appearance: WD/WN EENT: PERRL/EOMI Neck: non-tender Cardiovascular: normal rate Respiratory/Chest: lungs clear Abdomen: non tender 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
--- NOTE | 2019-02-28 10:09 | NUR ---
DISCHARGE PLANNING: NOTE CLINICALS FAXED TO [facility] FOR REVIEW T: [phone] F [phone] Addendum: 02/28/19 at 1140 by Clare Kirkland CM ALYSA AT [facility] IS WILLING TO ACCEPT THIS PT
--- NOTE | 2019-02-28 11:56 | Cardiology Progress Note ---
Assessment/Plan Status: stable, progressing Assessment/Plan Assessment/Plan Status: stable Assessment/Plan: Assessment/Plan: 1. Acute resp failure 2. DM 3. Diabetic neuropathy 4.Systolic CHF 5. Hypertension 6. Leukocytosis 7. Anemia 8. Coronary artery disease, stress test Feb with ischemia Recommendations -serial troponin - negative -stress test in Feb positive/troponin negative, no chest pain currently - medical management -will need cardiac cath, can arrange at [facility] as outpatient -Echocardiogram, SPECT showed systolic dysfunction, LVEF 25% global dysfunction - will need routine outpatient cardiac cath -Continue BiPAP prn, diuresis, pulmonary support -Thoracentesis evaluation - CXR improved with diuresis -d/c norvasc -Continue lisinopril -Initiate beta blockers when stable -Life vest for three months, repeat TTE on medical therapy -Start aldactone Subjective Cardiovascular: Reports: no symptoms Respiratory: Reports: no symptoms Gastrointestinal/Abdominal: Reports: no symptoms Genitourinary: Reports: no symptoms Subjective Stable on floor with oxygen, no complaints no CP no sob. TTE with LVEF 25% and grade 2 diastolic dysfunction and moderate PAH. Vitals stable. Transitioned to PO lasix, awaiting life vest Objective Last 24 Hour Vital Signs Date Time Temp Pulse Resp B/P (MAP) Pulse Ox O2 Delivery O2 Flow Rate FiO2 02/28/19 09:05 132/65 02/28/19 08:00 98.2 84 18 132/65 (87) 96 02/28/19 08:00 Nasal Cannula 2.0 02/28/19 08:00 88 18 99 Nasal Cannula 2.0 28 02/28/19 08:00 84 02/28/19 04:00 Nasal Cannula 2.0 02/28/19 04:00 98.4 77 18 108/72 (84) 96 02/28/19 04:00 67 02/28/19 00:00 Nasal Cannula 2.0 02/28/19 00:00 98.1 74 18 110/61 (77) 99 02/28/19 00:00 66 02/27/19 20:40 72 18 98 Nasal Cannula 2.0 28 02/27/19 20:00 Nasal Cannula 2.0 02/27/19 20:00 98.0 74 18 114/64 (81) 99 02/27/19 20:00 72 02/27/19 16:00 70 02/27/19 16:00 Nasal Cannula 2.0 02/27/19 16:00 97.5 76 20 116/70 (85) 100 02/27/19 12:00 97.3 77 18 102/59 (73) 97 02/27/19 12:00 73 02/27/19 12:00 Nasal Cannula 2.0 General Appearance: no apparent distress, alert EENT: PERRL/EOMI, normal ENT inspection, TMs normal Neck: non-tender, normal alignment, supple, normal inspection Rhythm: NSR Cardiovascular: normal peripheral pulses, normal rate Respiratory/Chest: chest wall non-tender, lungs clear Abdomen: normal bowel sounds, non tender Extremities: normal range of motion, non-tender 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
[2019-02-28 12:00] VITALS: BP 129/62
[2019-02-28] MEDS: Cephalexin 500mg cap ORAL SCH ×3 (12:28→22:01)
--- NOTE | 2019-02-28 15:58 | NUR ---
P.T NOTE: P.T EVALUATION COMPLETED . PATIENT IS CURRENTLY BASELINE INDEPENDENT WITH ADL/FUNCTIONAL MOBILITIES. PATIENT'S CURRENT FUNCTIONAL STATUS DOES NOT WARRANT SKILLED P.T SERVICES AT THIS TIME. D/C P.T SERVICES. THANK YOU FOR THIS REFERRAL.
[2019-02-28 16:00] VITALS: BP 119/68
--- NOTE | 2019-02-28 19:34 | NUR ---
HAND-OFF: Report given to Yolande FIERRO. Patient is in stable condition.
[2019-02-28 20:00] VITALS: BP 150/74
[2019-03-01] VITALS: BP 121/64
[2019-03-01 04:00] VITALS: BP 108/70
[2019-03-01] MEDS: NovoLOG Insulin Flexpen SUBQ SCH ×4 (06:32→23:02)
--- NOTE | 2019-03-01 07:20 | NUR ---
NURSE NOTES: Received patient from Yolande RN in bed resting. Patient is AOx4. Denies any pain. No acute distress noted, fall precaution in place. Bed is in lowest position and brakes engaged for safety. Bedside rail up x2, call light is within reach. Will continue with the plan of care.
[2019-03-01 08:00] VITALS: BP 100/58
[2019-03-01] MEDS: Spironolactone 25mg tab ORAL SCH (08:28)
[2019-03-01] MEDS: Aspirin EC 81mg tab ORAL SCH (08:29)
[2019-03-01] MEDS: Cephalexin 500mg cap ORAL SCH ×4 (08:29→21:32)
[2019-03-01] MEDS: Lisinopril 10mg tab ORAL SCH (08:34)
[2019-03-01] MEDS: Furosemide 40mg tab ORAL SCH (08:35)
[2019-03-01] MEDS: Heparin 5000 units/ml inj SUBQ SCH ×2 (08:36→21:34)
[2019-03-01] MEDS: Levemir Flexpen SUBQ SCH (08:37)
--- NOTE | 2019-03-01 08:59 | Cardiology Progress Note ---
Assessment/Plan Status: stable Assessment/Plan Assessment/Plan Status: stable Assessment/Plan: Assessment/Plan: 1. Acute resp failure 2. DM 3. Diabetic neuropathy 4.Systolic CHF 5. Hypertension 6. Leukocytosis 7. Anemia 8. Coronary artery disease, stress test Feb with ischemia Recommendations -serial troponin - negative -stress test in Feb positive/ currently troponin negative, no chest pain currently -medical management for now -Echocardiogram, SPECT showed systolic dysfunction, LVEF 25% global dysfunction - will need routine outpatient cardiac cath -Continue BiPAP prn, diuresis, pulmonary support -> currently stable -Thoracentesis evaluation - CXR improved with diuresis -d/c norvasc -Continue lisinopril for afterload reduction -Initiate beta blockers when stable - start low dose metoprolol XL today and titrate -Life vest for three months, repeat TTE on medical therapy -Continue aldactone Subjective Cardiovascular: Reports: no symptoms Respiratory: Reports: no symptoms Gastrointestinal/Abdominal: Reports: no symptoms Genitourinary: Reports: no symptoms Subjective Stable on floor with oxygen, no complaints no CP no sob. TTE with LVEF 25% and grade 2 diastolic dysfunction and moderate PAH. Vitals stable. Transitioned to PO lasix, awaiting life vest delivery No acute events, no complaints. Objective Last 24 Hour Vital Signs Date Time Temp Pulse Resp B/P (MAP) Pulse Ox O2 Delivery O2 Flow Rate FiO2 03/01/19 08:34 100/58 03/01/19 04:00 75 03/01/19 04:00 98.0 77 18 108/70 (83) 95 03/01/19 00:00 97.8 78 18 121/64 (83) 95 03/01/19 00:00 76 02/28/19 20:00 97.6 80 18 150/74 (99) 98 02/28/19 20:00 80 02/28/19 19:35 77 18 98 Nasal Cannula 2.0 28 02/28/19 19:35 98 Nasal Cannula 2.0 28 02/28/19 16:00 98.8 79 18 119/68 (85) 96 02/28/19 16:00 77 02/28/19 12:00 98.9 86 18 129/62 (84) 98 02/28/19 12:00 81 02/28/19 09:05 132/65 General Appearance: no apparent distress, alert EENT: PERRL/EOMI, normal ENT inspection, TMs normal, pharynx normal Neck: non-tender, normal alignment, supple, normal inspection, no JVD Rhythm: NSR Cardiovascular: normal peripheral pulses, normal rate Respiratory/Chest: chest wall non-tender, lungs clear, normal breath sounds Abdomen: normal bowel sounds, non tender, soft, no organomegaly, no mass Extremities: normal range of motion, non-tender, normal inspection, no calf tenderness, no swelling 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
[2019-03-01] MEDS: Metoprolol Succinate XL 25mg tab ORAL SCH (09:00)
[2019-03-01 12:00] VITALS: BP 129/72
--- NOTE | 2019-03-01 13:50 | Pulmonology Progress Note ---
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 (5) Cellulitis Assessment/Plan Optimize pulmonary hygiene/mobilize as tolerate PRN O2 Diuresis per cards F/U cards recs, plan for lifevest, plan for cath @ [facility] (elective) Abx per ID DVT Px: Hep SQ Subjective Allergies: Coded Allergies: No Known Allergies (Verified , 01/25/10) Subjective AFVSS on RA No SOB no cough no wheezing no FC Objective Last 24 Hour Vital Signs Date Time Temp Pulse Resp B/P (MAP) Pulse Ox O2 Delivery O2 Flow Rate FiO2 03/01/19 13:27 Nasal Cannula 2.0 03/01/19 12:00 81 03/01/19 12:00 97.6 86 18 129/72 (91) 98 03/01/19 09:12 97 Room Air 21 03/01/19 09:08 75 20 97 Room Air 21 03/01/19 09:00 74 100/58 03/01/19 08:34 100/58 03/01/19 08:00 83 03/01/19 08:00 98.1 83 18 100/58 (72) 96 03/01/19 04:00 75 03/01/19 04:00 98.0 77 18 108/70 (83) 95 03/01/19 00:00 97.8 78 18 121/64 (83) 95 03/01/19 00:00 76 02/28/19 20:00 97.6 80 18 150/74 (99) 98 02/28/19 20:00 80 02/28/19 19:35 77 18 98 Nasal Cannula 2.0 28 02/28/19 19:35 98 Nasal Cannula 2.0 28 02/28/19 16:00 98.8 79 18 119/68 (85) 96 02/28/19 16:00 77 Intake and Output 02/28/19 03/01/19 19:00 07:00 Intake Total 250 ml Balance 250 ml Intake Oral 250 ml # Voids 1 General Appearance: WD/WN, no acute distress HEENT: normocephalic, atraumatic, anicteric, mucous membranes moist Respiratory/Chest: chest wall non-tender, lungs clear, normal breath sounds, no respiratory distress, no accessory muscle use Cardiovascular: normal peripheral pulses, normal rate, regular rhythm Abdomen: normal bowel sounds, soft, non tender, no organomegaly, non distended , no mass Extremities: no cyanosis, no clubbing, no edema Current Medications Medications (Trade) Dose Ordered Sig/Daisha Route PRN Reason Start Time Stop Time Status Last Admin Dose Admin Acetaminophen (Tylenol) 650 mg Q4H PRN ORAL Mild Pain/Temp > 100.5 02/27/19 02:15 03/26/19 22:14 Acetaminophen/ Hydrocodone Bitart ([place] 5/325) 1 tab Q4H PRN ORAL Moderate Pain (Pain Scale 4-6) 02/27/19 02:15 03/03/19 22:14 Aspirin (Ecotrin) 81 mg DAILY ORAL 02/27/19 09:00 03/27/19 08:59 03/01/19 08:29 Cephalexin (Keflex) 500 mg FOUR TIMES A DAY ORAL 02/28/19 13:00 03/05/19 12:59 03/01/19 12:14 Dextrose (Dextrose 50%) 25 ml Q30M PRN IV Hypoglycemia 02/26/19 22:45 03/26/19 22:14 Dextrose (Dextrose 50%) 50 ml Q30M PRN IV Hypoglycemia 02/26/19 22:45 03/26/19 22:14 Furosemide (Lasix) 40 mg DAILY ORAL 03/01/19 09:00 03/31/19 08:59 03/01/19 08:35 Gabapentin (Neurontin) 300 mg THREE TIMES A DAY ORAL 02/27/19 09:00 03/27/19 08:59 03/01/19 12:14 Heparin Sodium (Porcine) (Heparin 5000 units/ml) 5,000 units EVERY 12 HOURS SUBQ 02/27/19 09:00 03/27/19 08:59 03/01/19 08:36 Hydrocortisone (Hydrocortisone) 1 applic Q6H PRN TOPIC Itching 02/27/19 14:45 03/29/19 14:44 Insulin Aspart (NovoLOG) BEFORE MEALS AND HS SUBQ 02/27/19 06:30 03/27/19 06:29 03/01/19 12:17 Insulin Detemir (Levemir) 5 units Q24H SUBQ 02/27/19 09:00 03/27/19 08:59 03/01/19 08:37 Lisinopril (Zestril) 10 mg DAILY ORAL 02/27/19 09:00 03/29/19 08:59 02/28/19 09:05 Metoprolol Succinate (Toprol XL) 25 mg DAILY ORAL 03/01/19 09:00 03/31/19 08:59 Spironolactone (Aldactone) 25 mg DAILY ORAL 02/28/19 09:00 03/30/19 08:59 03/01/19 08:28 Marino Ledesma MD Mar 01, 2019 13:50
--- NOTE | 2019-03-01 14:11 | Infectious Diseases Prog Note ---
Assessment/Plan Assessment/Plan ASSESSMENT AND PLAN: 1. complicated e.coli uti, atx > pna, fisher [place] seine blood cultures likely contaminant - po keflex x 5 days more to treat uti - monitor labs, surveillance blood cultures negative - stable from ID standpoint 2. The patient has congestive heart failure and edema. 3. Diuresis per primary. 4. Hypertension. 5. Diabetes. 6. Diabetes and hypertension treatment per primary consultants. 7. History of osteomyelitis, right foot fifth toe status post amputation . Site looks good. 8. Neuropathy and diabetic neuropathy. 9. Atherosclerotic heart disease. 10. Continue treatment per primary consultants. 11. Anemia. 12. Coronary artery disease. 13. No known allergies. 14. Social history is negative. 15. Family history is noncontributory. 16. MAR was noted. 17. Case was discussed with RN. 18. Continue treatment per primary consultants. Subjective Constitutional: Denies: fever HEENT: Denies: congestion Respiratory: Denies: shortness of breath Cardiovascular: Denies: chest pain Gastrointestinal/Abdominal: Denies: nausea, vomiting, diarrhea Genitourinary: Reports: other - no nagy Neurologic: Denies: headache Psychiatric: Denies: depression Skin: Denies: rash Hematologic: Denies: bleeding Musculoskeletal: Denies: pain Allergies: Coded Allergies: No Known Allergies (Verified , 01/25/10) Objective Vital Signs Last 24 Hour Vital Signs Date Time Temp Pulse Resp B/P (MAP) Pulse Ox O2 Delivery O2 Flow Rate FiO2 03/01/19 13:27 Nasal Cannula 2.0 03/01/19 12:00 81 03/01/19 12:00 97.6 86 18 129/72 (91) 98 03/01/19 09:12 97 Room Air 21 03/01/19 09:08 75 20 97 Room Air 21 03/01/19 09:00 74 100/58 03/01/19 08:34 100/58 03/01/19 08:00 83 03/01/19 08:00 98.1 83 18 100/58 (72) 96 03/01/19 04:00 75 03/01/19 04:00 98.0 77 18 108/70 (83) 95 03/01/19 00:00 97.8 78 18 121/64 (83) 95 03/01/19 00:00 76 02/28/19 20:00 97.6 80 18 150/74 (99) 98 02/28/19 20:00 80 02/28/19 19:35 77 18 98 Nasal Cannula 2.0 28 02/28/19 19:35 98 Nasal Cannula 2.0 28 02/28/19 16:00 98.8 79 18 119/68 (85) 96 02/28/19 16:00 77 Height (Feet): 5 Height (Inches): 1.00 Weight (Pounds): 137 General Appearance: no acute distress HEENT: normocephalic, atraumatic, anicteric, mucous membranes moist Respiratory/Chest: lungs clear, normal breath sounds, no respiratory distress, no accessory muscle use Cardiovascular: normal rate, regular rhythm, no gallop/murmur, no JVD Abdomen: normal bowel sounds, soft, non tender, no organomegaly, non distended Genitourinary: other - no nagy Extremities: no cyanosis Skin: no rash 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 These appear smaller than on the prior exam. There is decreased but persistent basilar atelectasis. Previously demonstrated congestive changes have improved somewhat. No new infiltrates. The heart size is normal. Impression: Decreased interstitial edema and bilateral pleural effusions, over 3 days Decreased basilar atelectatic changes Microbiology Date/Time Source Procedure Growth Status 02/26/19 11:15 Blood Blood Culture - Preliminary NO GROWTH AFTER 48 HOURS Resulted 02/24/19 19:05 Nasal Nares MRSA Culture - Final NO METHICILLIN RESISTANT STAPH AUREUS... Complete 02/24/19 18:48 Urine,Clean Catch Urine Culture - Final Escherichia Coli Complete 02/24/19 19:05 Rectum VRE Culture - Final NO VANCOMYCIN RESISTANT ENTEROCOCCUS ... Complete Labs Test 02/27/19 06:24 White Blood Count 7.0 K/UL (4.8-10.8) Red Blood Count 3.88 M/UL (4.20-5.40) Hemoglobin 10.2 G/DL (12.0-16.0) Hematocrit 32.4 % (37.0-47.0) Mean Corpuscular Volume 83 FL (80-99) Mean Corpuscular Hemoglobin 26.2 PG (27.0-31.0) Mean Corpuscular Hemoglobin Concent 31.4 G/DL (32.0-36.0) Red Cell Distribution Width 13.6 % (11.6-14.8) Platelet Count 204 K/UL (150-450) Mean Platelet Volume 6.9 FL (6.5-10.1) Neutrophils (%) (Auto) 66.6 % (45.0-75.0) Lymphocytes (%) (Auto) 23.3 % (20.0-45.0) Monocytes (%) (Auto) 5.9 % (1.0-10.0) Eosinophils (%) (Auto) 2.6 % (0.0-3.0) Basophils (%) (Auto) 1.6 % (0.0-2.0) Sodium Level 142 MMOL/L (136-145) Potassium Level 3.7 MMOL/L (3.5-5.1) Chloride Level 106 MMOL/L (98-107) Carbon Dioxide Level 25 MMOL/L (21-32) Anion Gap 11 mmol/L (5-15) Blood Urea Nitrogen 19 mg/dL (7-18) Creatinine 1.2 MG/DL (0.55-1.30) Estimat Glomerular Filtration Rate 45.1 mL/min (>60) Glucose Level 123 MG/DL (74-106) Calcium Level 9.2 MG/DL (8.5-10.1) Current Medications Medications (Trade) Dose Ordered Sig/Daisha Route PRN Reason Start Time Stop Time Status Last Admin Dose Admin Acetaminophen (Tylenol) 650 mg Q4H PRN ORAL Mild Pain/Temp > 100.5 02/27/19 02:15 03/26/19 22:14 Acetaminophen/ Hydrocodone Bitart ([place] 5/325) 1 tab Q4H PRN ORAL Moderate Pain (Pain Scale 4-6) 02/27/19 02:15 03/03/19 22:14 Aspirin (Ecotrin) 81 mg DAILY ORAL 02/27/19 09:00 03/27/19 08:59 03/01/19 08:29 Cephalexin (Keflex) 500 mg FOUR TIMES A DAY ORAL 02/28/19 13:00 03/05/19 12:59 03/01/19 12:14 Dextrose (Dextrose 50%) 25 ml Q30M PRN IV Hypoglycemia 02/26/19 22:45 03/26/19 22:14 Dextrose (Dextrose 50%) 50 ml Q30M PRN IV Hypoglycemia 02/26/19 22:45 03/26/19 22:14 Furosemide (Lasix) 40 mg DAILY ORAL 03/01/19 09:00 03/31/19 08:59 03/01/19 08:35 Gabapentin (Neurontin) 300 mg THREE TIMES A DAY ORAL 02/27/19 09:00 03/27/19 08:59 03/01/19 12:14 Heparin Sodium (Porcine) (Heparin 5000 units/ml) 5,000 units EVERY 12 HOURS SUBQ 02/27/19 09:00 03/27/19 08:59 03/01/19 08:36 Hydrocortisone (Hydrocortisone) 1 applic Q6H PRN TOPIC Itching 02/27/19 14:45 03/29/19 14:44 Insulin Aspart (NovoLOG) BEFORE MEALS AND HS SUBQ 02/27/19 06:30 03/27/19 06:29 03/01/19 12:17 Insulin Detemir (Levemir) 5 units Q24H SUBQ 02/27/19 09:00 03/27/19 08:59 03/01/19 08:37 Lisinopril (Zestril) 10 mg DAILY ORAL 02/27/19 09:00 03/29/19 08:59 02/28/19 09:05 Metoprolol Succinate (Toprol XL) 25 mg DAILY ORAL 03/01/19 09:00 03/31/19 08:59 Spironolactone (Aldactone) 25 mg DAILY ORAL 02/28/19 09:00 03/30/19 08:59 03/01/19 08:28 Francisco Piper MD Mar 01, 2019 14:11
--- NOTE | 2019-03-01 14:55 | NUR ---
RD ASSESSMENT & RECOMMENDATIONS SEE CARE ACTIVITY FOR COMPLETE ASSESSMENT DAILY ESTIMATED NEEDS: Needs based on DM, CHF/ 51kg 25-30 kcals/kg 8950-4250 total kcals 1-1.3 g protein/kg 51-66 g total protein 20-22 mL/kg 2434-0612 total fluid mLs NUTRITION DIAGNOSIS: Altered nutrition related lab values R/T DM as evidenced by elev POC glu ( 162 117 130 177) CURRENT DIET:CCHO LOW, LOW NA PO DIET RECOMMENDATIONS: Maintain CCHO LOW, LOW NA/ texture as tolerated ADDITIONAL RECOMMENDATIONS: 1) Daily calibrated or standing wt 2) Monitor lytes daily w/ diuretics (on lasix and aldactone) -> replete lytes as needed
[2019-03-01 16:00] VITALS: BP 119/56
--- NOTE | 2019-03-01 19:14 | NUR ---
HAND-OFF: Report given to Joe FIERRO. Patient is in stable condition.
--- NOTE | 2019-03-01 19:25 | NUR ---
NURSE NOTES: Received report from VADIM Landa. Patient in bed in low fowlers pos. showing no signs of acute distress. Respiration even and non labored on room air. No sob noted. IV line patent and intact. Call light within reach. Bed in lowest position. All needs attended and met. Will continue plan of care.
[2019-03-01 20:00] VITALS: BP 118/59
--- NOTE | 2019-03-01 20:23 | General Progress Note ---
Assessment/Plan Status: stable Assessment/Plan: 1. acute hypoxemic respiratory failure 2/2 CHFe- improved admitted to ICU initially and now downgraded to telemetry. Off BiPAp - on NC - will try to wean off O2 Pulmonary and Cardiology consult appreciated EKG shows LBBB, Tachy s/p Lasix and Nitro paste in ER IV lasix changed to PO 2. DM Will resume oral metformin when ready to transition home. Basal insulin + SSI 3. Diabetic neuropathy continue home medications 4. Acute new onset CHF Cardiology consult appreciated diuresis/ respiratory support -serial trop unremarkable -ECHO with LVEF 25% global dysfunction -Norvasc d/c, Cont lisinopril, spironolactone started -will start BB once more stable -will need cardiac cath as outpatient -Life vest for three months, repeat TTE on medical therapy 5. Hypertension Monitor 6. E.Coli UTI ID consultation appreciated F/U repeat blood cx UTI noted and GNR now reported as E. Coli which is sensitive to ceftriaxone. discont Ceftriaxone IV - transition to keflex today for 5 days course 7. Anemia, likely chronic etiology. monitor Dispo: DC in am after life vest delivered Full Code Time of note may not reflect time of encounter Subjective Date patient seen: Mar 01, 2019 Allergies: Coded Allergies: No Known Allergies (Verified , 01/25/10) Subjective No acute overnight events, states breathing has improved, Lasix and ABX changed to PO, will need life vest, will need outpatient cath. Objective Last 24 Hour Vital Signs Date Time Temp Pulse Resp B/P (MAP) Pulse Ox O2 Delivery O2 Flow Rate FiO2 03/01/19 16:00 97.8 82 18 119/56 (77) 97 03/01/19 16:00 94 03/01/19 13:27 Nasal Cannula 2.0 03/01/19 12:00 81 03/01/19 12:00 97.6 86 18 129/72 (91) 98 03/01/19 09:12 97 Room Air 21 03/01/19 09:08 75 20 97 Room Air 21 03/01/19 09:00 74 100/58 03/01/19 08:34 100/58 03/01/19 08:00 83 03/01/19 08:00 98.1 83 18 100/58 (72) 96 03/01/19 04:00 75 03/01/19 04:00 98.0 77 18 108/70 (83) 95 03/01/19 00:00 97.8 78 18 121/64 (83) 95 03/01/19 00:00 76 Intake and Output 02/28/19 03/01/19 19:00 07:00 Intake Total 250 ml Balance 250 ml Intake Oral 250 ml # Voids 1 Height (Feet): 5 Height (Inches): 1.00 Weight (Pounds): 137 Objective General Appearance: WD/WN EENT: PERRL/EOMI Neck: non-tender Cardiovascular: normal rate Respiratory/Chest: lungs clear Abdomen: non tender 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
[2019-03-02] VITALS: BP 113/53
[2019-03-02 04:00] VITALS: BP 116/62
[2019-03-02] MEDS: NovoLOG Insulin Flexpen SUBQ SCH ×4 (05:54→20:19)
[2019-03-02 06:55] LABS: BASOPHILS % (AUTO) 1.4 % (0.0-2.0); EOSINOPHILS % (AUTO) 1.4 % (0.0-3.0); HEMATOCRIT 33.8 % (37.0-47.0); HEMOGLOBIN 10.6 G/DL (12.0-16.0); LYMPHOCYTES % (AUTO) 21.6 % (20.0-45.0); MEAN CORPUSCULAR VOLUME 84 FL (80-99); MONOCYTES % (AUTO) 9.4 % (1.0-10.0); NEUTROPHILS % (AUTO) 66.1 % (45.0-75.0); PLATELET COUNT 214 K/UL (150-450); RED BLOOD COUNT 4.03 M/UL (4.20-5.40); RED CELL DISTRIBUTION WIDTH 13.7 % (11.6-14.8); WHITE BLOOD COUNT 9.2 K/UL (4.8-10.8)
--- NOTE | 2019-03-02 07:30 | NUR ---
HAND-OFF: Report given to VADIM Cardenas.
[2019-03-02 07:36] LABS: ANION GAP 8 mmol/L (5-15); BLOOD UREA NITROGEN 20 mg/dL (7-18); CALCIUM 9.4 MG/DL (8.5-10.1); CARBON DIOXIDE 27 MMOL/L (21-32); CHLORIDE 104 MMOL/L (98-107); CREATININE 1.2 MG/DL (0.55-1.30); POTASSIUM 3.2 MMOL/L (3.5-5.1); SODIUM 139 MMOL/L (136-145)
[2019-03-02] MEDS: Spironolactone 25mg tab ORAL SCH (08:30)
[2019-03-02] MEDS: Aspirin EC 81mg tab ORAL SCH (08:31)
[2019-03-02] MEDS: Heparin 5000 units/ml inj SUBQ SCH ×2 (08:31→20:19)
[2019-03-02] MEDS: Cephalexin 500mg cap ORAL SCH ×4 (08:32→20:17)
[2019-03-02] MEDS: Furosemide 40mg tab ORAL SCH (08:32)
[2019-03-02 08:33] VITALS: BP 117/70
[2019-03-02] MEDS: Metoprolol Succinate XL 25mg tab ORAL SCH (08:38)
[2019-03-02] MEDS: Lisinopril 10mg tab ORAL SCH (08:38)
--- NOTE | 2019-03-02 08:39 | Cardiology Progress Note ---
Assessment/Plan Status: stable Assessment/Plan Assessment/Plan Status: stable Assessment/Plan: Assessment/Plan: 1. Acute resp failure 2. DM 3. Diabetic neuropathy 4. Systolic CHF 5. Hypertension 6. Leukocytosis 7. Anemia 8. Coronary artery disease, stress test Feb with ischemia Recommendations -serial troponin - negative -stress test in Feb positive/ currently troponin negative, no chest pain currently -medical management for now -Echocardiogram and SPECT showed systolic dysfunction, LVEF 25% global dysfunction - will need routine outpatient cardiac cath -Continue BiPAP prn, diuresis, pulmonary support -> currently stable -Thoracentesis evaluation - CXR improved with diuresis -d/c norvasc -Continue lisinopril for afterload reduction -Initiated beta janel low dose metoprolol XL today and titrate as outpatient -Life vest for three months, repeat TTE on medical therapy -Continue aldactone -Clear for d/c after lifevest delivered Subjective Cardiovascular: Reports: no symptoms Respiratory: Reports: no symptoms Gastrointestinal/Abdominal: Reports: no symptoms Genitourinary: Reports: no symptoms Subjective Stable on floor with oxygen, no complaints no CP no sob. TTE with LVEF 25% and grade 2 diastolic dysfunction and moderate PAH. Vitals stable. Transitioned to PO lasix, awaiting life vest delivery No acute events, no complaints. Objective Last 24 Hour Vital Signs Date Time Temp Pulse Resp B/P (MAP) Pulse Ox O2 Delivery O2 Flow Rate FiO2 03/02/19 08:33 100.0 84 17 117/70 (86) 94 03/02/19 07:45 81 17 92 Room Air 21 03/02/19 07:45 92 Room Air 21 03/02/19 04:00 98.6 83 18 116/62 (80) 94 03/02/19 04:00 75 03/02/19 00:00 98.8 89 18 113/53 (73) 94 03/02/19 00:00 87 03/01/19 20:02 98 Room Air 21 03/01/19 20:02 72 18 98 Room Air 21 03/01/19 20:00 96 03/01/19 20:00 99.1 89 18 118/59 (78) 97 03/01/19 16:00 97.8 82 18 119/56 (77) 97 03/01/19 16:00 94 03/01/19 13:27 Nasal Cannula 2.0 03/01/19 12:00 81 03/01/19 12:00 97.6 86 18 129/72 (91) 98 03/01/19 09:12 97 Room Air 21 03/01/19 09:08 75 20 97 Room Air 21 03/01/19 09:00 74 100/58 General Appearance: no apparent distress, alert EENT: PERRL/EOMI, normal ENT inspection, TMs normal, pharynx normal Neck: normal alignment, supple, normal inspection, no JVD Rhythm: NSR Cardiovascular: normal peripheral pulses, normal rate, regular rhythm Respiratory/Chest: chest wall non-tender, lungs clear, normal breath sounds, no respiratory distress Abdomen: normal bowel sounds, non tender, soft, no organomegaly Extremities: normal range of motion, non-tender, normal inspection 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, no motor/sensory deficits Intake and Output 03/01/19 03/02/19 19:00 07:00 Intake Total 120 ml 240 ml Balance 120 ml 240 ml Intake Oral 120 ml 240 ml # Voids 1 2 Laboratory Tests Test 03/02/19 06:30 White Blood Count 9.2 K/UL (4.8-10.8) Red Blood Count 4.03 M/UL (4.20-5.40) L Hemoglobin 10.6 G/DL (12.0-16.0) L Hematocrit 33.8 % (37.0-47.0) L Mean Corpuscular Volume 84 FL (80-99) Mean Corpuscular Hemoglobin 26.2 PG (27.0-31.0) L Mean Corpuscular Hemoglobin Concent 31.3 G/DL (32.0-36.0) L Red Cell Distribution Width 13.7 % (11.6-14.8) Platelet Count 214 K/UL (150-450) Mean Platelet Volume 7.1 FL (6.5-10.1) Neutrophils (%) (Auto) 66.1 % (45.0-75.0) Lymphocytes (%) (Auto) 21.6 % (20.0-45.0) Monocytes (%) (Auto) 9.4 % (1.0-10.0) Eosinophils (%) (Auto) 1.4 % (0.0-3.0) Basophils (%) (Auto) 1.4 % (0.0-2.0) Sodium Level 139 MMOL/L (136-145) Potassium Level 3.2 MMOL/L (3.5-5.1) L Chloride Level 104 MMOL/L (98-107) Carbon Dioxide Level 27 MMOL/L (21-32) Anion Gap 8 mmol/L (5-15) Blood Urea Nitrogen 20 mg/dL (7-18) H Creatinine 1.2 MG/DL (0.55-1.30) Estimat Glomerular Filtration Rate 45.1 mL/min (>60) Glucose Level 127 MG/DL (74-106) H Calcium Level 9.4 MG/DL (8.5-10.1) Uzair Salas MD Mar 02, 2019 08:39
[2019-03-02] MEDS: Levemir Flexpen SUBQ SCH (08:46)
[2019-03-02 12:30] VITALS: BP 106/50
--- NOTE | 2019-03-02 14:33 | NUR ---
CASE MANAGEMENT: REVIEW 03/02/2019 SI: ACUTE RESP FAILURE. T 100 HR 84 RR 17 B/P 117/70 SATS 94% ON 2L/NC K 3.2 BUN 20 GLU 127 IS:CEFTRIAXONE IV QD ASA PO QD LASIX IV QD LISINOPRIL PO QD INSULIN ASPART SUBQ AC/HS VANCO IV Q24H AZITHROMYCIN IV Q24H GABAPENTIN PO TID TELE STATUS PLAN OF CARE: AWAITING DELIVERY OF LIFE VEST
[2019-03-02 16:38] VITALS: BP 110/55
--- NOTE | 2019-03-02 17:50 | NUR ---
potassium 3.2>>>>>>>> potassium chl admin 40 meq by mouth as ordered patient vomited x 2 and c/o nausea>>>>> admin Zofran as ordered will continue to monitor.
--- NOTE | 2019-03-02 19:24 | NUR ---
HAND-OFF: Report given to Joe FIERRO.
--- NOTE | 2019-03-02 19:25 | NUR ---
NURSE NOTES: Received report from VADIM Cardenas. Patient in bed asleep. showing no signs of acute distress. Respiration even and non labored on room air. No sob noted. IV line patent and intact. Pt stated that she feels weak and just want to rest. Call light within reach. Bed in lowest position. All needs attended and met. Will continue plan of care.
[2019-03-02 20:00] VITALS: BP 91/42
--- NOTE | 2019-03-02 20:27 | General Progress Note ---
Assessment/Plan Status: stable Assessment/Plan: 1. acute hypoxemic respiratory failure 2/2 CHFe- improved admitted to ICU initially and now downgraded to telemetry. Off BiPAp - on NC - will try to wean off O2 Pulmonary and Cardiology consult appreciated EKG shows LBBB, Tachy s/p Lasix and Nitro paste in ER IV lasix changed to PO 2. DM Will resume oral metformin when ready to transition home. Basal insulin + SSI 3. Diabetic neuropathy continue home medications 4. Acute new onset CHF Cardiology consult appreciated diuresis/ respiratory support -serial trop unremarkable -ECHO with LVEF 25% global dysfunction -Norvasc d/c, Cont lisinopril, spironolactone started -will start BB once more stable -will need cardiac cath as outpatient -Life vest for three months, repeat TTE on medical therapy 5. Hypertension Monitor 6. E.Coli UTI ID consultation appreciated F/U repeat blood cx UTI noted and GNR now reported as E. Coli which is sensitive to ceftriaxone. discont Ceftriaxone IV - transition to keflex today for 5 days course 7. Anemia, likely chronic etiology. monitor Dispo: DC in am after life vest delivered Full Code Time of note may not reflect time of encounter Subjective Date patient seen: Mar 02, 2019 Allergies: Coded Allergies: No Known Allergies (Verified , 01/25/10) Subjective No acute overnight events, states breathing has improved, Lasix and ABX changed to PO, awaiting life vest, will need outpatient cath. Objective Last 24 Hour Vital Signs Date Time Temp Pulse Resp B/P (MAP) Pulse Ox O2 Delivery O2 Flow Rate FiO2 03/02/19 16:38 98.4 72 16 110/55 (73) 95 03/02/19 16:00 74 03/02/19 14:16 Nasal Cannula 2.0 03/02/19 12:30 99.5 68 17 106/50 (68) 97 03/02/19 12:00 69 03/02/19 08:38 84 117/70 03/02/19 08:38 117/70 03/02/19 08:33 100.0 84 17 117/70 (86) 94 03/02/19 08:00 81 03/02/19 07:45 81 17 92 Room Air 21 03/02/19 07:45 92 Room Air 21 03/02/19 04:00 98.6 83 18 116/62 (80) 94 03/02/19 04:00 75 03/02/19 00:00 98.8 89 18 113/53 (73) 94 03/02/19 00:00 87 Intake and Output 03/01/19 03/02/19 19:00 07:00 Intake Total 120 ml 240 ml Balance 120 ml 240 ml Intake Oral 120 ml 240 ml # Voids 1 2 Laboratory Tests 03/02/19 06:30: White Blood Count 9.2, Red Blood Count 4.03L, Hemoglobin 10.6L, Hematocrit 33.8L , Mean Corpuscular Volume 84, Mean Corpuscular Hemoglobin 26.2L, Mean Corpuscular Hemoglobin Concent 31.3L, Red Cell Distribution Width 13.7, Platelet Count 214, Mean Platelet Volume 7.1, Neutrophils (%) (Auto) 66.1, Lymphocytes (%) (Auto) 21.6, Monocytes (%) (Auto) 9.4, Eosinophils (%) (Auto) 1.4, Basophils (%) (Auto) 1.4, Sodium Level 139, Potassium Level 3.2L, Chloride Level 104, Carbon Dioxide Level 27, Anion Gap 8, Blood Urea Nitrogen 20H, Creatinine 1.2, Estimat Glomerular Filtration Rate 45.1, Glucose Level 127H, Calcium Level 9.4 Height (Feet): 5 Height (Inches): 1.00 Weight (Pounds): 136 Objective General Appearance: WD/WN EENT: PERRL/EOMI Neck: non-tender Cardiovascular: normal rate Respiratory/Chest: lungs clear Abdomen: non tender Neurologic: marriage and family social worker II-XII grossly normal Viktoriya Haynes MD Mar 02, 2019 20:27
[2019-03-03] VITALS: BP 92/47
[2019-03-03 04:00] VITALS: BP 90/52
[2019-03-03] MEDS: NovoLOG Insulin Flexpen SUBQ SCH ×2 (06:30→13:11)
--- NOTE | 2019-03-03 07:10 | NUR ---
HAND-OFF: Report given to VADIM Cardenas.
--- NOTE | 2019-03-03 07:12 | NUR ---
Received patient resting in bed with open eyes. no c/o pain or acute distress noted at this time. patient a/o x4 Bed in the lowest position and locked, call light and frequent used objects are within reach. iv intact and patent. Will continue to monitor
[2019-03-03] MEDS: Furosemide 40mg tab ORAL SCH (08:25)
[2019-03-03] MEDS: Cephalexin 500mg cap ORAL SCH ×2 (08:25→13:10)
[2019-03-03 08:26] VITALS: BP 101/47
[2019-03-03 08:28] VITALS: BP 101/47
[2019-03-03] MEDS: Lisinopril 10mg tab ORAL SCH (08:28)
[2019-03-03] MEDS: Aspirin EC 81mg tab ORAL SCH (08:28)
[2019-03-03] MEDS: Spironolactone 25mg tab ORAL SCH (08:28)
[2019-03-03] MEDS: Metoprolol Succinate XL 25mg tab ORAL SCH (08:28)
[2019-03-03] MEDS: Levemir Flexpen SUBQ SCH (08:30)
[2019-03-03] MEDS: Heparin 5000 units/ml inj SUBQ SCH (08:30)
[2019-03-03] MEDS ORDERED: ZESTRIL10 M1 ORAL (10:58)
[2019-03-03] MEDS ORDERED: SPIRONOLACTONE25 MG ORAL (10:58)
[2019-03-03] MEDS ORDERED: Metoprolol Succinate XL ORAL (10:58)
[2019-03-03] MEDS ORDERED: KEFLEX500 M1 ORAL (10:58)
[2019-03-03] MEDS ORDERED: FUROSEMIDE40 MG ORAL (10:58)
--- NOTE | 2019-03-03 11:00 | Discharge Instructions ---
Discharge Instructions Discharge Instructions Follow up with: Dr. Josue Davidson MD/Return to Hospital if: fevers, intractable pain or vomiting Diet: 2 GM sodium (low sodium), cardiac 2 GM Na, low fat Resume Normal Activity?: Yes Activity: resume normal activities For Congestive Heart Failure Reminder Report to your physician any weight gain of 5 pounds or more in one week. Viktoriya Haynes MD Mar 03, 2019 11:00
--- NOTE | 2019-03-03 11:27 | NUR ---
NURSE NOTES: 11:15 am- Left voice mail message for Yareli Adams [facility] . Inquiring about Life vest. 11:24 am- - Called [facility] and spoke with the assistant secretary. States Romano is covering Yareli. Left a voice mail for Rosalina inquiring about Life Vest status for discharge.
--- NOTE | 2019-03-03 11:30 | Cardiology Progress Note ---
Assessment/Plan Status: stable Assessment/Plan Assessment/Plan Status: stable Assessment/Plan: Assessment/Plan: 1. Acute resp failure 2. DM 3. Diabetic neuropathy 4. Systolic CHF 5. Hypertension 6. Leukocytosis 7. Anemia 8. Coronary artery disease, stress test Feb with ischemia Recommendations -serial troponin - negative -stress test in Feb positive/ currently troponin negative, no chest pain currently -medical management for now -Echocardiogram and SPECT showed systolic dysfunction, LVEF 25% global dysfunction - will need routine outpatient cardiac cath -Continue BiPAP prn, diuresis, pulmonary support -> currently stable -Thoracentesis evaluation - CXR improved with diuresis -d/c norvasc -Continue lisinopril for afterload reduction -Initiated beta janel low dose metoprolol XL today and titrate as outpatient -Life vest for three months, repeat TTE on medical therapy -Continue aldactone -Clear for d/c after lifevest delivered otherwise can be delivered at home Subjective Cardiovascular: Reports: no symptoms Respiratory: Reports: no symptoms Gastrointestinal/Abdominal: Reports: no symptoms Genitourinary: Reports: no symptoms Subjective Stable on floor with oxygen, no complaints no CP no sob. TTE with LVEF 25% and grade 2 diastolic dysfunction and moderate PAH. Vitals stable. Transitioned to PO lasix, awaiting life vest delivery No acute events, no complaints. Objective Last 24 Hour Vital Signs Date Time Temp Pulse Resp B/P (MAP) Pulse Ox O2 Delivery O2 Flow Rate FiO2 03/03/19 08:28 64 101/47 03/03/19 08:28 101/47 03/03/19 08:26 98.4 64 18 101/47 (65) 98 03/03/19 04:00 97.6 72 19 90/52 (65) 96 03/03/19 04:00 73 03/03/19 00:00 63 03/03/19 00:00 97.9 66 17 92/47 (62) 94 03/02/19 20:41 95 Room Air 21 03/02/19 20:40 66 20 95 Room Air 21 03/02/19 20:00 61 03/02/19 20:00 98.5 66 19 91/42 (58) 95 03/02/19 16:38 98.4 72 16 110/55 (73) 95 03/02/19 16:00 74 03/02/19 14:16 Nasal Cannula 2.0 03/02/19 12:30 99.5 68 17 106/50 (68) 97 03/02/19 12:00 69 General Appearance: no apparent distress, alert EENT: PERRL/EOMI, normal ENT inspection, TMs normal, pharynx normal Neck: non-tender, normal alignment, supple Rhythm: NSR Cardiovascular: normal peripheral pulses, normal rate Respiratory/Chest: chest wall non-tender, lungs clear Abdomen: normal bowel sounds, non tender, soft, no organomegaly, no mass Extremities: normal range of motion, non-tender, normal inspection, no calf tenderness, no swelling Neurologic: 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
--- NOTE | 2019-03-03 12:10 | NUR ---
DISCHARGE PLANNING: NOTE CM MADE RANJIT AT FIRST SMILE THAT PT WILL BE DISCHARGED TO HOME. UPDATED INFO FAXED TO
--- NOTE | 2019-03-03 14:07 | NUR ---
patient discharged home with all her belonging as ordered. vital signs stable.
--- NOTE | 2019-03-03 14:51 | Cardiology Report ---
APPROVED REPORT EXAM: Two-dimensional and M-mode echocardiogram with Doppler and color Doppler. INDICATION Congestive Heart Failure M-Mode DIMENSIONS IVSd1.0 (0.7-1.1cm)Left Atrium (MM)3.2 (1.6-4.0cm) LVDd4.1 (3.5-5.6cm)Aortic Root3.1 (2.0-3.7cm) PWd1.2 (0.7-1.1cm)Aortic Cusp Exc.1.5 (1.5-2.0cm) LVDs4.0 (2.5-4.0cm) PWs1.2 cm Normal left ventricular chamber size. Global left ventricular hypokinesis. Dyskinetic septal motion. Left ventricular ejection fraction estimated to be 25-30%. No evidence of left ventricular hypertrophy. Large pleural effusion. Small pericardial effusion. All other cardiac chamber sizes are within normal limits. Focal aortic valve sclerosis with adequate cusp excursion. Thickened mitral valve leaflets with normal excursion. Mitral annulus and aortic root calcification. Pulmonic valve not well visualized. Normal tricuspid valve structure. IVC is normal in size with physiological collapse. A color flow and spectral Doppler study was performed and revealed: Mild to moderate aortic regurgitation. Moderate mitral regurgitation. Mitral inflow velocities indicates possible pseudo normalization pattern implying significant left ventricular diastolic dysfunction (Grade II). Mild tricuspid regurgitation. Tricuspid systolic velocities suggests peak right ventricular systolic pressure of 49 mmHg, consistent with moderate pulmonary hypertension. Mild pulmonic regurgitation present.
--- NOTE | 2019-03-03 16:19 | Cardiology Report ---
APPROVED REPORT EKG Measurement Heart [id number] CT 122P33 [id number] Sinus tachycardia Left bundle branch block Abnormal ECG
--- NOTE | 2019-03-05 15:52 | Discharge Summary ---
Discharge Summary Hospital Course Date of Admission Feb 24, 2019 at 20:07 Date of Discharge Mar 03, 2019 at 13:20 Admitting Diagnosis Congestive Heart Failure HPI Anisa Lei is a 63 year old female who was admitted on Feb 24, 2019 at 20 :07 for Congestive Heart Failure 63 yo female with known DM, Neuropathy, hx Osteomyelitis sp amputation in 09/2018 , HTN, ASHD- presented to ER with worsening dyspnea for 2-3 days. states coughing sputum and makes feels better. no fever/ chest pain, leg swelling, recent travel. no smoking. states she has seen card last time in hospital. daughter at bedside. patient states meds have been same since last time but does not exactly know meds. in er Found to be in resp distress and on BiPap. has effusion and infiltrate and likely new onset of CHF. patient does not check her weight daily. reviewd last dc summary and consult names. now on nitro paste after one dose of lasix Hospital Course 1. acute hypoxemic respiratory failure 2/2 CHFe- improved Pulmonary and Cardiology consult appreciated EKG shows LBBB, Tachy s/p Lasix and Nitro paste in ER IV lasix changed to PO on discharge 2. DM Will resume oral metformin 3. Diabetic neuropathy continue home medications 4. Acute new onset CHF -ECHO with LVEF 25% global dysfunction -Norvasc d/c, Cont lisinopril, spironolactone started -will start BB once more stable -will need cardiac cath as outpatient - follow up with Dr. Salas -[facility] for three months, to be delivered to home 5. Hypertension 6. E.Coli UTI keflex today for 3 more days 7. Anemia, likely chronic etiology. monitor Discharge Medications New Medications: Cephalexin (Cephalexin) 500 Mg Tablet 500 MG ORAL FOUR TIMES A DAY for 3 Days, #12 TAB Furosemide* (Lasix*) 40 Mg Tablet 40 MG ORAL DAILY for 30 Days, #30 TAB Lisinopril* (Zestril*) 10 Mg Tablet 10 MG ORAL DAILY for 30 Days, #30 TAB [Metoprolol Succinate XL] () 25 MG TABCR 25 MG ORAL DAILY for 30 Days, #30 Spironolactone* (Aldactone*) 25 Mg Tablet 25 MG ORAL DAILY for 30 Days, #30 TAB Continued Medications: Aspirin* (Aspir 81*) 81 Mg Tablet. 81 MG ORAL DAILY, TAB Gabapentin* (Gabapentin*) 300 Mg Capsule 300 MG ORAL THREE TIMES A DAY, CAP 0 Refills Metformin Hcl* (Metformin Hcl*) 1,000 Mg Tablet 1000 MG ORAL BID, TAB Discontinued Medications: Amlodipine Besylate (Norvasc) 5 Mg Tab 5 MG ORAL DAILY, TAB Amoxicillin/Potassium Clav 875-125* (Augmentin 875-125 Tablet*) 1 Each Tablet 1 TAB ORAL TWICE A DAY for 10 Days, #20 TAB Trimethoprim/Sulfamethoxazole (Bactrim Ds Tablet) 1 Each Tablet 1 TAB ORAL TWICE A DAY for 10 Days, #20 TAB Unable to Obtain Medications (Unable To Obtain Meds) 1 Ea Ea Discharge Condition Upon Discharge: improving Discharge Disposition Patient was discharged to home with hh Discharge Instructions Discharge Instructions Follow up with: Dr. Josue Davidson MD/Return to Hospital if: fevers, intractable pain or vomiting Activity: resume normal activities Viktoriya Haynes MD Mar 05, 2019 15:52
== END 2019-03-03 13:20 | disposition home or self-care (01) | DRG 291 ==
LOC: EDBD 17:00 → EMR 18:25 → EDBEDREQ 20:07 → ICU 20:07 → EMR 20:45 → EDBEDREQ 20:52 → 2W 02-25 16:00 → 2E 02-26 22:52
PROC: 5A09357 Assistance with Respiratory Ventilation, Less than 24 Consecutive Hours, Continuous Positive Airway Pressure (ICD-10-PCS; principal; 2019-02-24)
DX: I11.0 Hypertensive heart disease with heart failure (principal); I50.21 Acute systolic (congestive) heart failure; J96.01 Acute respiratory failure with hypoxia; J18.9 Pneumonia, unspecified organism; N39.0 Urinary tract infection, site not specified; E11.40 Type 2 diabetes mellitus with diabetic neuropathy, unspecified; I25.10 Atherosclerotic heart disease of native coronary artery without angina pectoris; Z79.84 Long term (current) use of oral hypoglycemic drugs; Z79.82 Long term (current) use of aspirin; B96.20 Unspecified Escherichia coli [E. coli] as the cause of diseases classified elsewhere; D64.9 Anemia, unspecified
CPT/HCPCS: 36415; 36600; 71045; 80048; 80053; 81003; 82550; 82553; 82803; 82962; 83605; 84484; 85025; 87040; 87081; 87086; 87181; 93005; 93306; 94660; 94664; 96374; 99291; J1815; J2405; J8499; S5561

== ENCOUNTER 2019-03-28 17:35 | Emergency (ER) | payer MEDICARE, MEDICAID ==
[~2019-03-28] VITALS: Ht 162.6 cm; Wt 52.2 kg
[~2019-03-28 17:35] MED LIST changes: +FUROSEMIDE40 MG ORAL; +KEFLEX500 M1 ORAL; +Metoprolol Succinate XL ORAL; +SPIRONOLACTONE25 MG ORAL; +UNOBMED; +ZESTRIL10 M1 ORAL
[2019-03-28] MEDS ORDERED: MECLIZINE HCL25 M1 ORAL (18:20)
[2019-03-28] MEDS ORDERED: GLIPIZIDE XL10 MG ORAL (18:20)
--- NOTE | 2019-03-28 18:25 | NUR ---
ED Nurse Note: Patient walked in ER due to abnormal lab result, potassium level 6.4. Seen by assembler installer general, Dr. Lopez and referred patient to ER. Patient reports 'pressure' 3/10 in the chest 'all day'. Reports no N/V or SOB. Patient awake, alert, oriented x 4. Regular, unlabored breathing noted. No swelling in LE reported. Placed patient on cardiac moniotor. No ectopy noted. Bed in lowest position. Addendum: 03/28/19 at 1939 by JOVANI Patient states she has no chest pain.
[2019-03-28 18:32] VITALS: BP 146/57
--- NOTE | 2019-03-28 18:36 | NUR ---
ED Nurse Note: Family member at bedside. No acute distress noted.
[2019-03-28 18:38] LABS: BASOPHILS % (AUTO) 1.8 % (0.0-2.0); EOSINOPHILS % (AUTO) 5.4 % (0.0-3.0); HEMATOCRIT 35.8 % (37.0-47.0); HEMOGLOBIN 11.5 G/DL (12.0-16.0); LYMPHOCYTES % (AUTO) 34.2 % (20.0-45.0); MEAN CORPUSCULAR VOLUME 80 FL (80-99); MONOCYTES % (AUTO) 5.6 % (1.0-10.0); NEUTROPHILS % (AUTO) 52.9 % (45.0-75.0); PLATELET COUNT 157 K/UL (150-450); RED BLOOD COUNT 4.49 M/UL (4.20-5.40); WHITE BLOOD COUNT 7.3 K/UL (4.8-10.8)
[2019-03-28 18:59] LABS: ANION GAP 12 mmol/L (5-15); BLOOD UREA NITROGEN 62 mg/dL (7-18); CALCIUM 9.9 MG/DL (8.5-10.1); CARBON DIOXIDE 28 MMOL/L (21-32); CHLORIDE 101 MMOL/L (98-107); CREATININE 2.1 MG/DL (0.55-1.30); POTASSIUM 4.9 MMOL/L (3.5-5.1); SODIUM 141 MMOL/L (136-145)
--- NOTE | 2019-03-28 19:02 | NUR ---
ED Nurse Note: Report given to VADIM Hartman. Patient resting in bed. No facial grimacing or guarding noted. Addendum: 03/28/19 at 1902 by JOVANI IV site remained intact without redness, swelling or pain.
[2019-03-28 19:12] LABS: ALANINE AMINOTRANSFERASE 33 U/L (12-78); ALBUMIN 4.4 G/DL (3.4-5.0); ALBUMIN/GLOBULIN RATIO 1.2 (1.0-2.7); ALKALINE PHOSPHATASE 72 U/L (46-116); ASPARTATE AMINO TRANSFERASE 33 U/L (15-37); BILIRUBIN,TOTAL 0.3 MG/DL (0.2-1.0); CKMB 0.8 NG/ML (0.0-3.6); CREATINE KINASE 18 U/L (26-308)
--- NOTE | 2019-03-28 19:36 | NUR ---
ED Nurse Note: Patient is being discharged from medical care. Patient awake, alert, oriented x 4. Reports no CP, SOB or dyspnea. Patient states she was anxious earlier. D/C instruction and lab result given. Ambulated out with family member with all her belongings.
--- NOTE | 2019-03-28 21:04 | Emergency Room Report ---
History of Present Illness General Chief Complaint: Abnormal Labs Source: Patient Present Illness HPI 63-year-old female for evaluation. Patient referred here for abnormal labs. States she had blood work done by a new cell stripper today at [facility] and was called by the office stating that her potassium was 6.4. Was told to go to the ER for evaluation. States she feels fine. Denies chest pain or shortness of breath. Notes history of CHF. Takes Lasix. States she is compliant with her medications. No other aggravating relieving factors. Denies any other associated symptoms Allergies: Coded Allergies: No Known Allergies (Verified , 01/25/10) Patient History Past Medical History: IN, CHF Past Surgical History: none Pertinent Family History: none Social History: Denies: smoking, alcohol use, drug use Now: No Immunizations: UTD Reviewed Nursing Documentation: PMH: Agreed; PSxH: Agreed Nursing Documentation-PMH Past Medical History: No History, Except For Hx Cardiac Problems: Yes - IN, Chronic systolic heart failure, CAD Hx Hypertension: Yes - Pleural effusion Hx Diabetes: Yes - Diabetic polyneuropathy Hx Cancer: No Hx Gastrointestinal Problems: No Hx Neurological Problems: No Hx Peripheral Neuropathy: Yes Review of Systems All Other Systems: negative except mentioned in HPI Physical Exam Vital Signs Date Time Temp Pulse Resp B/P (MAP) Pulse Ox O2 Delivery O2 Flow Rate FiO2 03/28/19 17:49 98.4 75 20 151/74 (99) 98 Room Air Sp02 EP Interpretation: reviewed, normal General Appearance: no apparent distress, alert, GCS 15, non-toxic Head: normocephalic, atraumatic Eyes: bilateral eye normal inspection, bilateral eye PERRL ENT: hearing grossly normal, normal pharynx, no angioedema, normal voice Neck: full range of motion, supple/symm/no masses Respiratory: chest non-tender, lungs clear, normal breath sounds, speaking full sentences Cardiovascular #1: regular rate, rhythm, no edema Cardiovascular #2: 2+ carotid (R), 2+ carotid (L), 2+ radial (R), 2+ radial (L) , 2+ dorsalis pedis (R), 2+ dorsalis pedis (L) Gastrointestinal: normal bowel sounds, non tender, soft, non-distended, no guarding, no rebound Rectal: deferred Genitourinary: normal inspection, no CVA tenderness Musculoskeletal: back normal, gait/station normal, normal range of motion, non- tender Neurologic: alert, oriented x3, responsive, motor strength/tone normal, sensory intact, speech normal Psychiatric: judgement/insight normal, memory normal, mood/affect normal, no suicidal/homicidal ideation Reflexes: 3+ bicep (R), 3+ bicep (L), 3+ tricep (R), 3+ tricep (L), 3+ knee (R) , 3+ knee (L) Lymphatic: no adenopathy Medical Decision Making Diagnostic Impression: Primary Impression: Renal insufficiency ER Course Hospital Course 63 yo F presents to ED for elevated potasium Differential diagnoses include: arryhtmia, IN, CHF Clinical course Patient placed on stretcher. After initial history and physical I ordered labs , EKG, chest x-ray. labs reviewed- K 4.9, BUN 62, Cr 2.1, trop negative. no leukocytosis, hemoglobin /hematocrit stable EKG - NSr, no acute ischemic changes interpreted by me Chest x-ray-no cardiomegaly, no rib fracture, no pneumothorax, no acute process I discussed findings with the patient. While her potassium is normal she does display some renal insufficiency compared to recent hospitalization. States that she is taking her Lasix and was told to restrict her fluid intake. I explained that the combination could likely cause some renal insufficiency. We discussed the option for admission but patient declined stating that she would prefer to follow-up with her PMD tomorrow. Asymptomatic. Vitals stable. I provided patient with copy of her labs. I. I feel this is a highly complex case requiring extensive working including EKG/Rhythm strip, Xray/CT/US, Blood/urine lab work, repeat exams while in ED, and administration of strong opiates/narcotics for pain control, admission to hospital or close patient follow up. Diagnosis - renal insufficiency Stable and discharged to home. Instructed to followup with PMD. Return to ED if symptoms recur or worsen Labs Test 03/28/19 18:15 White Blood Count 7.3 K/UL (4.8-10.8) Red Blood Count 4.49 M/UL (4.20-5.40) Hemoglobin 11.5 G/DL (12.0-16.0) Hematocrit 35.8 % (37.0-47.0) Mean Corpuscular Volume 80 FL (80-99) Mean Corpuscular Hemoglobin 25.5 PG (27.0-31.0) Mean Corpuscular Hemoglobin Concent 32.0 G/DL (32.0-36.0) Red Cell Distribution Width 13.0 % (11.6-14.8) Platelet Count 157 K/UL (150-450) Mean Platelet Volume 7.6 FL (6.5-10.1) Neutrophils (%) (Auto) 52.9 % (45.0-75.0) Lymphocytes (%) (Auto) 34.2 % (20.0-45.0) Monocytes (%) (Auto) 5.6 % (1.0-10.0) Eosinophils (%) (Auto) 5.4 % (0.0-3.0) Basophils (%) (Auto) 1.8 % (0.0-2.0) Sodium Level 141 MMOL/L (136-145) Potassium Level 4.9 MMOL/L (3.5-5.1) Chloride Level 101 MMOL/L (98-107) Carbon Dioxide Level 28 MMOL/L (21-32) Anion Gap 12 mmol/L (5-15) Blood Urea Nitrogen 62 mg/dL (7-18) Creatinine 2.1 MG/DL (0.55-1.30) Estimat Glomerular Filtration Rate 23.7 mL/min (>60) Glucose Level 127 MG/DL (74-106) Calcium Level 9.9 MG/DL (8.5-10.1) Total Bilirubin 0.3 MG/DL (0.2-1.0) Aspartate Amino Transf (AST/SGOT) 33 U/L (15-37) Alanine Aminotransferase (ALT/SGPT) 33 U/L (12-78) Alkaline Phosphatase 72 U/L (46-116) Total Creatine Kinase 18 U/L (26-308) Creatine Kinase MB 0.8 NG/ML (0.0-3.6) Creatine Kinase MB Relative Index 4.4 Troponin I 0.000 ng/mL (0.000-0.056) Total Protein 8.2 G/DL (6.4-8.2) Albumin 4.4 G/DL (3.4-5.0) Globulin 3.8 g/dL Albumin/Globulin Ratio 1.2 (1.0-2.7) EKG Diagnostic Results Rate: normal Rhythm: NSR ST Segments: no acute changes ASA given to the pt in ED: No Rhythm Strip Diag. Results EP Interpretation: yes Rhythm: NSR, no PVC's, no ectopy Chest X-Ray Diagnostic Results Chest X-Ray Diagnostic Results : Chest X-Ray Ordered: Yes # of Views/Limited/Complete: 1 View Indication: Other EP Interpretation: Yes Interpretation: no consolidation, no effusion, no pneumothorax, no acute cardiopulmonary disease Impression: No acute disease Electronically Signed by: Electronically signed by Isai Vidales MD Last Vital Signs Date Time Temp Pulse Resp B/P (MAP) Pulse Ox O2 Delivery O2 Flow Rate FiO2 03/28/19 19:36 60 14 128/58 99 Room Air 03/28/19 17:49 98.4 Status: improved Disposition: HOME, SELF-CARE Condition: Stable Referrals: NOT CHOSEN IPA/,REFERRING (PCP) Patient Instructions: Acute Kidney Injury Isai Vidales MD Mar 28, 2019 21:04
--- NOTE | 2019-03-29 18:19 | Cardiology Report ---
APPROVED REPORT EKG Measurement Heart [id number] CT 146P48 [id number] Normal sinus rhythm Abnormal QRS-T angle, consider primary T wave abnormality Abnormal ECG
== END 2019-03-28 19:40 | disposition home or self-care (01) ==
LOC: EMR 19:02
DX: N28.9 Disorder of kidney and ureter, unspecified (principal); I25.2 Old myocardial infarction; I11.0 Hypertensive heart disease with heart failure; I50.9 Heart failure, unspecified; E11.42 Type 2 diabetes mellitus with diabetic polyneuropathy
CPT/HCPCS: 36415; 71045; 80053; 82550; 82553; 84484; 85025; 93005; 99284

== ENCOUNTER 2019-08-03 14:36 | Inpatient (IN) | payer MEDICARE, MEDICAID ==
[~2019-08-03] VITALS: Ht 157.5 cm; Wt 54.4 kg
[~2019-08-03 14:36] MED LIST changes: +GLIPIZIDE XL10 MG ORAL; +MECLIZINE HCL25 M1 ORAL
[2019-08-03 15:05] VITALS: BP 163/93
--- NOTE | 2019-08-03 15:05 | NUR ---
ED Nurse Note: Patient walked in to ER c/o elevated BP 198/101 at home. Denies any pain or SOB. As per patient she took carvedilol prior to arrival. Patient is pale and weak. Also c/o nausea and vomiting. Has history of HI. Afebrile. VSS.
--- NOTE | 2019-08-03 15:10 | NUR ---
ED Nurse Note: ERMD at bedside.
--- NOTE | 2019-08-03 15:30 | NUR ---
ED Nurse Note: IV line established. Blood specimen collected and sent to lab.
--- NOTE | 2019-08-03 15:33 | Emergency Room Report ---
History of Present Illness General Chief Complaint: Hypertension Source: Patient Present Illness HPI Patient presents with complaints of elevated blood pressure Reports that around noon her blood pressure was running in the 190 systolic range patient had contacted the nursing line and was told to present to the emergency room initially denied any headache denies any chest pain However patient reports that she has been started to feel very nauseated and vomited several times Denies any lower abdominal pain denies any fevers or chills Denies any change in medications she had taken 1 of her blood pressure medicine just after the elevated blood pressure And otherwise denies any focal weakness Allergies: Coded Allergies: No Known Allergies (Verified , 01/25/10) Patient History Past Medical History: see triage record Reviewed Nursing Documentation: PMH: Agreed; PSxH: Agreed Nursing Documentation-PMH Hx Cardiac Problems: Yes - [place], Chronic systolic heart failure, CAD Hx Hypertension: Yes - Pleural effusion Hx Diabetes: Yes - Diabetic polyneuropathy Hx Cancer: No Hx Gastrointestinal Problems: No Hx Neurological Problems: No Hx Peripheral Neuropathy: Yes Review of Systems All Other Systems: negative except mentioned in HPI Physical Exam Vital Signs Date Time Temp Pulse Resp B/P (MAP) Pulse Ox O2 Delivery O2 Flow Rate FiO2 08/03/19 14:53 97.9 85 18 163/93 (116) 98 Room Air Sp02 EP Interpretation: reviewed, normal General Appearance: mild distress - Appears initially somewhat nauseated Head: normocephalic, atraumatic Eyes: bilateral eye PERRL, bilateral eye EOMI ENT: hearing grossly normal, normal pharynx, TMs + canals normal, uvula midline Neck: full range of motion, supple, no meningismus, no bony tend Respiratory: lungs clear, normal breath sounds, no rhonchi, no respiratory distress, no retraction, no accessory muscle use Cardiovascular #1: normal peripheral pulses, regular rate, rhythm, no edema, no gallop, no JVD, no murmur Gastrointestinal: normal bowel sounds, non tender, soft, no mass, no organomegaly, non-distended, no guarding, no hernia, no pulsatile mass, no rebound Genitourinary: no CVA tenderness Musculoskeletal: normal inspection Neurologic: motor strength/tone normal, 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 nml as tested, oriented x3 , sensory intact, responsive Psychiatric: mood/affect normal Skin: no rash Lymphatic: normal inspection, no adenopathy Medical Decision Making Labs Test 08/03/19 15:28 White Blood Count 10.4 K/UL (4.8-10.8) Red Blood Count 4.35 M/UL (4.20-5.40) Hemoglobin 12.3 G/DL (12.0-16.0) Hematocrit 36.2 % (37.0-47.0) Mean Corpuscular Volume 83 FL (80-99) Mean Corpuscular Hemoglobin 28.2 PG (27.0-31.0) Mean Corpuscular Hemoglobin Concent 33.8 G/DL (32.0-36.0) Red Cell Distribution Width 11.7 % (11.6-14.8) Platelet Count 221 K/UL (150-450) Mean Platelet Volume 6.5 FL (6.5-10.1) Neutrophils (%) (Auto) 74.9 % (45.0-75.0) Lymphocytes (%) (Auto) 14.9 % (20.0-45.0) Monocytes (%) (Auto) 2.7 % (1.0-10.0) Eosinophils (%) (Auto) 5.9 % (0.0-3.0) Basophils (%) (Auto) 1.6 % (0.0-2.0) Sodium Level 140 MMOL/L (136-145) Potassium Level 3.9 MMOL/L (3.5-5.1) Chloride Level 102 MMOL/L (98-107) Carbon Dioxide Level 30 MMOL/L (21-32) Anion Gap 8 mmol/L (5-15) Blood Urea Nitrogen 33 mg/dL (7-18) Creatinine 1.1 MG/DL (0.55-1.30) Estimat Glomerular Filtration Rate 49.9 mL/min (>60) Glucose Level 243 MG/DL (74-106) Calcium Level 10.0 MG/DL (8.5-10.1) Total Bilirubin 0.5 MG/DL (0.2-1.0) Aspartate Amino Transf (AST/SGOT) 25 U/L (15-37) Alanine Aminotransferase (ALT/SGPT) 28 U/L (12-78) Alkaline Phosphatase 85 U/L (46-116) Troponin I 0.026 ng/mL (0.000-0.056) Pro-B-Type Natriuretic Peptide 2168 pg/mL (0-125) Total Protein 8.4 G/DL (6.4-8.2) Albumin 4.3 G/DL (3.4-5.0) Globulin 4.1 g/dL Albumin/Globulin Ratio 1.0 (1.0-2.7) Lipase 277 U/L (73-393) Last Vital Signs Date Time Temp Pulse Resp B/P (MAP) Pulse Ox O2 Delivery O2 Flow Rate FiO2 08/03/19 14:53 97.9 85 18 163/93 (116) 98 Room Air Prashant Ceron DO Aug 03, 2019 15:33
[2019-08-03 16:02] LABS: BASOPHILS % (AUTO) 1.6 % (0.0-2.0); EOSINOPHILS % (AUTO) 5.9 % (0.0-3.0); HEMATOCRIT 36.2 % (37.0-47.0); HEMOGLOBIN 12.3 G/DL (12.0-16.0); LYMPHOCYTES % (AUTO) 14.9 % (20.0-45.0); MEAN CORPUSCULAR VOLUME 83 FL (80-99); MONOCYTES % (AUTO) 2.7 % (1.0-10.0); NEUTROPHILS % (AUTO) 74.9 % (45.0-75.0); PLATELET COUNT 221 K/UL (150-450); RED BLOOD COUNT 4.35 M/UL (4.20-5.40); RED CELL DISTRIBUTION WIDTH 11.7 % (11.6-14.8); WHITE BLOOD COUNT 10.4 K/UL (4.8-10.8)
[2019-08-03 16:10] LABS: ANION GAP 8 mmol/L (5-15); BLOOD UREA NITROGEN 33 mg/dL (7-18); CARBON DIOXIDE 30 MMOL/L (21-32); CHLORIDE 102 MMOL/L (98-107); CREATININE 1.1 MG/DL (0.55-1.30); POTASSIUM 3.9 MMOL/L (3.5-5.1); SODIUM 140 MMOL/L (136-145)
[2019-08-03 16:15] LABS: ALANINE AMINOTRANSFERASE 28 U/L (12-78); ALBUMIN 4.3 G/DL (3.4-5.0); ALKALINE PHOSPHATASE 85 U/L (46-116); ASPARTATE AMINO TRANSFERASE 25 U/L (15-37); BILIRUBIN,TOTAL 0.5 MG/DL (0.2-1.0)
--- NOTE | 2019-08-03 16:20 | NUR ---
HAND-OFF: Report given to Marcia FIERRO.
--- NOTE | 2019-08-03 16:20 | NUR ---
ED Nurse Note: pt walked into ER from fast track with nurse for blood pressure issues. patient resting comfortably in bed. Lab results taken from previous fast track nurse showed blood glucose of 243. ERMD aware.
--- NOTE | 2019-08-03 18:27 | NUR ---
ED Nurse Note: report given to VADIM Smart
--- NOTE | 2019-08-03 18:40 | NUR ---
NURSE NOTES: Patient transferred from ER, Walked from [facility] to bed with assist. AAO x4, Able to make needs known, Patient is able to answer questions, Denies pain at this time. senior windows engineer placed, IV on right AC patent, no bleeding, no infiltration noted. Vital signs taken. Bed in low position and locked, Call light within reach. Encouraged to use call light when needed. Will continue plan of care.
[2019-08-03 18:45] VITALS: BP 155/91
--- NOTE | 2019-08-03 18:45 | NUR ---
ED Nurse Note: pt transported to telemetry unit with one RN and one airplane technician in stable condition. Cardio monitor present during transportation.
--- NOTE | 2019-08-03 18:47 | History and Physical ---
History of Present Illness General Date patient seen: Aug 03, 2019 Reason for Hospitalization: Hypertension Present Illness HPI Anisa Lei is a 63 year old female with DM, Neuropathy, hx Osteomyelitis sp amputation in 09/2018, HTN, ASHD who presented to the Er with dizziness and diaphoresis. When checked her BP at home it was 190/100. she thinks she forgot to take her bp medications. She checked her glucose and that was okay. Denies any syncope. No abdominal pain, n, v or diarrhea. Denies chest pain, sob, palpitations. she was admitted to [facility] in February 2019 for acute hypoxic respiratory failure due to systolic chf exacerbation. At that time her EKG also showed LBBB and her echo LVEF 25% with global dysfunction and apparently had a cardiac cath outpatient and was told her arteries were not blocked. 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 Says her PCP is Dr. Brantley. She is compliant with her medications Past medical and surgical history: DM, Neuropathy, hx Osteomyelitis s/p amputation in 09/2018, HTN, ASHD, systolic chf Social history: Denies etoh, never smoked cigarettes, no illicit drug use Family history: heart disease ROS: As per HPI, denies chest pain, sob, palpitations, abdominal pain, n/v/d. Reports dizziness and diaphoresis. Allergies: Coded Allergies: No Known Allergies (Verified , 01/25/10) Medication History Scheduled Aspirin* (Aspir 81*), 81 MG ORAL DAILY, (Reported) Cephalexin (Cephalexin), 500 MG ORAL FOUR TIMES A DAY Furosemide* (Lasix*), 40 MG ORAL DAILY Gabapentin* (Gabapentin*), 300 MG ORAL THREE TIMES A DAY, (Reported) Glipizide (Glipizide), 5 MG ORAL DAILY, (Reported) Lisinopril* (Zestril*), 10 MG ORAL DAILY Metformin Hcl* (Metformin Hcl*), 1,000 MG ORAL BID, (Reported) Spironolactone* (Aldactone*), 25 MG ORAL DAILY [Metoprolol Succinate XL], 25 MG ORAL DAILY Miscellaneous Medications Meclizine Hcl (Meclizine Hcl), 25 MG ORAL, (Reported) Patient History Healthcare decision maker Resuscitation status Advanced Directive on File Physical Exam Physical Exam Narrative General Appearance: mild distress HEENT: normocephalic, atraumatic, PERRL, bilateral eye EOMI Neck: supple, no jvd Respiratory: lungs cta bl, no rales or wheezing Cardiovascular : normal peripheral pulses, regular rate, rhythm, no m/r/g, no edema bilaterally Gastrointestinal: normal bowel sounds, non tender, soft, no mass, no organomegaly, non-distended, no guarding, no hernia, no pulsatile mass, no rebound Musculoskeletal: normal inspection Neurologic: motor strength/tone normal, multilith operator III-XII nml as tested, oriented x3 , sensory intact, responsive Skin: no rash or ulcers Psychiatric: normal affect, pleasant Last 24 Hour Vital Signs Date Time Temp Pulse Resp B/P (MAP) Pulse Ox O2 Delivery O2 Flow Rate FiO2 08/03/19 15:05 85 18 Room Air 08/03/19 15:05 97.9 85 18 163/93 98 Room Air 08/03/19 14:53 97.9 85 18 163/93 (116) 98 Room Air Laboratory Tests Test 08/03/19 15:28 White Blood Count 10.4 K/UL (4.8-10.8) Red Blood Count 4.35 M/UL (4.20-5.40) Hemoglobin 12.3 G/DL (12.0-16.0) Hematocrit 36.2 % (37.0-47.0) L Mean Corpuscular Volume 83 FL (80-99) Mean Corpuscular Hemoglobin 28.2 PG (27.0-31.0) Mean Corpuscular Hemoglobin Concent 33.8 G/DL (32.0-36.0) Red Cell Distribution Width 11.7 % (11.6-14.8) Platelet Count 221 K/UL (150-450) Mean Platelet Volume 6.5 FL (6.5-10.1) Neutrophils (%) (Auto) 74.9 % (45.0-75.0) Lymphocytes (%) (Auto) 14.9 % (20.0-45.0) L Monocytes (%) (Auto) 2.7 % (1.0-10.0) Eosinophils (%) (Auto) 5.9 % (0.0-3.0) H Basophils (%) (Auto) 1.6 % (0.0-2.0) Sodium Level 140 MMOL/L (136-145) Potassium Level 3.9 MMOL/L (3.5-5.1) Chloride Level 102 MMOL/L (98-107) Carbon Dioxide Level 30 MMOL/L (21-32) Anion Gap 8 mmol/L (5-15) Blood Urea Nitrogen 33 mg/dL (7-18) H Creatinine 1.1 MG/DL (0.55-1.30) Estimat Glomerular Filtration Rate 49.9 mL/min (>60) Glucose Level 243 MG/DL (74-106) H Calcium Level 10.0 MG/DL (8.5-10.1) Total Bilirubin 0.5 MG/DL (0.2-1.0) Aspartate Amino Transf (AST/SGOT) 25 U/L (15-37) Alanine Aminotransferase (ALT/SGPT) 28 U/L (12-78) Alkaline Phosphatase 85 U/L (46-116) Troponin I 0.026 ng/mL (0.000-0.056) Total Protein 8.4 G/DL (6.4-8.2) H Albumin 4.3 G/DL (3.4-5.0) Globulin 4.1 g/dL Albumin/Globulin Ratio 1.0 (1.0-2.7) Lipase 277 U/L (73-393) Height (Feet): 5 Height (Inches): 2.00 Weight (Pounds): 120 Objective Narrative EKG strip personally read by me: NSR @ 80 bpm, LBBB, QTc 486, when compared to EKG from 03/28/2019 LBBB is new CXR: as read by radiology: No acute process Assessment/Plan Problem List: (1) Systolic CHF, acute on chronic ICD Codes: I50.23 - Acute on chronic systolic (congestive) heart failure SNOMED: 666026555, 864434711 (2) Hypertensive urgency ICD Codes: I16.0 - Hypertensive urgency SNOMED: 033899039 (3) LBBB (left bundle branch block) ICD Codes: I44.7 - Left bundle-branch block, unspecified SNOMED: 93513473 (4) Diabetes mellitus type 2 with neurological manifestations ICD Codes: E11.49 - Type 2 diabetes mellitus with other diabetic neurological complication SNOMED: 99707592, 573028320 Status: stable Assessment/Plan: 63 year old pleasant lady with what seems like non ischemic cardiomyopathy (I don't have access to outside records at this time) presented with high blood pressure, dizziness and diaphoresis from home. #Acute on chronic systolic chf exacerbation- mild exacerbation (previous EF 25%) -Admit to telemetry -follow up pro-bnp -repeat echo -trend troponin -cardiology consult Dr. Parker -Strict I's and O's, keep k>4, Mg>2 -IV lasix 20 mg BID, can probably switch to PO shortly continue home Metoprolol, ASA, lisinopril -will obtain outside records -LBBB is old, however will be seen by cardiology #Hypertensive urgency #DM II with neuropathy- most recently controlled Hold oral meds, metformin and glipizide Insulin sliding scale as needed Gabapentin check HbA1c vte ppx:ambulatory GI ppx: not indicated Diet: consistent carbs Code status: full code I spent 70 minutes on this encounter, >50% spent on counselling and care coordination. i spent an additional 35 minutes in reviewing previous records, hospitalization and financial operations consultant findings. Plan of care d/w patient, RN and ED attending Justin Remy M.D. Aug 03, 2019 18:47
[2019-08-03] MEDS ORDERED: Nitroglycerin Subl 0.4mg tab SL PRN (19:00)
[2019-08-03] MEDS ORDERED: Albuterol/Ipratropium 3ml neb HHN PRN (19:00)
--- NOTE | 2019-08-03 19:49 | NUR ---
HAND-OFF: Report given to Radha/RN, Patient is in stable condition. Endorsed plan of care.
--- NOTE | 2019-08-03 19:50 | NUR ---
NURSE NOTES: AAO x4, Able to make needs known, Denies pain at this time. quality assurance monitor chassis on, IV on right 20 g AC patent, asymptomatic. Bed in low position and locked, Call light within reach. Encouraged to use call light when needed such as when she needs to go to bathroom, has bedside commode at bedside but prefers to ambulate to bathroom with cane and staff assist. Will continue plan of care.
[2019-08-03 20:00] VITALS: BP 134/66
[2019-08-03] MEDS: Heparin 5000 units/ml inj SUBQ SCH (21:17)
[2019-08-03] MEDS: NovoLOG Insulin Flexpen SUBQ SCH (21:22)
[2019-08-04] VITALS: BP 103/57
[2019-08-04 04:00] VITALS: BP 108/60
[2019-08-04] MEDS: NovoLOG Insulin Flexpen SUBQ SCH ×3 (06:30→17:18)
--- NOTE | 2019-08-04 07:27 | NUR ---
HAND-OFF: Report given to VADIM Edge.
--- NOTE | 2019-08-04 07:30 | NUR ---
NURSE NOTES: Received report from Radha/RN, Patient is awake and alert, AAO x4, sitting up on bed. Breathing even and unlabored, On room air, no acute distress/SOB noted. Denies pain at this time. IV on right AC patent, no bleeding or infiltration noted. Bed in low position and locked, Bed alarm engaged. Side-rails up x2. Call light within reach, Encourage to use call light when needed. Will continue plan of care.
[2019-08-04 08:00] VITALS: BP 116/54
--- NOTE | 2019-08-04 08:25 | Diagnostic Imaging Report ---
Indication: Chest pain Technique: XRAY Chest 1v Comparison: 03/28/2019 Findings: Heart size and mediastinal contours are within normal limits for AP technique. There is no focal airspace consolidation, pneumothorax or pleural effusion. Osseous structures demonstrate no acute abnormality. Impression: No radiographic evidence of acute cardiopulmonary disease.
[2019-08-04] MEDS: Heparin 5000 units/ml inj SUBQ SCH (08:45)
[2019-08-04] MEDS ORDERED: Furosemide 40mg tab ORAL SCH (09:00)
[2019-08-04] MEDS ORDERED: Aspirin EC 81mg tab ORAL SCH (09:00)
[2019-08-04 12:00] VITALS: BP 109/58
[2019-08-04] MEDS ORDERED: Lisinopril 20mg tab ORAL SCH (14:00)
--- NOTE | 2019-08-04 14:23 | NUR ---
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 97.8 HR 85 RR 18 B/P 163/93 BUN 33 BNP 2168 CXR= NEGATIVE IS: IV BOLUS NS 500ML ZOFRAN IV ADMITTED TO TELE TELE STATUS DCP RETURN HOME
[2019-08-04] MEDS ORDERED: Metoprolol Succinate XL 50mg tab ORAL SCH (14:30)
--- NOTE | 2019-08-04 14:48 | Cardiology Report ---
APPROVED REPORT EXAM: Two-dimensional and M-mode echocardiogram with Doppler and color Doppler. INDICATION Heart Failure M-Mode DIMENSIONS IVSd1.2 (0.7-1.1cm)Left Atrium (MM)4.0 (1.6-4.0cm) LVDd4.7 (3.5-5.6cm)Aortic Root2.8 (2.0-3.7cm) PWd1.1 (0.7-1.1cm)Aortic Cusp Exc.1.5 (1.5-2.0cm) LVDs3.8 (2.5-4.0cm) PWs1.6 cm Technically difficult study due to poor acoustical windows. Normal left ventricular chamber size. Global left ventricular hypokinesis with abnormal septal and apical wall motion. Left ventricular ejection fraction estimated to be 25-30 %. Study quality precludes accurate assessment of regional wall motion. No evidence of left ventricular hypertrophy. No evidence of pericardial effusion. All other cardiac chamber sizes are within normal limits. Focal aortic valve sclerosis with borderline cusp excursion. Thickened mitral valve leaflets with normal excursion. Mitral annulus and aortic root calcification. Pulmonic valve not well visualized. Normal tricuspid valve structure. IVC at normal size with physiologic collapse. A color flow and spectral Doppler study was performed and revealed: Peak aortic valve gradient of 8mm Hg and a mean of 4 mmHg. PG may be under-estimated due to low systolic function. Mild mitral regurgitation. Mitral diastolic velocities suggest reduced left ventricular relaxation c/w mild LV diastolic dysfunction (Grade I ). Trace tricuspid regurgitation. Tricuspid systolic velocities suggests peak right ventricular systolic pressure of 8 mmHg. Pulmonic regurgitation present.
[2019-08-04 15:04] VITALS: BP 104/49
--- NOTE | 2019-08-04 17:49 | Cardiac Electrophysiology PN ---
Subjective Subjective [id number] Reviewed records at [facility]. Severe primarily nonischemic CMP based on Cath at [facility] in 03/2019 Already on GDMT since 02/2019 EF still 25-30% Was offered Life Vest at [facility] and [place]ie even in 02/2019 In view of LBBB would benefit from BIVICD Will see in office and schedule for BIVICD as out patient DW Dr Remy Objective Last 24 Hour Vital Signs Date Time Temp Pulse Resp B/P (MAP) Pulse Ox O2 Delivery O2 Flow Rate FiO2 08/04/19 16:00 63 08/04/19 15:04 64 104/49 (67) 08/04/19 15:02 64 104/49 08/04/19 15:00 104/49 08/04/19 12:00 66 08/04/19 12:00 98.2 71 18 109/58 (75) 96 08/04/19 09:00 Room Air 08/04/19 08:00 63 08/04/19 08:00 98.1 65 16 116/54 (74) 98 08/04/19 04:00 68 08/04/19 04:00 98.0 70 16 108/60 (76) 99 08/04/19 00:00 62 08/04/19 00:00 98.1 70 16 103/57 (72) 97 08/03/19 23:27 Room Air 08/03/19 20:00 98.5 70 16 134/66 (88) 98 08/03/19 20:00 75 08/03/19 18:45 98.2 82 18 155/91 (112) 98 08/03/19 18:45 98.4 80 18 149/88 98 Room Air Intake and Output 08/03/19 08/04/19 18:59 06:59 Intake Total 500 ml Balance 500 ml Intake IV Total 500 ml # Voids 1 Laboratory Tests Test 08/04/19 07:24 Hemoglobin A1c 6.4 % (4.3-6.0) Wicho Howard MD Aug 04, 2019 17:49
--- NOTE | 2019-08-04 18:00 | Discharge Summary ---
Discharge Summary Hospital Course Date of Admission Aug 03, 2019 at 16:56 Date of Discharge Aug 04, 2019 Admitting Diagnosis acs,new onset LBBB,hypertensive urgency HPI Anisa Lei is a 63 year old female who was admitted on Aug 03, 2019 at 16:56 for Acute Coronary Syndrome,Left Bundle Branch Block Consultations Cardiology :Dr. Parker Procedures Echocardiogram Hospital Course 63 year old pleasant lady with Hypertension, DM II with neuropathy and osteomyelitis s/p amputation, Severe nonischemic dilated cardiomyopathy, Noncritical coronary artery disease based on cardiac catheterization in March of 2019 at [facility] presented with high blood pressure, dizziness and diaphoresis from home. #Acute on chronic systolic chf exacerbation- mild exacerbation (previous EF 25%) #Hypertensive urgency -Admit to telemetry -follow up pro-bnp -repeat echo shows persistent low EF around 25-30% -trend troponin -cardiology consult Dr. Parker -Strict I's and O's, keep k>4, Mg>2 -IV lasix 20 mg BID, switched to PO shortly continue home Metoprolol, ASA, lisinopril -LBBB is old, however will be seen by cardiology, if echo shows persistent low EF despite optimal medical therapy for >4 months needs a defibrillator. Seen by cardiology: Reviewed records at [facility]. Severe primarily nonischemic CMP based on Cath at [facility] in 03/2019 Already on GDMT since 02/2019 EF still 25-30% Was offered Life Vest at [facility] and [place]ar even in 02/2019 In view of LBBB would benefit from BIVICD Will be seen in Dr. Parker's office and schedule for BIVICD as outpatient #DM II with neuropathy- most recently controlled Held oral meds, metformin and glipizide Insulin sliding scale as needed Gabapentin check HbA1c vte ppx:ambulatory GI ppx: not indicated Diet: consistent carbs Code status: full code I spent 35 minutes on this encounter, >50% spent on counselling and care coordination. Plan of care d/w patient, RN and cardiology Discharge Medications Continued Medications: Aspirin* (Aspir 81*) 81 Mg Tablet. 81 MG ORAL DAILY, TAB Furosemide* (Lasix*) 40 Mg Tablet 40 MG ORAL DAILY for 30 Days, #30 TAB Gabapentin* (Gabapentin*) 300 Mg Capsule 300 MG ORAL THREE TIMES A DAY, CAP 0 Refills Glipizide (Glipizide) 10 Mg Tablet 5 MG ORAL DAILY, #30 TAB 0 Refills (This prescription has been renewed) Lisinopril* (Zestril*) 10 Mg Tablet 10 MG ORAL DAILY for 30 Days, #30 TAB Metformin Hcl* (Metformin Hcl*) 1,000 Mg Tablet 1000 MG ORAL BID, TAB [Metoprolol Succinate XL] () 25 MG TABCR 25 MG ORAL DAILY for 30 Days, #30 Discontinued Medications: Cephalexin (Cephalexin) 500 Mg Tablet 500 MG ORAL FOUR TIMES A DAY for 3 Days, #12 TAB Meclizine Hcl (Meclizine Hcl) 25 Mg Tab.chew 25 MG ORAL, TAB Spironolactone* (Aldactone*) 25 Mg Tablet 25 MG ORAL DAILY for 30 Days, #30 TAB Discharge Condition Upon Discharge: stable Discharge Disposition Patient was discharged to home Discharge Diagnoses: (1) Non-ischemic cardiomyopathy (2) Systolic CHF, acute on chronic (3) Hypertensive urgency (4) LBBB (left bundle branch block) (5) Diabetes mellitus type 2 with neurological manifestations Justin Remy M.D. Aug 04, 2019 18:00
--- NOTE | 2019-08-04 19:22 | NUR ---
HAND-OFF: Report given to Zoe/RN, Patient is sitting on chair, in stable condition, waiting to be discharge . Endorsed plan of care.
--- NOTE | 2019-08-04 20:08 | NUR ---
NURSE NOTES: Received report from VADIM Edge. Patient is alert and awake. Breathing regular and unlabored with no s/s of SOB noted. Patient denies any chest pain or discomfort at this time. Morning RN endorsed to this RN that patient is being discharged per doctor's orders. All the paperwork was completed by the morning RN. This RN provided discharge paperwork to the patient and explained all the paperwork per the doctor's orders. Patient verbalized understanding of the discharge planning. Removed the patient's IV and quality assurance monitor body. Reviewed all the belongings list with the patient. 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 Assisted the patient downstairs where the daughter picked her up. Patient left the facility at 2004 with no incident.
--- NOTE | 2019-08-05 01:15 | Consultation ---
DATE OF CONSULTATION: 08/04/2019 CARDIAC ELECTROPHYSIOLOGY CONSULTATION CONSULTING PHYSICIAN: Wicho Parker M.D. REFERRING PHYSICIANS: 1. Kami Fatima M.D. 2. Justin Remy M.D. REASON FOR CONSULTATION: Consideration for defibrillator implantation in the patient with severe cardiomyopathy more than 4 months despite optimized medical therapy. HISTORY OF PRESENT ILLNESS: The patient is a very pleasant 63-year-old lady with history of severe nonischemic dilated cardiomyopathy that was diagnosed in February of 2019. At that time, echocardiogram showed ejection fraction of only 25%. Subsequently, the patient underwent cardiac catheterization in March of 2019 at [facility] that showed only an 80% diagonal stenosis in only 2 mm vessel. Decision was made to treat the patient medically and proceed with defibrillator implantation if ejection fraction does not improve despite 3 months of optimized medical therapy. The patient actually underwent an echocardiogram also in June of 2019 at [facility] that showed ejection fraction of still 25 to 30%. The patient presented to the emergency room with diaphoresis and dizziness and blood pressure at home was 190/100. She felt that she has forgotten to take her blood pressure medication. The patient also has chronic left bundle-branch block on the electrocardiogram. REVIEW OF SYSTEMS: Review of systems was negative other than what was mentioned in the history of present illness. PAST MEDICAL HISTORY: 1. Hypertension. 2. Severe nonischemic dilated cardiomyopathy. 3. Noncritical coronary artery disease based on cardiac catheterization in March of 2019 at [facility]. 4. Osteomyelitis status post amputation in September 2018. MEDICATION AT HOME: Include Lasix, lisinopril, Aldactone, and Toprol in addition to metformin, gabapentin, and aspirin. FAMILY HISTORY: Noncontributory. PHYSICAL EXAMINATION: VITAL SIGNS: Show blood pressure of 104/49, pulse 64, respirations 18, and she is afebrile. HEAD AND NECK: Shows no JVD or carotid bruits. LUNGS: Clear. CARDIOVASCULAR: Shows regular S1 and S2 with no gallop or murmur. ABDOMEN: Soft. EXTREMITIES: Trace pitting edema. LABORATORY AND DIAGNOSTIC DATA: Her 12-lead EKG shows sinus rhythm with complete left bundle-branch block. Labs show white count of 10.4, hemoglobin of 12.7, hematocrit of 36.2, and platelet count is 221,000. Sodium is 140, potassium 3.9, BUN of 32, creatinine 1.1, and glucose of 243. Troponin negative x2. BNP 22,168. Her repeat echocardiogram at [facility] today also showed ejection fraction of still 25 to 30 percent. ASSESSMENT AND PLAN: 1. Severe predominantly nonischemic dilated cardiomyopathy with ejection fraction of 25 to 30 percent despite optimized medical therapy for more than 4 months. The patient was offered to have a LifeVest at [facility] as well as on the previous admission in February here at [facility] that for some reason it was not done. The patient clearly would benefit from prophylactic defibrillator implantation at this time as ejection fraction remains less than 35%. We will start optimize medical therapy. In view of the patient's underlying complete left bundle-branch block with QRS duration of 140 milliseconds, the patient would benefit from biventricular pacing with cardiac resynchronization therapy. This would be scheduled accordingly. 2. Severe nonischemic dilated cardiomyopathy. Continue Toprol 25 mg daily, lisinopril 10 mg daily, and Lasix 20 mg IV b.i.d. We will resume lisinopril and discontinue hydrochlorothiazide. 3. Diabetes. 4. Hypertension. 5. Peripheral vascular disease status post toe amputation. Thank you very much, Dr. Remy, for allowing me to participate in the care of this patient. Please do not hesitate to contact me for any questions regarding my evaluation. The patient's records at [facility] was reviewed and case was discussed in detail with Dr. Remy. Wicho Parker M.D. DR: SOCORRO JOB#: [id number] CC:
[2019-08-05] MEDS ORDERED: Lisinopril 20mg tab ORAL SCH (09:00)
[2019-08-05] MEDS ORDERED: Metoprolol Succinate XL 50mg tab ORAL SCH (09:00)
--- NOTE | 2019-08-05 13:53 | Cardiology Report ---
APPROVED REPORT EKG Measurement Heart [id number] Normal sinus rhythm Left bundle branch block Abnormal ECG
== END 2019-08-04 20:11 | disposition home or self-care (01) | DRG 304 ==
LOC: EMR 16:18 → 2E 16:56 → EDBEDREQ 18:24
DX: I16.0 Hypertensive urgency (principal); I50.23 Acute on chronic systolic (congestive) heart failure; I42.8 Other cardiomyopathies; I11.0 Hypertensive heart disease with heart failure; I44.7 Left bundle-branch block, unspecified; E11.40 Type 2 diabetes mellitus with diabetic neuropathy, unspecified; I25.10 Atherosclerotic heart disease of native coronary artery without angina pectoris; E11.49 Type 2 diabetes mellitus with other diabetic neurological complication; Z95.810 Presence of automatic (implantable) cardiac defibrillator; I73.9 Peripheral vascular disease, unspecified; Z89.429 Acquired absence of other toe(s), unspecified side; Z79.84 Long term (current) use of oral hypoglycemic drugs; Z79.82 Long term (current) use of aspirin
CPT/HCPCS: 36415; 71045; 80053; 82962; 83036; 83690; 83880; 84484; 85025; 93005; 93306; 96374; 99285; J1815; J2405